=== PATIENT | male | born 1935 | race Caucasian/White ===

== ENCOUNTER 2017-10-29 01:08 | Emergency (ER) | payer OTHER, BC ==
--- OUTSIDE RECORDS SUMMARY | 2017-10-29 01:09 | XMS REPORT | Clinical Summary ---
:1935 Author Organization [facility] Address [address] [place] [address] Care Team Providers Name Role Phone Remy Phoenix DO Primary Care Provider Allergies No Known Allergies Current Medications Prescription Sig. Disp. Refills Start Date End Date Status tamsulosin (FLOMAX) Take 0.4 mg by Active 0.4 mg mouth nightly. capsule,extended release 24hr aspirin (ECOTRIN) Take 81 mg by Active 81 MG enteric mouth daily. coated tablet CALCIUM Take by mouth. Active CARBONATE/VITAMIN D3 (CALTRATE 600 + D ORAL) umeclidinium-vilant Inhale nightly. Active xin (ANORO ELLIPTA) 62.5-25 mcg/actuation blister with device acetaminophen-codei Take 1 tablet by Active ne (TYLENOL WITH mouth every 4 CODEINE #3) 300-30 (four) hours as mg per tablet needed for moderate pain. albuterol (ACCUNEB) Take 2.5 mg by Active 2.5 mg /3 mL (0.083 nebulization as %) nebulizer needed for solution wheezing. ALBUTEROL SULFATE Inhale as needed. 08/20/2017 Discontinued (VENTOLIN HFA INHL) ciprofloxacin HCl Take 250 mg by 04/23/2017 Discontinued (CIPRO) 250 MG mouth 2 (two) tablet times a day. Active Problems Not on file Encounters Date Type Specialty Care Team Description 08/20/2017 Hospital Encounter Procedural Nacho Garduno, Abnormal Cardiology cardiovascular stress test 08/20/2017 Procedure Pass Procedural Cardiology 08/20/2017 Surgery Procedural Nacho Garduno, Cv left heart cath w Cardiology lv gram cors [57431 (CPT)] 04/23/2017 Hospital Encounter Urology Farshad Ames MD 04/23/2017 Procedure Pass Urology 04/23/2017 Surgery Urology Hui, CYSTO BILATERAL Farshad Lopez MD RETROGRADE PYELOGRAM 04/10/2017 Pre-Admit Testing Pre-Admission Hui Preop testing Appointment Testing Farshad Lopez MD (Primary Dx) 04/10/2017 Anesthesia Event Urology Ricardo Marybelalcides Garner, WATER PROOFER after 10/28/2016 Family History Medical History Relation Name Comments Heart disease Brother Heart attack Son Heart disease Son Relation Name Status Comments Brother Son Social History Tobacco Use Types Packs/Day Years Used Date Current Every Day Smoker Cigarettes 1 70 Smokeless Tobacco: Never Used Tobacco Cessation: Ready to Quit: No Alcohol Use Drinks/Week oz/Week Comments No Sex Assigned at Date Recorded Not on file Last Filed Vital Signs Vital Sign Reading Time Taken Blood Pressure 121/66 08/20/2017 8:00 PM [facility] Pulse 98 08/20/2017 7:30 PM [facility] Temperature 36 C (96.8 F) 08/20/2017 1:03 PM [facility] Respiratory Rate 20 08/20/2017 7:30 PM [facility] Oxygen Saturation 97% 08/20/2017 7:30 PM [facility] Inhaled Oxygen Concentration - - Weight 55.8 kg (123 lb) 08/20/2017 9:00 AM [facility] Height 180.3 cm (5' 11") 08/20/2017 9:00 AM [facility] Body Mass Index 17.16 08/20/2017 9:00 AM [facility] Plan of Treatment Health Maintenance Due Date Last Done Comments ZOSTER VACCINE 1997 PNEUMOCOCCAL POLYSACCHARIDE VACCINE AGE 65 AND OVER 2002 PNEUMOCOCCAL-13 2002 INFLUENZA VACCINE 02/12/2018 Implants Implanted Type 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 Device Expiration Model / Identifier Date Serial / Lot Catheter Uretl 4.8fr 8fr 70cm Cn-Tp W/ Opn-End - [id number] Surgical N/A: N/A [employer] UROLOGICAL [id number] / Implanted: 04/23/2017 (Quantity not on file) Implants; / Expanders; Extenders; Surgical Wires Catheter Uretl 6/10fr 50cm Flx-Tp Dlmn Std Accs - [id number] Surgical N/A: N/ A [employer] UROLOGICAL [id number] / Implanted: 04/23/2017 (Quantity not on file) Implants; / Expanders; Extenders; Surgical Wires Catheter Uretl 6fr 70cm Opn-End Rtrgd Pyelogram - [id number] Urological N/A: N /A [employer] UROLOGICAL [id number] / Implanted: 04/23/2017 (Quantity not on file) Implants or / Sets Procedures Procedure Name Priority Date/Time Associated Diagnosis Comments CV LEFT HEART CATH Routine 08/20/2017 12:43 Abnormal Results for this LV GRAM WITH CORS PM [facility] cardiovascular stress procedure are in test the results section. [place] AN ELECTIVE Routine 04/23/2017 8:05 SUPRAGLOTTIC AIRWAY AM CDT Procedure Note - Humberto Morejon CRNA - 04/23/2017 8:03 AM CDT Airway Date/Time: 04/23/2017 7:24 AM Performed by: HUMBERTO MOREJON Authorized by: HUMBERTO MOREJON Location: OR Urgency: Elective Difficult Airway: No Resident/TACTICAL DEBRIEFER OFFICER: HUMBERTO MOREJON Preoxygenated with 100% O2: Yes Mask Ventilation: Easy mask Final Airway Type: Supraglottic airway Final LMA: I-Gel LMA Size: 5 Number of Attempts at Approach: 1 Pt preoxygenated for 3 min with 100% O2 via mask. Easy mask ventilation. igel #5 LMA inserted by SRNA- placement confirmed by ETCO2. Atraumatic CYSTO BILATERAL RETROGRADE PYELOGRAM 04/23/2017 7:15 AM CDT HEMATURIA R31.0 Case Notes REQ 0715 START (@1320 ROSA REQ 0715 START 04/12/17) Special Needs REQ 0715 START, EST 1HR after 10/28/2016 Results XR Chest 1 Vw Portable (08/20/2017 2:38 PM) Specimen Performing Laboratory [facility] [address] [place] [address] Narrative EXAMINATION:XR CHEST 1 VW PORTABLE CLINICAL HISTORY:COPD Emphysema COMPARISON:11/24/2013 IMPRESSION: Heart and mediastinum are stable. Lungs appear hyperinflated. Mild perihilar reticular opacities and left perihilar patchy opacities are seen. No definite consolidations noted. [facility]-[id number] Procedure Note Interface, Radiology Results Incoming - 08/20/2017 3:00 PM [facility] EXAMINATION: XR CHEST 1 VW PORTABLE CLINICAL HISTORY: COPD Emphysema COMPARISON: 11/24/2013 IMPRESSION: Heart and mediastinum are stable. Lungs appear hyperinflated. Mild perihilar reticular opacities and left perihilar patchy opacities are seen. No definite consolidations noted. [facility]-[id number] Cv invasive peripheral vascular procedure (08/20/2017 12:43 PM) Specimen Performing Laboratory [facility] [address] [place] [address] Narrative Abnormal nst procedure : slective cor,lva ,lhc, bypas graft=visualization medical rx optimization f/u in 6 weeks office Cv laboratory assistant procedure (08/20/2017 12:43 PM) Specimen Performing Laboratory [facility] [address] [place] [address] Narrative Abnormal nst procedure : slective cor,lva ,lhc, bypas graft=visualization medical rx optimization f/u in 6 weeks office ECG Pre/Post Op (08/20/2017 10:46 AM)Only the most recent of2 resultswithin the time period is included. Component Value Ref Range Ventricular rate 71 Atrial rate 71 AZ interval 138 QRSD interval 100 QT interval 382 QTC interval 415 P axis 1 83 QRS axis 1 95 T wave axis 51 EKG impression Normal sinus rhythm-Possible Left atrial enlargement-Rightward axis-Pulmonary disease pattern-Cannot rule out Inferior infarct , age undetermined-Abnormal ECG-In automated comparison with ECG of 10-APR-2017 13:21, -No significant change was found- :02 AM Specimen Performing Laboratory [facility] MUSE [address] [place] [address] FL Pyelogram Retrograde (04/23/2017 8:17 AM) Specimen Performing Laboratory [facility] [address] [place] [address] Narrative EXAMINATION:FL PYELOGRAM RETROGRADE CLINICAL HISTORY: COMPARISON:None. FINDINGS: The right ureter was cannulated and opacified and appears unremarkable. No filling defects are noted. The collecting system on the right appears unremarkable to the limits of visualization no filling defects or mass effects are identified. The left ureter was cannulated and opacified and demonstrates mild fullness which is probably result of injection artifact. The collecting system of the left kidney is not defined in the renal calyces are not visualized. Clinical correlation is needed intrarenal mass is not excluded. There are small did opacities projecting in the bladderwhich could represent small diverticula although this is not definitive. IMPRESSION: 1. Nonfilling of the calyceal system on the left. A mass lesion involving the left renal pelvis is not excluded. 2. Minimal fullness in the left ureter probably related to injection artifact. [id number] Procedure Note [facility], Radiology Results Incoming - 04/23/2017 8:36 AM CDT EXAMINATION: FL PYELOGRAM RETROGRADE CLINICAL HISTORY: COMPARISON: None. FINDINGS: The right ureter was cannulated and opacified and appears unremarkable. No filling defects are noted. The collecting system on the right appears unremarkable to the limits of visualization no filling defects or mass effects are identified. The left ureter was cannulated and opacified and demonstrates mild fullness which is probably result of injection artifact. The collecting system of the left kidney is not defined in the renal calyces are not visualized. Clinical correlation is needed intrarenal mass is not excluded. There are small did opacities projecting in the bladder which could represent small diverticula although this is not definitive. IMPRESSION: 1. Nonfilling of the calyceal system on the left. A mass lesion involving the left renal pelvis is not excluded. 2. Minimal fullness in the left ureter probably related to injection artifact. [id number] Cytology (non-gynecological) request (04/23/2017 8:08 AM)Only the most recent of2 resultswithin the time period is included. Component Value Ref Range Cytology (non-gynecological) report See link below for PDF Lab Report Specimen Performing Laboratory [facility] DEPARTMENT OF PATHOLOGY AND GENOMIC MEDICINE [address] [place] [id number] Estimated GFR (04/23/2017 6:23 AM) Component Value Ref Range GFR Non Af Amer 34 (A) mL/min/1.73 m2 GFR Af Amer 42 (A) mL/min/1.73 m2 Comment: Chronic kidney disease: <60 mL/min/1.73m2 Kidney failure: <15 mL/min/1.73m2 The estimated GFR is calculated from the IDMS-traceable Modification of Diet in Renal Disease Equation. The accuracy of the calculation is poor when the creatinine is normal. Calculated values >90 mL/min/1.73m2 are not reported. This equation has not been validated in children (<18 years), women, the elderly (>70 years), or ethnic groups other than Caucasians and Americans. Specimen Performing Laboratory Blood [facility] DEPARTMENT OF PATHOLOGY AND GENOMIC MEDICINE [address] [place] [address] I-Stat chemistry panel (04/23/2017 6:23 AM) Component Value Ref Range POC sodium 135Comment: Testing performed on the ISTAT instrument 135 - 148 mEq/L by [employer] [id number] POC potassium 4.6 3.5 - 5.0 mEq/L POC chloride 108 99 - 109 mEq/L POC CO2 23 (L) 24 - 31 mEq/L POC glucose 94 65 - 99 mg/dL POC BUN 38 (H) 8 - 24 mg/dL POC creatinine 1.9 (H) 0.7 - 1.2 mg/dl POC hematocrit 45 41 - 51 % Specimen Performing Laboratory Blood [facility] PATH[facility] [address] [address] Estimated GFR (04/10/2017 1:03 PM) Component Value Ref Range GFR Non Af Amer 29 (A) mL/min/1.73 m2 GFR Af Amer 35 (A) mL/min/1.73 m2 Comment: Chronic kidney disease: <60 mL/min/1.73m2 Kidney failure: <15 mL/min/1.73m2 The estimated GFR is calculated from the IDMS-traceable Modification of Diet in Renal Disease Equation. The accuracy of the calculation is poor when the creatinine is normal. Calculated values >90 mL/min/1.73m2 are not reported. This equation has not been validated in children (<18 years), women, the elderly (>70 years), or ethnic groups other than Caucasians and Americans. Specimen Performing Laboratory Plasma specimen [facility] DEPARTMENT OF PATHOLOGY AND [address] [address] Partial thromboplastin time, activated (04/10/2017 1:03 PM) Component Value Ref Range PTT 34.9 23.0 - 36.0 sec Comment: PTT therapeutic range for unfractionated heparin is 61.0-112.0 seconds which corresponds to Anti-Xa 0.3-0.7 U/ml. Specimen Performing Laboratory Blood [facility] DEPARTMENT OF PATHOLOGY AND [facility] [address] [place] [id number] Prothrombin time with INR (04/10/2017 1:03 PM) Component Value Ref Range Prothrombin time 13.2 12.0 - 15.0 sec INR 1.0 Comment: The International Normalized Ratio (INR) is a therapeutic monitoring tool for patients who are stable on oral anticoagulant therapy. An INR of 2.0-3.0 is suggested for deep vein thrombosis/pulmonary embolism. Specimen Performing Laboratory Blood [facility] DEPARTMENT OF PATHOLOGY AND [facility] [address] [place] [address] CBC with platelet and differential (04/10/2017 1:03 PM) Component Value Ref Range WBC 12.81 (H) 4.50 - 11.00 k/uL RBC 4.89 4.40 - 6.00 m/uL HGB 14.9 14.0 - 18.0 g/dL HCT 46.7 41.0 - 51.0 % MCV 95.5 82.0 - 100.0 fL MCH 30.5 27.0 - 34.0 pg MCHC 31.9 31.0 - 37.0 g/dL RDW - SD 45.6 37.0 - 55.0 fL MPV 9.5 8.8 - 13.2 fL Platelet count 255 150 - 400 k/uL Nucleated RBC 0.00 /100 WBC Neutrophils 84.4 (H) 39.0 - 69.0 % Lymphocytes 6.1 (L) 25.0 - 45.0 % Monocytes 7.9 0.0 - 10.0 % Eosinophils 0.9 0.0 - 5.0 % Basophils 0.5 0.0 - 1.0 % Immature granulocytes 0.2Comment: "Immature granulocytes" 0.0 - 1.0 % (promyelocytes, myelocytes, metamyelocytes) Specimen Performing Laboratory Blood [facility] DEPARTMENT OF PATHOLOGY AND [address] [address] Comprehensive metabolic panel (04/10/2017 1:03 PM) Component Value Ref Range Sodium 139 135 - 148 mEq/L Potassium 5.1 (H) 3.5 - 5.0 mEq/L Chloride 100 98 - 112 mEq/L CO2 22 (L) 24 - 31 mEq/L Anion gap 17 (H) 7 - 15 mEq/L Comment: Starting from October , anion gap calculation no longer incorporates potassium. Please note the change. BUN 34 (H) 8 - 23 mg/dL Creatinine 2.2 (H) 0.7 - 1.2 mg/dL Glucose 93 65 - 99 mg/dL Calcium 9.8 8.8 - 10.2 mg/dL Protein 7.3 6.3 - 8.3 g/dL Comment: Mullin 4.6-7.0 g/dL 1 week 4.4-7.6 g/dL 7 months-1year5.1-7.3 g/dL 1-2 years5.6-7.5 g/dL >3 years6.0-8.0 g/dL 18-150 6.3-8.3 g/dL Albumin 3.6 3.5 - 5.0 g/dL A/G ratio 1.0 0.7 - 3.8 Alkaline phosphatase 80 40 - 129 U/L AST 14 10 - 50 U/L ALT 10 5 - 50 U/L Total bilirubin 0.6 0.0 - 1.2 mg/dL Specimen Performing Laboratory Plasma specimen [facility] DEPARTMENT OF PATHOLOGY AND GENOMIC MEDICINE [address] [place] [address] after 10/28/2016 Insurance Payer Benefit Plan / Group Subscriber ID Type Phone Address MEDICARE MEDICARE PART A AND B xxxxxxxxxx Medicare [place], [place] [employer] AND xxxxxxxxx Commercial CASUALTY CASUALTY BCBS [facility] xxxxxxxxxxxx PPO Home: [address] [phone] [place], [place] [id number]
[2017-10-29 02:04] LABS: Absolute Lymphocytes (CBC) 1.2 K/uL (0.7-4.9); Absolute Monocytes 0.6 K/uL (0.1-1.3); Absolute Neutrophil 6.6 K/uL (1.8-8.0); Lymphocytes % 12.7 % (15.3-44.8); MCH 30.6 pg (27.0-35.0); MCV 90.8 fL (80-100); MPV 7.4 fL (7.6-11.3); Monocytes % 6.8 % (3.3-12.3); RBC Red Blood Cell Count 4.29 M/uL (4.33-5.43)
[2017-10-29 02:06] LABS: Urine Appearance TURBID; Urine Bilirubin NEGATIVE (NEG); Urine Color RED; Urine Glucose NEGATIVE (NEG); Urine Specific Gravity 1.025 (1.005-1.030)
[2017-10-29 02:07] LABS: Urine Blood 3+ (NEG); Urine Protein 3+ (NEG); Urine Urobilinogen 0.2 mg/dL (0.2-1.0)
[2017-10-29 02:09] LABS: Urine Bacteria <20 /HPF (NONE SEEN); Urine Culture Reflex Order NOT NEEDED; Urine RBC TNTC /HPF (NONE SEEN)
[2017-10-29 02:10] LABS: Potassium 4.7 mEq/L (3.6-5.0)
[2017-10-29 02:16] LABS: Protime INR 0.98
[2017-10-29] MEDS ORDERED: CEFTRIAXONE/SWI 1gm 1 GM/10 ML SYR ONE (02:48)
--- NOTE | 2017-10-29 04:53 | EDPHYS ---
Physician Documentation [facility] Name: Azael Crocker Jr Age: 82 yrs Sex: Male : 1935 Arrival Date: 10/29/2017 Time: 01:10 Bed 18 Private MD: Remy Phoenix H ED Physician Wilfredo Lewis HPI: 10/29 01:41 This 82 yrs old Male presents to ER via Ambulatory with complaints of BLOOD kb IN URINE. 01:41 The patient presents with urinary symptoms, hematuria. Onset: The symptoms/episode kb began/occurred last night, at 22:15. Modifying factors: The symptoms are alleviated by nothing, the symptoms are aggravated by nothing. Associated signs and symptoms: Pertinent positives: hematuria, Pertinent negatives: abdominal pain, constipation, diarrhea, dysuria, fever, nausea, vomiting. Severity of symptoms: At their worst the symptoms were moderate, in the emergency department the symptoms are unchanged. The patient has experienced a previous episode, last year. The patient has not recently seen a physician. 01:42 Pt states he had this same thing happen a year ago. Has a urologist at [facility] (Dr bart Ames) that gave him some pills and the hematuria went away. Pt unsure of what the pills were. Denies pain, fever, difficulty urinating, dysuria and any other symptoms. 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 - Social history:: Smoking status: Patient uses tobacco products, smokes 1.5 packs per day, Patient/guardian denies using alcohol, street drugs. ROS: 01:43 Constitutional: Negative for fever, chills, and weight loss, Cardiovascular: Negative kb for chest pain, palpitations, and edema, Respiratory: Negative for shortness of breath, cough, wheezing, and pleuritic chest pain, Abdomen/GI: Negative for abdominal pain, nausea, vomiting, diarrhea, and constipation, Back: Negative for injury and pain, MS/Extremity: Negative for injury and deformity, Skin: Negative for injury, rash, and discoloration, Neuro: Negative for headache, weakness, numbness, tingling, and seizure. 01:43 : Positive for hematuria, Negative for injury or acute deformity, urinary symptoms, urinary frequency, small amounts, pelvic pain, flank pain, burning with urination, difficulty urinating, bladder incontinence, foul smelling urine, penile discharge, penile pain, testicular pain Exam: 01:43 Constitutional: This is a well developed, well nourished patient who is awake, alert, kb and in no acute distress. Head/Face: Normocephalic, atraumatic. Chest/axilla: Normal chest wall appearance and motion. Nontender with no deformity. No lesions are appreciated. Cardiovascular: Regular rate and rhythm with a normal S1 and S2. No gallops, murmurs, or rubs. Normal PMI, no JVD. No pulse deficits. Respiratory: Lungs have equal breath sounds bilaterally, clear to auscultation and percussion. No rales, rhonchi or wheezes noted. No increased work of breathing, no retractions or nasal flaring. Abdomen/GI: Soft, non-tender, with normal bowel sounds. No distension or tympany. No guarding or rebound. No evidence of tenderness throughout. Back: No spinal tenderness. No costovertebral tenderness. Full range of motion. Skin: Warm, dry with normal turgor. Normal color with no rashes, no lesions, and no evidence of cellulitis. MS/ Extremity: Pulses equal, no cyanosis. Neurovascular intact. Full, normal range of motion. Neuro: Awake and alert, GCS 15, oriented to person, place, time, and situation. Cranial nerves II-XII grossly intact. Motor strength 5/5 in all extremities. Sensory grossly intact. Cerebellar exam normal. Normal gait. Vital Signs: 01:27 BP 152 / 82; Pulse 75; Resp 20 S; Temp 97.9(O); Pulse Ox 97% on R/A; Weight 54.88 kg bb (R); Height 5 ft. 11 in. (180.34 cm) (R); Pain 0/10; 03:00 BP 154 / 70; Pulse 66; Resp 16; Pulse Ox 97% ; bp 04:00 BP 159 / 69; Pulse 64; Resp 14; Pulse Ox 97% ; bp 04:30 BP 148 / 74 Supine; Pulse 66; bp 04:32 BP 139 / 76 Sitting; Pulse 69; bp 04:34 BP 156 / 74 Standing; Pulse 70; bp 01:27 Body Mass Index 16.88 (54.88 kg, 180.34 cm) bb MDM: 01:41 Patient medically screened. kb 01:42 Data reviewed: vital signs, nurses notes. Data interpreted: Pulse oximetry: on room air kb is 97 %. Interpretation: normal. 02:05 Patient medically screened. [facility] 10/29 01:30 Order name: Basic Metabolic Panel; Complete Time: 02:19 10/29 01:30 Order name: CBC with Diff; Complete Time: 02:19 10/29 01:30 Order name: Creatinine for Radiology; Complete Time: 02:19 10/29 01:41 Order name: PT-INR; Complete Time: 02:19 kb 10/29 01:41 Order name: Ptt, Activated; Complete Time: 02:19 kb 10/29 01:30 Order name: IV Saline Lock; Complete Time: 01:45 10/29 01:30 Order name: Labs collected and sent; Complete Time: 01:45 10/29 01:59 Order name: Urinalysis W/Microscopic; Complete Time: 02:19 EDMS 10/29 02:18 Order name: Urine Culture [facility] 10/29 02:18 Order name: CT Stone Protocol [facility] Administered Medications: 02:50 Drug: Rocephin - (cefTRIAXone) 1 grams Route: IVPB; Infused Over: 30 mins; Site: right bp forearm; 05:09 Follow up: IV Status: Completed infusion; IV Intake: 10ml bp Disposition: 02:23 Co-signature as Attending Physician, Wilfredo Lewis MD I agree with the assessment and [facility] plan of care. Disposition: 10/29/17 04:52 Discharged to Home. 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 - Condition is Stable. - Discharge Instructions: Hematuria, Adult, Kidney Failure, [id number]. - Prescriptions for Cipro 250 mg Oral Tablet - take 1 tablet by ORAL route every 12 hours; 14 tablet. Flomax 0.4 mg Oral Capsule, Sust. Release 24 hr - take 1 capsule by ORAL route once daily 1/2 hour following the same meal each day; 30 capsule. - Medication Reconciliation Form, Thank You Letter, Antibiotic Education, Prescription Opioid Use form. - Follow up: Private Physician; When: 2 - 3 days; Reason: Recheck today's complaints, Continuance of care, Re-evaluation by your physician. Follow up: Remy Phoenix DO; When: 1 - 2 days; Reason: Recheck today's complaints, Continuance of care, Re-evaluation by your physician. Follow up: Allyson Kaye MD; When: 1 - 2 days; Reason: Recheck today's complaints, Continuance of care, Re-evaluation by your physician. - Problem is new. - Symptoms have improved. Signatures: Dispatcher [employer] Therese Gamez, DAYSI-C DAYSI-Wilfredo Myles MD MD cha Ballard, Brenda, RN RN Rock Lane RN RN bp Corrections: (The following items were deleted from the chart) 01:44 01:43 : Positive for hematuria, bart kb 01:45 01:30 Urine Dipstick-Ancillary ordered. bb bp 01:51 01:42 Pt states he had this same thing happen a year ago. Has a urologist at [facility] that gave him some pills and the hematuria went away. Pt unsure of what the pills were. Denies pain, fever, difficulty urinating, dysuria and any other symptoms. kb 01:59 01:30 UA MICROSCOPIC+U.LAB.BRZ ordered. EDMS EDMS 01:59 01:45 URINALYSIS+U.LAB.BRZ ordered. EDMS EDMS
--- NOTE | 2017-10-29 04:53 | ER ---
Nurse's Notes [facility] Name: Azael Crocker Jr Age: 82 yrs Sex: Male : 1935 Arrival Date: 10/29/2017 Time: 01:10 Bed 18 Private MD: Remy Phoenix H Diagnosis: Hematuria;Unspecified kidney failure-chronic;Abnormal findings on diagnostic imaging of other body structures-25 mm dependent mass in the bladder, malignancy vs hematoma Presentation: 10/29 01:24 Presenting complaint: Patient states: he started having blood in his urine at approx bb 2200 last night states "it's a lot" pt had an episode last year of this and was given "some pills and it went away" denies pain. Transition of care: patient was not received from another setting of care. Onset of symptoms was October 28, 2017 at 22:00. Care prior to arrival: None. 01:24 Method Of Arrival: Ambulatory bb 01:24 Acuity: BLANE 3 bb Historical: - Allergies: :27 No Known Allergies; bb - Home Meds: :27 tamsulosin 0.4 mg oral cp24 1 cap once daily [Active]; aspirin 81 mg Oral chew 1 tab bb once daily [Active]; Albuterol Inhl [Active]; Metoprolol Tartrate Oral [Active]; unknown blood pressure medication [Active]; - PMHx: 01:27 PROSTATE CA; Hypertension; CAD; bb - PSHx: 01:27 prostate removal; Hernia repair; testicles removed from cancer; CABG; Aortic Valve bb Replacement; mitral valve replacement; - Immunization history:: Adult Immunizations up to date, Pneumococcal vaccine is up to date, Flu vaccine is up to date. - Social history:: Smoking status: Patient uses tobacco products, smokes 1.5 packs per day, Patient/guardian denies using alcohol, street drugs. Screenin:45 Abuse screen: Denies threats or abuse. Denies injuries from another. Nutritional bp screening: No deficits noted. Tuberculosis screening: No symptoms or risk factors identified. Fall Risk None identified. Assessment: 01:30 General: Appears in no apparent distress. comfortable, slender, Behavior is calm, bp cooperative, appropriate for age. Pain: Denies pain. Neuro: Level of Consciousness is awake, alert, obeys commands, Oriented to person, place, time, situation, Appropriate for age. Cardiovascular: No deficits noted. Respiratory: Airway is patent Respiratory effort is even, unlabored, Respiratory pattern is regular, symmetrical. GI: Abdomen is non-distended, Abd is soft and non tender X 4 quads. : Reports HEMATURIA. EENT: No deficits noted. Derm: No deficits noted. Musculoskeletal: Circulation, motion, and sensation intact. Range of motion: intact in all extremities. 03:30 Reassessment: ALL CURRENT ORDERS COMPLETED. VS STABLE ON MONITOR. RESULTS AND DISPO bp PENDING. 04:30 Reassessment: PT ORTHOSTATIC NEGATIVE, CT RESULTS PENDING. STATES NO ACUTE S/S. bp 05:07 Reassessment: PT D/C HOME AMBULATORY WITH FAMILY, DX WITH HEMATURIA. bp Vital Signs: 01:27 BP 152 / 82; Pulse 75; Resp 20 S; Temp 97.9(O); Pulse Ox 97% on R/A; Weight 54.88 kg bb (R); Height 5 ft. 11 in. (180.34 cm) (R); Pain 0/10; 03:00 BP 154 / 70; Pulse 66; Resp 16; Pulse Ox 97% ; bp 04:00 BP 159 / 69; Pulse 64; Resp 14; Pulse Ox 97% ; bp 04:30 BP 148 / 74 Supine; Pulse 66; bp 04:32 BP 139 / 76 Sitting; Pulse 69; bp 04:34 BP 156 / 74 Standing; Pulse 70; bp 01:27 Body Mass Index 16.88 (54.88 kg, 180.34 cm) bb ED Course: 01:10 Patient arrived in ED. es 01:11 Remy Phoenix DO is Private Physician. es 01:21 Rock Smith, RN is Primary Nurse. bp 01:25 Triage completed. bb 01:27 Arm band placed on Patient placed in an exam room, on a stretcher, on pulse oximetry. bb Family accompanied patient. 01:45 Inserted saline lock: 20 gauge in right forearm, using aseptic technique. Blood bp collected. 01:46 Patient has correct armband on for positive identification. Bed in low position. Call bp light in reach. Side rails up X2. Adult w/ patient. 02:05 Wilfredo Lewis MD is Attending Physician. melanie 03:39 CT Stone Protocol In Process Unspecified. EDMS 04:52 Remy Phoenix DO is Referral Physician. melanie 04:52 Allyson Kaye MD is Referral Physician. melanie 05:07 No provider procedures requiring assistance completed. IV discontinued, intact, bp bleeding controlled, No redness/swelling at site. Pressure dressing applied. Administered Medications: 02:50 Drug: Rocephin - (cefTRIAXone) 1 grams Route: IVPB; Infused Over: 30 mins; Site: right bp forearm; 05:09 Follow up: IV Status: Completed infusion; IV Intake: 10ml bp Intake: 05:09 IV: 10ml; Total: 10ml. bp Outcome: 04:52 Discharge ordered by MD. melanie 05:07 Discharged to home ambulatory, with family. bp 05:07 Condition: stable 05:07 Discharge instructions given to patient, Instructed on discharge instructions, follow up and referral plans. medication usage, Demonstrated understanding of instructions, follow-up care, medications, Prescriptions given X 2. 05:09 Patient left the ED. bp Signatures: Dispatcher [employer] EDAL Therese Moses, HOT MOLDER-C HOT MOLDER-Wilfredo Myles MD MD cha Salyer, Edna es Ballard, Brenda, RN RN Rock Lane RN RN bp
[2017-10-29 05:13] VITALS: TEMP 97.9; O2SAT 97
[2017-10-29 05:19] VITALS: BP 156/74
--- NOTE | 2017-10-29 07:11 | RAD REPORT ---
EXAM DESCRIPTION: CT - Stone Protocol - 10/29/2017 4:50 am CLINICAL HISTORY: Abdominal pain, hematuria, history of prostate cancer and prostatectomy A preliminary written report was provided at the time of the study, and the report was reviewed prio r to final dictation. COMPARISON: CT study March 2017 TECHNIQUE: Axial 5 mm thick images were obtained without oral or IV contrast. The [id number] span s the entirety of the system partially obscuring uppermost abdomen and lung bases. All CT scans are performed using dose optimization technique as appropriate and may include automated exposure control or mA/KV adjustment according to patient size. FINDINGS: No hydronephrosis is present and no obstructing ureteral calculi. Multiple bilateral moder ate to large sized renal cysts are present. Patient has a 2.8 centimeter exophytic mass lateral right kidney is not fully characterized. Size has not clearly changed since last March. This is probab ly a complex cyst. Additional left renal cyst shows wall calcification. Isodense masses and pyeloneph ritis are not excluded. No urinary bladder calculi. There is prominent soft tissue near the trigone a nd junction with the prostate gland. No urinary bladder suspicious finding. Provided history indicate s prostatectomy. There is remnant soft tissue at the prostate gland with calcifications and focal met al artifact from prior therapy. Changes at the prostate bed are stable from prior imaging. Imaged portions of the liver, spleen and pancreas show no suspicious findings on non-contrast imaging . No gallbladder or biliary tree abnormality identified. No significant adrenal finding. No acute stomach finding. No dilated small bowel or acute small bowel finding. There is a large amoun t of stool filling but not dilating the very tortuous and redundant colon. An acute colon process is not suspected. No mass or bulky lymphadenopathy. Right inguinal hernia repair changes are present. No new or recurre nt hernia seen. No free air, free fluid or inflammatory stranding. Dense vascular calcifications are present. No aneurysm seen. Patient likely has bilateral iliac arter y stenosis. Disc and bony degenerative changes are present. Pathologic bone process not suspected. Imaged lung bases show emphysema change along with granuloma. No acute lung base finding. IMPRESSION: Multiple bilateral moderate to large sized simple and complex cysts. No clear change fro m prior imaging. Isodense masses and pyelonephritis are not excluded. Soft tissue fullness in the prostate bed and trigone of the bladder.Urinary bladder mass cannot be ex cluded ; however, no clear change from March 2017. Large amount of stool filling the very tortuous and redundant colon. No acute GI process suspected.
== END 2017-10-29 05:09 | disposition home or self-care (01) ==
LOC: ER 01:08
DX: I12.9 Hypertensive chronic kidney disease with stage 1 through stage 4 chronic kidney disease, or unspecified chronic kidney disease (principal); N18.9 Chronic kidney disease, unspecified; R93.41 Abnormal radiologic findings on diagnostic imaging of renal pelvis, ureter, or bladder; N32.9 Bladder disorder, unspecified; F17.210 Nicotine dependence, cigarettes, uncomplicated; Z90.79 Acquired absence of other genital organ(s); Z79.82 Long term (current) use of aspirin; Z85.46 Personal history of malignant neoplasm of prostate; Z95.1 Presence of aortocoronary bypass graft; Z95.4 Presence of other heart-valve replacement
CPT/HCPCS: 36415; 74176; 76377; 80048; 81001; 85025; 85610; 85730; 87086; 87088; 96365; 96366; 99284; J0696

== ENCOUNTER 2017-10-31 22:39 | Emergency (ER) | payer OTHER, BC ==
--- OUTSIDE RECORDS SUMMARY | 2017-10-31 22:40 | XMS REPORT | Clinical Summary ---
:1935 Author Organization [facility] Address [address] [place] [address] Care Team Providers Name Role Phone Remy [...] (ANORO ELLIPTA) 62.5-25 mcg/actuation blister with device albuterol sulfate Inhale as needed. Active (VENTOLIN HFA INHL) isosorbide Take 30 mg by Active mononitrate (IMDUR) mouth nightly. 30 MG 24 hr tablet clopidogrel Take 75 mg by Active (PLAVIX) 75 mg mouth daily. tablet metoprolol tartrate Take 25 mg by Active (LOPRESSOR) 25 mg mouth 2 (two) tablet times a day. ALBUTEROL SULFATE Inhale as needed. 08/20/2017 Discontinued (VENTOLIN HFA INHL) acetaminophen-codei Take 1 tablet by 10/29/2017 Discontinued ne (TYLENOL WITH mouth every 4 CODEINE #3) 300-30 (four) hours as mg per tablet needed for moderate pain. ciprofloxacin HCl Take 250 mg by 04/23/2017 Discontinued (CIPRO) 250 MG mouth 2 (two) tablet times a day. albuterol (ACCUNEB) Take 2.5 mg by 10/29/2017 Discontinued 2.5 mg /3 mL (0.083 nebulization as %) nebulizer needed for solution wheezing. Active Problems Not on file Encounters Date Type Specialty Care Team Description 10/29/2017 Pre-Admit Testing Pre-Admission Hui, Preop testing Appointment Testing Farshad Lopez MD (Primary Dx) 08/20/2017 Hospital Encounter Procedural Nacho Garduno, Abnormal Cardiology cardiovascular stress test 08/20/2017 Procedure Pass Procedural Cardiology 08/20/2017 Surgery Procedural Nacho Garduno, Cv left heart cath w Cardiology lv gram cors [27056 (CPT)] 04/23/2017 Hospital Encounter Urology Farshad Ames MD 04/23/2017 Procedure Pass Urology 04/23/2017 Surgery Urology Hui, CYSTO BILATERAL Farshad Lopez MD RETROGRADE PYELOGRAM 04/10/2017 Pre-Admit Testing Pre-Admission Hui, Preop testing Appointment Testing Farshad Lopez MD (Primary Dx) 04/10/2017 Anesthesia Event Urology Marybel Silva NP after 10/30/2016 Family History Medical History Relation Name Comments Heart disease Brother Heart attack Son Heart disease Son Relation Name Status Comments Brother Son Social History Tobacco Use Types Packs/Day Years Used Date Current Every Day Smoker Cigarettes 1.5 70 Smokeless Tobacco: Never Used Tobacco Cessation: Ready to Quit: No Alcohol Use Drinks/Week oz/Week Comments No Sex Assigned at Date Recorded Not on file Last Filed Vital Signs Vital Sign Reading Time Taken Blood Pressure 125/72 10/29/2017 5:28 PM CDT Pulse 75 10/29/2017 5:28 PM CDT Temperature 35.8 C (96.5 F) 10/29/2017 5:28 PM CDT Respiratory Rate 20 10/29/2017 5:28 PM CDT Oxygen Saturation 97% 10/29/2017 5:28 PM CDT Inhaled Oxygen Concentration - - Weight 54.9 kg (121 lb) 10/29/2017 5:28 PM CDT Height 181.6 cm (5' 11.5") 10/29/2017 5:28 PM CDT Body Mass Index 16.64 10/29/2017 5:28 PM CDT Plan of Treatment Date Type Specialty Care Team Description 10/29/2017 Anesthesia Event Urology Madiha Haile NP [address] [place] [address] [phone] 11/04/2017 Surgery Urology Farshad Ames, CYSTOSCOPY, BILATERAL RETROGRADE PYLEOGRAM [address] [place], [place] [id number] 11/04/2017 Procedure Pass Urology 11/04/2017 Hospital Encounter Urology Farshad Ames MD [address] [place], [place] [id number] Health Maintenance Due Date Last Done Comments ZOSTER VACCINE 1997 PNEUMOCOCCAL POLYSACCHARIDE VACCINE AGE 65 AND OVER 2002 PNEUMOCOCCAL-13 2002 INFLUENZA VACCINE 02/12/2018 Implants Implanted Type Area Progressive Care Manager Device Expiration Model / Identifier Date Serial / Lot Catheter Uretl 4.8fr 8fr 70cm Cn-Tp W/ Opn-End - [id number] Surgical N/A: N/A [employer] [id number] / Implanted: 04/23/2017 (Quantity not on file) Implants; / Expanders; Extenders; Surgical Wires Catheter Uretl 6/10fr 50cm Flx-Tp Dlmn Std Accs - [id number] Surgical N/A: N/ A [employer] [id number] / Implanted: 04/23/2017 (Quantity not on file) Implants; / Expanders; Extenders; Surgical Wires Catheter Uretl 6fr 70cm Opn-End Rtrgd Pyelogram - [id number] Urological N/A: N /A [employer] [id number] / Implanted: 04/23/2017 (Quantity not on file) Implants or / Sets Procedures Procedure Name Priority Date/Time Associated Diagnosis Comments CV LEFT HEART CATH Routine 08/20/2017 12:43 Abnormal Results for this LV GRAM WITH CORS PM VP ANCILLARY cardiovascular stress procedure are in test the results section. AR AN ELECTIVE Routine 04/23/2017 8:05 SUPRAGLOTTIC AIRWAY AM CDT Procedure Note - Humberto Morejon CRNA - 04/23/2017 8:03 AM CDT Airway Date/Time: 04/23/2017 7:24 AM Performed by: HUMBERTO MOREJON Authorized by: HUMBERTO MOREJON Location: OR Urgency: Elective Difficult Airway: No Resident/ELECTRICIAN ELEVATOR MAINTENANCE: ALI, NAVROZ Preoxygenated with 100% O2: Yes Mask Ventilation: [...] Needs REQ 0715 START, EST 1HR after 10/30/2016 Results Urine culture (10/29/2017 6:20 PM) Component Value Ref Range Urine culture SEE COMMENTComment: Bacteriuria screen negative. Specimen Performing Laboratory [facility] DEPARTMENT OF PATHOLOGY AND GENOMIC MEDICINE [address] [place] [id number] ECG Pre/Post Op (10/29/2017 6:07 PM)Only the most recent of3 resultswithin the time period is included. Component Value Ref Range Ventricular rate 68 Atrial rate 68 AR interval 140 QRSD interval 112 QT interval 406 QTC interval 431 P axis 1 84 QRS axis 1 91 T wave axis 66 EKG impression Normal sinus rhythm-Rightward axis-Pulmonary disease pattern-Abnormal ECG-In automated comparison with ECG of 20-AUG-2017 10:46,-No significant change was found- Specimen Performing Laboratory [facility] [address] [place] [address] Urinalysis screen and microscopy, with reflex to culture (10/29/2017 5:43 PM) Component Value Ref Range Specimen site Clean catch Color, UA Straw Appearance, UA Clear Specific gravity, UA 1.015 1.001 - 1.035 pH, UA 6.0 5.0 - 8.5 Protein, UA Negative Negative Glucose, UA Negative Negative Ketones, UA Negative Negative Bilirubin, UA Negative Negative Blood, UA Moderate (A) Negative Nitrite, UA Negative Negative Urobilinogen, UA <2.0 <2.0 Leukocyte esterase, UA Negative Negative WBC, UA 1 0 - 1 /HPF RBC, UA 16 (H) 0 - 5 /HPF Bacteria, UA None seen None seen Yeast, UA None seen Yeast with pseudohyphae, UA None seen Specimen Performing Laboratory Urine [facility] DEPARTMENT OF PATHOLOGY AND [facility] [address] [place] [address] Estimated GFR (10/29/2017 5:43 PM)Only the most recent of2 resultswithin the time period is included. Component Value Ref Range GFR Non Af Amer 30 (A) mL/min/1.73 m2 GFR Af Amer 37 (A) mL/min/1.73 m2 Comment: Chronic kidney disease: [...] and Americans. Specimen Performing Laboratory Plasma specimen [facility] DEPARTMENT OF PATHOLOGY AND GENOMIC MEDICINE [address] [place] [address] CBC hemogram (10/29/2017 5:43 PM) Component Value Ref Range WBC 9.82 4.50 - 11.00 k/uL RBC 4.26 (L) 4.40 - 6.00 m/uL HGB 12.8 (L) 14.0 - 18.0 g/dL HCT 39.4 (L) 41.0 - 51.0 % MCV 92.5 82.0 - 100.0 fL MCH 30.0 27.0 - 34.0 pg MCHC 32.5 31.0 - 37.0 g/dL RDW - SD 45.7 37.0 - 55.0 fL MPV 9.2 8.8 - 13.2 fL Platelet count 270 150 - 400 k/uL Nucleated RBC 0.00 /100 WBC Specimen Performing Laboratory Urine [facility] DEPARTMENT OF PATHOLOGY AND [facility] [address] [place] [id number] Basic metabolic panel (10/29/2017 5:43 PM) Component Value Ref Range Sodium 138 135 - 148 mEq/L Potassium 4.9 3.5 - 5.0 mEq/L Chloride 101 98 - 112 mEq/L CO2 23 (L) 24 - 31 mEq/L Anion gap 14 7 - 15 mEq/L Comment: Starting from October , anion gap calculation no longer incorporates potassium. Please note the change. BUN 34 (H) 8 - 23 mg/dL Creatinine 2.1 (H) 0.7 - 1.2 mg/dL Glucose 87 65 - 99 mg/dL Calcium 9.3 8.8 - 10.2 mg/dL Specimen Performing Laboratory Plasma specimen [facility] DEPARTMENT OF PATHOLOGY AND GENOMIC MEDICINE [address] [place] [address] XR Chest 1 Vw Portable (08/20/2017 2:38 PM) Specimen Performing Laboratory [facility] [address] [place] [address] Narrative EXAMINATION:XR CHEST 1 VW PORTABLE CLINICAL HISTORY:COPD Emphysema COMPARISON:11/24/2013 IMPRESSION: Heart and mediastinum are stable. Lungs appear hyperinflated. Mild perihilar reticular opacities and left perihilar patchy opacities are seen. No definite consolidations noted. [facility]-[id number] Procedure Note Interface, Radiology Results Incoming - 08/20/2017 3:00 PM VP ANCILLARY EXAMINATION: XR CHEST 1 VW PORTABLE CLINICAL HISTORY: COPD Emphysema COMPARISON: 11/24/2013 IMPRESSION: Heart and mediastinum are stable. Lungs appear hyperinflated. Mild perihilar reticular opacities and left perihilar patchy opacities are seen. No definite consolidations noted. [facility]-[id number] Cv invasive peripheral vascular procedure (08/20/2017 12:43 PM) Specimen Performing Laboratory [facility] [address] [place] [address] Narrative Abnormal nst procedure : slective cor,lva ,lhc, bypas graft=visualization medical rx optimization f/u in 6 weeks office Cv clinical laboratory aide procedure (08/20/2017 12:43 PM) Specimen Performing Laboratory [facility] [address] [place] [address] Narrative Abnormal nst procedure : slective cor,lva ,lhc, bypas graft=visualization medical rx optimization f/u in 6 weeks office [place] Pyelogram Retrograde (04/23/2017 8:17 AM) Specimen Performing Laboratory [facility] [address] [place] [address] Narrative EXAMINATION:FL PYELOGRAM RETROGRADE CLINICAL HISTORY: COMPARISON:None. [...] left ureter probably related to injection artifact. [id number] Procedure Note [facility], Radiology Results Incoming - 04/23/2017 8:36 AM [...] left ureter probably related to injection artifact. [id number] Cytology (non-gynecological) request (04/23/2017 8:08 AM)Only the most recent of2 resultswithin the time period is included. Component Value Ref Range Cytology (non-gynecological) report See link below for PDF Lab Report Specimen Performing Laboratory [facility] DEPARTMENT OF PATHOLOGY AND GENOMIC MEDICINE [address] [place] [address] Estimated GFR (04/23/2017 6:23 AM) Component Value [...] Caucasians and Americans. Specimen Performing Laboratory Blood [facility] DEPARTMENT OF PATHOLOGY AND [facility] [address] [place] [address] I-Stat chemistry panel (04/23/2017 6:23 AM) Component Value Ref Range POC sodium 135Comment: Testing performed on the [employer] instrument 135 - 148 mEq/L by [employer] [id number] POC potassium 4.6 3.5 - 5.0 mEq/L POC chloride 108 99 - 109 mEq/L POC CO2 23 (L) 24 - 31 mEq/L POC glucose 94 65 - 99 mg/dL POC BUN 38 (H) 8 - 24 mg/dL POC creatinine 1.9 (H) 0.7 - 1.2 mg/dl POC hematocrit 45 41 - 51 % Specimen Performing Laboratory Blood [facility] [address] [address] Partial thromboplastin time, activated (04/10/2017 1:03 PM) Component Value Ref Range PTT 34.9 23.0 - 36.0 sec Comment: PTT therapeutic range for unfractionated heparin is 61.0-112.0 seconds which corresponds to Anti-Xa 0.3-0.7 U/ml. Specimen Performing Laboratory Blood [facility] DEPARTMENT OF PATHOLOGY AND [facility] [address] [place] [address] Prothrombin time with INR (04/10/2017 1:03 PM) Component Value Ref Range Prothrombin time 13.2 12.0 - 15.0 sec INR 1.0 Comment: The International Normalized Ratio (INR) is a therapeutic monitoring tool for patients who are stable on oral anticoagulant therapy. An INR of 2.0-3.0 is suggested for deep vein thrombosis/pulmonary embolism. Specimen Performing Laboratory Blood [facility] PATHOLOGY AND [facility] [address] [place] [address] CBC with platelet and differential (04/10/2017 1:03 [...] (promyelocytes, myelocytes, metamyelocytes) Specimen Performing Laboratory Blood [facility]PARTMENT OF PATHOLOGY AND GENOMIC MEDICINE [address] [place] [address] Comprehensive metabolic panel (04/10/2017 1:03 PM) Component [...] Protein 7.3 6.3 - 8.3 g/dL Comment: 4.6-7.0 g/dL 1 week 4.4-7.6 g/dL 7 months-1year5.1-7.3 g/dL 1-2 years5.6-7.5 g/dL >3 years6.0-8.0 g/dL 18-150 6.3-8.3 g/dL Albumin 3.6 3.5 - 5.0 g/dL A/G ratio 1.0 0.7 - 3.8 Alkaline phosphatase 80 40 - 129 U/L AST 14 10 - 50 U/L ALT 10 5 - 50 U/L Total bilirubin 0.6 0.0 - 1.2 mg/dL Specimen Performing Laboratory Plasma specimen [facility] DEPARTMENT OF PATHOLOGY AND GENOMIC MEDICINE [address] [place] [address] after 10/30/2016 Insurance Payer Benefit Plan / Group Subscriber ID Type Phone Address MEDICARE MEDICARE PART A AND B xxxxxxxxxx Medicare [place] [employer] AND xxxxxxxxx Commercial CASUALTY CASUALTY BCBS [facility] [employer] xxxxxxxxxxxx PPO Home: [address] [phone] [place] [id number]
[2017-10-31] MEDS ORDERED: ADENOSINE 6 MG/ 2ML VIAL IV ONE (23:01)
[2017-10-31] MEDS ORDERED: NA CHLORIDE 0.9% 1,000 ML ONE (23:12)
[2017-10-31] MEDS ORDERED: METOPROLOL TARTRATE 5 MG/5 ML INJ IV ONE (23:12)
[2017-10-31 23:27] LABS: Absolute Lymphocytes (CBC) 1.7 K/uL (0.7-4.9); Absolute Monocytes 0.8 K/uL (0.1-1.3); Absolute Neutrophil 6.8 K/uL (1.8-8.0); Eosinophils % 5.3 % (0-4.4); Hematocrit 40.1 % (39.6-49.0); Lymphocytes % 16.9 % (15.3-44.8); MCH 30.7 pg (27.0-35.0); MCV 90.5 fL (80-100); MPV 7.7 fL (7.6-11.3); Monocytes % 8.5 % (3.3-12.3); RBC Red Blood Cell Count 4.44 M/uL (4.33-5.43)
[2017-10-31 23:31] LABS: Protime INR 0.97
[2017-10-31 23:53] LABS: Bicarbonate 25 mEq/L (21-31); Glucose Level 111 mg/dL (65-120); Potassium 4.5 mEq/L (3.6-5.0); Sodium Level 137 mEq/L (135-145)
[2017-10-31 23:59] LABS: ALT/SGPT 9 IU/L (10-60); AST/SGOT 13 IU/L (10-42); Albumin 3.8 g/dL (3.2-5.5); Alkaline Phosphatase 82 IU/L (42-121); BUN Blood Urea Nitrogen 38 mg/dL (6-20); Bilirubin Direct < 0.1 mg/dL (0-0.2); Bilirubin Total 0.3 mg/dL (0.3-1.2); Creatine Phosphokinase 37 IU/L (22-269); Magnesium 2.1 mg/dL (1.8-2.5); Protein, Total 7.1 g/dL (6.0-8.3)
[2017-11-01 00:03] LABS: CKMB Creatine Kinase MB 1.5 ng/ml (0.3-4.0)
--- NOTE | 2017-11-01 00:47 | ER ---
Nurse's Notes [facility] Name: Azael Crocker Jr Age: 82 yrs Sex: Male : 1935 Arrival Date: 10/31/2017 Time: 22:41 Bed 2 Private MD: Remy Phoenix H Diagnosis: Supraventricular tachycardia Presentation: 10/31 22:53 Presenting complaint: Patient states: My BP cuff said my heart rate was 170. Denies tl2 pain, shortness of breath or nausea. Transition of care: patient was not received from another setting of care. Onset of symptoms was October 31, 2017 at 22:30. Initial Sepsis Screen: Does the patient meet any 2 criteria? HR > 90 bpm. No. Patient's initial sepsis screen is negative. Does the patient have a suspected source of infection? No. Patient's initial sepsis screen is negative. Care prior to arrival: None. 22:53 Method Of Arrival: Wheelchair tl2 22:53 Acuity: BLANE 2 tl2 Triage Assessment: 22:58 General: Appears in no apparent distress. comfortable, Behavior is calm, cooperative, tl2 appropriate for age. Pain: Denies pain. Neuro: Level of Consciousness is awake, alert, obeys commands, Oriented to person, place, time, situation. Cardiovascular: Denies chest pain, Rhythm is SVT. Respiratory: Airway is patent Respiratory effort is even, unlabored, Respiratory pattern is regular, symmetrical, Denies shortness of breath. GI: No signs and/or symptoms were reported involving the gastrointestinal system. : No signs and/or symptoms were reported regarding the genitourinary system. Derm: No signs and/or symptoms reported regarding the dermatologic system. Historical: - Allergies: 22:58 No Known Allergies; tl2 - Home Meds: 22:58 Albuterol Inhl [Active]; aspirin 81 mg Oral chew 1 tab once daily [Active]; Metoprolol tl2 Tartrate Oral [Active]; tamsulosin 0.4 mg Oral cp24 1 cap once daily [Active]; isosorbide mononitrate 30 mg Oral Tb24 1 tab once daily [Active]; - PMHx: 22:58 CAD; Hypertension; PROSTATE CA; tl2 - PSHx: 22:58 valve replacement; tl2 - Immunization history:: Adult Immunizations up to date. - Social history:: Smoking status: Patient uses tobacco products, denies chronic smoking, but will smoke occasionally. Screenin:50 Abuse screen: Denies threats or abuse. Nutritional screening: No deficits noted. bb Tuberculosis screening: No symptoms or risk factors identified. Fall Risk None identified. Assessment: 22:50 General: Appears in no apparent distress. slender, Behavior is calm, cooperative, bb Reports feeling palpitations. Pain: Denies pain. Neuro: Level of Consciousness is awake, alert, obeys commands, Oriented to person, place, time, situation. Cardiovascular: Heart tones S1 S2 present Capillary refill < 3 seconds Patient's skin is warm and dry. Pulses are palpable in right radial artery and left radial artery Edema is absent. Rhythm is SVT. Respiratory: Respiratory effort is unlabored, Breath sounds are clear bilaterally. GI: No deficits noted. No signs and/or symptoms were reported involving the gastrointestinal system. Derm: Skin is pink, warm \\T\\ dry. Musculoskeletal: Circulation, motion, and sensation intact. 23:08 Reassessment: pt HR 100 after adenosine administration states he is feeling better. bb 23:34 Reassessment: Patient is alert, oriented x 3, equal unlabored respirations, skin bb warm/dry/pink. pt"s HR 76, resting quietly, IV site intact, patent, with fluids infusing, spouse at bedside. 11/01 00:10 Reassessment: Patient appears in no apparent distress at this time. Patient and/or tl2 family updated on plan of care and expected duration. Pain level reassessed. Patient is alert, oriented x 3, equal unlabored respirations, skin warm/dry/pink. Patient states feeling better. 00:16 Reassessment: pt resting quietly, eyes closed, resp unlabored, IV site intact, patent, bb with fluids infusing Antwan Enriquez CAMPAIGN ASSOCIATE at bedside instructed pt and spouse on plan of care pt to complete bolus of NS 0.9% 500 mLs and then will be discharged home. Pt and spouse verbalized understanding of and agree to plan of care. 01:17 Reassessment: Patient and/or family updated on plan of care and expected duration. Pain bb level reassessed. Patient is alert, oriented x 3, equal unlabored respirations, skin warm/dry/pink. pt received skin tear to right forearm during removal of IV cleansed with normal saline, antibiotic ointment applied, covered with tegaderm. Pt and spouse verbalized understanding of and agrees to plan of care discharge instructions given pt ambulated with steady gait to exit accompanied by spouse. Vital Signs: 10/31 22:50 BP 115 / 88; Pulse 163; Resp 20 S; Temp 97.7(O); Pulse Ox 96% on R/A; Weight 54.88 kg tl2 (R); Height 5 ft. 11 in. (180.34 cm) (R); Pain 0/10; 23:05 BP 111 / 77; Pulse 160; Resp 20 S; Pulse Ox 97% on R/A; bb 23:08 BP 133 / 82; Pulse 100; Resp 20 S; Pulse Ox 98% on R/A; bb 23:17 Pulse 88; Resp 18 S; Pulse Ox 98% on R/A; bb 23:33 BP 132 / 68; Pulse 76; Resp 18 S; Pulse Ox 97% on R/A; bb 23:50 BP 116 / 67; Pulse 75; Resp 21; Pulse Ox 96% on R/A; tl2 11/01 00:10 BP 122 / 70; Pulse 75; Resp 17; Pulse Ox 97% on R/A; tl2 01:20 BP 131 / 76; Pulse 82; Resp 18 S; Temp 97.9(O); Pulse Ox 96% on R/A; Pain 0/10; bb 10/31 22:50 Body Mass Index 16.87 (54.88 kg, 180.34 cm) tl2 Vitals: 10/31 22:50 Cardiac Rhythm Assessment SVT. tl2 23:50 Cardiac Rhythm Assessment Sinus rhythm. tl2 11/01 00:10 Cardiac Rhythm Assessment Sinus rhythm. tl2 ED Course: 10/31 22:41 Patient arrived in ED. am2 22:41 Remy Phoenix DO is Private Physician. am2 22:50 Patient has correct armband on for positive identification. Placed in gown. Bed in low bb position. Call light in reach. Side rails up X2. Adult w/ patient. site monitor on. Pulse ox on. NIBP on. Warm blanket given. 22:50 Patient placed in an exam room, on a stretcher, on patient monitor, on pulse oximetry. bb 22:52 Paul Enriquze NP is PHCP. pm1 22:52 Juan Birch MD is Attending Physician. pm1 22:53 Leigha Martinez, DEEPALI is Primary Nurse. tl2 22:55 Triage completed. tl2 22:55 EKG done, by ED staff, reviewed by Juan Birch MD. cb2 22:55 Initial lab(s) drawn, by al, sent to lab. Inserted saline lock: 18 gauge in right bb forearm, using aseptic technique. Blood collected. 23:15 XRAY Chest (1 view) In Process Unspecified. EDMS 23:17 EKG done, by ED staff, reviewed by Juan Birch MD. Patient maintains SpO2 saturation bb greater than 95% on room air. 23:26 X-ray completed. Portable x-ray completed in exam room. Patient tolerated procedure kw well. 11/01 00:45 Miah Fan MD is Referral Physician. pm1 01:19 No provider procedures requiring assistance completed. IV discontinued, intact, bb bleeding controlled, No redness/swelling at site. Pressure dressing applied. Administered Medications: 10/31 23:05 Drug: Adenocard 6 mg Route: IVP; Site: right forearm; bb 23:21 Follow up: Response: Marked relief of symptoms bb 23:15 Drug: Lopressor 5 mg Route: IVP; Site: right forearm; bb 11/01 00:15 Follow up: Response: No adverse reaction; Other; heart rate has lowered bb 10/31 23:15 Drug: NS 0.9% 1000 ml Route: IV; Rate: 100 ml/hr; Site: right forearm; bb 11/01 00:23 Follow up: Rate change 500 bolus bb 00:54 Follow up: IV Status: Completed infusion; IV Intake: 600ml bb 10/31 23:20 CANCELLED (Duplicate Order): NS 0.9% 1000 ml IV at 100 ml/hr once bb 11/01 00:54 CANCELLED (Other Intervention Used): NS 0.9% 500 ml IV at bolus once bb Intake: 00:54 IV: 600ml; Total: 600ml. bb Outcome: 00:46 Discharge ordered by . pm1 01:20 Discharged to home ambulatory, with family. bb 01:20 Condition: stable 01:20 Discharge instructions given to patient, family, Instructed on discharge instructions, follow up and referral plans. Demonstrated understanding of instructions, follow-up care. 01:21 Patient left the ED. bb Signatures: Dispatcher [employer] Miguelina Hernández RN RN bb Renate Eduardo Patrick, NP CAMPAIGN ASSOCIATE pm1 Leigha Martinez RN RN tl2 [place] am2 Myles Cerrato Corrections: (The following items were deleted from the chart) 10/31 23:50 22:50 BP 115 / 88; Pulse 163bpm; Resp 20bpm; Spontaneous; Pulse Ox 96% RA; Temp 97.7F tl2 Oral; 54.88 kg Reported; Height 5 ft. 11 in. Reported; BMI: 16.8; Pain 0/10; bb
--- NOTE | 2017-11-01 00:47 | EDPHYS ---
Physician Documentation [facility] Name: Azael Crocker Jr Age: 82 yrs Sex: Male : 1935 Arrival Date: 10/31/2017 Time: 22:41 Bed 2 Private MD: Remy Phoenix H ED Physician Juan Birch HPI: 10/31 23:05 This 82 yrs old Male presents to ER via Wheelchair with complaints of rapid pm1 heart beat. 23:05 The patient presents with a history of heart racing. Context: The symptoms occur pm1 without known cause, and the patient has a history of SVT. Onset: The symptoms/episode began/occurred 1 hour(s) ago. Duration: The patient or guardian reports a single episode, that is still ongoing. Modifying factors: The symptoms are aggravated by nothing. The symptoms are alleviated by nothing. Associated signs and symptoms: Pertinent negatives: chest pain, cough, nausea, SOB, syncope, near-syncope, vomiting. Severity of symptoms: in the emergency department the symptoms are unchanged. The patient has experienced a previous episode, approximately 3 months ago. The patient has been recently seen at the [facility] Emergency Department, this week, for unrelated complaints, Hematuria. Historical: - Allergies: 22:58 No Known Allergies; tl2 - Home Meds: 22:58 Albuterol Inhl [Active]; aspirin 81 mg Oral chew 1 tab once daily [Active]; Metoprolol tl2 Tartrate Oral [Active]; tamsulosin 0.4 mg Oral cp24 1 cap once daily [Active]; isosorbide mononitrate 30 mg Oral Tb24 1 tab once daily [Active]; - PMHx: 22:58 CAD; Hypertension; PROSTATE CA; tl2 - PSHx: 22:58 valve replacement; tl2 - Immunization history:: Adult Immunizations up to date. - Social history:: Smoking status: Patient uses tobacco products, denies chronic smoking, but will smoke occasionally. ROS: 23:05 Constitutional: Negative for fever, chills, and weight loss, Eyes: Negative for injury, pm1 pain, redness, and discharge, ENT: Negative for injury, pain, and discharge, Neck: Negative for injury, pain, and swelling. 23:05 Respiratory: Negative for shortness of breath, cough, wheezing, and pleuritic chest pain, Abdomen/GI: Negative for abdominal pain, nausea, vomiting, diarrhea, and constipation, Back: Negative for injury and pain, : Negative for injury, bleeding, discharge, and swelling, MS/Extremity: Negative for injury and deformity, Skin: Negative for injury, rash, and discoloration, Neuro: Negative for headache, weakness, numbness, tingling, and seizure. 23:05 Cardiovascular: Positive for palpitations, Negative for chest pain, edema, paroxysmal nocturnal dyspnea. Exam: 23:05 Constitutional: This is a well developed, well nourished patient who is awake, alert, pm1 and in no acute distress. Head/Face: Normocephalic, atraumatic. Eyes: Pupils equal round and reactive to light, extra-ocular motions intact. Lids and lashes normal. Conjunctiva and sclera are non-icteric and not injected. Cornea within normal limits. Periorbital areas with no swelling, redness, or edema. ENT: Nares patent. No nasal discharge, no septal abnormalities noted. Tympanic membranes are normal and external auditory canals are clear. Oropharynx with no redness, swelling, or masses, exudates, or evidence of obstruction, uvula midline. Mucous membranes moist. Neck: Trachea midline, no thyromegaly or masses palpated, and no cervical lymphadenopathy. Supple, full range of motion without nuchal rigidity, or vertebral point tenderness. No Meningismus. Chest/axilla: Normal chest wall appearance and motion. Nontender with no deformity. No lesions are appreciated. 23:05 Respiratory: Lungs have equal breath sounds bilaterally, clear to auscultation and percussion. No rales, rhonchi or wheezes noted. No increased work of breathing, no retractions or nasal flaring. Abdomen/GI: Soft, non-tender, with normal bowel sounds. No distension or tympany. No guarding or rebound. No evidence of tenderness throughout. Back: No spinal tenderness. No costovertebral tenderness. Full range of motion. Skin: Warm, dry with normal turgor. Normal color with no rashes, no lesions, and no evidence of cellulitis. MS/ Extremity: Pulses equal, no cyanosis. Neurovascular intact. Full, normal range of motion. 23:05 Cardiovascular: Rate: tachycardic, Rhythm: regular, Pulses: no pulse deficits are appreciated, Heart sounds: normal, Edema: is not appreciated. 23:05 ECG was reviewed by the Attending Physician. SVT 160 bpm 23:05 Neuro: Orientation: is normal, Motor: moves all fours. Vital Signs: 22:50 BP 115 / 88; Pulse 163; Resp 20 S; Temp 97.7(O); Pulse Ox 96% on R/A; Weight 54.88 kg tl2 (R); Height 5 ft. 11 in. (180.34 cm) (R); Pain 0/10; 23:05 BP 111 / 77; Pulse 160; Resp 20 S; Pulse Ox 97% on R/A; bb 23:08 BP 133 / 82; Pulse 100; Resp 20 S; Pulse Ox 98% on R/A; bb 23:17 Pulse 88; Resp 18 S; Pulse Ox 98% on R/A; bb 23:33 BP 132 / 68; Pulse 76; Resp 18 S; Pulse Ox 97% on R/A; bb 23:50 BP 116 / 67; Pulse 75; Resp 21; Pulse Ox 96% on R/A; tl2 04 00:10 BP 122 / 70; Pulse 75; Resp 17; Pulse Ox 97% on R/A; tl2 01:20 BP 131 / 76; Pulse 82; Resp 18 S; Temp 97.9(O); Pulse Ox 96% on R/A; Pain 0/10; bb 10/31 22:50 Body Mass Index 16.87 (54.88 kg, 180.34 cm) tl2 MDM: 10/31 22:59 Patient medically screened. pm1 23:30 ED course: Patient NSR 88 bpm on ECG after Adenocard 6 mg IV administered. pm1 11/01 00:42 Data reviewed: vital signs. Data interpreted: Pulse oximetry: on room air is 97 %. pm1 Interpretation: normal. Counseling: I had a detailed discussion with the patient and/or guardian regarding: the historical points, exam findings, and any diagnostic results supporting the discharge/admit diagnosis, lab results, radiology results, the need for outpatient follow up, to return to the emergency department if symptoms worsen or persist or if there are any questions or concerns that arise at home. 10/31 22:59 Order name: Basic Metabolic Panel; Complete Time: 00:05 pm1 10/31 22:59 Order name: BNP; Complete Time: 00:05 pm10/31 22:59 Order name: CBC with Diff; Complete Time: 23:45 pm10/31 22:59 Order name: Ckmb; Complete Time: 00:05 pm10/31 22:59 Order name: CPK; Complete Time: 00:05 pm10/31 22:59 Order name: LFT's; Complete Time: 00:05 pm10/31 22:59 Order name: Magnesium; Complete Time: 00:05 pm10/31 22:59 Order name: PT-INR; Complete Time: 23:45 pm10/31 22:59 Order name: Ptt, Activated; Complete Time: 23:45 pm10/31 22:59 Order name: Troponin (emerg Dept Use Only); Complete Time: 00:05 pm10/31 22:59 Order name: XRAY Chest (1 view) pm10/31 22:59 Order name: EKG; Complete Time: 22:59 pm10/31 22:59 Order name: Cardiac monitoring; Complete Time: 23:04 pm10/31 22:59 Order name: EKG - Nurse/Tech; Complete Time: 23:04 pm10/31 22:59 Order name: IV Saline Lock; Complete Time: 23:05 pm10/31 22:59 Order name: Labs collected and sent; Complete Time: 23:05 pm10/31 22:59 Order name: O2 Per Protocol; Complete Time: 23:05 pm10/31 22:59 Order name: O2 Sat Monitoring; Complete Time: 23:06 pm1 Administered Medications: 10/31 23:05 Drug: Adenocard 6 mg Route: IVP; Site: right forearm; bb 23:21 Follow up: Response: Marked relief of symptoms bb 23:15 Drug: Lopressor 5 mg Route: IVP; Site: right forearm; bb 11/01 00:15 Follow up: Response: No adverse reaction; Other; heart rate has lowered bb 10/31 23:15 Drug: NS 0.9% 1000 ml Route: IV; Rate: 100 ml/hr; Site: right forearm; bb 11/01 00:23 Follow up: Rate change 500 bolus bb 00:54 Follow up: IV Status: Completed infusion; IV Intake: 600ml bb 10/31 23:20 CANCELLED (Duplicate Order): NS 0.9% 1000 ml IV at 100 ml/hr once bb 11/01 00:54 CANCELLED (Other Intervention Used): NS 0.9% 500 ml IV at bolus once bb Disposition: 03:00 Co-signature as Attending Physician, Juan Birch MD. Disposition: 11/01/17 00:46 Discharged to Home. Impression: Supraventricular tachycardia. - Condition is Stable. - Discharge Instructions: Paroxysmal Supraventricular Tachycardia. - Medication Reconciliation Form, Thank You Letter form. - Follow up: Miah Fan MD; When: 2 - 3 days; Reason: Recheck today's complaints, Continuance of care, Re-evaluation by your physician. Follow up: Emergency Department; When: As needed; Reason: Worsening of condition. - Problem is new. - Symptoms are resolved. Signatures: Dispatcher [employer] EDMS Miguelina Liriano RN RN Paul Enriquez, [employer] DEVELOPMENT MANAGER pm1 Leigha Martinez RN RN 2 Juan Birch MD MD Corrections: (The following items were deleted from the chart) 10/31 23: 23:20 NS 0.9% 1000 ml IV at 100 ml/hr once ordered. melvin 11/01 00:54 00:42 NS 0.9% 500 ml IV at bolus once ordered. pm1 melvin 00:54 00:54 NS 0.9% 500 ml IV at bolus once ordered. melvin charles
[2017-11-01] MEDS ORDERED: NA CHLORIDE 0.9% 500 ML ONE (00:53)
[2017-11-01 01:38] VITALS: BP 131/76; TEMP 97.9; O2SAT 96
--- NOTE | 2017-11-01 07:02 | EKG ---
Test Date: 2017-10-31 Test Time: 22:52:04 Airplane Inspector: WILLA MEASUREMENT RESULTS: Intervals: Rate: 159 OK: QRSD: 96 QT: 278 QTc: 452 [place]: P: OK: QRS: 97 T: -77 INTERPRETIVE STATEMENTS: Supraventricular tachycardia Rightward axis ST abnormality, possible inferior subendocardial injury Abnormal ECG Compared to ECG 04/09/2017 09:26:25 Right-axis deviation now present ST (T wave) deviation now present Sinus rhythm no longer present Electronically Signed On 11-01-17 07:01:38 CDT by Amilcar Vann
--- NOTE | 2017-11-01 08:10 | EKG ---
Test Date: 2017-10-31 Test Time: 23:17:42 Sole Ruffer: WILLA MEASUREMENT RESULTS: Intervals: Rate: 88 TN: 140 QRSD: 100 QT: 346 QTc: 418 [place]: P: 77 TN: 140 QRS: 89 T: 24 INTERPRETIVE STATEMENTS: Normal sinus rhythm Cannot rule out Inferior infarct, age undetermined Abnormal ECG Compared to ECG 10/31/2017 22:52:04 Myocardial infarct finding now present Supraventricular tachycardia no longer present Right-axis deviation no longer present ST (T wave) deviation no longer present Electronically Signed On 11-01-17 08:10:11 CDT by Amilcar Vann
--- NOTE | 2017-11-01 08:17 | RAD REPORT ---
EXAM DESCRIPTION: RAD - Chest Single View - 10/31/2017 11:25 pm CLINICAL HISTORY: Chest pain, tachycardia COMPARISON: 05/13/2015 FINDINGS: Portable technique limits examination quality. Mild diffuse COPD is present. No focal infiltrate is detected. The heart is normal in size. No displa sonal fractures.Sternotomy wires present. IMPRESSION: Diffuse COPD.
== END 2017-11-01 01:21 | disposition home or self-care (01) ==
LOC: ER 22:39
DX: I47.1 Supraventricular tachycardia (principal); I10 Essential (primary) hypertension; Z85.46 Personal history of malignant neoplasm of prostate; Z79.82 Long term (current) use of aspirin; Z72.0 Tobacco use
CPT/HCPCS: 36415; 71045; 80048; 80076; 82550; 82553; 83735; 83880; 84484; 85025; 85610; 85730; 93005 ×2; 96361; 96374; 96375; 99285; J0153; J7030

== ENCOUNTER 2017-11-08 08:11 | Emergency (ER) | payer OTHER, BC ==
--- OUTSIDE RECORDS SUMMARY | 2017-11-08 08:13 | XMS REPORT | Clinical Summary ---
:1935 Author Organization [facility] Address [address] [place] [address] Care Team Providers Name Role Phone Remy Phoenix DO Primary Care Provider Allergies No Known Allergies Current Medications Prescription Sig. Disp. Refills Start Date End Date Status tamsulosin Take 0.4 mg by Active (FLOMAX) 0.4 mg mouth nightly. capsule,extended release 24hr aspirin (ECOTRIN) Take 81 mg by Active 81 MG enteric mouth daily. coated tablet CALCIUM Take by mouth. Active CARBONATE/VITAMIN D3 (CALTRATE 600 + D ORAL) umeclidinium-vilan Inhale nightly. Active terol (ANORO ELLIPTA) 62.5-25 mcg/actuation blister with device albuterol sulfate Inhale as needed. Active (VENTOLIN HFA INHL) isosorbide Take 30 mg by Active mononitrate mouth nightly. (IMDUR) 30 MG 24 hr tablet clopidogrel Take 75 mg by Active (PLAVIX) 75 mg mouth daily. tablet metoprolol Take 25 mg by Active tartrate mouth 2 (two) (LOPRESSOR) 25 mg times a day. tablet docusate sodium Take 1 capsule 60 capsule 0 11/04/2017 12/05/19 Active (COLACE) 100 MG (100 mg total) by 18 capsule mouth 2 (two) times a day for 30 days. traMADol (ULTRAM) Take 1 tablet (50 21 tablet 0 11/04/2017 11/12/19 Active 50 mg tablet mg total) by 18 mouth every 8 (eight) hours as needed for moderate pain for up to 21 doses. ALBUTEROL SULFATE Inhale as needed. 08/20/19 Discontinued (VENTOLIN HFA 18 INHL) acetaminophen-code Take 1 tablet by 10/30/19 Discontinued ine (TYLENOL WITH mouth every 4 18 CODEINE #3) 300-30 (four) hours as mg per tablet needed for moderate pain. ciprofloxacin HCl Take 250 mg by 04/23/20 Discontinued (CIPRO) 250 MG mouth 2 (two) 17 tablet times a day. albuterol Take 2.5 mg by 10/30/19 Discontinued (ACCUNEB) 2.5 mg nebulization as 18 /3 mL (0.083 %) needed for nebulizer solution wheezing. Active Problems Not on file Encounters Date Type Specialty Care Team Description 11/04/2017 Hospital Encounter Urology Hui, Gross hematuria Farshad Lopez MD 11/04/2017 Procedure Pass Urology 11/04/2017 Surgery Urology Hui, CYSTOSCOPY, BILATERAL Farshad Lopez MD RETROGRADE PYLEOGRAM, LEFT NEPHROURETEROSCOPY AND BIOPSY, LEFT URETERAL STENT PLACEMENT 10/29/2017 Pre-Admit Testing Pre-Admission Hui, Preop testing (Primary Appointment Testing Farshad Lopez MD Dx) 10/29/2017 [facility] 08/20/2017 Hospital Encounter Procedural Nacho Garduno cardiovascular Cardiology MD Nakia stress test 08/20/2017 Procedure Pass Procedural Cardiology 08/20/2017 Surgery Procedural Nacho Garduno Cv left heart cath w lv Cardiology MD jeannette Yee [[id number] (CPT)] 04/23/2017 Hospital Encounter Urology Farshad Ames MD 04/23/2017 Procedure Pass Urology 04/23/2017 Surgery Urology Hui, CYSTO BILATERAL Farshad Lopez MD RETROGRADE PYELOGRAM 04/10/2017 Pre-Admit Testing Pre-Admission Hui, Preop testing (Primary Appointment Testing Farshad Lopez MD Dx) 04/10/2017 Anesthesia Event Urology Marybel Silva, MUNIRA after 11/07/2016 Family History Medical History Relation Name Comments Heart disease Brother Heart attack Son Heart disease Son Relation Name Status Comments Brother Son Social History Tobacco Use Types Packs/Day Years Used Date Current Every Day Smoker Cigarettes 1.5 70 Smokeless Tobacco: Never Used Tobacco Cessation: Ready to Quit: No; Counseling Given: Yes Alcohol Use Drinks/Week oz/Week Comments No Sex Assigned at Date Recorded Not on file Last Filed Vital Signs Vital Sign Reading Time Taken Blood Pressure 150/75 11/04/2017 3:00 PM CDT Pulse 57 11/04/2017 2:40 PM CDT Temperature 36.3 C (97.4 F) 11/04/2017 3:00 PM CDT Respiratory Rate 18 11/04/2017 3:00 PM CDT Oxygen Saturation 95% 11/04/2017 3:00 PM CDT Inhaled Oxygen Concentration - - Weight 54.9 kg (121 lb) 11/04/2017 10:19 AM CDT Height 181.6 cm (5' 11.5") 11/04/2017 10:19 AM CDT Body Mass Index 16.64 11/04/2017 10:19 AM CDT Plan of Treatment Health Maintenance Due Date Last Done Comments SHINGRIX VACCINE (#1) 1987 ZOSTER VACCINE 1997 PNEUMOCOCCAL POLYSACCHARIDE VACCINE AGE 65 AND OVER 2002 PNEUMOCOCCAL-13 2002 INFLUENZA VACCINE 02/12/2018 Implants Implanted Type Area Zipper Lining Folder Device Expiration Model / Identifier Date Serial / Lot Rosita Beasley Single Use Digital Flexible Ureteroscope Implements, N/A: [employer] 09/30/2019 [id number] / Implanted: Qty: 1 on 11/04/2017 by Farshad Ames MD Tools, N/A SCIENTIFIC/MICR / Devices [employer]OLOGY [id number] Stent Uretl S-Flx Kwart Retro-Inject 6fr 24cm - [id number] Peripheral or Left : [employer] 07/16/2020 [id number] / Implanted: Qty: 1 on 11/04/2017 by Farshad Ames MD Biliary N/A / Stents [id number] Catheter Uretl 4.8fr 8fr 70cm Cn-Tp W/ Opn-End - [id number] Surgical N/A: [employer] [id number] / Implanted: 04/23/2017 (Quantity not on file) Implants; N/A / Expanders; Extenders; Surgical Wires Catheter Uretl 6/10fr 50cm Flx-Tp Dlmn Std Accs - [id number] Surgical N/A: [employer] [id number] / Implanted: 04/23/2017 (Quantity not on file) Implants; N/A / Expanders; Extenders; Surgical Wires Catheter Uretl 6/10fr 50cm Flx-Tp Dlmn Std Accs - [id number] Surgical N/A: [employer] [id number] / Implanted: Qty: 1 on 11/04/2017 by Farshad Ames MD Implants; N/A / Expanders; Extenders; Surgical Wires Catheter Uretl 6fr 70cm Opn-End Rtrgd Pyelogram - [id number] Urological N/A: [employer] [id number] / Implanted: 04/23/2017 (Quantity not on file) Implants or N/A / Sets Procedures Procedure Name Priority Date/Time Associated Diagnosis Comments IA AN ELECTIVE Routine 11/04/2017 12:33 PM SUPRAGLOTTIC AIRWAY CDT Procedure Note - Colt Morejon CRNA - 11/04/2017 12:33 PM CDT Airway Date/Time: 11/04/2017 12:33 PM Performed by: COLT MOREJON Authorized by: TIANNA FERNANDEZ Location: OR Urgency: Elective Difficult Airway: No Resident/NAIL MILL WORKER/AA: COLT MOREJON Performed by: resident/NAIL MILL WORKER/AA Preoxygenated with 100% O2: Yes C-spine Precautions Maintained Throughout: Yes Mask Ventilation: Not attempted Final Airway Type: Supraglottic airway Final LMA: Classic LMA Size: 5 Number of Attempts at Approach: 1 CYSTOSCOPY, BILATERAL RETROGRADE 11/04/2017 12:00 PM CDT Gross hematuria PYLEOGRAM, LEFT NEPHROURETEROSCOPY AND BIOPSY, LEFT URETERAL STENT PLACEMENT Case Notes REQ 1200 START Special Needs REQ 1200 START CV LEFT HEART CATH Routine 08/20/2017 12:43 Abnormal Results for this LV GRAM WITH CORS PM COMMERCIAL DEVELOPMENT MANAGER cardiovascular stress procedure are in test the results section. IA AN ELECTIVE Routine 04/23/2017 8:05 SUPRAGLOTTIC AIRWAY AM CDT Procedure Note - Colt Morejon CRNA - 04/23/2017 8:03 AM CDT Airway Date/Time: 04/23/2017 7:24 AM Performed by: COLT MOREJON Authorized by: COLT MOREJON Location: OR Urgency: Elective Difficult Airway: No Resident/NAIL MILL WORKER: COLT MOREJON Preoxygenated with 100% O2: Yes Mask [...] Needs REQ 0715 START, EST 1HR after 11/07/2016 Results FL < 1 Hour (11/04/2017 1:10 PM) Specimen Performing Laboratory [facility] [address] [place] [address] Narrative EXAMINATION:FL 1 HOUR LOCATION:Main Cysto Room #1 PROCEDURE:Bi-lateral ureteral retrogrades/stent placement START:12:40 END:13:10 FILMS:0 FLUORO TIME:01:34 min. DOSE:27.6 TECH(S):JOHANNA IMPRESSION: Fluoroscopy was requested in the Endoscopy Suite. Separate endoscopy report will be issued by the physician performing the procedure. Procedure Note Interface, Radiology Results Incoming - 11/05/2017 9:19 PM CDT EXAMINATION: FL 1 HOUR LOCATION: Main Cysto Room #1 PROCEDURE: Bi-lateral ureteral retrogrades/stent placement START: 12:40 END: 13:10 FILMS: 0 FLUORO TIME: 01:34 min. DOSE: 27.6 TECH(S): JOHANNA IMPRESSION: Fluoroscopy was requested in the Endoscopy Suite. Separate endoscopy report will be issued by the physician performing the procedure. Cytology (non-gynecological) request (11/04/2017 1:01 PM)Only the most recent of3 resultswithin the time period is included. Component Value Ref Range Cytology (non-gynecological) report See link below for PDF Lab Report Result status This is Final Report to [id number] Specimen Performing Laboratory [facility] DEPARTMENT OF PATHOLOGY AND GENOMIC MEDICINE [address] [place] [address] Urine culture (10/29/2017 6:20 PM) Component Value Ref Range Urine culture SEE COMMENTComment: Bacteriuria screen negative. Specimen Performing Laboratory [facility] DEPARTMENT OF PATHOLOGY AND GENOMIC MEDICINE [address] [place] [address] ECG Pre/Post Op (10/29/2017 6:07 PM)Only the most recent of3 resultswithin the time period is included. Component Value Ref Range Ventricular rate 68 Atrial rate 68 IA interval 140 QRSD interval 112 QT interval 406 QTC interval 431 P axis 1 84 QRS axis 1 91 T wave axis 66 EKG impression Normal sinus rhythm-Rightward axis-Pulmonary disease pattern-Abnormal ECG-In automated comparison with ECG of 20-AUG-2017 10:46,-No significant change was found- Specimen Performing Laboratory [facility] MUSE [address] [place] [address] Urinalysis screen and microscopy, with reflex to [...] UA None seen Specimen Performing Laboratory Urine [facility] DEPARTMENT OF PATHOLOGY AND GENOMIC MEDICINE [address] [place] [address] Estimated GFR (10/29/2017 5:43 PM)Only the most [...] and Americans. Specimen Performing Laboratory Plasma specimen [facility] DEPARTMENT OF PATHOLOGY AND GENOMIC MEDICINE [address] [place] [address] CBC hemogram (10/29/2017 5:43 PM) Component Value [...] 0.00 /100 WBC Specimen Performing Laboratory Urine [facility] DEPARTMENT OF PATHOLOGY AND [facility] MEDICINE [address] [place] [address]607 Basic metabolic panel (10/29/2017 5:43 PM) Component [...] 10.2 mg/dL Specimen Performing Laboratory Plasma specimen [facility] DEPARTMENT OF PATHOLOGY AND GENOMIC MEDICINE [address] [place] [address]78 XR Chest 1 Vw Portable (08/20/2017 2:38 PM) Specimen Performing Laboratory [facility] [address] [place] [address] Narrative EXAMINATION:XR CHEST 1 VW PORTABLE CLINICAL HISTORY:COPD Emphysema COMPARISON:11/24/2013 IMPRESSION: Heart and mediastinum are stable. Lungs appear hyperinflated. Mild perihilar reticular opacities and left perihilar patchy opacities are seen. No definite consolidations noted. [facility]-[id number] Procedure Note Interface, Radiology Results Incoming - 08/20/2017 3:00 PM COMMERCIAL DEVELOPMENT MANAGER EXAMINATION: XR CHEST 1 VW PORTABLE CLINICAL HISTORY: COPD Emphysema COMPARISON: 11/24/2013 IMPRESSION: Heart and mediastinum are stable. Lungs appear hyperinflated. Mild perihilar reticular opacities and left perihilar patchy opacities are seen. No definite consolidations noted. [facility]-[id number] Cv invasive peripheral vascular procedure (08/20/2017 12:43 PM) Specimen Performing Laboratory [facility] [address] [place] [address] Narrative Abnormal nst procedure : slective cor,lva ,lhc, bypas graft=visualization medical rx optimization f/u in 6 weeks office Cv pit laborer procedure (08/20/2017 12:43 PM) Specimen Performing Laboratory [facility] [address] [place] [address] Narrative Abnormal nst procedure : slective cor,lva ,lhc, bypas graft=visualization medical rx optimization f/u in 6 weeks office [place] Pyelogram Retrograde (04/23/2017 8:17 AM) Specimen Performing Laboratory [facility] [address] [place] [address] Narrative EXAMINATION:FL PYELOGRAM RETROGRADE CLINICAL HISTORY: COMPARISON:None. [...] left ureter probably related to injection artifact. [id number] Procedure Note Interface, Radiology Results Incoming - 04/23/2017 8:36 AM [...] left ureter probably related to injection artifact. [id number] Estimated GFR (04/23/2017 6:23 AM) Component Value [...] Caucasians and Americans. Specimen Performing Laboratory Blood [facility] DEPARTMENT OF PATHOLOGY AND GENOMIC MEDICINE [address] [place] [address] I-Stat chemistry panel (04/23/2017 6:23 AM) Component Value Ref Range POC sodium 135Comment: Testing performed on the ISTAT instrument 135 - 148 mEq/L by [employer] Tech [id number] POC potassium 4.6 3.5 - 5.0 mEq/L POC chloride 108 99 - 109 mEq/L POC CO2 23 (L) 24 - 31 mEq/L POC glucose 94 65 - 99 mg/dL POC BUN 38 (H) 8 - 24 mg/dL POC creatinine 1.9 (H) 0.7 - 1.2 mg/dl POC hematocrit 45 41 - 51 % Specimen Performing Laboratory Blood [facility] DEPARTMENT OF PATHOLOGY AND GENOMIC MEDICINE [address] [place] [address] Partial thromboplastin time, activated (04/10/2017 1:03 PM) Component Value Ref Range PTT 34.9 23.0 - 36.0 sec Comment: PTT therapeutic range for unfractionated heparin is 61.0-112.0 seconds which corresponds to Anti-Xa 0.3-0.7 U/ml. Specimen Performing Laboratory Blood [facility] DEPARTMENT OF PATHOLOGY AND [facility] MEDICINE [address] [place] [address] Prothrombin time with INR (04/10/2017 1:03 PM) Component Value Ref Range Prothrombin time 13.2 12.0 - 15.0 sec INR 1.0 Comment: The International Normalized Ratio (INR) is a therapeutic monitoring tool for patients who are stable on oral anticoagulant therapy. An INR of 2.0-3.0 is suggested for deep vein thrombosis/pulmonary embolism. Specimen Performing Laboratory Blood [facility] AND [address] [address] CBC with platelet and differential (04/10/2017 1:03 [...] (promyelocytes, myelocytes, metamyelocytes) Specimen Performing Laboratory Blood [facility] DEPARTMENT OF PATHOLOGY AND [facility] MEDICINE [address] [place] [address] Comprehensive metabolic panel (04/10/2017 1:03 PM) Component [...] Protein 7.3 6.3 - 8.3 g/dL Comment: [place] 4.6-7.0 g/dL 1 week 4.4-7.6 g/dL 7 months-1year5.1-7.3 g/dL 1-2 years5.6-7.5 g/dL >3 years6.0-8.0 g/dL 18-150 6.3-8.3 g/dL Albumin 3.6 3.5 - 5.0 g/dL A/G ratio 1.0 0.7 - 3.8 Alkaline phosphatase 80 40 - 129 U/L AST 14 10 - 50 U/L ALT 10 5 - 50 U/L Total bilirubin 0.6 0.0 - 1.2 mg/dL Specimen Performing Laboratory Plasma specimen [facility] DEPARTMENT OF PATHOLOGY AND GENOMIC MEDICINE [address] [place] [address] after 11/07/2016 Insurance Payer Benefit Plan / Group Subscriber ID Type Phone Address MEDICARE MEDICARE PART A AND B xxxxxxxxxx Medicare [place], [place] [employer] AND xxxxxxxxx Commercial CASUALTY CASUALTY [employer] [facility] xxxxxxxxxxxx PPO Home: [address] [phone] [place] [id number]
[2017-11-08] MEDS ORDERED: LEVALBUTEROL 1.25 MG/3 ML NEB ONE (08:50)
[2017-11-08] MEDS ORDERED: cloNIDine HCl 0.1 MG TAB ONE (08:50)
[2017-11-08 09:20] LABS: Absolute Lymphocytes (CBC) 0.7 K/uL (0.7-4.9); Absolute Monocytes 0.6 K/uL (0.1-1.3); Basophils % 0.8 % (0-1.3); Eosinophils % 5.1 % (0-4.4); Hematocrit 37.9 % (39.6-49.0); Lymphocytes % 8.7 % (15.3-44.8); MCH 30.8 pg (27.0-35.0); MCV 90.6 fL (80-100); MPV 7.2 fL (7.6-11.3); Monocytes % 7.5 % (3.3-12.3); RBC Red Blood Cell Count 4.18 M/uL (4.33-5.43)
[2017-11-08 09:22] LABS: Potassium 4.5 mEq/L (3.6-5.0)
[2017-11-08 09:23] LABS: Magnesium 1.9 mg/dL (1.8-2.5)
--- NOTE | 2017-11-08 10:54 | EDPHYS ---
Physician Documentation [facility] Name: Azael Crocker Jr Age: 82 yrs Sex: Male : 1935 Arrival Date: 11/08/2017 Time: 08:13 Bed 8 Private MD: Remy Phoenix H ED Physician Yovany Holt HPI: 11/08 16:20 This 82 yrs old Male presents to ER via Ambulatory with complaints of kdr Breathing Difficulty. 16:20 The patient has shortness of breath at rest, with light activity. Onset: The kdr symptoms/episode began/occurred gradually, 1 week(s) ago. Duration: The symptoms are continuous, are intermittent, with no pattern. The patient's shortness of breath is aggravated by coughing, exertion, light activity. Associated signs and symptoms: Pertinent positives: non-productive cough. Severity of symptoms: At their worst the symptoms were mild moderate just prior to arrival, in the emergency department the symptoms are unchanged. The patient has not experienced similar symptoms in the past. The patient has not recently seen a physician. Historical: - Allergies: 08:39 No Known Allergies; sg - Home Meds: 08:39 Albuterol Inhl [Active]; aspirin 81 mg Oral chew 1 tab once daily [Active]; isosorbide sg mononitrate 30 mg Oral Tb24 1 tab once daily [Active]; Metoprolol Tartrate Oral [Active]; tamsulosin 0.4 mg Oral cp24 1 cap once daily [Active]; - PMHx: 08:39 CAD; Hypertension; PROSTATE CA; sg - PSHx: 08:39 valve replacement; sg - Immunization history:: Adult Immunizations up to date. - Social history:: Smoking status: Patient uses tobacco products, smokes one pack cigarettes per day. ROS: 16:20 Constitutional: Negative for fever, chills, and weight loss, Eyes: Negative for injury, kdr pain, redness, and discharge, ENT: Negative for injury, pain, and discharge, Neck: Negative for injury, pain, and swelling, Cardiovascular: Negative for chest pain, palpitations, and edema, Abdomen/GI: Negative for abdominal pain, nausea, vomiting, diarrhea, and constipation, Back: Negative for injury and pain, : Negative for injury, bleeding, discharge, and swelling, MS/Extremity: Negative for injury and deformity, Skin: Negative for injury, rash, and discoloration, Neuro: Negative for headache, weakness, numbness, tingling, and seizure activity. Psych: Negative for depression, anxiety, suicide ideation, homicidal ideation, and hallucinations, Allergy/Immunology: Negative for hives, rash, and allergies, Endocrine: Negative for neck swelling, polydipsia, polyuria, polyphagia, and marked weight changes, Hematologic/Lymphatic: Negative for swollen nodes, abnormal bleeding, and unusual bruising. 16:20 Respiratory: Positive for cough, with no reported sputum, wheezing, Negative for dyspnea on exertion, hemoptysis, orthopnea, pleurisy, sputum production. Exam: 16:20 Constitutional: This is a well developed, well nourished patient who is awake, alert, kdr and in no acute distress. Head/Face: Normocephalic, atraumatic. Eyes: Pupils equal round and reactive to light, extra-ocular motions intact. Lids and lashes normal. Conjunctiva and sclera are non-icteric and not injected. Cornea within normal limits. Periorbital areas with no swelling, redness, or edema. Neck: Trachea midline, no thyromegaly or masses palpated, and no cervical lymphadenopathy. Supple, full range of motion without nuchal rigidity, or vertebral point tenderness. No Meningismus. Chest/axilla: Normal chest wall appearance and motion. Nontender with no deformity. No lesions are appreciated. Cardiovascular: Regular rate and rhythm with a normal S1 and S2. No gallops, murmurs, or rubs. Normal PMI, no JVD. No pulse deficits. Abdomen/GI: Soft, non-tender, with normal bowel sounds. No distension or tympany. No guarding or rebound. No evidence of tenderness throughout. Back: No spinal tenderness. No costovertebral tenderness. Full range of motion. Skin: Warm, dry with normal turgor. Normal color with no rashes, no lesions, and no evidence of cellulitis. MS/ Extremity: Pulses equal, no cyanosis. Neurovascular intact. Full, normal range of motion. Neuro: Awake and alert, GCS 15, oriented to person, place, time, and situation. Cranial nerves II-XII grossly intact. Motor strength 5/5 in all extremities. Sensory grossly intact. Cerebellar exam normal. Normal gait. Psych: Awake, alert, with orientation to person, place and time. Behavior, mood, and affect are within normal limits. 16:20 Respiratory: the patient does not display signs of respiratory distress, Respirations: normal, Breath sounds: wheezing: that is mild, is scattered, is heard diffusely. Vital Signs: 08:36 BP 182 / 84; Pulse 65 MON; Resp 22 S; Temp 97.9; Pulse Ox 100% on R/A; Weight 65.77 kg sg (R); Pain 0/10; 09:46 BP 156 / 82; Pulse 63; Resp 18; Pulse Ox 98% on R/A; ae1 10:12 BP 173 / 76; Pulse 60; Resp 19; Pulse Ox 97% on R/A; jb1 10:48 BP 138 / 77; Pulse 68; Resp 17; Pulse Ox 100% on R/A; ae1 11:22 BP 108 / 71; Pulse 97; Resp 19; Pulse Ox 100% on R/A; ae1 MDM: 10:53 Patient medically screened. kdr 16:20 Data reviewed: vital signs, nurses notes, lab test result(s), radiologic studies. kdr Counseling: I had a detailed discussion with the patient and/or guardian regarding: the historical points, exam findings, and any diagnostic results supporting the discharge/admit diagnosis, lab results, radiology results, the need for outpatient follow up. 11/08 08:47 Order name: Basic Metabolic Panel; Complete Time: 10: kdr 11/08 08:47 Order name: BNP; Complete Time: 10: [facility] 11/08 08:47 Order name: CBC with Diff; Complete Time: 10: [facility] 11/08 08:47 Order name: Magnesium; Complete Time: 10: kdr 11/08 08:47 Order name: PT-INR; Complete Time: 10: [facility] 11/08 08:47 Order name: Ptt, Activated; Complete Time: 10: [facility] 11/08 08:47 Order name: Troponin (emerg Dept Use Only); Complete Time: 10:27 [facility] 11/08 08:47 Order name: XRAY Chest (1 view) kdr 11/08 08:47 Order name: EKG; Complete Time: 08:48 [facility] 11/08 08:47 Order name: Cardiac monitoring; Complete Time: 09:00 [facility] 11/08 08:47 Order name: EKG - Nurse/Tech; Complete Time: 09:00 [facility] 11/08 08:47 Order name: IV Saline Lock; Complete Time: 09:04 [facility] 11/08 08:47 Order name: Labs collected and sent; Complete Time: 09: [facility] 11/08 08:47 Order name: O2 Per Protocol; Complete Time: 09:00 kdr 11/08 08:47 Order name: O2 Sat Monitoring; Complete Time: 09:00 [facility] Administered Medications: 08:54 Drug: Xopenex (3) 1.25 mg Route: Inhalation; sg 08:54 Drug: cloNIDine 0.2 mg Route: PO; sg 09:47 Follow up: Response: Blood pressure is lowered ae1 Disposition: 11/08/17 10:53 Discharged to Home. Impression: COPD Exacerbation. - Condition is Stable. - Discharge Instructions: Chronic Obstructive Pulmonary Disease, Shortness of Breath, Hyuv-kv-Aosf. - Prescriptions for Zithromax Z- Amilcar 250 mg Oral Tablet - take 1 tablet by ORAL route once daily for 3 days; 3 tablet. Medrol (Amilcar) 4 mg Oral Tablets, Dose Pack - take 1 tablet by ORAL route as directed - follow package instructions; 1 packet. - Medication Reconciliation Form, Thank You Letter, Antibiotic Education, Prescription Opioid Use form. - Follow up: Remy Phoenix DO; When: 2 - 3 days; Reason: If symptoms return, Further diagnostic work-up, Recheck today's complaints, Continuance of care, Re-evaluation by your physician. - Problem is an acute exacerbation. - Symptoms have improved. Signatures: Dispatcher [employer] EDDavid Cooper RN RN Yovany Holt MD MD [facility] Jean Claude Maurer RN RN ae1
--- NOTE | 2017-11-08 10:54 | ER ---
Nurse's Notes [facility] Name: Azael Crocker Jr Age: 82 yrs Sex: Male : 1935 Arrival Date: 11/08/2017 Time: 08:13 Bed 8 Private MD: Remy Phoenix H Diagnosis: COPD Exacerbation Presentation: 11/08 08:35 Presenting complaint: Patient states: Cough and wheezing for a bout a week, productive sg cough with thick yellow sputum, shortness of breath that began last night, denies N/V/D. Transition of care: patient was not received from another setting of care. Onset of symptoms was November 08, 2017. Initial Sepsis Screen: Does the patient meet any 2 criteria? RR > 20 per min. Does the patient have a suspected source of infection? No. Patient's initial sepsis screen is negative. Care prior to arrival: None. 08:35 Method Of Arrival: Ambulatory sg 08:35 Acuity: BLANE 3 sg Triage Assessment: 08:39 General: Appears in no apparent distress. comfortable, slender, well groomed, well sg developed, well nourished, Behavior is calm, cooperative, appropriate for age. Pain: Denies pain. EENT: No signs and/or symptoms were reported regarding the EENT system. Neuro: Level of Consciousness is awake, alert, obeys commands, Oriented to person, place, time, Certified Orthotist/Pedorthist are equal bilaterally Moves all extremities. Full function Gait is steady, Speech is normal, Facial symmetry appears normal. Cardiovascular: Heart tones S1 S2 present Capillary refill is brisk in bilateral fingers Patient's skin is warm and dry. Chest pain is denied. Respiratory: Reports shortness of breath at rest cough that is productive, Airway is patent Respiratory effort is even, unlabored, Respiratory pattern is regular, symmetrical, Breath sounds are diminished in right posterior middle lobe Breath sounds with wheezes Onset: The symptoms/episode began/occurred about a week ago, the patient has mild shortness of breath. GI: Abdomen is flat, non-distended, Bowel sounds present X 4 quads. : No signs and/or symptoms were reported regarding the genitourinary system. Derm: Skin is pink, warm \T\ dry. Musculoskeletal: No signs and/or symptoms reported regarding the musculoskeletal system. Historical: - Allergies: 08:39 No Known Allergies; sg - Home Meds: 08:39 Albuterol Inhl [Active]; aspirin 81 mg Oral chew 1 tab once daily [Active]; isosorbide sg mononitrate 30 mg Oral Tb24 1 tab once daily [Active]; Metoprolol Tartrate Oral [Active]; tamsulosin 0.4 mg Oral cp24 1 cap once daily [Active]; - PMHx: 08:39 CAD; Hypertension; PROSTATE CA; sg - PSHx: 08:39 valve replacement; sg - Immunization history:: Adult Immunizations up to date. - Social history:: Smoking status: Patient uses tobacco products, smokes one pack cigarettes per day. Screenin:42 Abuse screen: Denies threats or abuse. Denies injuries from another. Nutritional sg screening: No deficits noted. Tuberculosis screening: No symptoms or risk factors identified. Never had TB. Fall Risk None identified. Assessment: 08:42 Reassessment: see triage assessment. sg 09:47 Cardiovascular: Rhythm is regular. ae1 10:48 Reassessment: Patient appears in no apparent distress at this time. Patient and/or ae1 family updated on plan of care and expected duration. Pain level reassessed. Vital Signs: 08:36 BP 182 / 84; Pulse 65 MON; Resp 22 S; Temp 97.9; Pulse Ox 100% on R/A; Weight 65.77 kg sg (R); Pain 0/10; 09:46 BP 156 / 82; Pulse 63; Resp 18; Pulse Ox 98% on R/A; ae1 10:12 BP 173 / 76; Pulse 60; Resp 19; Pulse Ox 97% on R/A; jb1 10:48 BP 138 / 77; Pulse 68; Resp 17; Pulse Ox 100% on R/A; ae1 11:22 BP 108 / 71; Pulse 97; Resp 19; Pulse Ox 100% on R/A; ae1 ED Course: 08:13 Patient arrived in ED. mr 08:13 Remy Phoenix DO is Private Physician. mr 08:20 Yovany Holt MD is Attending Physician. kdr 08:30 Jean Claude Maurer RN is Primary Nurse. ae1 08:35 Inserted saline lock: 20 gauge in right antecubital area, using aseptic technique. ae1 Blood collected. 08:36 Triage completed. sg 08:39 Arm band placed on. sg 09:19 XRAY Chest (1 view) In Process Unspecified. EDMS 09:22 X-ray completed. Portable x-ray completed in exam room. Patient tolerated procedure mh1 well. 09:23 EKG done, by survey field technician. reviewed by Yovany Holt MD. 09:46 Placed in gown. Bed in low position. Call light in reach. Side rails up X 1. Adult w/ ae1 patient. infirmary attendant on. Pulse ox on. NIBP on. Warm blanket given. 10:53 Remy Phoenix DO is Referral Physician. kdr 11:21 No provider procedures requiring assistance completed. IV discontinued, intact, ae1 bleeding controlled, No redness/swelling at site. Pressure dressing applied. Administered Medications: 08:54 Drug: Xopenex (3) 1.25 mg Route: Inhalation; sg 08:54 Drug: cloNIDine 0.2 mg Route: PO; sg 09:47 Follow up: Response: Blood pressure is lowered ae1 Outcome: 10:53 Discharge ordered by . kdr 11:22 Discharged to home via wheelchair. ae1 11:22 Condition: stable 11:22 Discharge instructions given to patient, family, Instructed on discharge instructions, follow up and referral plans. medication usage, Demonstrated understanding of instructions, Prescriptions given X 2. 11:24 Patient left the ED. ae1 Signatures: Dispatcher [employer] EDMS Sam Ohara 1 David Person, DEEPALI PALUMBO Yovany Holt MD MD [facility] Mary Bond mr Schuyler Rodriguezha 1 Millie Lindsay Jean Claude Maurer RN RN ae1 Corrections: (The following items were deleted from the chart) 10:56 10:52 BP 121 / 85; Pulse 102bpm; Resp 26bpm; Assisted; Pulse Ox 95% BiPAP; ae1 ae1 10:56 10:45 BP 119 / 72; Pulse 107bpm; Resp 26bpm; Pulse Ox 98% 02 30% BiPAP; ae1 ae1
[2017-11-08 11:27] VITALS: TEMP 97.9
[2017-11-08 11:31] VITALS: O2SAT 100
--- NOTE | 2017-11-08 11:31 | RAD REPORT ---
EXAM DESCRIPTION: RAD - Chest Single View - 11/08/2017 9:19 am CLINICAL HISTORY: COPD, cough. COMPARISON: October 31, 2017. TECHNIQUE: AP portable chest image was obtained [id number] hours . FINDINGS: Hyperexpanded and fibrotic lungs are again noted. Pattern is similar to the comparison. No consolidation, mass or significant failure finding. Lung markings are not substantially different th ough early edema or infiltrate can be masked by the severity of chronic disease. Heart and vasculatur e are normal. No measurable pleural effusion and no pneumothorax. No gross bony abnormality seen. No acute aortic findings suspected. IMPRESSION: 1. Prominent COPD not substantially different from the comparison. 2. Minimal or early interstitial edema or infiltrate can be masked in this setting.
[2017-11-08 11:32] VITALS: BP 108/71
--- NOTE | 2017-11-08 16:27 | EKG ---
Test Date: 2017-11-08 Test Time: 08:59:40 Mica Plate Layer: LION MEASUREMENT RESULTS: Intervals: Rate: 59 NE: 140 QRSD: 104 QT: 416 QTc: 411 [place]fant: P: 81 NE: 140 QRS: 92 T: 25 INTERPRETIVE STATEMENTS: Sinus bradycardia Rightward axis Cannot rule out Inferior infarct, age undetermined Abnormal ECG Compared to ECG 10/31/2017 23:17:42 Right-axis deviation now present Sinus rhythm no longer present Myocardial infarct finding still present Electronically Signed On 11-08-17 16:23:44 CDT by Miah Fan
== END 2017-11-08 11:24 | disposition home or self-care (01) ==
LOC: ER 08:11
DX: J44.1 Chronic obstructive pulmonary disease with (acute) exacerbation (principal); I10 Essential (primary) hypertension; I25.10 Atherosclerotic heart disease of native coronary artery without angina pectoris
CPT/HCPCS: 36415; 71045; 80048; 83735; 83880; 84484; 85025; 85610; 85730; 93005; 99285

== ENCOUNTER 2019-02-24 20:13 | Observation (INO) | payer OTHER, BC ==
--- OUTSIDE RECORDS SUMMARY | 2019-02-24 20:16 | XMS REPORT | Clinical Summary ---
:1935 Author Organization [facility] Address [address] [place] [address] Care Team Providers Name Role Phone Remy Phoenix Rod LY Primary Care Provider Allergies No Known Allergies Medications Medication Sig Dispensed Refills Start End Date Status Date tamsulosin (FLOMAX) 0.4 Take 0.4 mg by 0 Active mg capsule,extended mouth nightly. release 24hr aspirin (ECOTRIN) 81 MG Take 81 mg by 0 Active enteric coated tablet mouth daily. CALCIUM Take 1 tablet 0 Active CARBONATE/VITAMIN D3 by mouth (CALTRATE 600 + D ORAL) daily. isosorbide mononitrate Take 30 mg by 0 Active (IMDUR) 30 MG 24 hr mouth nightly. tablet clopidogrel (PLAVIX) 75 Take 75 mg by 0 Active mg tablet mouth nightly. metoprolol tartrate Take 25 mg by 0 Active (LOPRESSOR) 25 mg mouth 2 (two) tablet times a day. wrsolnflist-vbpsmdniq-i Inhale 1 puff 0 Active ilanter (TRELEGY nightly. ELLIPTA) 100-62.5-25 mcg blister with device furosemide (LASIX) 20 Take 20 mg by 0 Active mg tablet mouth daily. albuterol (PROAIR Inhale 2 puffs 18 g 0 03/08/20 Active HFA,PROVENTIL every 6 (six) 9 19 HFA,VENTOLIN HFA) 90 hours as mcg/actuation inhaler needed for wheezing for up to 30 days. umeclidinium-vilanterol Inhale 0 02/07/20 Discontinued (ANORO ELLIPTA) 62.5-25 nightly. 19 mcg/actuation blister with device albuterol sulfate Inhale as 0 02/07/20 Discontinued (VENTOLIN HFA INHL) needed. 19 albuterol (PROAIR Inhale 2 puffs 0 02/07/20 Discontinued HFA,PROVENTIL every 6 (six) 19 HFA,VENTOLIN HFA) 90 hours as mcg/actuation inhaler needed for wheezing. methylPREDNISolone follow package 21 tablet 0 02/12/20 (MEDROL DOSEPAK) 4 mg directions 9 19 tablet Active Problems Not on file Encounters Date Type Specialty Care Team Description 02/06/2019 Emergency Emergency Medicine Kim COPD exacerbation John ([facility]) (Primary Dx) MD Shashi 02/06/2019 Travel 01/29/2019 Hospital Encounter Radiology Nacho Garduno Shortness of breath MD Nakia 01/29/2019 Hospital Encounter Radiology Nacho Garduno Dyspnea, unspecified MD Nakia type 01/29/2019 Transcribe Orders Access Nacho Garduno, unspecified MD Nakia type (Primary Dx) 01/23/2019 Transcribe Orders Access Nacho Garduno Shortness of breath MD Nakia (Primary Dx) after 02/23/2018 Family History Medical History Relation Name Comments [...] Assigned at Date Recorded Not on file Job Start Date Occupation Industry Not on file Not on file Not on file Travel History Travel Start Travel End No recent travel history available. Last Filed Vital Signs Vital Sign Reading Time Taken Blood Pressure 141/63 02/06/2019 5:15 PM CDT Pulse 78 02/06/2019 5:15 PM CDT Temperature 36.3 C (97.4 F) 02/06/2019 11:13 AM CDT Respiratory Rate 28 02/06/2019 5:15 PM CDT Oxygen Saturation 96% 02/06/2019 5:15 PM CDT Inhaled Oxygen Concentration - - Weight 77.1 kg (169 lb 15.6 oz) 02/06/2019 12:00 PM CDT Height 180.3 cm (5' 11") 02/06/2019 12:00 PM CDT Body Mass Index 23.71 02/06/2019 12:00 PM CDT Plan of Treatment Health Maintenance Due Date Last Done Comments SHINGLES VACCINES (#1) 1987 INFLUENZA VACCINE 02/12/2019 65+ PNEUMOCOCCAL VACCINE Completed 12/11/2018, 07/15/2015 Implants Implanted Type Area Skin Care Therapist Device Shelf Model / Identifier Expiration Serial / Date Lot Rosita Beasley Single Use Digital Flexible Ureteroscope Implements, N/A: [employer] 09/30/2019 [id number] / Implanted: Qty: 1 on 11/04/2017 by Farshad Ames MD Tools, N/A SCIENTIFIC/MICR / Devices [facility]IVE UROLOGY [id number] Stent Uretl S-Flx Kwart Retro-Inject 6fr 24cm - [id number] Peripheral or Left : [facility] 07/16/2020 [id number] / Implanted: Qty: 1 on 11/04/2017 by Farshad Ames MD Biliary N/A / Stents [id number] Catheter Uretl 4.8fr 8fr 70cm Cn-Tp W/ Opn-End - [id number] Surgical N/A: [facility] [id number] / Implanted: 04/23/2017 (Quantity not on file) Implants; N/A / Expanders; Extenders; Surgical Wires Catheter Uretl 6/10fr 50cm Flx-Tp Dlmn Std Accs - [id number] Surgical N/A: [facility] [id number] / Implanted: 04/23/2017 (Quantity not on file) Implants; N/A / Expanders; Extenders; Surgical Wires Catheter Uretl 6/10fr 50cm Flx-Tp Dlmn Std Accs - [id number] Surgical N/A: [facility] [id number] / Implanted: Qty: 1 on 11/04/2017 by Farshad Ames MD Implants; N/A / Expanders; Extenders; Surgical Wires Catheter Uretl 6fr 70cm Opn-End Rtrgd Pyelogram - [id number] Urological N/A: [facility] [id number] / Implanted: 04/23/2017 (Quantity not on file) Implants or N/A / Sets Procedures Procedure Name Priority Date/Time Associated Comments Diagnosis US DUPLEX VENOUS LOWER STAT 02/06/2019 4:53 Results for this EXTREMITY BILATERAL PM CDT procedure are in the results section. TROPONIN Timed 02/06/2019 3:05 Results for this PM CDT procedure are in the results section. NM LUNG VENTILATION STAT 02/06/2019 3:00 Results for this PERFUSION PM CDT procedure are in the results section. XR CHEST 1 VW PORTABLE STAT 02/06/2019 12:10 Results for this PM CDT procedure are in the results section. ECG ED PRELIMINARY Routine 02/06/2019 11:55 Results for this INTERPRETATION AM CDT procedure are in the results section. ESTIMATED GFR STAT 02/06/2019 11:45 Results for this AM CDT procedure are in the results section. PROTHROMBIN TIME WITH STAT 02/06/2019 11:45 Results for this INR AM CDT procedure are in the results section. PARTIAL THROMBOPLASTIN STAT 02/06/2019 11:45 Results for this TIME (PTT) AM CDT procedure are in the results section. B NATRIURETIC PEPTIDE STAT 02/06/2019 11:45 Results for this AM CDT procedure are in the results section. TROPONIN STAT 02/06/2019 11:45 Results for this AM CDT procedure are in the results section. COMPREHENSIVE METABOLIC STAT 02/06/2019 11:45 Results for this PANEL AM CDT procedure are in the results section. HC COMPLETE BLD COUNT STAT 02/06/2019 11:45 Results for this W/AUTO DIFF AM CDT procedure are in the results section. ECG 12-LEAD STAT 02/06/2019 11:18 Results for this AM CDT procedure are in the results section. CT CHEST WO CONTRAST Routine 01/29/2019 3:22 Shortness of breath Results for this PM CDT procedure are in the results section. XR CHEST 2 VW Routine 01/29/2019 1:42 Dyspnea, Results for this PM CDT unspecified type procedure are in the results section. after 02/23/2018 Results Us duplex venous lower extremity (02/06/2019 4:53 PM CDT) Specimen Narrative Performed At [facility] Vascular Ultrasound Laboratory Lower Extremity Venous Report [id number] [address], [place] [address] Pat.Name:CECE SPIVEY.ID:[id number] St.Date: 02/06/2019 Refer.MD:PHYSICIAN, EMERGENCY, MD Exam Time: 4:35:00 PMStudy Type:LE Venous Height:71inWeight: 169lb BSA: 1.96 m2 DOBAge:1935,83Y Sex: MALESonogrphr: Donna aVrgas RVT Pat. Stat.:Inpatient Room:ED-ED8 TapeVol: DAVIS, CPT - 4: 95855 Echo Event ID:[id number] Order ID:[id number] Reason for Study:LE swelling. Procedures:Colorflow, Grayscale/2D, Pulsed wave Doppler Race:C SUMMARY: * Normal Reflux Criteria:< 0.5 seconds * Abnormal Reflux Criteria:> or equal to 0.5 seconds DUPLEX SCAN OBSERVATIONS Deep VeinsSuperficial Veins RightLeft RightLeft GSV (prox) NormalNormal CFV Normal Normal (above knee) Femoral Normal Normal GSV (dist) Normal Normal Profunda Normal Normal (below knee) Popliteal Normal Normal PT (prox) Normal NormalSSV Normal Normal PT (dist) Normal Normal Peroneal Normal Normal Gastrocs Normal Normal RIGHT: There is normal compressibility with no evidence of echogenic material noted within the lumen of the visualized veins. Colorflow and Doppler signals are normal. LEFT: There is normal compressibility with no evidence of echogenic material noted within the lumen of the visualized veins. Colorflow and Doppler signals are normal. PRELIMINARY FINDINGS 1. Normal venous duplex exam of the visualized veins. PHYSICIAN INTERPRETATION Venous examination of the both lower extremities demonstrated no evidence of venous thrombosis in the visualized veins.Normal compressibility and augmentation of all veins visualized. Signed 02/06/2019 11:37 PM Ike Suarez MD, RPVI Procedure Note Interface, Radiology Results In - 02/06/2019 11:38 PM CDT Vascular Ultrasound Laboratory Lower Extremity Venous Report [id number] [address] Pat.Name: CECE SPIVEY Pat.ID: [id number] St.Date: 02/06/2019 Refer.MD: PHYSICIAN, EMERGENCY, MD Exam Time: 4:35:00 PM Study Type:LE Venous Height: 71in Weight: 169lb BSA: 1.96 m2 Age: 11 1935,83Y Sex: MALE Sonogrphr: Donna Vargas RVT Pat. Stat.:Inpatient Room: ED-ED8 Tape Vol: DAVIS, CPT - 4: 84241 Echo Event ID:[id number] Order ID: [id number] Reason for Study:LE swelling. Procedures:Colorflow, Grayscale/2D, Pulsed wave Doppler Race: C SUMMARY: * Normal Reflux Criteria: < 0.5 seconds * Abnormal Reflux Criteria: > or equal to 0.5 seconds DUPLEX SCAN OBSERVATIONS Deep Veins Superficial Veins Right Left Right Left GSV (prox) Normal Normal CFV Normal Normal (above knee) Femoral Normal Normal GSV (dist) Normal Normal Profunda Normal Normal (below knee) Popliteal Normal Normal PT (prox) Normal Normal SSV Normal Normal PT (dist) Normal Normal Peroneal Normal Normal Gastrocs Normal Normal RIGHT: There is normal compressibility with no evidence of echogenic material noted within the lumen of the visualized veins. Colorflow and Doppler signals are normal. LEFT: There is normal compressibility with no evidence of echogenic material noted within the lumen of the visualized veins. Colorflow and Doppler signals are normal. PRELIMINARY FINDINGS 1. Normal venous duplex exam of the visualized veins. PHYSICIAN INTERPRETATION Venous examination of the both lower extremities demonstrated no evidence of venous thrombosis in the visualized veins. Normal compressibility and augmentation of all veins visualized. Signed 02/06/2019 11:37 PM Ike Suarez MD, RPVI Performing Organization Address City/State/Zipcode Phone Number [facility] [address] [place] [address] Troponin (02/06/2019 3:05 PM CDT)Only the most recent of2 resultswithin the time period is included. Troponin <0.006 0.000 - 0.040 [facility] Comment: ng/mL [facility] [employer] changed methodology effective: 11/18/2018 at 10:00 am The new method has a 99th percentile cutoff of 0.040 ng/mL Specimen Plasma specimen Performing Organization Address City/State/Zipcode Phone Number [facility] DEPARTMENT OF PATHOLOGY AND [address] [place] [address] GENOMIC MEDICINE [facility] [address] [place] [address] NM Lung Ventilation Perfusion (02/06/2019 3:00 PM CDT) Specimen Narrative Performed At PROCEDURE:NM LUNG [facility]ENTILATION [facility]ION [facility] INDICATION:PE suspected. COMPARISON:Chest radiograph 02/06/2019, CT chest 01/29/2019. TECHNIQUE:Planar ventilation images were acquired after the inhalation of 15 mCi of Xe-133 gas. Planar perfusion images were acquired after the IV administration of 5 mCi of Tc-99m MAA. FINDINGS: Perfusion and ventilation images are both markedly heterogeneous. There are no definite segmental mismatched defects. There is moderate air trapping in the bilateral midlung and bases. IMPRESSION: 1.Low probability for pulmonary embolus. Diagnostic accuracy is somewhat limited by highly abnormal ventilation.Multiple matched defects in both lungs are most compatible with extensive obstructive airspace disease.Superimposed PE cannot be excluded, but is not highly suggested. 2.COPD. [facility]-[id number] Dictated and approved by vice president of nursing/fellow: Prudencio Vega M.D. I, Vincent Bautista MD, personally reviewed the images and resident's/fellow's findings and agree with the final report. Procedure Note [facility], Radiology Results Incoming - 02/06/2019 4:18 PM CDT PROCEDURE: NM LUNG VENTILATION PERFUSION INDICATION: PE suspected. COMPARISON: Chest radiograph 02/06/2019, CT chest 01/29/2019. TECHNIQUE: Planar ventilation images were acquired after the inhalation of 15 mCi of Xe-133 gas. Planar perfusion images were acquired after the IV administration of 5 mCi of Tc-99m MAA. FINDINGS: Perfusion and ventilation images are both markedly heterogeneous. There are no definite segmental mismatched defects. There is moderate air trapping in the bilateral midlung and bases. IMPRESSION: 1. Low probability for pulmonary embolus. Diagnostic accuracy is somewhat limited by highly abnormal ventilation. Multiple matched defects in both lungs are most compatible with extensive obstructive airspace disease. Superimposed PE cannot be excluded, but is not highly suggested. 2. COPD. [facility]-[id number] Dictated and approved by vice president of nursing/fellow: Prudencio Vega M.D. I, Vincent Bautista MD, personally reviewed the images and resident's/fellow's findings and agree with the final report. Performing Organization Address [facility] Phone Number [facility] [address] [place] [address] XR Chest 1 Vw Portable (02/06/2019 12:10 PM CDT) Specimen Narrative Performed At EXAMINATION:XR CHEST 1 VW PORTABLE [facility] CLINICAL HISTORY: 83 years Male SOB COUNT INCLUDES THE [facility] COMPARISON:Most recent prior at [facility] IMPRESSION: 1.Midline sternotomy wires. Heart size is normal. There are calcifications in the aortic arch. 2.The lungs are emphysematous. There has been increase in interstitial prominence, may represent edema. Clinical correlation. There is some underlying fibrosis. No confluent consolidation or significant effusion. No pneumothorax. 3.Bones are intact [facility]-[id number] Procedure Note Interface, Radiology Results Incoming - 02/06/2019 12:17 PM CDT EXAMINATION: XR CHEST 1 VW PORTABLE CLINICAL HISTORY: 83 years Male SOB COUNT INCLUDES THE [facility] COMPARISON: Most recent prior at [facility] IMPRESSION: 1. Midline sternotomy wires. Heart size is normal. There are calcifications in the aortic arch. 2. The lungs are emphysematous. There has been increase in interstitial prominence, may represent edema. Clinical correlation. There is some underlying fibrosis. No confluent consolidation or significant effusion. No pneumothorax. 3. Bones are intact [facility]-[id number] Performing Organization Address [facility] Phone Number [facility] [address] [place] [address] ECG ED Preliminary Interpretation - Not an Order (02/06/2019 11:55 AM CDT) Narrative Performed At John Alvarez MD 02/10/2019 10:51 AM ECG ED Preliminary Interpretation - Not an Order Performed by: John Alvarez MD Authorized by: John Alvarez MD ECG reviewed by ED Physician in the absence of a home inspector: yes Previous ECG: Previous ECG:Unavailable Interpretation: Interpretation: abnormal Rate: ECG rate:69 ECG rate assessment: normal Rhythm: Rhythm: sinus rhythm QRS: QRS axis:Right QRS intervals:Normal ST segments: ST segments:Non-specific T waves: T waves: non-specific Estimated GFR (02/06/2019 11:45 AM CDT) Pathologist [facility] Estimated GFR 34 (A) mL/min/1.73 [facility] Comment: [address] CatergoryUnitsInterpretation G1 >=90 Normal or high G2 60-89Mildly decreased K1k32-92Avssxi to moderately decreased I4i39-91Ejvlpwzwlm to severely decreased G4 15-29Severely decreased G5 <15Kidney failure The eGFR was calculated using the Chronic Kidney Disease Epidemiology Collaboration (CKD-EPI) equation. Interpretation is based on recommendations of the National Kidney Foundation-Kidney Disease Outcomes Quality Initiative (NKF-KDOQI) published in 2014. Specimen Plasma specimen Performing Organization Address City/[facility]/Zipcode Phone Number [facility] DEPARTMENT OF PATHOLOGY AND [address] [place] [phone] Partial thromboplastin time, activated (02/06/2019 11:45 AM CDT) Pathologist [facility] PTT 32.4 23.0 - 36.0 [facility] Comment: [facility] PTT therapeutic range for unfractionated heparin is 61.0-112.0 seconds which corresponds to Anti-Xa 0.3-0.7 U/ml. Specimen Blood Performing Organization Address City/[facility] Phone Number [facility] DEPARTMENT OF PATHOLOGY AND [address] [place] [phone] [place] [phone] Prothrombin time with INR (02/06/2019 11:45 AM CDT) Pathologist [facility] Prothrombin time 12.6 11.5 - 14.5 [facility] INR 1.0 [facility] Comment: [facility] The International Normalized Ratio (INR) is a therapeutic HOSPITAL monitoring tool for patients who are stable on oral anticoagulant therapy. An INR of 2.0-3.0 is suggested for deep vein thrombosis/pulmonary embolism. Specimen Blood Performing Organization Address City/[facility]/Zipcode Phone Number [facility] DEPARTMENT OF PATHOLOGY AND [address] [place] [phone] [place] [phone] CBC with platelet and differential (02/06/2019 11:45 AM CDT) Pathologist [facility] WBC 10.64 4.50 - 11.00 [facility] k/uL HOSPITAL RBC 4.22 (L) 4.40 - 6.00 [facility] m/uL HOSPITAL HGB 12.7 (L) 14.0 - 18.0 [facility] g/dL HOSPITAL HCT 40.1 (L) 41.0 - 51.0 % [facility] MCV 95.0 82.0 - 100.0 [facility] MCH 30.1 27.0 - 34.0 pg [facility] MCHC 31.7 31.0 - 37.0 [facility] g/dL [facility] RDW - SD 51.5 37.0 - 55.0 fL [facility] MPV 9.3 8.8 - 13.2 fL [facility] Platelet count 240 150 - 400 k/uL [facility] Nucleated RBC 0.00 /100 WBC [facility] Neutrophils 82.2 (H) 39.0 - 69.0 % [facility] Lymphocytes 4.6 (L) 25.0 - 45.0 % [facility] Monocytes 6.9 0.0 - 10.0 % [facility] Eosinophils 5.0 0.0 - 5.0 % [facility] Basophils 0.7 0.0 - 1.0 % [facility] Immature granulocytes 0.6Comment: 0.0 - 1.0 % [facility] "[facility] granulocytes" (promyelocytes , myelocytes, metamyelocytes ) Specimen Blood Performing Organization Address City/State/Zipcode Phone Number [facility] DEPARTMENT OF PATHOLOGY AND [address] [place] [address] B natriuretic peptide (02/06/2019 11:45 AM CDT) BNP 172 (H) 0 - 100 pg/mL [facility] Specimen Blood Performing Organization Address City/State/Zipcode Phone Number [facility] DEPARTMENT OF PATHOLOGY AND [address] [place] [address] Comprehensive metabolic panel (02/06/2019 11:45 AM CDT) Sodium 135 135 - 148 [facility] mEq/L [facility] Potassium 5.0 3.5 - 5.0 [facility] mEq/L [facility] Chloride 102 98 - 112 mEq/L [facility] CO2 23 (L) 24 - 31 mEq/L [facility] Anion gap 10@ANIO 7 - 15 mEq/L [facility] BUN 36 (H) 8 - 23 mg/dL [facility] Creatinine 1.81 (H) 0.70 - 1.20 [facility] mg/dL [facility] Glucose 86 65 - 99 mg/dL [facility] Calcium 8.8 8.8 - 10.2 [facility] mg/dL [facility] Protein 6.0 (L) 6.3 - 8.3 g/dL [facility] Comment: HOSPITAL [place] 4.6-7.0 g/dL 1 week 4.4-7.6 g/dL 7 months-1year5.1-7.3 g/dL 1-2 years5.6-7.5 g/dL >3 years6.0-8.0 g/dL 18-150 6.3-8.3 g/dL Albumin 2.7 (L) 3.5 - 5.0 g/dL [facility] A/G ratio 0.8 0.7 - 3.8 [facility] Alkaline phosphatase 75 40 - 129 U/L [facility] AST 15 10 - 50 U/L [facility] ALT 12 5 - 50 U/L [facility] Total bilirubin 0.3 0.0 - 1.2 [facility] mg/dL [facility] Specimen Plasma specimen Performing Organization Address City/State/[facility] Phone Number [facility] DEPARTMENT OF PATHOLOGY AND [address] [place] [phone] GENOMIC MEDICINE [address] [address] ECG 12 lead (02/06/2019 11:18 AM CDT) Ventricular rate 69 [facility] MUSE Atrial rate 69 [facility] MUSE MS interval 132 [facility] MUSE QRSD interval 92 [facility] MUSE QT interval 388 [facility]USE QTC interval 415 [facility] MUSE P axis 1 89 HM MUSE QRS axis 1 95 [facility] MUSE T wave axis 84 [facility] MUSE EKG impression Normal sinus [facility] MUSE rhythm-Rightward axis-Nonspecific ST abnormality-Abnormal ECG- Specimen Narrative Performed At Performing Organization Address City/[facility] Phone Number [facility] MUSE [address] [place] [address] CT Chest Wo Contrast (01/29/2019 3:22 PM CDT) Specimen Narrative Performed At EXAMINATION: RADIANT CT CHEST WO CONTRAST CLINICAL HISTORY:R06.02 Shortness of breath, SOB R06.02 TECHNIQUE: Multiple axial images of the chest were obtained without contrast. Sagittal and coronal computerized reformatted images were also obtained..All CT images were acquired using radiation dose lowering technique with automated exposure control and / or iterative reconstruction. COMPARISON: CT chest 08/17/2013 IMPRESSION: 1.Extensive aspirated material plugging the basal segmental and subsegmental bronchi of the lower lobes bilaterally. Tiny amount of aspirated material dependently within the inferior segment of bronchus of the lingula, the right lower lobar bronchus, and bronchus intermedius. 2.Extensive centrilobular nodular infiltrates bilaterally, basal predominant, indicative of bronchiolitis/bronchopneumonia from aspiration, though a coexistent small airways infectious process is also possible, as extensive similar-appearing infiltrates are also present in the middle lobe and lingula including anteriorly. This is all new from prior. 3.Moderate to severe panacinar emphysema upper lung predominant has progressed. Calcified granulomata. Mild bibasilar scarring. Lungs otherwise clear. 4.Patient appears cachectic. No axillary lymphadenopathy. Upper normal mediastinal lymph nodes are likely reactive to the process in the lungs. No definite hilar lymphadenopathy. 5.Heart is not enlarged. No pericardial or pleural effusion. 6.Extensive and heavily calcified thoracic aorta. Status post CABG. 7.Gynecomastia. 8.Splenic artery is tortuous and heavily calcified diffusely. Bilateral renal cysts measuring up to 5.5 cm partially seen. 9.An isodense exophytic 2.4 cm lesion in the upper pole right kidney is only minimally larger than 2014, likely a proteinaceous cyst. Nonobstructive right nephrolithiasis partially seen. Visualized bones show no suspicious lesion. 10.Age-indeterminate compression fracture in the upper to midthoracic spine with less than 50% loss. SUMMARY: Aspiration in the lung bases bilaterally, with extensive bronchiolitis, basal predominant, secondary to aspiration, though coexistent infectious/inflammatory bronchiolitis is also possible, as the middle lobe and lingula anteriorly are also involved. Follow-up to ensure resolution recommended. Incidental findings see above. [id number] Procedure Note Interface, Radiology Results Incoming - 01/29/2019 3:45 PM CDT EXAMINATION: CT CHEST WO CONTRAST CLINICAL HISTORY: R06.02 Shortness of breath, SOB R06.02 TECHNIQUE: Multiple axial images of the chest were obtained without contrast. Sagittal and coronal computerized reformatted images were also obtained. . All CT images were acquired using radiation dose lowering technique with automated exposure control and / or iterative reconstruction. COMPARISON: CT chest 08/17/2013 IMPRESSION: 1. Extensive aspirated material plugging the basal segmental and subsegmental bronchi of the lower lobes bilaterally. Tiny amount of aspirated material dependently within the inferior segment of bronchus of the lingula, the right lower lobar bronchus, and bronchus intermedius. 2. Extensive centrilobular nodular infiltrates bilaterally, basal predominant , indicative of bronchiolitis/bronchopneumonia from aspiration, though a coexistent small airways infectious process is also possible, as extensive similar-appearing infiltrates are also present in the middle lobe and lingula including anteriorly. This is all new from prior. 3. Moderate to severe panacinar emphysema upper lung predominant has progressed. Calcified granulomata. Mild bibasilar scarring. Lungs otherwise clear. 4. Patient appears cachectic. No axillary lymphadenopathy. Upper normal mediastinal lymph nodes are likely reactive to the process in the lungs. No definite hilar lymphadenopathy. 5. Heart is not enlarged. No pericardial or pleural effusion. 6. Extensive and heavily calcified thoracic aorta. Status post CABG. 7. Gynecomastia. 8. Splenic artery is tortuous and heavily calcified diffusely. Bilateral renal cysts measuring up to 5.5 cm partially seen. 9. An isodense exophytic 2.4 cm lesion in the upper pole right kidney is only minimally larger than 2014, likely a proteinaceous cyst. Nonobstructive right nephrolithiasis partially seen. Visualized bones show no suspicious lesion. 10. Age-indeterminate compression fracture in the upper to midthoracic spine with less than 50% loss. SUMMARY: Aspiration in the lung bases bilaterally, with extensive bronchiolitis, basal predominant, secondary to aspiration, though coexistent infectious/inflammatory bronchiolitis is also possible, as the middle lobe and lingula anteriorly are also involved. Follow-up to ensure resolution recommended. Incidental findings see above. [facility]-[id number] Performing Organization Address City/State/Zipcode Phone Number IRENE ETIENNE [address] [place] [address] XR Chest 2 Vw (01/29/2019 1:42 PM CDT) Specimen Narrative Performed At EXAMINATION:XR CHEST 2 VW IRENE ETIENNE CLINICAL HISTORY:R06.00 Dyspneaunspecified, r06.02 COMPARISON:08/20/2017 IMPRESSION: 1.Hyperinflation of the lungs, likely obstructive lung disease. Mild coarse interstitial markings. Query whether patient could have smoking-related interstitial lung disease. If clinically indicated chest CT could provide further assessment. 2.Normal heart size. Aorta is mildly atherosclerotic. Poststernotomy. 3.No acute osseous abnormality. [id number] Procedure Note Hm Interface, Radiology Results Incoming - 01/29/2019 1:50 PM CDT EXAMINATION: XR CHEST 2 VW CLINICAL HISTORY: R06.00 Dyspnea unspecified, r06.02 COMPARISON: 08/20/2017 IMPRESSION: 1. Hyperinflation of the lungs, likely obstructive lung disease. Mild coarse interstitial markings. Query whether patient could have smoking-related interstitial lung disease. If clinically indicated chest CT could provide further assessment. 2. Normal heart size. Aorta is mildly atherosclerotic. Poststernotomy. 3. No acute osseous abnormality. [id number] Performing Organization Address City/State/Zipcode Phone Number JAIMIE [address] [place] [address] after 02/23/2018 Insurance Payer Benefit Plan / Subscriber ID Effective Dates Phone Address Type Group MEDICARE MEDICARE PART A xxxxxxxxxxx 2002-Present [place], [place] Medicare AND B BCBS COUNT INCLUDES THE [facility] CROSS xxxxxxxxxxxx 2017-Present PPO Advance Directives Patient has advance care planning documents on file. For more information, please contact:[address] [place] [address]
[2019-02-24] MEDS ORDERED: NA CHLORIDE 0.9% 500 ML ONE (20:55)
[2019-02-24 21:27] LABS: Absolute Lymphocytes (CBC) 0.3 K/uL (0.7-4.9); Basophils % 0.1 % (0-1.3); Hematocrit 41.1 % (39.6-49.0); Lymphocytes % 2.3 % (15.3-44.8); MPV 7.5 fL (7.6-11.3); RBC Red Blood Cell Count 4.42 M/uL (4.33-5.43)
[2019-02-24 21:46] LABS: Magnesium 2.3 mg/dL (1.8-2.4); Potassium 4.7 mmol/L (3.5-5.1); Troponin (Emerg Dept Use Only) 0.06 ng/mL (0.0-0.045)
[2019-02-24 21:53] LABS: Blood Morphology Comment NOT SEEN (NOT SEEN); Platelet Estimate ADEQ; Urine White Blood Cell Casts OK
--- NOTE | 2019-02-24 22:13 | RAD REPORT ---
EXAM DESCRIPTION: RAD - Chest Single View - 02/24/2019 9:13 pm CLINICAL HISTORY: COPD Chest pain. COMPARISON: Chest Single View dated 11/08/2017; Chest Single View dated 10/31/2017; CHEST SINGLE VIEW dated 05/13/2015; CHEST SINGLE VIEW dated 04/23/2015 FINDINGS: Portable technique limits examination quality. Prominent emphysema is seen with poorly defined infiltrate in both lower lobes most compatible with p neumonia. Small bilateral pleural effusions are present. The heart is normal in size. Sternotomy wire s present.
--- NOTE | 2019-02-24 23:18 | EDPHYS ---
Physician Documentation [facility] Name: Azael Crocker Jr Age: 83 yrs Sex: Male : 1935 Arrival Date: 02/24/2019 Time: 20:16 Bed 14 Private MD: Remy Phoenix H ED Physician Juan Birch HPI: 02/24 23:35 This 83 yrs old Male presents to ER via Wheelchair with complaints of Fast gs heart rate. 23:35 The patient presents with a history of heart racing. Onset: The symptoms/episode gs began/occurred acutely, just prior to arrival. Duration: The patient or guardian reports a single episode, that is now resolved. Modifying factors: The symptoms are alleviated by bblocker. Associated signs and symptoms: Pertinent positives: chest pain, lightheadedness. Severity of symptoms: At their worst the symptoms were incapacitating in the emergency department the symptoms have resolved. The patient has experienced similar episodes in the past, multiple times. Historical: - Allergies: 20:39 No Known Allergies; jd3 - Home Meds: 20:39 Albuterol Inhl [Active]; aspirin 81 mg Oral chew 1 tab once daily [Active]; isosorbide jd3 mononitrate 30 mg Oral Tb24 1 tab once daily [Active]; Metoprolol Tartrate Oral [Active]; tamsulosin 0.4 mg Oral cp24 1 cap once daily [Active]; - PMHx: 20:39 CAD; Hypertension; PROSTATE CA; jd3 - PSHx: 20:39 valve replacement; jd3 - Immunization history:: Adult Immunizations up to date. - Social history:: Smoking status: Patient uses tobacco products, smokes one pack cigarettes per day. - Ebola Screening: : Patient negative for fever greater than or equal to 101.5 degrees Fahrenheit, and additional compatible Ebola Virus Disease symptoms. ROS: 23:35 All other systems are negative. gs Exam: 23:35 Head/Face: Normocephalic, atraumatic. Eyes: Pupils equal round and reactive to light, gs extra-ocular motions intact. Lids and lashes normal. Conjunctiva and sclera are non-icteric and not injected. Cornea within normal limits. Periorbital areas with no swelling, redness, or edema. ENT: Nares patent. No nasal discharge, no septal abnormalities noted. Tympanic membranes are normal and external auditory canals are clear. Oropharynx with no redness, swelling, or masses, exudates, or evidence of obstruction, uvula midline. Mucous membranes moist. Neck: Trachea midline, no thyromegaly or masses palpated, and no cervical lymphadenopathy. Supple, full range of motion without nuchal rigidity, or vertebral point tenderness. No Meningismus. Chest/axilla: Normal chest wall appearance and motion. Nontender with no deformity. No lesions are appreciated. Cardiovascular: Regular rate and rhythm with a normal S1 and S2. No gallops, murmurs, or rubs. Normal PMI, no JVD. No pulse deficits. Respiratory: Lungs have equal breath sounds bilaterally, clear to auscultation and percussion. No rales, rhonchi or wheezes noted. No increased work of breathing, no retractions or nasal flaring. Abdomen/GI: Soft, non-tender, with normal bowel sounds. No distension or tympany. No guarding or rebound. No evidence of tenderness throughout. Back: No spinal tenderness. No costovertebral tenderness. Full range of motion. Skin: Warm, dry with normal turgor. Normal color with no rashes, no lesions, and no evidence of cellulitis. MS/ Extremity: Pulses equal, no cyanosis. Neurovascular intact. Full, normal range of motion. Neuro: Awake and alert, GCS 15, oriented to person, place, time, and situation. Cranial nerves II-XII grossly intact. Motor strength 5/5 in all extremities. Sensory grossly intact. Cerebellar exam normal. Normal gait. 23:35 Constitutional: The patient appears alert, awake. 23:35 ECG was reviewed by the Attending Physician. Vital Signs: 20:32 BP 90 / 52; Pulse 73; Resp 25 S; Temp 97.9(TE); Pulse Ox 94% on R/A; Weight 46.27 kg jd3 (R); Height 5 ft. 11 in. (180.34 cm) (R); Pain 0/10; 21:35 BP 102 / 57; Pulse 70; Resp 18; Pulse Ox 100% on R/A; ea 23:07 BP 101 / 63; Pulse 67; Resp 18; Pulse Ox 95% on 2 lpm NC; ea 02/25 00:14 BP 107 / 58; Pulse 70; Resp 19; Temp 97.6; Pulse Ox 95% on 2 lpm NC; ea 02/24 20:32 Body Mass Index 14.23 (46.27 kg, 180.34 cm) jd3 MDM: 02/24 20:41 Patient medically screened. 23:35 Differential diagnosis: arrythmia, dehydration, stress disorder, mi. Data reviewed: vital signs, nurses notes, lab test result(s), EKG, radiologic studies. Counseling: I had a detailed discussion with the patient and/or guardian regarding: the need for further work-up and treatment in the hospital. Response to treatment: the patient's symptoms have markedly improved after treatment, the patient's symptoms have resolved after treatment, the patient's pain is gone, and as a result, I will admit patient. 02/24 20:41 Order name: Basic Metabolic Panel 02/24 20:41 Order name: CBC with Diff; Complete Time: 23:14 02/24 20:41 Order name: Magnesium; Complete Time: 23:14 02/24 20:41 Order name: Troponin (emerg Dept Use Only); Complete Time: 23:14 02/24 20:41 Order name: Basic Metabolic Panel; Complete Time: 23:14 [facility] 02/24 21:32 Order name: CBC Smear Scan; Complete Time: 23:14 [facility] 02/24 20:41 Order name: XRAY Chest (1 view); Complete Time: 23:14 02/24 23:59 Order name: Echo with Doppler [facility] 02/25 00:01 Order name: Lipid Profile [facility] 02/25 00:01 Order name: Lipid Profile [facility] 02/25 00:03 Order name: Comprehensive Metabolic Panel [facility] 02/24 20:41 Order name: EKG; Complete Time: 20:42 02/24 20:41 Order name: Cardiac monitoring; Complete Time: 21:35 02/24 20:41 Order name: EKG - Nurse/Tech; Complete Time: 21:35 02/24 20:41 Order name: IV Saline Lock; Complete Time: 21:35 02/24 20:41 Order name: Labs collected and sent; Complete Time: 21:35 02/24 20:41 Order name: O2 Per Protocol; Complete Time: 21:35 02/24 20:41 Order name: O2 Sat Monitoring; Complete Time: 21:35 02/24 23:59 Order name: CONS Physician Consult [facility] 02/24 23:59 Order name: EKG Electrocardiogram [facility] 02/24 23:59 Order name: EKG Electrocardiogram [facility] EC:35 Rate is 67 beats/min. Rhythm is regular. LA interval is normal. QRS interval is gs prolonged. No Q waves. Clinical impression: NSR w/ Non-specific ST/T Changes. Interpreted by me. Administered Medications: 21:30 Drug: NS 0.9% 500 ml Route: IV; Rate: bolus; Site: right antecubital; ea 23:55 Follow up: Response: No adverse reaction; IV Status: Completed infusion; IV Intake: ea 500ml 02/25 00:00 Drug: Aspirin Chewable Tablet 324 mg Route: PO; ea 00:31 Follow up: Response: No adverse reaction ea Disposition: 02/24/19 23:17 Hospitalization ordered by Anjelica Plunkett for Inpatient Admission. Preliminary diagnosis are Palpitations, Chest pain, unspecified, Abnormal serum enzyme levels. - Bed requested for Telemetry/MedSurg (observation). - Status is Inpatient Admission. ea - Condition is Stable. - Problem is new. - Symptoms have improved. UTI on Admission? No Signatures: Dispatcher [employer] [facility] Yanira Conn RN RN Sabina Thomas RN RN ea Starr, Gregory, MD MD gs Davies, Jonathon, RN RN jd3 Corrections: (The following items were deleted from the chart) 00:01 02/24 23:58 Lipid Profile ordered. [facility] 02/25 00:01 02/24 23:58 Lipid Profile ordered. [facility] 02/25 00:09 02/24 23:17 Hospitalization Ordered by Anjelica Plunkett MD for Inpatient Admission. Preliminary diagnosis is Palpitations; Chest pain, unspecified; Abnormal serum enzyme levels. Bed requested for Telemetry/MedSurg (observation). Status is Inpatient Admission. Condition is Stable. Problem is new. Symptoms have improved. UTI on Admission? No. 02/25 00:40 00:09 02/24/2019 23:17 Hospitalization Ordered by Anjelica Plunkett MD for Inpatient ea Admission. Preliminary diagnosis is Palpitations; Chest pain, unspecified; Abnormal serum enzyme levels. Bed requested for Telemetry/MedSurg (observation). Status is Inpatient Admission. Condition is Stable. Problem is new. Symptoms have improved. UTI on Admission? No. cg
--- NOTE | 2019-02-24 23:18 | ER ---
Nurse's Notes [facility] Name: Azael Crocker Jr Age: 83 yrs Sex: Male : 1935 Arrival Date: 02/24/2019 Time: 20:16 Bed 14 Private MD: Remy Phoenix H Diagnosis: Palpitations;Chest pain, unspecified;Abnormal serum enzyme levels Presentation: 02/24 20:30 Presenting complaint: states: "He was having a heart rate at 180s. He took 2 jd3 metoprolol to see if it would help and he said he started feeling a litter better.". Transition of care: patient was not received from another setting of care. Onset of symptoms was February 24, 2019. Risk Assessment: Do you want to hurt yourself or someone else? Patient reports no desire to harm self or others. Initial Sepsis Screen: Does the patient meet any 2 criteria? No. Patient's initial sepsis screen is negative. Does the patient have a suspected source of infection? No. Patient's initial sepsis screen is negative. Care prior to arrival: None. 20:30 Method Of Arrival: Wheelchair jd3 20:30 Acuity: BLANE 3 jd3 Historical: - Allergies: 20:39 No Known Allergies; jd3 - Home Meds: 20:39 Albuterol Inhl [Active]; aspirin 81 mg Oral chew 1 tab once daily [Active]; isosorbide jd3 mononitrate 30 mg Oral Tb24 1 tab once daily [Active]; Metoprolol Tartrate Oral [Active]; tamsulosin 0.4 mg Oral cp24 1 cap once daily [Active]; - PMHx: 20:39 CAD; Hypertension; PROSTATE CA; jd3 - PSHx: 20:39 valve replacement; jd3 - Immunization history:: Adult Immunizations up to date. - Social history:: Smoking status: Patient uses tobacco products, smokes one pack cigarettes per day. - Ebola Screening: : Patient negative for fever greater than or equal to 101.5 degrees Fahrenheit, and additional compatible Ebola Virus Disease symptoms. Screenin:36 Abuse screen: Denies threats or abuse. Nutritional screening: No deficits noted. ea Tuberculosis screening: No symptoms or risk factors identified. Fall Risk None identified. Assessment: 21:00 General: Appears uncomfortable, Behavior is appropriate for age. Pain: Denies pain. ea Neuro: Level of Consciousness is awake, alert, obeys commands, Oriented to person, place, time, situation. Cardiovascular: Patient's skin is warm and dry. Respiratory: Airway is patent Respiratory effort is even, unlabored, Respiratory pattern is regular, symmetrical. Derm: Skin is pink, warm \\T\\ dry. Musculoskeletal: Circulation, motion, and sensation intact. 22:45 Reassessment: Patient and/or family updated on plan of care and expected duration. Pain ea level reassessed. Patient is alert, oriented x 3, equal unlabored respirations, skin warm/dry/pink. 23:09 Reassessment: Patient and/or family updated on plan of care and expected duration. Pain ea level reassessed. Patient is alert, oriented x 3, equal unlabored respirations, skin warm/dry/pink. 02/25 00:29 Reassessment: Report called to Demarco PALUMBO. ea 00:39 Reassessment: Patient and/or family updated on plan of care and expected duration. Pain ea level reassessed. Patient is alert, oriented x 3, equal unlabored respirations, skin warm/dry/pink. Pt admitted to fourth floor via stretcher per tech. Pt taken on O2 at 2 L per nasal cannula. Pt tolerating well. No s/s of pain or discomfort noted at this time. Vital Signs: 02/24 20:32 BP 90 / 52; Pulse 73; Resp 25 S; Temp 97.9(TE); Pulse Ox 94% on R/A; Weight 46.27 kg jd3 (R); Height 5 ft. 11 in. (180.34 cm) (R); Pain 0/10; 21:35 BP 102 / 57; Pulse 70; Resp 18; Pulse Ox 100% on R/A; ea 23:07 BP 101 / 63; Pulse 67; Resp 18; Pulse Ox 95% on 2 lpm NC; ea 02/25 00:14 BP 107 / 58; Pulse 70; Resp 19; Temp 97.6; Pulse Ox 95% on 2 lpm NC; ea 02/24 20:32 Body Mass Index 14.23 (46.27 kg, 180.34 cm) jd3 ED Course: 02/24 20:16 Patient arrived in ED. mr 20:16 Remy Phoenix DO is Private Physician. mr 20:31 Triage completed. jd3 20:35 Juan Birch MD is Attending Physician. 20:37 Sabina Thomas RN is Primary Nurse. ea 20:39 Arm band placed on. jd3 21:14 XRAY Chest (1 view) In Process Unspecified. EDMS 21:30 Inserted saline lock: 20 gauge in right antecubital area, using aseptic technique. ea Blood collected. 21:36 Patient has correct armband on for positive identification. Bed in low position. Call ea light in reach. Side rails up X2. 23:16 Anjelica Plunkett MD is Hospitalizing Provider. 02/25 00:12 No provider procedures requiring assistance completed. Patient admitted, IV remains in ea place. Administered Medications: 02/24 21:30 Drug: NS 0.9% 500 ml Route: IV; Rate: bolus; Site: right antecubital; ea 23:55 Follow up: Response: No adverse reaction; IV Status: Completed infusion; IV Intake: ea 500ml 02/25 00:00 Drug: Aspirin Chewable Tablet 324 mg Route: PO; ea 00:31 Follow up: Response: No adverse reaction ea Intake: 02/24 23:55 IV: 500ml; Total: 500ml. ea Outcome: 23:17 Decision to Hospitalize by Provider. 02/25 00:13 Instructed on the need for admit, Demonstrated understanding of instructions. ea 00:38 Admitted to Med/surg accompanied by tech, via stretcher, room 405, on monitor, Report ea called to Demarco PALUMBO 00:38 Condition: stable 00:40 Patient left the ED. ea Signatures: Dispatcher [employer] [facility] Amparo Bond mr Sabina Thomas, RN RN Juan Larios MD MD gs Davies, Jonathon, RN RN jd3
[2019-02-24] MEDS ORDERED: MORPHINE 4 MG/ML SYR IV PRN (23:52)
[2019-02-24] MEDS ORDERED: ACETAMINOPHEN 500 MG TAB PO PRN (23:52)
[2019-02-24] MEDS ORDERED: ASPIRIN 81 MG CHEWABLE TABLET ONE (23:57)
[2019-02-25 00:53] VITALS: O2SAT 95
[2019-02-25] MEDS ORDERED: ENOXAPARIN 30 MG/0.3 ML SQ SCH (01:00)
[2019-02-25 02:18] VITALS: BMI 14.2
[2019-02-25 06:21] LABS: Absolute Lymphocytes (CBC) 0.3 K/uL (0.7-4.9); Basophils % 0.1 % (0-1.3); Hematocrit 37.3 % (39.6-49.0); Lymphocytes % 3.7 % (15.3-44.8); MPV 7.7 fL (7.6-11.3); RBC Red Blood Cell Count 4.11 M/uL (4.33-5.43)
[2019-02-25 07:01] LABS: Albumin 2.2 g/dL (3.4-5.0); Bilirubin Total 0.4 mg/dL (0.2-1.0); Potassium 5.2 mmol/L (3.5-5.1); Protein, Total 5.1 g/dL (6.4-8.2); Thyroid Stimulating Hormone 1.46 uIU/mL (0.360-3.740); Troponin I 0.25 ng/mL (0.0-0.045)
[2019-02-25] MEDS ORDERED: PNEUMOCOCCAL VACCINE 0.5 ML IMVAC ONE (08:00)
--- NOTE | 2019-02-25 08:43 | P.HP ---
Certification for Inpatient Patient admitted to: Observation With expected LOS: <2 Midnights Patient will require the following post-hospital care: None Practitioner: I am a practitioner with admitting privileges, knowledge of patient current condition, hospital course, and medical plan of care. Services: Services provided to patient in accordance with Admission requirements found in Title 42 Section 412.3 of the Code of Federal Regulations Patient History Date of Service: 02/25/19 History of Present Illness: Patient is an 83-year-old gentleman who came to the hospital with tachyarrhythmia. He said his symptoms again just prior to coming into the hospital. He was having some chest discomfort and was lightheaded. He came into the ER and was given IV beta-debra and his symptoms resolved. He was admitted to the hospital for further evaluation. His initial troponin was mildly elevated. Has a longstanding history of COPD and he smokes 1 pack per day. Patient wears oxygen at home. He wheezes diffusely. He states that he was wanting to go home in the morning. We told him we need to do a cardiac workup prior to discharging. He will be admitted for further workup. Allergies No Known Allergies Allergy (Verified 08/16/13 09:01) Home Medications: Clopidogrel Bisulfate [Plavix*] 75 mg PO DAILY 02/25/19 Formoterol Fumarate 20 mcg IN BID 02/25/19 Furosemide [Lasix*] 20 mg pe PO DAILY 02/25/19 Ipratropium Neb [Atrovent*] 1 inhaler NEB QID 02/25/19 Isosorbide Mononitrate [Isosorbide Mononitrate ER] 30 mg pe PO DAILY 02/25/19 Metoprolol Tartrate [Lopressor*] 50 mg PO BID 02/25/19 Revefenacin [Yupelri] 1 inhaler IN BIDP PRN 02/25/19 Tamsulosin [Flomax*] 0.4 mg PO DAILY 02/25/19 predniSONE [Prednisone*] 20 mg PO DAILY 02/25/19 - Past Medical/Surgical History Has patient received pneumonia vaccine in the past: No Diabetic: No -: COPD -: Prostate CA 2008 -: Testicular CA -: CAD -: laproscopic hernia repair 2006 -: CABG -: aortic valve replacement -: testicular resection - Family History Father Notes: prostate cancer son Medical History: Heart disease Notes: myocardial infarction daughter Notes: ovarian cancer - Social History Smoking Status: Current every day smoker Alcohol use: No CD- Drugs: No Caffeine use: Yes Place of Residence: Home Review of Systems 10-point ROS is otherwise unremarkable Physical Examination - Vital Signs Temperature: 98.3 F Blood Pressure: 138/73 Pulse: 76 Respirations: 20 Pulse Ox (%): 91 - Physical Exam General: Alert, In no apparent distress, Oriented x3 HEENT: Atraumatic, PERRLA, Mucous membr. moist/pink, EOMI, Sclerae nonicteric Neck: Supple, 2+ carotid pulse no bruit, No LAD, Without JVD or thyroid abnormality Respiratory: Diminished, Expiratory wheezes Cardiovascular: Regular rate/rhythm, Normal S1 S2, Systolic murmur Gastrointestinal: Normal bowel sounds, Soft and benign, Non-distended, No tenderness Musculoskeletal: No clubbing, No swelling, No tenderness Integumentary: No rashes Neurological: Normal gait, Normal speech, Normal tone, Sensation intact, Cranial nerves 3-12 intact, Normal affect, Abnormal strength Lymphatics: No axilla or inguinal lymphadenopathy - Studies Laboratory Data (last 24 hrs) 02/24/19 23:52: Triglycerides Cancelled, Cholesterol Cancelled, HDL Cholesterol Cancelled, Cholesterol/HDL Ratio Cancelled 02/24/19 21:20: WBC 11.6 H, Hgb 13.3 L, Hct 41.1, Plt Count 258 02/24/19 21:20: Sodium 139, Potassium 4.7, BUN 47 H, Creatinine 2.01 H, Glucose 112 H, Magnesium 2.3 Assessment & Plan - Problems (Diagnosis) (1) SVT (supraventricular tachycardia) Current Visit: Yes Status: Acute (2) COPD (chronic obstructive pulmonary disease) Current Visit: Yes Status: Acute (3) Tobacco abuse Current Visit: Yes Status: Acute (4) BPH (benign prostatic hyperplasia) Current Visit: No Status: Chronic - Plan Plan: 1. Continue with beta-debra therapy 2. Patient may need IV steroids if his respiratory status does not improve. He is wheezing and he has diminished breath sounds. Continue to monitor him. I believe he is using his nebulizer treatments quite frequently which is causing his heart rate to get elevated. He needs better control of his COPD. This is a chronic issue and this could be worked up as an outpatient. Will consult Pulmonary inpatient if his symptoms worsen 3. Counseled regarding tobacco cessation 4. GI and DVT prophylaxis Discharge Plan: Home Plan to discharge in: Greater than 2 days - Advance Directives Does patient have a Living Will: No Does patient have a Durable POA for Healthcare: No - Code Status/Comfort Care Code Status Assessed: Yes Code Status: Full Code Critical Care: No Time Spent Managing PTS Care (In Minutes): 40
[2019-02-25] MEDS ORDERED: METOPROLOL TAR 50 MG TAB PO SCH ×2 (09:00→21:00)
[2019-02-25] MEDS ORDERED: ASPIRIN EC 81 MG TAB PO SCH (09:00)
[2019-02-25] MEDS ORDERED: ALPRAZOLAM 0.25 MG TABLET PO PRN (09:13)
[2019-02-25] MEDS ORDERED: IPRATROPIUM BROM 0.5MG/2.5ML NEB PRN (09:14)
--- NOTE | 2019-02-25 09:29 | P.PN ---
Subjective Date of Service: 02/25/19 Primary Care Provider: none; Pulmonary-Dr. Tran; Cardiology-Dr. Garduno Chief Complaint: Lightheadedness Subjective: Other (Patient doing well this morning. No complaints noted. Patient desires to go home.) Physical Examination - Vital Signs Temperature: 98.3 F Blood Pressure: 138/73 Pulse: 76 Respirations: 20 Pulse Ox (%): 91 - Physical Exam General: Alert, In no apparent distress, Cooperative HEENT: Atraumatic Neck: Supple Respiratory: Expiratory wheezes (Bilateral) Cardiovascular: Normal pulses, Regular rate/rhythm Gastrointestinal: Normal bowel sounds, Soft and benign, Non-distended, No masses , No rebound, No guarding Musculoskeletal: No tenderness, No warmth Integumentary: No tenderness/swelling, No erythema, No warmth, No cyanosis Neurological: Normal speech, Normal strength at 5/5 x4 extr, Normal tone, Normal affect - Studies Laboratory Data (last 24 hrs) 02/24/19 23:52: Triglycerides Cancelled, Cholesterol Cancelled, HDL Cholesterol Cancelled, Cholesterol/HDL Ratio Cancelled 02/24/19 21:20: WBC 11.6 H, Hgb 13.3 L, Hct 41.1, Plt Count 258 02/24/19 21:20: Sodium 139, Potassium 4.7, BUN 47 H, Creatinine 2.01 H, Glucose 112 H, Magnesium 2.3 Medications List Reviewed: Yes Assessment & Plan Discharge Plan: Home Plan to discharge in: 24 Hours Physician Review Additional Text: Impression: Supraventricular tachycardia, resolved, with noted elevated troponin Hypertension COPD on chronic oxygen and steroids BPH CAD Chronic renal disease, stage III Hyperkalemia Chronic systolic CHF Plan: Supraventricular tachycardia, resolved, with noted elevated troponin: Home medications reviewed. Patient restarted on metoprolol. Blood pressure stable. Heart rate now in normal rhythm. Will provide DVT prophylaxis. Cardiology consulted for further recommendation. Echocardiogram also order. Will discuss further with cardiology. Patient desires to leave against medical advice. Will discuss with cardiology about possible discharge. Anticipate discharge within the next 24 hr with clinical improvement and cleared by cardiology. Hypertension: Continue with metoprolol. Will monitor and adjust appropriately. COPD on chronic oxygen and steroids: Restart oral steroid. Continue with COPD medication. Patient uses home oxygen. Maintain sats above 90%. Respiratory consulted to further address. BPH: Restart Flomax. CAD: Restart home medication including Plavix and Imdur. Troponin slightly elevated. Will discuss with cardiology. Chronic renal disease, stage III: This appears stable. Recommend no nonsteroidal anti-inflammatories. Will adjust medication per renal function. Will recommend nephrology evaluation as an outpatient to further monitor. Hyperkalemia: Will recheck potassium. If potassium still elevated will provide Kayexalate. Chronic systolic CHF: Suspect systolic disease. Patient on Lasix at home. Restart Lasix. Obtain echocardiogram to further evaluate. Time Spent Managing Pts Care (In Minutes): 55
--- NOTE | 2019-02-25 09:47 | EKG ---
Test Date: 2019-02-25 Test Time: 07:50:51 Head Of Commission Department: [facility] MEASUREMENT RESULTS: Intervals: Rate: 72 RI: 128 QRSD: 92 QT: 374 QTc: 409 [place]: P: 76 RI: 128 QRS: 88 T: 52 INTERPRETIVE STATEMENTS: Normal sinus rhythm Normal ECG Compared to ECG 02/24/2019 21:26:25 Right-axis deviation no longer present Myocardial infarct finding no longer present Electronically Signed On 02-25-19 09:46:58 CDT by Amilcar Vann
--- NOTE | 2019-02-25 09:48 | EKG ---
Test Date: 2019-02-24 Test Time: 21:26:25 Personal Care Aid: [place] MEASUREMENT RESULTS: Intervals: Rate: 67 AL: 126 QRSD: 100 QT: 388 QTc: 409 [place]: P: 80 AL: 126 QRS: 90 T: 67 INTERPRETIVE STATEMENTS: Normal sinus rhythm Rightward axis Cannot rule out Inferior infarct, age undetermined Abnormal ECG Compared to ECG 11/08/2017 08:59:40 Sinus bradycardia no longer present Myocardial infarct finding still present Electronically Signed On 02-25-19 09:47:45 CDT by Amilcar Vann
--- NOTE | 2019-02-25 11:27 | ECHO ---
HEIGHT: 5 ft 11 in WEIGHT: 102 lb 0.126 oz DATE OF STUDY: 02/25/[address]: Anjelica Plunkett MD 2-DIMENSIONAL: YES M.MODE: YES DOPPLER: YES COLOR FLOW: YES TDS: YES PORTABLE: NO DEFINITY: NO BUBBLE STUDY: NO DIAGNOSIS: ATRIAL FIBRILLATION CARDIAC HISTORY: CATHERIZATION: YES SURGERY: YES PROSTHETIC VALVE: YES PACEMAKER: NO MEASUREMENTS (cm) DIASTOLIC (NORMALS) SYSTOLIC (NORMALS) IVSd 1.3 (0.6-1.2) LA Diam (1.9-4.0) LVEF >70% LVIDd 3.9 (3.5-5.7) LVIDs 2.9 (2.0-3.5) %FS 27% LVPWd 1.3 (0.6-1.2) Ao Diam 2.8 (2.0-3.7) 2 DIMENSIONAL ASSESSMENT: RIGHT ATRIUM: NORMAL LEFT ATRIUM: DILATED RIGHT VENTRICLE: NORMAL LEFT VENTRICLE: LEFT VENTRICULAR HYPERTROPHY, CONCENTRIC TRICUSPID VALVE: NORMAL MITRAL VALVE: NORMAL PULMONIC VALVE: NORMAL AORTIC VALVE: BIOPROSTHETIC PERICARDIAL EFFUSION: NONE AORTIC ROOT: NORMAL LEFT VENTRICULAR WALL MOTION: NORMAL DOPPLER/COLOR FLOW: MILD TRICUSPID REGURGITATION. NORMAL RIGHT VENTRICULAR SYSTOLIC PRESSURE. NO AORTIC STENOSIS OR AORTIC REGURGITATION. COMMENTS: HYPERDYNAMIC LEFT VENTRICULAR EJECTION FRACTION. DILATED LEFT ATRIUM. LEFT VENTRICULAR HYPERTROPHY. BIOPROSTHETIC AORTIC VALVE WITH NO AORTIC STENOSIS OR AORTIC REGURGITATION. MILD TRICUSPID REGURGITATION. SINUS RHYTHM. TECHNOLOGIST: Michi GRACIA
[2019-02-25 12:19] VITALS: BP 153/79; TEMP 98
--- NOTE | 2019-02-25 12:35 | CON ---
History Of Present Illness: Mr. Crocker is 83. He came to the hospital because his heart was racing. He was in rapid atrial fibrillation. He is now in sinus rhythm and feels well. He is threatening t o leave AMA. He does not know what medications he takes. He has a history of bypass surgery and bio prosthetic aortic valve replacement several years ago. He has severe obstructive lung disease. Cont inues to smoke. He saw Dr. Garduno, his banquet pilot, just a few weeks ago and had a stress test and ev aluations of his leg veins, heart, and lungs, and was told everything was stable. We do not know wha t medicines he is on. In the past, he has been on amiodarone. If he has stopped that, perhaps he ne eds to resume or get on another antiarrhythmic drug. He had transient atrial fibrillation that actua lly caused a rise in his enzymes, a lot of distress. Before starting an antiarrhythmic drug, I need to know what medicines he has been on. If he is a chronic amiodarone patient, I would preclude using any other medicines at this point until there has been a washout. So, we need to know what his medi cations are and start an antiarrhythmic drug will hopefully control the atrial fibrillation a little better. I talked about chronic anticoagulation. I do not think he is on a chronic anticoagulant, bu t we do not know. Our hands are kind of tied. Diagnoses: Fairly stable but severe coronary artery disease, stable valvular heart disease with lebron sient atrial fibrillation causing an enzyme release, a lot of distress. DAYDAY/ANIKET Voice ID: [id number] Report ID: [id number]
--- NOTE | 2019-02-25 15:42 | P.DS ---
Admission Date: 02/24/19 Discharge Date: 02/25/19 Primary Care Provider: none; Pulmonary-Dr. Tran; Cardiology-Dr. Garduno Disposition: AMA-LEFT AGAINST MEDICAL ADVIC Discharge Condition: GOOD Reason for Admission: Lightheadedness Consultations: Cardiology-Dr. Vann Procedures: Echocardiogram: Ejection fraction 70%. LEFT VENTRICULAR WALL MOTION: NORMAL DOPPLER/COLOR FLOW: MILD TRICUSPID REGURGITATION. NORMAL RIGHT VENTRICULAR SYSTOLIC PRESSURE. NO AORTIC STENOSIS OR AORTIC REGURGITATION. COMMENTS: HYPERDYNAMIC LEFT VENTRICULAR EJECTION FRACTION. DILATED LEFT ATRIUM. LEFT VENTRICULAR HYPERTROPHY. BIOPROSTHETIC AORTIC VALVE WITH NO AORTIC STENOSIS OR AORTIC REGURGITATION. MILD TRICUSPID REGURGITATION. SINUS RHYTHM. Medical problem list: Transient atrial fibrillation with elevated troponin likely related to stress Hypertension COPD on chronic oxygen and steroids BPH CAD Chronic renal disease, stage III Hyperkalemia Chronic systolic CHF Brief History of Present Illness: 83-year-old male presented to the emergency room with accelerated heart rate. Patient found to have atrial fibrillation with RVR. Patient was admitted for further evaluation and treatment. Hospital Course: Patient presented with accelerated heart rate. Patient found to have a transient atrial fibrillation with noted elevated troponin. Patient was evaluated by cardiology. Patient has seen an outside clothing cutter in [place]. Patient reported to cardiology that he had had multiple evaluations for his heart by his outpatient clothing cutter. All were unremarkable per him. Based on cardiology examination, patient has transient atrial fibrillation. Patient now in sinus rhythm. Patient also with underlying CAD. Cardiology wanted to find out exactly what medications the patient took to determine plan of care. Patient previously on amiodarone. Patient not on chronic anti coagulation therapy based on home medication. Patient left against medical advice prior to cardiology recommendations. Patient was counseled on risks of leaving. Patient understands. Patient plans to follow up with his clothing cutter. Patient with underlying hypertension, COPD on chronic oxygen/steroids, BPH, CAD , chronic renal disease stage III, chronic diastolic CHF. Patient left against medical advice. Patient will need to continue with his home medications. Recommendation to follow up with his clothing cutter for further treatment. Vital Signs/Physical Exam: Temp Pulse Resp BP Pulse Ox 98.0 F 56 16 153/79 H 92 02/25/19 12:00 02/25/19 12:00 02/25/19 12:00 02/25/19 12:00 02/25/19 12:00 General: Alert, In no apparent distress, Oriented x3, Cooperative HEENT: Atraumatic Neck: Supple Respiratory: Expiratory wheezes Cardiovascular: Regular rate/rhythm Gastrointestinal: Normal bowel sounds, Soft and benign, Non-distended, No tenderness, No masses, No rebound, No guarding Musculoskeletal: No erythema, No tenderness, No warmth Laboratory Data at Discharge: WBC 7.7 K/uL (4.3-10.9) D 02/25/19 06:03 Hgb 12.9 g/dL (13.6-17.9) L 02/25/19 06:03 Hct 37.3 % (39.6-49.0) L 02/25/19 06:03 Plt Count 251 K/uL (152-406) 02/25/19 06:03 Sodium 142 mmol/L (136-145) 02/25/19 06:03 Potassium 5.0 mmol/L (3.5-5.1) 02/25/19 09:35 BUN 44 mg/dL (7-18) H 02/25/19 06:03 Creatinine 1.84 mg/dL (0.55-1.3) H 02/25/19 06:03 Glucose 92 mg/dL (74-106) 02/25/19 06:03 Magnesium 2.3 mg/dL (1.8-2.4) 02/24/19 21:20 Total Bilirubin 0.4 mg/dL (0.2-1.0) 02/25/19 06:03 AST 12 U/L (15-37) L 02/25/19 06:03 ALT 17 U/L (12-78) 02/25/19 06:03 Alkaline Phosphatase 70 U/L (45-117) 02/25/19 06:03 Troponin I 0.25 ng/mL (0.0-0.045) H 02/25/19 06:03 Triglycerides 81 mg/dL (<150) 02/25/19 06:03 Cholesterol 108 mg/dL (<200) 02/25/19 06:03 HDL Cholesterol 43 mg/dL (40-60) 02/25/19 06:03 Cholesterol/HDL Ratio 2.51 02/25/19 06:03 Home Medications: Clopidogrel Bisulfate [Plavix*] 75 mg PO DAILY 02/25/19 Formoterol Fumarate 20 mcg IN BID 02/25/19 Furosemide [Lasix*] 20 mg pe PO DAILY 02/25/19 Ipratropium Neb [Atrovent*] 1 inhaler NEB QID 02/25/19 Isosorbide Mononitrate [Isosorbide Mononitrate ER] 30 mg pe PO DAILY 02/25/19 Metoprolol Tartrate [Lopressor*] 50 mg PO BID 02/25/19 Revefenacin [Yupelri] 1 inhaler IN BIDP PRN 02/25/19 Tamsulosin [Flomax*] 0.4 mg PO DAILY 02/25/19 predniSONE [Prednisone*] 20 mg PO DAILY 02/25/19 Patient Discharge Instructions: Patient left against medical advice. Recommend to follow up with his clothing cutter as soon as possible for further evaluation and treatment. Diet: AHA Activity: Fall precautions Followup: Amilcar Vann MD [ACTIVE - CAN ADMIT] - (heart doctor-) Time spent managing pt's care (in minutes): 55
[2019-02-25] MEDS ORDERED: SOTALOL HCL 80 MG TAB PO SCH (18:00)
[2019-02-25] MEDS ORDERED: ARFORMOTEROL TARTRATE 15 MCG/2 ML VIAL.NEB NEB SCH (20:00)
[2019-02-26] MEDS ORDERED: FUROSEMIDE 20 MG TABLET PO SCH (09:00)
[2019-02-26] MEDS ORDERED: ISOSORBIDE MONO SR 30 MG TAB PO SCH (09:00)
[2019-02-26] MEDS ORDERED: predniSONE 20 MG TAB PO SCH (09:00)
[2019-02-26] MEDS ORDERED: TAMSULOSIN 0.4 MG SR CAP PO SCH (09:00)
[2019-02-26] MEDS ORDERED: CLOPIDOGREL 75 MG TABLET PO SCH (09:00)
== END 2019-02-25 13:44 | disposition left against medical advice (07) ==
LOC: ER 20:13 → ERHOLD 23:53 → 4TH 02-25 00:29
PROVIDERS: ADMIT Hospitalist; ATTEND Family Medicine
DX: I48.91 Unspecified atrial fibrillation (principal); J44.9 Chronic obstructive pulmonary disease, unspecified; N40.0 Benign prostatic hyperplasia without lower urinary tract symptoms; I25.10 Atherosclerotic heart disease of native coronary artery without angina pectoris; I13.0 Hypertensive heart and chronic kidney disease with heart failure and stage 1 through stage 4 chronic kidney disease, or unspecified chronic kidney disease; N18.3 Chronic kidney disease, stage 3 (moderate); I50.22 Chronic systolic (congestive) heart failure; R74.8 Abnormal levels of other serum enzymes; E87.5 Hyperkalemia; F17.210 Nicotine dependence, cigarettes, uncomplicated; Z99.81 Dependence on supplemental oxygen; Z95.1 Presence of aortocoronary bypass graft; Z85.46 Personal history of malignant neoplasm of prostate; Z85.47 Personal history of malignant neoplasm of testis; Z53.21 Procedure and treatment not carried out due to patient leaving prior to being seen by health care provider; Z95.2 Presence of prosthetic heart valve; Z79.52 Long term (current) use of systemic steroids; Z71.6 Tobacco abuse counseling
CPT/HCPCS: 96361; 93005 ×2; 93306; 85025 ×2; 80048; 36415; 83735; 84132; 80061; 84443; 84484 ×2; 84439; 80053; 71045; 96360; 99285; J1650; G0378 ×2

== ENCOUNTER 2019-03-05 09:21 | Inpatient (IN) | payer OTHER, BC ==
--- NOTE | 2019-03-05 13:40 | R.PREADM ---
SCREENING DATE AND TIME 03/05/2019 09:26 (CDT) ANTICIPATED REHAB ADMISSION DATE 03/07/2019 REFERRING FACILITY [facility] REFERRAL DATE AND TIME 03/05/2019 09:26 (CDT) ACUTE ADMIT DATE 03/02/2019 Previous Rehabilitation(s): No. REFERRING PHYSICIAN Mary Gilliland REHAB FACILITY [facility] CLINICAL LIAISON Yung Ricks PHYSICIAN REVIEWER Dr. Ronn Camacho M.D. MR# [id number] [facility] [id number] NAME CECE SPIVEY AD[address]ESS [address] PH[address] [facility] [id number] DATE OF 1935 AGE 83 SSN# [id number] GENDER male MARITAL STATUS RACE white ADMIT FROM 02 - [facility] PRE-HOSPITAL LIVING SETTING 01 - Home (private home/apt. board/care, assisted living, fdc, transitional living) HOME TYPE AND DETAILS Type of home: single family house # of steps to enter the residence: 0 # of steps within the residence: 0 # of levels in the residence: 1 PRE-HOSPITAL LIVING WITH Family/Relatives FAMILY SUPPORT Yes PRIMARY FAMILY CONTACT NAME Rose Spivey PRIMARY FAMILY CONTACT PHONE PHONE PRIMARY FAMILY CONTACT ON ADM.? no IS PRIMARY FAMILY CONTACT AUTH. REP.? no 1ST EMERGENCY CONTACT Rose Spivey 1ST CONTACT PHONE PHONE 1ST CONTACT ON ADM. no IS 1ST CONTACT AUTH. REP.? no PHONE 2ND CONTACT ON ADM.? no PATIENT EMPLOYMENT STATUS Retired (for age) PATIENT EMPLOYER No Employer PAYOR INFORMATION: 1ST PAYOR NAME Medicare 1ST PAYOR PHONE 1ST PAYOR INJURY/ILLNESS DUE TO ACCIDENT? No ANOTHER LIBERTARIAN RESPONSIBLE? No PRIMARY REHAB/ACUTE DIAGNOSIS: subacute SDH REHAB IMPAIRMENT CATEGORY (EDUAR): 03 Nontraumatic brain injury (NTBI) MEETS 60% rule PRIMARY DIAGNOSIS-RELATED SURGERIES: No surgeries related to the primary diagnosis were performed. COMORBID REHAB/ACUTE DIAGNOSES: - Non-Tiered Heart failure, unspecified (I50.9) Shortness of breath (R06.02) Lower left lobe pneumonia dysphagia acute on chronic CHF COPD CAD - N/A Mild protein-calorie malnutrition (E44.1) CKD INTERVENTIONS: - Dysphagia Altered Diet MBS Nutrition Weights - COPD 02 sats Medications Nebulizers Oxygen Resp. therapy X-rays - CAD 02 sats Activity management Medications VS RISK FOR COMPLICATIONS: - Dysphagia Asp. Pneumonia Dehydration Malnutrition - COPD Acute Resp failure Pneumonia Resp. Arrest - CAD CHF Cardiac Arrest OR Pain SUMMARY OF ACUTE HOSPITALIZATION: Pt. is a 83 yo Right-handed white male. On 03/02/2019 he was admitted to [facility] with diagnosis subacute SDH. 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 Pre-morbidly, Pt. was independent/mod-I in Self-Care, Sphincter Control, Transfers Control, Locomotio n, Communication, and Social Cognition; and he had good Sphincter Control. Currently, he has deficits of Self-Care, Transfers Control, Locomotion, Communication, Social Cogniti on, Endurance, Balance, and Safety Awareness. Pt. is now referred to [facility] for acute in-patient rehabilitation in order to maximize patient's functional independence in activities of daily living, strength, ROM, and mobi lity. Patient has realistic goal of being discharged at assistance level 6-Samson to reside at Home with Fam pamela/Relatives. Cece Spivey is an 83 old male that lives with his in a single mariely house. He was independent with household ambulation prior and modified independent with BADLs. On 03/02/2019, he found unresponsive and was admitted at [facility]. He is now medically stable but in need of 24-hour nursing, doctor supervision and oversite while receiving participate in 3hours of therapy a day/15 hours per week and receive care with an intensive interdisciplinary approach. PAST MEDICAL HISTORY COPD Heart failure, unspecified (I50.9) Lower left lobe pneumonia Mild protein-calorie malnutrition (E44.1) Shortness of breath (R06.02) acute on chronic CHF dysphagia Benign prostatic hyperplasia (N40) CAD CKD PAST SURGICAL HISTORY: H/O aortic valve replacement prostate surgery MEDICATION ALLERGIES: No Known Drug Allergies (NKDA) ENVIRONMENTAL ALLERGIES: - Substance Allergies None Known - Other Allergies None Known CODE STATUS: Full code WEIGHT/HEIGHT/BMI: WEIGHT 116 lbs HEIGHT 5' 11" BMI 16.2 DIET: - Diet Type Regular - Diet - Liquid Texture Regular - Tube Feed N/A REVIEW OF SYSTEMS: - Gen Alert and awake Lying in bed No apparent distress Oriented to: person, time, and place - Vital Signs Vital signs stable, afebrile - CVS RRR VITAL SIGNS Temperature:97.8 F SBP/DBP: 121/60 Pulse: 76 Resp: 18 Vital signs stable, afebrile MEDICATIONS/TREATMENT: Other- See attached MAR (Medication Administration Record). CURRENT SPHINCTER CONTROL: Pre-hospital bladder status: continent # of bladder accidents in the last 7 days prior to screenin Pre-hospital bowel status: continent # of bowel accidents in the last 7 days prior to screenin Last Bowel Movement Date: 03/05/2019 DETAILED CURRENT FUNCTIONAL STATUS: - Bladder accident frequency: Ind - No accidents in the past 7 days - Bowel accident frequency: Ind - No accidents in the past 7 days - Walking score based on distance walked: 1(<=50ft) - Wheelchair score based on distance traveled: 1(<=50ft) FUNCTIONAL STATUS: - Self-Care A. Eating Ind sup B. Grooming Ind sup C. Bathing Ind Antonino D. Dressing - Upper Ind sup E. Dressing - Lower Ind sup F. Toileting Ind Antonino - Sphincter Control G: Bladder control Ind Ind H: Bowel control Ind Ind - Transfers Control I. Bed/Chair/Wheelchair Ind sup J. Toilet Ind sup K. Tub/Shower Ind sup - Locomotion L. Walk/Wheelchair (W) Samson Dep L. Walk/Wheelchair (C) Ind Dep M. Stairs Ind ADNO - Communication N. Comprehension (B) Ind sup O. Expression (B) Ind sup - Social Cognition P. Social Interaction Ind sup Q. Problem Solving Ind sup R. Memory Ind sup - Endurance Poor - Balance Poor - Safety Awareness Poor CURRENT FUNC. DEFICITS: Self-Care, Transfers Control, Locomotion, Communication, Social Cognition, Endurance, Balance, and Sa fety Awareness THERAPY NOTES FROM ACUTE CARE: Attached. SPECIAL NEEDS: - Safety Concerns Aspiration precautions needed due to Dysphagia Skin breakdown precautions needed due to skin breakdown risk PRECAUTIONS: - Aspiration Precaution 1 to 1 supervision with all po intake All meals in the dysphagia dining room No straws Seated at 90 degrees while eating and 30 minutes after meals PATIENT NEEDS ACTIVE AND ONGOING THERAPEUTIC INTERVENTION OF MULTIPLE THERAPY DISCIPLINES, INCLUDING: - Dietary and Nutrition Adequate Nutrition. Nutritional Education. Nutritional Supplements. - Speech Therapy Cognitive Training. Dysphagia Therapy. Expressive Language Skills. Receptive Language Skills. PATIENT NEEDS CLOSE MEDICAL SUPERVISION BY A REHABILITATION PHYSICIAN FOR: Bowel and Bladder Management Coordination of Treatment Team Medical and Co-Morbidity Management PATIENT REQUIRES 24X7 REHAB NURSING FOR MEDICAL AND FUNCTIONAL MGT. OF THE FOLLOWING DEFICITS: ADL's Ambulation Bowel and Bladder Management Cognition Communication Disease Management Medication Management Patient/Family Education Providing Safe Environment Swallowing Transfers PATIENT REQUIRES INTENSIVE, COORDINATED INTERDISCIPLINARY APPROACH TO REHAB: Arranging Home Equipment/Services Discharge Planning Family Intervention/Training Global Director Air And Climate Change/Case Management PATIENT REHAB POTENTIAL: Ortega SPIVEY is able and expected to receive 3 hours of individualized therapy daily on at least 5 of dmitriy ry 7 days Ortega SPIVEY's prognosis for significant practical improvement within a reasonable period of time appears Good Expected level of measurable improvement will be of a practical value to Ortega SPIVEY's functional capaci ty or adaptations to impairments Has a viable Discharge Plan Medically appropriate; condition is sufficiently stable to participate in intensive rehab program DISCHARGE PLAN: - Estimated Length of Stay (days) 13. - Consensus on plan Discharge plan has been discussed with primary caregiver. Patient/Family is in agreement with the alexis n. Primary caregiver is in agreement with the plan. - Patient/Family Goals Return home with assistance. - Planned Living Setting Upon Discharge Home, to live with Family/Relatives. RECOMMENDED CARE LEVEL: IRF RECOMMENDATION DETAILS: Recommended Admission to Comprehensive Rehabilitation Program to Increase Functional [place] SCREENER'S COMPLETENESS CONFIRMATION: - Screening Confirmation The patient data collection on this preadmission screening form is finished PHYSICIANS REVIEW AND ADMISSION DETERMINATION Admit - Based on my review of the Pre-Admission Screening results, in my medical judgment and experie nce, I concur with the findings and recommend admission to [facility], as this patient requires an IRF level of care. SIGNATURE PANEL: Clinical Liaison - [electronically] signed by Carrol Portillo on 03/05/2019 at 10:18 (CDT) Clinical Liaison - [electronically] signed by Yung Ricks on 03/05/2019 at 10:22 (CDT) Physician Reviewer - [electronically] signed by Dr. Ronn Camacho M.D. on 03/05/2019 at 13:39 (CDT )
--- OUTSIDE RECORDS SUMMARY | 2019-03-05 17:58 | XMS REPORT ---
:1935 [facility] Address [address] [place] [address] Care Team Providers Name Role Phone Unavailable Unavailable Unavailable Problems This patient has no known problems. Allergies, Adverse Reactions, Alerts This patient has no known allergies or adverse reactions. Medications This patient has no known medications.
--- OUTSIDE RECORDS SUMMARY | 2019-03-05 18:00 | XMS REPORT | Summary of Care ---
:1935 Author Organization [facility] Address [address] [place] [address] Care Team Providers Name Role Phone Remy Cronin Primary Care Provider Reason for Referral (Routine) Status Reason Specialty Diagnoses / Referred By Referred To Procedures Contact Contact New Request Diagnoses Unresponsive episode Mary Gilliland Bui, Thuy-Khanh Procedures Discharge Follow-up: PCP REMY CRONIN; [address] [place], [place] [id number] [place] [address] Phone: [phone] Phone: (Routine) Status Reason Specialty Diagnoses / Referred By Referred To Procedures Contact Contact New Request Diagnostic Diagnoses Dysphagia, unspecified type Unresponsive episode Mary Gilliland Radiology Procedures MOD BARIUM SWALLOWMelodie MD (COOKIE) [address] [place] [id number] (Routine) Status Reason Specialty Diagnoses / Referred By Referred To Procedures Contact Contact New Request Diagnostic Diagnoses Dysphagia, unspecified type Unresponsive episode Mary Gilliland Radiology Procedures MOD BARIUM SWALLOWMelodie MD (COOKIE) [address] [place] [address] (Routine) Status Reason Specialty Diagnoses / Referred By Referred To Procedures Contact Contact New Request Case Management Procedures Mary Gilliland, CONSULT/REFERRAL [address] [address] [place] [address] MRI/CAT Scan (STAT) Status Reason Specialty Diagnoses / Referred By Referred To Procedures Contact Contact New Request Diagnostic Diagnoses SDH (subdural hematoma) Mary Gilliland Radiology Procedures CT HEAD WO CONTRAST MD Melodie [address] [place] [address] MRI/CAT Scan (STAT) Status Reason Specialty Diagnoses / Referred By Referred To Procedures Contact Contact New Request Diagnostic Diagnoses SDH (subdural hematoma) Mary Gilliland Radiology Procedures CT HEAD WO CONTRAST MD Melodie [address] [place] [address] MRI/CAT Scan (STAT) Status Reason Specialty Diagnoses / Referred By Referred To Procedures Contact Contact New Request Diagnostic Diagnoses Unresponsive episode Julio Cesar He, Radiology Procedures CT HEAD WO CONTRAST [address] [place] [address] MRI/CAT Scan (STAT) Status Reason Specialty Diagnoses / Referred By Referred To Procedures Contact Contact New Request Diagnostic Diagnoses Unresponsive episode Julio Cesar He, Radiology Procedures CT HEAD WO CONTRAST [address] [place] [address] Radiology Services (STAT) Status Reason Specialty Diagnoses / Referred By Referred To Procedures Contact Contact New Request Diagnostic Diagnoses Unresponsive episode Julio Cesar He, Radiology Procedures Chest [address] [place] [address] Radiology Services (STAT) Status Reason Specialty Diagnoses / Referred By Referred To Procedures Contact Contact New Request Diagnostic Diagnoses Unresponsive episode Julio Cesar He, Radiology Procedures Chest [address] [place] [address] [place] [address] Reason for Visit Reason Comments Shortness of Breath Auth/Cert Status Reason Specialty Diagnoses / Referred By Referred To Procedures Contact Contact [facility] [address] [place] [address] [place] [address] Encounter Details Date Type Department Care Team Description 03/02/2019 - Hospital Acute Care for the Julio Cesar He MD [address] [place] [address] [address] [place], [place] [id number] SOB (shortness of 03/05/2019 Encounter Elderly (GAGE 11D) Mary Gilliland MD [address] [place] [address] [id number] [place], [place] [id number] breath) 712 [facility], Roshan Booker MD [address] [place] [address]. [place], [place] [id number] [place] [address] Allergies No Known Allergiesdocumented as of this encounter (statuses as of 03/05/2019) Medications Medication Sig Dispensed Refills Start Date End Date Status tamsulosin 0.4 mg 24 Take 0.4 mg 0 Active hr capsule by mouth daily. Formoterol Fumarate Inhale 1 Vial 0 Active 20 mcg/2 mL Nebu 2 (two) times daily. ipratropium-albutero Inhale 1 0 Active l 0.5 mg-3 mg(2.5 mg Ampule 4 base)/3 mL nebulizer (four) times solution daily. isosorbide Take 30 mg by 0 Active mononitrate 30 mg 24 mouth daily. hr tablet clopidogrel 75 mg Take 75 mg by 0 Active tablet mouth daily. revefenacin 175 Inhale 3 mL 0 Active mcg/3 mL Nebu daily. aspirin 81 mg Take 81 mg by 0 Active chewable tablet mouth daily. furosemide 20 mg Take 0.5 30 tablet 1 03/06/2019 Active tabletIndications: tablets by Unresponsive episode mouth every morning. metoprolol tartrate Take 1 tablet 60 tablet 1 03/05/2019 Active 25 mg by mouth 2 tabletIndications: (two) times Unresponsive episode daily. predniSONE 10 mg Take 1 tablet 10 tablet 0 03/06/2019 03/21/2019 Active tabletIndications: by mouth Unresponsive episode daily for 5 days, THEN 0.5 tablets daily for 10 days. finasteride 5 mg Take 1 tablet 30 tablet 1 03/06/2019 Active tabletIndications: by mouth Unresponsive episode daily. mirtazapine 7.5 mg Take 1 tablet 30 tablet 1 03/05/2019 Active tabletIndications: by mouth at Unresponsive episode bedtime. nicotine 14 mg/24 hr Apply 1 Patch 30 Patch 1 03/06/2019 Active patchIndications: to area(s) Unresponsive episode every 24 (twenty-four) hours. triamcinolone Apply to 454 g 0 03/05/2019 Active acetonide 0.1 % area(s) 2 creamIndications: (two) times Unresponsive episode daily. metoprolol tartrate Take 0.5 20 tablet 0 09/25/2017 03/05/2019 Discontinued 25 mg tablet tablets by mouth 2 (two) times daily. furosemide 20 mg Take 20 mg by 0 03/05/2019 Discontinued tablet mouth daily. predniSONE 20 mg Take 20 mg by 0 03/05/2019 Discontinued tablet mouth daily. metoprolol tartrate Take 25 mg by 0 03/03/2019 Discontinued 25 mg tablet mouth daily. predniSONE 10 mg Take 20 mg by 0 02/23/2019 03/03/2019 Discontinued tablet mouth daily. documented as of this encounter (statuses as of 03/05/2019) Active Problems Problem Noted Date SOB (shortness of breath) 03/03/2019 Heart failure 03/03/2019 E44.1 Mild protein-calorie malnutrition 03/03/2019 documented as of this encounter (statuses as of 03/05/2019) Immunizations Name Administration Dates Next Due Td 03/02/2019 documented as of this encounter Social History Tobacco Use Types Packs/Day Years Used Date Current Every Day Smoker 1.5 72 Sex Assigned at Date Recorded Not on file Job Start Date Occupation Industry Not on file Not on file Not on file Travel History Travel Start Travel End No recent travel history available. documented as of this encounter Last Filed Vital Signs Vital Sign Reading Time Taken Comments Blood Pressure 128/81 03/05/2019 11:25 AM CDT Pulse 86 03/05/2019 2:15 PM CDT Temperature 36.4 C (97.5 F) 03/05/2019 11:25 AM CDT Respiratory Rate 20 03/05/2019 2:15 PM CDT Oxygen Saturation 94% 03/05/2019 2:15 PM CDT Inhaled Oxygen Concentration - - Weight 53 kg (116 lb 12.8 oz) 03/03/2019 1:21 AM CDT Height 180.3 cm (5' 11") 03/03/2019 1:21 AM CDT Body Mass Index 16.29 03/03/2019 1:21 AM CDT documented in this encounter Discharge Summaries Malcolm Limon MD - 03/05/2019 3:39 PM CDT [place] Team Discharge Summary Date of Service: 03/05/19 ADMIT DATE: 03/02/2019 DISCHARGE DATE: 03/05/19 ATTENDING MD: Mary Gilliland MD RESIDENT MD: Malcolm Limon MD PCP: Remy Cronin REASON FOR ADMISSION Shortness of Breath FINAL DIAGNOSIS: (the reason, after study, for admitting the patient to the hospital) Episode of unresponsiveness 2/2 suspected LLL pneumonia vs acute on chronic CHF exacerbation SECONDARY DIAGNOSIS: (any diagnosis that, on this admission, required clinical evaluation, therapeutic treatment, diagnostic procedures, extended hospital stay , or additional nursing care/monitoring) Dysphagia Acute on chronic CHF COPD(on 3L home O2) [facility] Neurosurgery, nurse aide evaluator, speech path, OT/PT PROCEDURES: Orders Placed This Encounter Critical Care SIGNIFICANT LAB/X-RAYS: Lab results: CBC BMP PT/INR WBC (10*3/L) Date Value 03/05/2019 9.07 NA (mmol/L) Date Value 03/05/2019 137 No results found for: PT RBC (10*6/L) Date Value 03/05/2019 4.14 (L) K (mmol/L) Date Value 03/05/2019 4.0 INR (no units) Date Value 03/02/2019 1.0 PLT (10*3/L) Date Value 03/05/2019 179 CALCIUM (mg/dL) Date Value 03/05/2019 8.0 (L) HGB (g/dL) Date Value 03/05/2019 12.4 CL (mmol/L) Date Value 03/05/2019 111 (H) aPTT HCT (%) Date Value 03/05/2019 37.9 (L) BUN (mg/dL) Date Value 03/05/2019 37 (H) APTT Patient (Seconds) Date Value 03/02/2019 29 CREATININE (mg/dL) Date Value 03/05/2019 1.58 (H) GLUCOSE (mg/dL) Date Value 03/05/2019 70 CO2 TOTAL (mmol/L) Date Value 03/05/2019 21 (L) X-ray results: Chest 1 View Result Date: 03/02/2019 Interstitial pulmonary edema with possible superimposed infection in the left lower lobe. [id number] is recommended to document resolution. Small left pleural effusion. IAdrianna MD., have reviewed this study and agree with the above report. Ct Head Wo Contrast Result Date: 03/03/2019 Impression: 1. Prominence of the extra-axial spaces in the left frontal and temporal region may represent either subarachnoid space prominence due to asymmetric volume loss or a small subdural collection isodense to CSF. Recommend follow-up with MRI brain without contrast to clarify. Ct Head Wo Contrast Result Date: 03/02/2019 Asymmetric prominence of the left frontal extra-axial space with suspicion of subacute blood products may represent subdural hematoma. Follow-up is recommended. Mod Barium Swallow, (cookZocDoc) Result Date: 03/04/2019 1. Laryngeal penetration was observed with thin liquid only. 2. No aspiration was noted. Please refer to the speech pathologist's note for a full report. I reviewed this study and agree. IDayne MD., have reviewed this study and agree with the above report. Radiology study indicated for follow-up? No HOSPITAL COURSE: Mr.Warren Lizzette Dudley is a 83 year old malewith a pmh of COPD on 3L home O2, CHF, CAD s/p CABG, h/o Valve replacement, HTN, CKD and prostate cancer s/p resection and radiation who presented afteranepisode of unresponsiveness. Pt had benign UA and negative strep pneumoniae antigen and an EKG showing normal sinus rhythm. Of note the patient looked emaciated, severely malnourished , and had hypoalbuminemia (Albumin 2.4) with edema in BLLEs. CT Head showed possible subacute subdural hematoma, neurosurgery recommended repeat head CT, and no acute abnormalities were seen.CXR showing pulmonary edema with possible superimposed infection in LLL w/small L pleural effusion. Suspected oropharyngeal dysphagia in the setting of significant weight loss, poor appetite , and deconditioningwas evaluated by TRADE ECONOMIST. Patient was observed with overt signsof aspiration (throat clearing) after all foodconsistencieswere presented.A Modified Barium Swallow Studyshowedmild oropharyngeal dysphagia; intermittent trace penetration of thin liquid (PAS 3-5); no aspiration; pharyngeal residue. TRADE ECONOMIST deemed thepatient to havefair-favorable safety with PO intakewith swallow precautions. OT's assessment ofthe patient revealed decreased independence with ADL,impaired postural control and decreased strength/endurance for functional activity. PT evaluated patient ambulation which was unsteady and limited to 3ft, they recommend SNF or Home Health PT with 24/7 family supervision. suggested that SNFwould be better because she is struggling to manage his care at home.Echo was ordered to determineejection fraction. Pt was changed from obs to inpatient &family chose in & out of hospitalDNR status.Mini Mental status exam score was 23/30, and the majority of the things he failed werebecause he could not read/ write/draw properly without his glasses.Pt long-time and current smoker was asking his for cigarettes, so a Nicoteine patch was discussed with patient. Pt d/c to rehab facility. ITEMS FOR FOLLOW UP PROVIDER: (including pending labs/cultures/studies, anticipated problems, etc.) -please make sure patient is drinking Ensure in between meals -please use fall precautions and be very careful when walking -please drink 1 cup gatorade at least 3 times a day -Please monitor patients weight as his diuretic has been decreased at this admission -Please assess patient for how he is tolerating finasteride and mirtazapine ( new mediations added during admission) FUNCTIONAL STATUS: ambulate with assistance DISCHARGE CONDITION: fair COGNITIVE STATUS: oriented x 3 DIET: regular ACTIVITY: as tolerated DISCHARGE MEDICATIONS: Current Discharge Medication List START taking these medications Details finasteride (PROSCAR) 5 mg Take 5 mg by mouth daily. Qty: 30 tablet, Refills: 1 Start date: 03/06/2019 Associated Diagnoses: Unresponsive episode mirtazapine (REMERON) 7.5 mg Take 7.5 mg by mouth at bedtime. Qty: 30 tablet, Refills: 1 Start date: 03/05/2019 Associated Diagnoses: Unresponsive episode nicotine (NICODERM) 1 Patch Apply 1 Patch to area(s) every 24 (twenty-four) hours. Qty: 30 Patch, Refills: 1 Start date: 03/06/2019 Associated Diagnoses: Unresponsive episode triamcinolone acetonide 0.1 % cream Apply to area(s) 2 (two) times daily. Qty: 454 g, Refills: 0 Start date: 03/05/2019 Associated Diagnoses: Unresponsive episode CONTINUE these medications which have CHANGED Details furosemide (LASIX) 10 mg Take 10 mg by mouth every morning. Qty: 30 tablet, Refills: 1 Start date: 03/06/2019 Associated Diagnoses: Unresponsive episode metoprolol tartrate (LOPRESSOR) 25 mg Take 25 mg by mouth 2 (two) times daily. Qty: 60 tablet, Refills: 1 Start date: 03/05/2019 Associated Diagnoses: Unresponsive episode predniSONE 10 mg tablet Take 1 tablet by mouth daily for 5 days, THEN 0.5 tablets daily for 10 days. Qty: 10 tablet, Refills: 0 Start date: 03/06/2019, End date: 03/21/2019 Associated Diagnoses: Unresponsive episode CONTINUE these medications which have NOT CHANGED Details aspirin 81 mg Take 81 mg by mouth daily. clopidogrel (PLAVIX) 75 mg Take 75 mg by mouth daily. Formoterol Fumarate (PERFOROMIST) 1 Vial Inhale 1 Vial 2 (two) times daily. ipratropium-albuterol (DUONEB) 1 Ampule Inhale 1 Ampule 4 (four) times daily. isosorbide mononitrate (IMDUR) 30 mg Take 30 mg by mouth daily. revefenacin (YUPELRI) 3 mL Inhale 3 mL daily. tamsulosin (FLOMAX) 0.4 mg Take 0.4 mg by mouth daily. ANTIBIOTICS: Did this patient receive antibiotics during this admission, or is he/sh being discharged with antibiotics? Yes: Has the patient been educated about indication ,duration and adverse effects: Yes Was the patient given education on antibiotic indication, duration, and adverse effects? COUMADIN: Is the patient being discharged on coumadin? No. WOUND CARE: none CODE STATUS: DNR and OOH DNR signed OXYGEN (is patient being discharged on oxygen): yes 3L CORE MEASURES: None VACCINES: 1. Pneumonia Vaccination> 65 years of age or high risk: per nursing 2. Influenza Vaccine >18 years of age: per nursing PATIENT EDUCATION PROVIDED: medications DISCHARGE: rehab facility FOLLOW-UP APPOINTMENT: Discharge Orders CONSULT/REFERRAL [facility] Order Comments: Reason for referral/Immediate needs: patient high risk for readmission, CHF and COPD, please follow Requesting consult or referral? Referral Reason for referral - please evaluate and treat for: COPD, CHF Primary diagnoses for referral COPD Primary diagnoses for referral Heart Failure Discharge Follow-up: PCP REMY CRONIN; 1 Week To PCP: REMY CRONIN [[id number]] Patient's Preferred Location: Unknown Discharge Disposition: Rehab, (ATX) When (Patients with risk for unplanned readmission score over 16 or those noted as Hospital Dependent should follow up within 7 days with PCP or primary DX specialist): 1 Week Risk of Unplanned Readmission:( Score greater than 16 indicates high risk) 16 Regular Diet; Texture: Regular. Texture Regular. Diabetic: No Discharge Condition - Discharge Condition: FAIR Discharge Activity Discharge Activity: As Tolerated VTE Propylaxis- Was ordered during hospitalization Discharge Instructions Order Comments: -please follow-up with PCP after leaving the rehab facility -please purchase a memory foam pillow for your use -please drink Ensure in between meals -please use fall precautions and be very careful when walking. Please monitor your blood pressure regularly to ensure that it is not getting too low -Please eat a diet that has salt in it -please drink 1 cup gatorade at least 3 times a day -monitor your weight regularly to ensure that you are not gaining too much weight from the decrease of your diuretic PLAN FOR READMISSION: No Please call paging services at [phone] to contact Malcolm Limon MD with any questions. Associated attestation - Mary Gilliland MD - 03/05/2019 4:07 PM CDT I personally examined the patient and agree with Dr. Limon's progress note as written . I actively participated in the decision-making process. Please see the resident's note for additional details. Mary Thomas MD Geriatric Medicine Pager/cell [phone] documented in this encounter Discharge Instructions AttachmentsThe following attachments cannot be sent through Care Everywhere.Mirtazapine tablets (Danish)Nicotine skin patches (Danish) Triamcinolone skin cream, ointment, lotion, or aerosol (Danish)Finasteride ( Proscar) tablets (Danish)documented in this encounter Progress Notes Marci Lynch, PT - 03/05/2019 3:28 PM CDT03/05/2019 3:29 PM Physical Therapy Note Attempted to see patient for follow up as established in POC, however, patient expressed desire to rest at this time. Patient reports he is tentatively scheduled to discharge to rehab facility later today. PT will continue to follow while in hospital. Marci Lynch, PT, DPT Pager Number: [phone] Total time treatments:0 Total treatment time:0 Mg Teresa MD - 03/05/2019 2:29 PM CDTIn response to coding inquiry: Patient's CHF, is clinically unable to determine chronic vs acute on chronic Mg Quiroga MD Internal Medicine PGY-2 Pager #: [phone] Shanon Horan SLP - 03/05/2019 1:32 PM CDTSPEECH LANGUAGE PATHOLOGY Daily Progress Note - 03/05/2019 13:25-13:34 Azael Crocker Jr. : 1935 Age: [age] year old Sex: male SUBJECTIVE: Pt lying in bed. Pt reported he remembers the swallow evaluation yesterday, but does not remember the recommendations or results. Pt stated he already just finished lunch. OBJECTIVE: Azael Crocker Jr. was seen for 1 TRADE ECONOMIST treatment session this date. Treatment was provided due to mildoropharyngeal dysphagia. MBSS showed intermittent trace penetration of thin liquid, pharyngeal residue, and no aspiration. Progress on short term goals was as follows: Swallowing: - Patient will tolerate the safest, least restricted po diet texture without overt s/sx of aspiration or other negative effects on medical condition. Patient remains afebrile and WBC within normal limits. No changes in respiratory status, per chart review. Monitoring for overt s/s aspiration is not a reliable method in this patient, as he throat-clears even when there is no penetration/aspiration and he appeared to have poor sensation of residue and penetration during the MBSS. GOAL MET - Patient/family will verbalize and demonstrate adherence to swallowing precautions with minimal cues 80% of the time. Informed patient of findings of modified barium swallow study and implications. Educated about swallow precautions. After initial review, patient then verbalized swallowing precautions independently with 100% accuracy. Patient did not complete PO trials this date to demonstrate swallow precautions. DISCONTINUE GOAL - Patient will complete base of tongue, strap muscle, and airway protection exercises with minimal cues 80% of the time. Offered instruction of swallow exercises, but patient declined. DISCONTINUE GOAL ASSESSMENT: Azael Crocker JrAnnette Exhibits demonstrated improvement in knowledge of swallow precautions by being ableto verbalize them without additional cues after initial instruction. Patient could benefit from swallowing exercises, however, he again declined to participate. He appears to be tolerating his diet of regular textures without any fever or spike in WBC or change in respirations per chart review. Patient is being discharged from TRADE ECONOMIST services at this time due to patient stating he does not wish to continue swallowing therapy. PLAN: No further acute TRADE ECONOMIST services indicated at this time, so service is signing off. Please re-consult if indicated. Thank you. Recommend pt continue a regular-textured diet with thin liquids and swallow precautions: sit fully upright/chair, alternate sips/bites and remain upright for 30 minutes after meals Shanon Barajas M.S., [facility]-TRADE ECONOMIST Speech-Language Pathologist Pager: [phone] Monik Grimm RN - 03/05/2019 11:46 AM CDTCare Management Discharge Disposition Note (DCDN) 5-2-1 Interventions: Disease specific education;Intensive medication reconciliation/management;Teachback;Clear discharge plan;Follow-up appointments 5-2-1 Providers: Physician;Kitchen Manager/Medical Parasitologist 5-2-1 Patient Capacity Improvements: Transportation arrangements Discharge Plan for ongoing care and services: Rehabilitation Discharge location(s): Rehabilitation location: [facility], [address], [place], [place] (Ph) [phone] (F) [phone] Patient choice completed for referred services: Yes Discussed with patient/patients family involved in decision making: Yes Patient or family caregiver understands, and agrees with discharge plan. Community resources/referrals made or provided to patient: No Resources/Referrals: Transportation: Ambulance Nursing informed of discharge plan: Yes Name of RN informed: Nicole Estimated discharge date: 03/05/19 Time: 1530 Additional Information: EMS P:[phone] scheduled to p/u patient today at 1530 to transport patient [facility]. RN to call report [phone] JUAN CARLOS/SLY Name & Contact number: Monik Rea RN Ph. [phone] The following information has been provided to the facility noted above: reason for the patient discharge or transfer; patients physical and psychosocial status; summary of care, treatment, servicesprovided to patient; and the patient progress toward goals. Monik Grimm RN - 03/05/2019 9:10 AM CDTCare Coordinator Update Updated clinicals sent to [address], [place] [address] Qnk:[phone], pending facility acceptance. CM spoke with Flores, she is going to speak with [facility] and see if bedside evaluation is needed and call CM back. Update 03/05/19 8513 [facility] called and informed CM that they have clinically accepted patient to transfer when medically ready. JUAN CARLOS informed her will touch base with team after rounding and update if patient medically readyto discharge today. Monik Rea RN,BSN Men'S Basketball Coach Department of Care Management [phone] signed by Monik Rea RN at 03/05/2019 9:17 AM Malcolm Mata MD - 03/05/2019 5:53 AM CDT [facility] Progress Note Date of Service: 03/05/2019 05:53 Chief Complaint: Shortness of Breath 24-HOUR EVENTS: - Hypotension sustain systolic ~ 80 mmHg, asymptomatic, 250 cc bolus given - Can d/c today SUBJECTIVE: Patient was asleep this morning, easily arousable. Very pleasant, states he slept well. Denies any overnight issues. Had a BM yesterday. Denies CP, SOB, nausea/vomiting, abdominal pain, VIVAR, fever, chills, night sweats. Crocker catheter: No SCDs: No Last BM: Yesterday PHYSICAL EXAM: Vitals: 03/04/19 1945 03/04/19 1954 03/04/19 2334 03/05/19 0400 BP: 114/61 137/71 Pulse: 102 98 93 96 Resp: 20 20 Temp: 36.2 C (97.2 F) 36.7 C (98 F) TempSrc: Oral Oral SpO2: 90% 96% 92% 93% Weight: Height: Intake/Output Summary (Last 24 hours) at 03/05/2019 0553 Last data filed at 03/05/2019 0400 Gross per 24 hour Intake Output 675 ml Net -675 ml Gen: NAD, AOx3 (person, year, states city is [place], knows [place] president is [place]), cachetic HEENT: EOMI, MMM P: Mild crackles bilaterally, dry cough, not in respiratory on NC CV: RRR, no MRG; Abd: NT, ND MSK: Moving all extremities spontaneously Neuro: CN2-12 grossly intact, peripheral sensation intact Skin: 1+ pitting edema in feet and ankles - improved LABS/IMAGING - reviewed, pertinent results as below: ECHO Interpretation Summary A two-dimensional transthoracic echocardiogram with M-mode and Doppler was performed. The study was technically adequate. Compared to prior study, there is no significant change. Left ventricular systolic function is normal. The left ventricle is normal Ejection Fraction=60-65%. The right ventricle is normal in size and function. There is a bioprosthetic aortic valve with thickenned leaflets and normal Doppler Velocity Index ASSESSMENT/PLAN Azael Crocker Jr. is a 83 year old male admitted to the hospital with: Episode of unresponsiveness LLL pneumonia, suspect CAP Dysphagia Acute on chronic CHF COPD (on 3L home O2) Patient presents after episode of unresponsiveness at home. Found to have LLL pneumonia w/ concerns for CAP versus aspiration (as patient reported choking/ coughing w/ PO intake), will treat w/ IV abx. Minor increase in furosemide given possible acute on chronic CHF, as seen by crackles, congetion and ble pitting edema (though may be oncotic related). Will order repeat ECHO during admission here - C/w ceftriaxone 1g daily + azithromycin 500mg daily (03/02 - ) - Duonebs Q6H - C/w lasix 20 mg PO BID - prednisone taper Subacute SDH Patient denies recent falls. Takes plavix at home. Neurosurgery consulted and CT head repeated with no change. - Consulted neurosurgery - No surgical intervention at this time Pain Not an active problem - Tylenol Prophylaxis: DVT - heparin Stress Ulcer: no indication for prophylaxis Code Status: addressed: DNR Disposition: Discharge to: [address] [address] Ph: Barriers: None Expected date: 03/05/19 Discharge follow-ups requested: PCP Malcolm Limon MD Internal Medicine, PGY-1 [facility] Team Pager #: [phone] END OF DAILY PROGRESS NOTE HOSPITAL COURSE Mr.Warren Lizzette Dudley is a 83 year old malewith a pmh of COPD on 3L home O2, CHF, CAD s/p CABG, h/o Valve replacement, HTN, CKD and prostate cancer s/p resection and radiation who presented after an episode of unresponsiveness. Pt had benign UA and negative strep pneumoniae antigen and an EKG showing normal sinus rhythm. Of note the patient looked emaciated, severely malnourished, and had hypoalbuminemia (Albumin 2.4) with edema in BLLEs. CT Head showed possible subacute subdural hematoma, neurosurgery recommended repeat head CT, and no acute abnormalities were seen. CXR showing pulmonary edema with possible superimposed infection in LLL w/small L pleural effusion. Suspected oropharyngeal dysphagia in the setting of significant weight loss, poor appetite , and deconditioningwas evaluated by TRADE ECONOMIST.Patient was observed with overt signs of aspiration (throat clearing) after all food consistencies were presented. A Modified Barium Swallow Study showedmild oropharyngeal dysphagia; intermittent trace penetration of thin liquid (PAS 3-5); no aspiration; pharyngeal residue. TRADE ECONOMIST deemed the patient tohavefair-favorable safety with PO intake with swallow precautions. OT's assessment of the patient revealed decreased independence with ADL, impaired postural control and decreased strength/endurance for functional activity. PT evaluated patient ambulation which was unsteady and limited to 3ft, they recommend SNF or Home Health PT with 24/7 family supervision. suggested that SNF would be betterbecause she is struggling to manage his care at home. Echo was ordered to determine ejection fraction. Pt was changed from obs to inpatient & family chose in & amp; out of hospital DNR status. Mini Mental status exam score was 23/30, and the majority of the things he failed were because he could not read/write/draw properly without his glasses. Pt long-time and current smoker was asking his for cigarettes, so a Nicoteine patch was discussed with patient. Pt d/c to rehab facility. CURRENT MEDICATIONS - reviewed. Current Facility-Administered Medications Medication Dose Route Frequency Last Rate Last Dose azithromycin (ZITHROMAX) 250 mg in NaCl 0.9% (NS) 250 mL piggyback 250 mg IV Piggyback Q24H ABX 250 mg at 03/04/19 2337 furosemide (LASIX) tablet 20 mg 20 mg Oral QAM metoprolol tartrate (LOPRESSOR) tablet 25 mg 25 mg Oral BID Stopped at 1999 nicotine (NICODERM) 14 mg/24 hr patch 1 Patch 1 Patch Topical Q24H 1 Patch at 03/04/19 1331 sodium chloride (OCEAN MIST NASAL) 0.65 % nasal spray 1 [place] 1 [place] Nasal PRN 1 [place] at 03/04/19 2240 triamcinolone acetonide (TRIDERM) 0.1 % cream Topical BID acetaminophen (TYLENOL) tablet 650 mg 650 mg Oral Q6HPRN aspirin chewable tablet 81 mg 81 mg Oral DAILY 81 mg at 03/04/19 08 cefTRIAXone (ROCEPHIN) 1,000 mg in NaCl 0.9% (NS) 50 mL MINI-BAG 1,000 mg IV Piggyback Q24H ABX 1,000 mg at 03/04/19 215 clopidogrel (PLAVIX) tablet 75 mg 75 mg Oral DAILY 75 mg at 03/04/19 08 heparin injection 5,000 Units 5,000 Units Subcutaneous Q12H 5,000 Units at 03/04/19 215 ipratropium-albuterol (DUONEB) 0.5 mg-3 mg(2.5 mg base)/3 mL nebulizer solution 3 mL 1 Ampule Inhalation QID 3 mL at 03/04/19 194 isosorbide mononitrate (IMDUR) 24 hr tablet 30 mg 30 mg Oral DAILY 30 mg at 03/04/19 08 predniSONE (DELTASONE) tablet 20 mg 20 mg Oral DAILY 20 mg at 03/04/19 0817 tamsulosin (FLOMAX) capsule 0.4 mg 0.4 mg Oral DAILY 0.4 mg at 03/04/19 0817 Prior to Admission medications Medication Sig Start Date End Date Taking? Authorizing Provider aspirin 81 mg chewable tablet Take 81 mg by mouth daily. Yes Doctor Unassigned , [place] clopidogrel 75 mg tablet Take 75 mg by mouth daily. Yes Doctor Unassigned, [place] Formoterol Fumarate 20 mcg/2 mL Nebu Inhale 1 Vial 2 (two) times daily. Yes Doctor Unassigned, [place] furosemide 20 mg tablet Take 20 mg by mouth daily. Yes Doctor Unassigned, [place] ipratropium-albuterol 0.5 mg-3 mg(2.5 mg base)/3 mL nebulizer solution Inhale 1 Ampule 4 (four) times daily. Yes Doctor Unassigned, [place] isosorbide mononitrate 30 mg 24 hr tablet Take 30 mg by mouth daily. Yes Doctor Unassigned, [facility] predniSONE 20 mg tablet Take 20 mg by mouth daily. Yes Doctor Unassigned, [facility] revefenacin 175 mcg/3 mL Nebu Inhale 3 mL daily. Yes Doctor Unassigned, [facility] tamsulosin 0.4 mg 24 hr capsule Take 0.4 mg by mouth daily. Yes Doctor Unassigned, [place] metoprolol tartrate 25 mg tablet Take 0.5 tablets by mouth 2 (two) times daily. Patient taking differently: Take 50 mg by mouth 2 (two) times daily. 09/25/17 Yes Julio Cesar He MD Associated attestation - Mary Gilliland MD - 03/05/2019 4:09 PM CDT I personally examined the patient and agree with Dr. Limon's progress note as written . I actively participated in the decision-making process. Please see the resident's note for additional details. Mary Thomas MD Geriatric Medicine Pager/cell [phone] Mg Quiroga MD - 03/04/2019 1:15 PM CDTBrief Progress Note: Was informed by RN that patient's blood pressure was in systolic 80s and stayed there after repeat checking three times. Patient reported no symptoms to rn. I went and examined the patient, he is seen resting comfortably, immediately woke up from nap to voice and stated "I'm great, just enjoying a nap". No chest pain , sob, palpitations, dizziness or confusion. Telemetry with sinus tachycardia to low 100's. Will give gentle bolus 250 cc and continue to monitor the patient. Mg Quiroga MD Internal Medicine PGY-2 Pager #: [phone] Associated attestation - Mary Gilliland MD - 03/04/2019 4:19 PM CDTI personally examined the patient and agree with Dr. Quiroga's progress note as written . I activelyparticipated in the decision-making process. Please see the resident's note for additional details. Mary Thomas MD Geriatric Medicine Pager/cell [phone] Mimi Johnson, PT - 03/04/2019 12:01 PM CDTPhysical Therapy Progress Note & amp; Discharge Recommendation Recommendations: -Primary Discharge Plan: Rehabilitation hospital (Inpatient Rehabilitation Facility) Equipment recommendations: Four wheeled walker with seat (Rollator) - current assistive device recommendation; to be reassessed with functional progress at [facility] (Rollator vs. Cane) PAIN: denies pain and no physiologic signs of pain. PRECAUTIONS: Weight Bearing Precaution: NA General Precautions: Fall and Pulmonary oxygen: Nasal canula (4 LPM throughout session; portable O2 for ambulation) Bracing/Cast present or required:N/A S: Patient agreeable to working with PT. Discussion of discharge planning factors with patient/spouse (caregiver) reveals spouse not physically able to provide hands-on assistance, but able to providesupervision if patient's functional status improves to household level endurance. Spouse states patient' s current walking appears much slower and weaker than baseline. Patient agreeable to going to rehab facility to work on strength, balance, endurance with postacute goal of returning to home with spouse. O: Patient met Semi reclined in bed. Patient oriented to person, place, and situation. Patient seen for the following: Bed mobility: - reclined to sitting: SBA/Setup - Scooting to edge of bed: SBA/Setup - Sit to supine: SBA/Setup - educated on body mechanics and breathing during transitions Transfers: - -Sit to stand: SBA/Setup using no device, Four wheeled walker with seat -Stand to sit: SBA/Setup using no device, Four wheeled walker with seat - Static/dynamic standing balance: 4-stage balance test, limited at stage 2 ( semi-tandem) only 5 of 10 seconds - Verbal cueing provided for correct hand placement and correct use of Four wheeled walker with seat - facilitated increased use of bilateral LE (patient attempts to initiate transfer with bilateral UE) - Modified 5 times sit to stand (allowed use of hands as patient unable to perform without hands), time=18 seconds Gait: - Patient required frequent sitting/breathing rest breaks in between gait trials (endurance progressed from 20 feet to maximum 60 feet this session). - Assisted patient with ambulation as follows: 20 feet x 2 using no device and Minimal assist - Gait training (modeled correct use of assistive device followed by active practice with verbal cues for posture): 20 feet x 2, 60 feet using Four wheeled walker with seat and SBA/Setup, on oxygen (4 LPM) - Patient presenting with Step-to (no assistive device) and Step-through gait pattern with use of Four wheeled walker with seat - Timed Up & Go test Without assistive device (influenced by minimal assist required for trunk control): trial 1=28 seconds, trial 2=30 seconds Using Four wheeled walker with seat (rollator): trial 1=31 seconds, trial 2= 30 seconds - 2 Minute Walk Test with use of Four wheeled walker with seat: patient unable to complete full 2 minutes due to high RPE; walked 60 feet in 1 min, 28 seconds. Therapeutic exercise: - Instructed/cued patient in the following therapeutic exercises for standing posture and bilateralLE strengthening: Standing with bilateral UE support on countertop, scapular retractions and trunk extension (from flexed towards upright neutral) with tactile cues x 10 reps, bilateral heel raises x 12 reps. Vital Signs: - RR (breaths/min) 20 at rest, 24 in sitting, 28 in standing - SpO2 (on nasal cannula, 4 LPM) 94% at rest, 88% post ambulation, 93% sitting with rest and breathing cues. - Pulse fluctuated 58 - 76 bpm - Rating of perceived exertion (RPE) modified to categorical options (easy, moderate, hard) as patient had difficulty with 0 to 10 rating scale. RPE "moderate" during gait without assistive device (minimal assist level) and "easy " during 20 feet of gait using Four wheeled walker with seat. 2 Minute Walk Test ended at 60 feet when patient reached "hard" RPE and needed to rest. After session, patient Semi reclined in bed and call zapata provided. Spouse at bedside. Discharge planning factors discussed with Kitchen Manager. Patient and Family member provided with preferred teaching of verbal information and demonstration on use of Four wheeled walker with seat, fall risk management, discharge recommendations. Patient/spouse Barriers to learning include physical limitations. Verbal instruction teaching provided. Individual is able to read and verbalizes understanding of teaching provided. A:. Patient participated with high level of motivation, requiring frequent rest breaks for breathingand then continuing next functional tasks. Patient progressing toward goals As expected given medical complexity. Use of Four wheeled walker with seat promoted increased step length, less physical assistance for balance and lower RPE. Functional outcomes (5 times sit to stand , Timed Up & Go, 2 Minute Walk Test) indicate below normal function, need for assistance to carry out ADL, and high fallrisk. Patient continues to benefit from acute care PT services to address the following: Decline inbed mobility, Decline in gait, Decline in transfers, Decreased strength, Decreased endurance, Decreased balance, posture deficits and Decreased Motor Planning. Goals: The following goals are to maximize independence and safety with functional mobility to eventually return to prior living situation and prior functional status. 1 - Supine to sit: Independent 2 - Stand pivot transfer: Independent (without use of hands) 3 - SBA/Setup with ambulation, Feet: 300 (or 150 ft x 2 with sitting rest break ) using Four wheeled walker with seat (rollator) with portable oxygen and moderate perceived exertion. 4 - Demonstrate understanding and correct form of home exercise program in order to continue with their rehab on their own. 5 - Timed Up & Go using Four wheeled walker with seat in < 20 seconds 6 - 2 Minute Walk Test using Four wheeled walker, portable O2, distance > 300 ft, moderate RPE P: Continue to follow for: Decline in bed mobility, Decline in gait, Decline in transfers, Decreasedstrength, Decreased endurance, Decreased balance, Posture deficits and Decreased Motor Planning. PT will progress functional quality, safety, and endurance using Four wheeled walker and portable O2. Also advance standing balance/strengthening and posture exercises. Total Timed Tx Codes in Minutes: 63 Min Total Treatment Time in Minutes: 63 Min Patient seen by PT from 10:44 to 11:47. Mimi Johnson PT, PhD Board-Certified Clinical Specialist in Geriatric Physical Therapy ([facility]) Work Rehabilitation Services Dept: [phone] Monik Grimm RN - 03/04/2019 10:28 AM CDTCare Coordinator Update CM spoke with patient and spouse, discussing PT/OT recs upon discharge. Patient and spouse to discuss and CM will f/u prior to afternoon. Update 03/04/19 5375 CM spoke with patient spouse, discussing inpatient rehab facility options. [facility] [address] [place] [phone] . Referral sent, pending facility acceptance. Update 03/04/19 6164 CM spoke with [facility] who said that they have received referral and are currently reviewing, she is waiting to hear back from coworker to see if bedside eval is needed. Flores was askingif MRI was done as CT recommended MRI brain without contrast, CM will f/u with team and update rehabtomorrow am to see if they have accepted patient. Monik Rea RN,BSN Men'S Basketball Coach Department of Care Management [phone] signed by Monik Rea, RN at 03/04/2019 4:03 PM Mg Teresa MD - 03/04/2019 7:10 AM CDT PGY- 2 Medicine Progress Note Date of Service: 03/04/2019 07:10 Chief Complaint: Shortness of Breath 24-HOUR EVENTS: -AF, VSS SUBJECTIVE: Mr. Crocker is seen sleeping comfortably prior to interview, he states that he is going "great" and reports that he slept well. States he urinated a lot yesterday and believes his sob is improving, denies subjective fever, chills, chest pain, palpitations and nausea/vomitting. PHYSICAL EXAM: Vitals: 03/03/19 1949 03/03/19 1952 03/03/19 2321 03/04/19 0311 BP: 132/69 134/78 121/60 Pulse: 81 77 76 Resp: 18 18 18 18 Temp: 36.6 C (97.8 F) 36.3 C (97.3 F) 36.6 C (97.8 F) TempSrc: Oral Oral Oral SpO2: 96% 96% 95% 93% Weight: Height: Intake/Output Summary (Last 24 hours) at 03/04/2019 0710 Last data filed at 03/03/2019 1731 Gross per 24 hour Intake Output 920 ml Net -920 ml Gen: NAD, AOx3 (person, year, states city is [place], knows [place] president is [place]), cachetic HEENT: EOMI, MMM P: Mild crackles bilaterally, dry cough, not in respiratory on NC CV: RRR, no MRG; Abd: NT, ND MSK: Moving all extremities spontaneously Neuro: CN2-12 grossly intact, peripheral sensation intact Skin: 1+ pitting edema in feet and ankles - improved LABS/IMAGING - reviewed, pertinent results as below: Labs: CBC BMP PT/INR WBC (10*3/L) Date Value 03/04/2019 9.07 NA (mmol/L) Date Value 03/02/2019 138 No results found for: PT RBC (10*6/L) Date Value 03/04/2019 4.35 K (mmol/L) Date Value 03/02/2019 4.9 INR (no units) Date Value 03/02/2019 1.0 PLT (10*3/L) Date Value 03/04/2019 202 CALCIUM (mg/dL) Date Value 03/02/2019 7.9 (L) HGB (g/dL) Date Value 03/04/2019 12.9 CL (mmol/L) Date Value 03/02/2019 114 (H) aPTT HCT (%) Date Value 03/04/2019 39.9 BUN (mg/dL) Date Value 03/02/2019 41 (H) APTT Patient (Seconds) Date Value 03/02/2019 29 CREATININE (mg/dL) Date Value 03/02/2019 1.53 (H) Chest 1 View Result Date: 03/02/2019 Interstitial pulmonary edema with possible superimposed infection in the left lower lobe. [id number] is recommended to document resolution. Small left pleural effusion. IAdrianna MD., have reviewed this study and agree with the above report. Ct Head Wo Contrast Result Date: 03/03/2019 Impression: 1. Prominence of the extra-axial spaces in the left frontal and temporal region may represent either subarachnoid space prominence due to asymmetric volume loss or a small subdural collection isodense to CSF. Recommend follow-up with MRI brain without contrast to clarify. Ct Head Wo Contrast Result Date: 03/02/2019 Asymmetric prominence of the left frontal extra-axial space with suspicion of subacute blood products may represent subdural hematoma. Follow-up is recommended. ASSESSMENT/PLAN Azael Crocker Jr. is a 83 year old male admitted to the hospital with: Episode of unresponsiveness LLL pneumonia, suspect CAP Dysphagia Acute on chronic CHF COPD (on 3L home O2) Patient presents after episode of unresponsiveness at home. Found to have LLL pneumonia w/ concerns for CAP versus aspiration (as patient reported choking/ coughing w/ PO intake), will treat w/ IV abx. Minor increase in furosemide given possible acute on chronic CHF, as seen by crackles, congetion and ble pitting edema (though may be oncotic related). Will order repeat echo during admission here - CBC, BMP, Mg - Telemetry - CBC, BMP, Mg - F/u BCx - Sputum cx - Strep pneumo, legionella antigen - C/w ceftriaxone 1g daily + azithromycin 500mg daily (03/02 - ) - Duonebs Q6H - C/w lasix 20 mg PO BID - Pending TTE - Consulted speech -MBS yesterday - Consulted PT/OT Subacute SDH Patient denies recent falls. Takes plavix at home. Neurosurgery consulted and CT head repeated with no change. - Consulted neurosurgery -No surgical intervention at this time Pain Not an active problemTylenol Prophylaxis: DVT- heparin Stress Ulcer: no indication for prophylaxis Code Status: addressed: FULL Mg Quiroga MD Internal Medicine PGY-2 Pager #: [phone] END OF DAILY PROGRESS NOTE HOSPITAL COURSE Azael Crocker Jr. is a 83 year old male w/ COPD (on 3L home O2), CHF, CAD s/p CABG (2011?, on plavix), hx of valve replacement (?2011), HTN, CKD and prostate cancer s/p resection + radiation (2008) who presents after episode of unresponsiveness CURRENT MEDICATIONS - reviewed. Current Facility-Administered Medications Medication Dose Route Frequency Last Rate Last Dose acetaminophen (TYLENOL) tablet 650 mg 650 mg Oral Q6HPRN aspirin chewable tablet 81 mg 81 mg Oral DAILY azithromycin (ZITHROMAX) 500 mg in NaCl 0.9% (NS) 250 mL VIAL-MATE IV piggyback 500 mg IV Piggyback Q24H ABX 500 mg at 03/03/19 2348 cefTRIAXone (ROCEPHIN) 1,000 mg in NaCl 0.9% (NS) 50 mL MINI-BAG 1,000 mg IV Piggyback Q24H ABX 1,000 mg at 03/03/192106 clopidogrel (PLAVIX) tablet 75 mg 75 mg Oral DAILY furosemide (LASIX) tablet 20 mg 20 mg Oral QAM+PM 20 mg at 03/03/19 1632 heparin injection 5,000 Units 5,000 Units Subcutaneous Q12H 5,000 Units at 03/03/192116 ipratropium-albuterol (DUONEB) 0.5 mg-3 mg(2.5 mg base)/3 mL nebulizer solution 3 mL 1 Ampule Inhalation QID 3 mL at 03/03/191951 isosorbide mononitrate (IMDUR) 24 hr tablet 30 mg 30 mg Oral DAILY metoprolol tartrate (LOPRESSOR) half tablet 12.5 mg 12.5 mg Oral BID 12.5 mg at 03/03/192106 predniSONE (DELTASONE) tablet 20 mg 20 mg Oral DAILY tamsulosin (FLOMAX) capsule 0.4 mg 0.4 mg Oral DAILY Prior to Admission medications Medication Sig Start Date End Date Taking? Authorizing Provider aspirin 81 mg chewable tablet Take 81 mg by mouth daily. Yes Doctor Unassigned , [facility] clopidogrel 75 mg tablet Take 75 mg by mouth daily. Yes Doctor Unassigned, [place] Formoterol Fumarate 20 mcg/2 mL Nebu Inhale 1 Vial 2 (two) times daily. Yes Doctor Unassigned, [place] furosemide 20 mg tablet Take 20 mg by mouth daily. Yes Doctor Unassigned, [place] ipratropium-albuterol 0.5 mg-3 mg(2.5 mg base)/3 mL nebulizer solution Inhale 1 Ampule 4 (four) times daily. Yes Doctor Unassigned, [place] isosorbide mononitrate 30 mg 24 hr tablet Take 30 mg by mouth daily. Yes Doctor Unassigned, [place] predniSONE 20 mg tablet Take 20 mg by mouth daily. Yes Doctor Unassigned, [place] revefenacin 175 mcg/3 mL Nebu Inhale 3 mL daily. Yes Doctor Unassigned, [place] tamsulosin 0.4 mg 24 hr capsule Take 0.4 mg by mouth daily. Yes Doctor Unassigned, [place] metoprolol tartrate 25 mg tablet Take 0.5 tablets by mouth 2 (two) times daily. Patient taking differently: Take 50 mg by mouth 2 (two) times daily. 09/25/17 Yes Julio Cesar He MD Associated attestation - Mary Gilliland MD - 03/04/2019 4:16 PM CDTI personally examined the patient and agree with Dr. Quiroga's progress note as written . I activelyparticipated in the decision-making process. Please see the resident's note for additional details. Mary Thomas MD Geriatric Medicine Pager/cell [phone] Stanton, TRADE ECONOMIST - 03/03/2019 2:44 PM CDT Modified Barium Swallow Speech-Language Pathology Services Azael Pollardshanti Burch. : 1935 Age: [age] year old Sex: male ABRAHAM: 03/03/2019 Time In/Out: [id number] Referring Physician: Junaid Date of Referral: 03/03/2019 Medical Diagnosis: oropharyngeal dysphagia; weight loss; COPD; SDH Reason for Referral: r/o aspiration; objectively evaluate the oropharyngeal swallow with imaging SUBJECTIVE: Patient awake/alert; agreeable to evaluation. Patient was accompanied by his who remained present throughout. OBJECTIVE: Azael Pollardshanti Dudley was seen for modified barium swallow study (MBS). Patient is a 83 year old male admitted to [facility] after episode of unresponsiveness with PMH significant for COPD (on home O2),CHF, CAD s/p CABG (2011?), history of valve replacement (?2011), HTN, CKD, and prostate cancer s/p resection and radiation (2008). Patient was found to have subacute left SDH - no surgical intervention indicated per neurosurgery. CXR showoing concern for possible infection. Transferred to [place]. Pertinent Imaging: Chest 1 View Result Date: 03/02/2019 Interstitial pulmonary edema with possible superimposed infection in the left lower lobe. Mvxvs-[id number]-mh is recommended to document resolution. Small left pleural effusion. IAdrianna MD., have reviewed this study and agree with the above report. Ct Head Wo Contrast Result Date: 03/03/2019 Impression: 1. Prominence of the extra-axial spaces in the left frontal and temporal region may represent either subarachnoid space prominence due to asymmetric volume loss or a small subdural collection isodense to CSF. Recommend follow-up with MRI brain without contrast to clarify. Ct Head Wo Contrast Result Date: 03/02/2019 Asymmetric prominence of the left frontal extra-axial space with suspicion of subacute blood products may represent subdural hematoma. Follow-up is recommended. Previous TRADE ECONOMIST Services/Swallow History: None prior to this hospitalization. Seen for bedside swallow evaluation earlier this morning; demonstrated overt s/sx of aspiration after all consistencies. MBS was recommended. Past Medical History: Diagnosis Date BPH (benign prostatic hyperplasia) CAD (coronary artery disease) CHF (congestive heart failure) CKD (chronic kidney disease) COPD (chronic obstructive pulmonary disease) Falls H/O aortic valve replacement HTN (hypertension) Oxygen dependent Prostate cancer Wears dentures Past Surgical History: Procedure Laterality Date CABG, ARTERIAL, TWO TRANSURETHRAL PROSTATE RESECTION VALVE REPLACEMENT Current Diet Texture/Means of Nutrition: regular Oral Mechanism: Structure: edentulous, dentures present x2; dry oral mucosa Function: Unremarkable - no facial droop/weakness, symmetric labial spread and pucker, lingual protrusion midline with equal lateralization, symmetrical palatal retraction, no dysphonia, no dysarthria, no apraxia Hearing: Within Functional Limits for speech though occasionally needed increased volume and repetitions EVALUATION: Patient presented with barium in thin liquids, nectar-thick liquids, puree and chewable solid consistencies viewed under fluoroscopy in the lateral and A/P planes with Dr. Quiñones from radiology. COMPONENTS AND SCORES ORAL IMPAIRMENT Component 1-Lip Closure: 1=Interlabial escape, no progression to anterior lip Component 2-Tongue Control During Bolus Hold: 1=Escape to lateral buccal cavity /floor of mouth (FOM) Component 3-Bolus Preparation/Mastication: 1=Slow prolonged chewing/mashing with complete re-collection Component 4-Bolus Transport/Lingual Motion: 0=Brisk tongue action Component 5-Oral Residue: 1=Trace residue lining oral structures and 2=Residue collection on oral structures with cracker Component 6-Initiation of Pharyngeal Swallow: 1=Bolus head in valleculae and 2= Bolus head at posterior laryngeal surface of epiglottis PHARYNGEAL IMPAIRMENT Component 7-Soft Palate Elevation: 0=No bolus between soft palate (SP)/ pharyngeal wall (PW) Component 8-Laryngeal Elevation: 0=Complete superior movement of thyroid cartilage with complete approximation of arytenoids to epiglottic petiole Component 9-Anterior Hyoid Excursion: 1=Partial anterior movement Component 10-Epiglottic Movement: 1=Partial inversion Component 11-Laryngeal Vestibular Closure-Height Swallow: 1=Incomplete; narrow column air/contrast in laryngeal vestibule Component 12-Pharyngeal Stripping Wave: 1=Present - diminished Component 13-Pharyngeal Contraction (A/P view only): 2=Unilateral Bulging ( possible on left) Component 14-Pharyngoesophageal Segment Openin=Partial distension/partial duration;partial obstruction of flow Component 15-Tongue Base (TB) Retraction: 2=Narrow column of contrast or air between TB and PW Component 16-Pharyngeal Residue: 1=Trace residue within or on pharyngeal structures, 2=Collection ofresidue within or on pharyngeal structures, LOCATION B: Valleculae and LOCATION E: Pyriform Sinuses ESOPHAGEAL IMPAIRMENT Component 17-Esophageal Clearance Upright Position: 0=Complete clearance; esophageal coating FACILITATIVE TECHNIQUES ATTEMPTED: bolus modification and mode of presentation Images/loops available for review in PACS. Patient/Family Education: verbal; review of loops/images Patient/Family Goal: safe po intake ASSESSMENT: Azael Crocker Jr. presents with a mild oropharyngeal dysphagia in the setting of advanced age, deconditioning, and COPD with primary impairment in pharyngeal efficiency. Patient had intact oral phase with adequate oral bolus control and manipulation with timely A-P oral transit and no significant oralresidue. Swallow was initiated at the level of the valleculae on majority of trials, though was delayed to the posterior side of the epiglottis with liquids intermittently. Reduced tongue base retraction, hyolaryngeal excursion, and pharyngeal contraction, complicated by patient's deep cavernous pharynx resulted in intermittently incomplete epiglottic inversion and laryngeal vestibular closure. Asa result of incomplete LVC, patient was observed with intermittent penetration of thin liquids during the swallow that was not ejected and trickled down to the vocal cords x1 (PAS 3-5); however no aspiration observed and penetration was in trace amounts. Patient was also noted with diffuse pharyngealresidue with all consistencies, though a collection was seen in the valleculae with chewable solids requiring liquid wash x2 to clear. When turned A/P, residue appeared to be worst on patient's right;however, patient did not want to pursue further trials for strategy attempts. Also of note, patientnot sensate of residue or penetration per report. Patient with intermittent throat clearing throughout that did not appear to be related to penetration/aspiration with the exception of one throat clear that was after a penetration event. Overall, patient is at risk for aspiration due to these oropharyngeal deficits, but is safe to continue a po diet with swallow precautions. Patient would possiblybenefit from dysphagia therapy with TRADE ECONOMIST; however, he did not appear interested as he does not think that he has a swallow problem. However, he would benefit from at least one additional session with TRADE ECONOMIST to review swallow precautions, ensure safe tolerance of po diet, and offer swallow therapy/exercises. Impressions: mild oropharyngeal dysphagia; intermittent trace penetration of thin liquid (PAS 3-5); no aspiration; pharyngeal residue Prognosis for safe po intake is fair-favorable with swallow precautions due to above findings. Prognosis for meeting nutritional needs by mouth is guarded due to history of poor appetite and decreasedpo intake PLAN: 1. Recommend pt continue a regular-textured diet with thin liquids and swallow precautions: sit fully upright/chair, alternate sips/bites and remain upright for 30 minutes after meals 2. Recommend frequent, thorough oral hygiene care due to risk for aspiration. 3. Recommend TRADE ECONOMIST therapy 2-5x/wk for 15-45 min/session to address the following goals: Swallowing: - Patient will tolerate the safest, least restricted po diet texture without overt s/sx of aspiration or other negative effects on medical condition. - Patient/family will verbalize and demonstrate adherence to swallowing precautions with minimal cues 80% of the time. - Patient will complete base of tongue, strap muscle, and airway protection exercises with minimal cues 80% of the time. Heather Stanton MS, CCC-TRADE ECONOMIST Speech-Language Pathologist Office: [phone] Pager: [phone]/[id number] signed by Heather Stanton, TRADE ECONOMIST at 6:06 PM Mimi Garza PT - 03/03/2019 2:24 PM CDTPhysical Therapy Note PT consult received. Patient currently off unit, for radiograph per GIS COORDINATOR report. PT will return forfurther chart review and evaluation as appropriate as time permits. Thank you. Mimi Johnson, PT, PhD Board-Certified Clinical Specialist in Geriatric Physical Therapy ([facility]) Work Rehabilitation Services Dept: [phone] ENETBPeter kessler MD - 03/03/2019 10:56 AM CDTNeurosurgery Brief 03/03/[address] scan stable. No changes in exam from prior note this early this morning. Spoke with familyand patient about findings. No plans for surgical intervention or further follow up at this time. Please call if questions [place] [id number] signed by Tonia Ham MD at 03/03/2019 1: 49 PM CDT Associated attestation - Tonia Ham MD - 03/03/2019 1:49 [address] CDTAfter discussion with Dr. Ruiz, I examined this patient on 03/03/2019. I agree with resident's note as written. I participated in the medical decision making for this patient. Tonia Ham M.D., Ph.D. Neurosurgery Pager: [phone] 03/03/2019 Monik Rea RN - 03/03/2019 10:30 AM CDTCare Management Social Functional Assessment Patient Name: Azael Crocker Jr. Age: [age] year old Sex: male Previous admit date: N/A Current diagnosis and co-morbidities: copd exacerbation Readmission Questions: Was patient discharged from any acute care hospital within the last 30 days: No Social Functional Assessment: Primary language spoken/preferred: Danish Mental Status: Other Other mental status: sleeping Information given by: Child;Spouse Name and phone number of person giving information: Rose Crocker (spouse) [phone]; Sheldon Crocker (son) [phone] Patient's support system: Child;Spouse Name and number of support system: Rose Crocker (spouse) [phone]; Sheldon Crocker (son) [phone] Primary Extension Work Instructor: Self MPOA: No Living Arrangement: Home: single story Address of living arrangement : [address] [place] [address] [place] [address] Persons living in home: Self;Spouse;Same as support system Barriers to returning home: Declining function Baseline functional status- ambulation: Independent Functional status-baseline personal care: Independent Baseline functional status- driving: Independent Baseline functional status- grocery shopping: Independent Functional status-baseline housekeeping: Independent Functional status-baseline meal prep: Independent Current functional status same as prior: Yes Do you have a PCP?: Yes Name of PCP: [facility] Agency: No Provider Services: No DME Company: Yes Name of DME company: Other Other DME company name: patient spouse does not remember name of DME company that supplies patients home O2 Previous or current DME company: Current Equipment: O2:Portable tank available;O2: LPM;Grab bars;Shower bench Hemodialysis: No Community resources utilized: [facility] Funding Resources: Medicare A & B;Supplement/Secondary Prescription coverage plan: Medicare Part D Pharmacy where meds are filled: Other Other pharmacy: [facility] Anticipated services prior to disharge: Continue Medical Eval Expected mode of discharge transportation: Personal vehicle;Same as support system Additional Recommendations for DC: Patient pending PT/OT eval, CM will f/u with recs. Patient familyto transport patient home when medically ready to dc. CM will continue to follow. CHP referral made,patient high risk for readmission. Additional info required for discharge planning: Pending medical evaluation; Pending P/T O/T recommendation Recommended discharge plan: Home;Home with new Home Health SFA Complete: Social Functional Assessment complete: Yes Alcohol Use Screening (AUDIT-C) How often do you have a drink containing alcohol?: Never SCORE: 0 Did patient elect to have resources provided: No Role of Care Management explained. Monik Rea RN,BSN Men'S Basketball Coach Department of Care Management [phone] signed by Monik Rea RN at 03/03/2019 10:30 AM CDTMg Quiroga MD - 03/03/2019 6:18 AM CDTIM Handoff Form Admitting Resident: Anjel Current Resident: Junaid Team Assignment: Aury Fajardo HPI: Mr. Azael Crocker Jr. is a 83 year old male with a pmh of COPD on 3L home O2, CHF, CAD s/p CABG, h/o Valve replacement, HTN, CKD and prostate cancer s/p resection and radiation who presentedafter episode of unresponsiveness. Significant Lab/EKG/Radiology Abnormalities: -CXR showing pulmonary edema w/possible superimposed infection in LLL w/small L pleural effusion. -Repeat CTH showing no acute changes Pending Labs/Radiology/Heart Studies: -MBS Pending Consults: -Speech consult, pending Other information: -Neurosurgery consulted over night due to findings of subacute subdural hematoma in setting of unresponsiveness; no acute intervention -Home meds brought by Mrs. Crocker and reconciled chart Mg Quiroga MD Internal Medicine PGY-2 Pager #: [phone] documented in this encounter Plan of Treatment Name Type Priority Associated Diagnoses Date/Time BLOOD CULTURE SCREEN LAB STAT COPD exacerbation 03/02/2019 8:54 PM CDT Hypoxia BLOOD CULTURE SCREEN LAB STAT COPD exacerbation 03/02/2019 8:54 PM CDT Hypoxia VITAMIN B1 (THIAMINE), LAB Routine 03/04/2019 6:25 AM CDT WHOLE BLOOD VITAMIN B6, PLASMA LAB Routine 03/04/2019 6:24 AM CDT Name Type Priority Associated Diagnoses Order Schedule CBC WITH DIFF LAB Routine EVERY MORNING AT 0400 until discontinued starting 03/04/2019, 2 completed BASIC METABOLIC LAB Routine EVERY MORNING AT 0400 PANEL (NA, K, CL, until discontinued CO2, GLUCOSE, BUN, starting 03/04/2019, 2 CREATININE, CA) completed EKG-12 LEAD ROUTINE HEART STATION Routine ONCE for 1 Occurrences starting 03/03/2019 until 03/03/2019 [facility] LAB Routine ONCE for 1 Occurrences ANTIGEN TST starting 03/03/2019 until 03/03/2019 SPUTUM CULTURE LAB Routine ONCE for 1 Occurrences starting 03/03/2019 until 03/03/2019 VITAMIN B1 LAB Routine ONCE for 1 Occurrences (THIAMINE), WHOLE starting 03/04/2019 BLOOD until 03/04/2019 VITAMIN B6, PLASMA LAB Routine ONCE for 1 Occurrences starting 03/04/2019 until 03/04/2019 Health Maintenance Due Date Last Done Comments Zoster Recombinant Vaccine (SHINGRIX) (1 of 2) 1987 Medicare Wellness Visit 2002 PNEUMOCOCCAL VACCINES 65+ (1 of 2 - PCV13) 2002 DTaP,Tdap,and Td Vaccines (1 - Tdap) 03/03/2019 03/02/2019 INFLUENZA VACCINE (#1) 2019 05/27/2018 documented as of this encounter Procedures Procedure Name Priority Date/Time Associated Comments Diagnosis CBC WITH DIFFERENTIAL Routine 03/05/2019 4:50 Results for this AM CDT procedure are in the results section. CBC WITH DIFF Routine 03/05/2019 4:50 Results for this AM CDT procedure are in the results section. BASIC METABOLIC PANEL Routine 03/05/2019 4:50 Results for this (NA, K, CL, CO2, AM CDT procedure are in GLUCOSE, BUN, the results CREATININE, CA) section. ECHO ROUTINE W/DOPPLER Routine 03/04/2019 3:32 Heart failure, COLOR PM CDT unspecified HF chronicity, unspecified heart failure type CBC WITH DIFFERENTIAL Routine 03/04/2019 6:24 Results for this AM CDT procedure are in the results section. CBC WITH DIFF Routine 03/04/2019 6:24 Results for this AM CDT procedure are in the results section. BASIC METABOLIC PANEL Routine 03/04/2019 6:24 Results for this (NA, K, CL, CO2, AM CDT procedure are in GLUCOSE, BUN, the results CREATININE, CA) section. URINALYSIS Routine 03/03/2019 8:28 Results for this PM CDT procedure are in the results section. FL MODIFIED BARIUM Routine 03/03/2019 2:28 Dysphagia, Results for this SWALLOW PM CDT unspecified type procedure are in Unresponsive the results episode section. PNEUMOCOCCAL ANTIGEN Routine 03/03/2019 1:02 Results for this PM CDT procedure are in the results section. CT HEAD WO CONTRAST STAT 03/03/2019 4:26 SDH (subdural Results for this AM CDT hematoma) procedure are in the results section. LACTIC ACID WHOLE STAT 03/03/2019 2:55 Results for this BLOOD AM CDT procedure are in the results section. TROPONIN I Routine 03/03/2019 2:55 Results for this AM CDT procedure are in the results section. FOLATE Add-on 03/03/2019 2:55 Results for this AM CDT procedure are in the results section. VITAMIN B12, LEVEL Add-on 03/03/2019 2:55 Results for this AM CDT procedure are in the results section. CRITICAL CARE Routine 03/02/2019 11:06 Results for this PM CDT procedure are in the results section. ADC / LCC - DRUG STAT 03/02/2019 9:50 Unresponsive Results for this SCREEN TRIAGE PM CDT episode procedure are in the results section. CT HEAD WO CONTRAST STAT 03/02/2019 9:39 Unresponsive Results for this PM CDT episode procedure are in the results section. BLOOD CULTURE SCREEN STAT 03/02/2019 8:54 COPD exacerbation PM CDT Hypoxia BLOOD CULTURE SCREEN STAT 03/02/2019 8:54 COPD exacerbation PM CDT Hypoxia XR CHEST 1 VW STAT 03/02/2019 8:39 Unresponsive Results for this PM CDT episode procedure are in the results section. AC PANEL 20 + LACTIC STAT 03/02/2019 8:18 Unresponsive Results for this ACID PM CDT episode procedure are in the results section. CBC WITH DIFFERENTIAL STAT 03/02/2019 8:11 Unresponsive Results for this PM CDT episode procedure are in the results section. N-TERMINAL PRO-BNP STAT 03/02/2019 8:11 Unresponsive Results for this PM CDT episode procedure are in the results section. ACTIVATED PARTIAL STAT 03/02/2019 8:11 Unresponsive Results for this THRMPLAS MICHOACANO PM CDT episode procedure are in the results section. PROTHROMBIN TIME / INR STAT 03/02/2019 8:11 Unresponsive Results for this PM CDT episode procedure are in the results section. CBC WITH DIFF Routine 03/02/2019 8:11 Unresponsive Results for this PM CDT episode procedure are in the results section. ETHANOL STAT Add-On 03/02/2019 8:11 Unresponsive Results for this PM CDT episode procedure are in the results section. BASIC METABOLIC PANEL STAT 03/02/2019 8:11 Unresponsive Results for this (NA, K, CL, CO2, PM CDT episode procedure are in GLUCOSE, BUN, the results CREATININE, CA) section. HEPATIC FUNCTION PANEL STAT 03/02/2019 8:11 Unresponsive Results for this (65470) PM CDT episode procedure are in (ALB,T.PRO,BILI the results T,BU/BC,ALT,AST,ALK section. PHOS) THYROID STIMULATING Add-on 03/02/2019 8:11 Results for this HORMONE PM CDT procedure are in the results section. TROPONIN I STAT 03/02/2019 8:11 Unresponsive Results for this PM CDT episode procedure are in the results section. MAGNESIUM Add-on 03/02/2019 8:11 Results for this PM CDT procedure are in the results section. EKG-12 LEAD Routine 03/02/2019 8:09 PM CDT NOTICE OF PRIVACY Routine 03/02/2019 8:08 PRACTICES PM CDT CONSENT/REFUSAL FOR Routine 03/02/2019 8:08 DIAGNOSIS AND PM CDT TREATMENT POCT GLUCOSE Routine 03/02/2019 8:07 Results for this (AUTOMATED) PM CDT procedure are in the results section. EKG-12 LEAD STAT 03/02/2019 8:06 PM CDT AGREEMENTS Routine 03/02/2019 12:01 AUTHORIZATIONS AND AM CDT IRREVOCABLE ASSIGNMENTS (FORM 2001) EMERGENCY DEPARTMENT Routine 03/02/2019 12:01 DOCUMENTS AM CDT EMERGENCY DEPARTMENT Routine 03/02/2019 12:01 DOCUMENTS AM CDT documented in this encounter Results CBC WITH DIFFERENTIAL (03/05/2019 4:50 AM CDT) WBC 9.07 4.20 - 10.70 [facility] 10*3/L SERVICES RBC 4.14 (L) 4.26 - 5.52 [facility] 10*6/L SERVICES HGB 12.4 12.2 - 16.4 [facility] g/dL SERVICES HCT 37.9 (L) 38.4 - 49.3 % [facility] MCV 91.5 81.7 - 95.6 fL [facility] SERVICES MCH 30.0 26.1 - 32.7 pg [facility] MCHC 32.7 31.2 - 35.0 [facility] g/dL SERVICES RDW-SD 49.5 38.5 - 51.6 fL [facility] SERVICES RDW-CV 14.8 12.1 - 15.4 % [facility] SERVICES PLT 179 150 - 328 [facility] 10*3/L SERVICES MPV 9.4 (L) 9.8 - 13.0 fL [facility] SERVICES NRBC/100 WBC 0.0 0.0 - 10.0 /100 [facility] WBCs SERVICES NRBC x10^3 <0.01 10*3/L [facility] SERVICES GRAN MAT (NEUT) % 90.7 % [facility] IMM GRAN % 0.40 % [facility] LYMPH % 3.5 % [facility] MONO % 5.1 % [facility] EOS % 0.3 % [facility] BASO % 0.0 % [facility] GRAN MAT x10^3(ANC) 8.22 (H) 1.99 - 6.95 [facility] 10*3/uL SERVICES IMM GRAN x10^3 0.04 0.00 - 0.06 [facility] 10*3/uL SERVICES LYMPH x10^3 0.32 (L) 1.09 - 3.23 [facility] 10*3/uL SERVICES MONO x10^3 0.46 0.36 - 1.02 [facility] 10*3/uL SERVICES EOS x10^3 0.03 (L) 0.06 - 0.53 [facility] 10*3/uL SERVICES BASO x10^3 <0.03 0.01 - 0.09 [facility] 10*3/uL SERVICES Specimen Blood - ARM, RIGHT Performing Organization Address City/State/Zipcode Phone Number [facility] CLIA: [id number], [address] [place] [address] [facility] BASIC METABOLIC PANEL (NA, K, CL, CO2, GLUCOSE, BUN, CREATININE, CA) (2018 4:50 AM CDT) NA 137 135 - 145 [facility] mmol/L SERVICES K 4.0 3.5 - 5.0 [facility] mmol/L SERVICES CL 111 (H) 98 - 108 mmol/L [facility] SERVICES CO2 TOTAL 21 (L) 23 - 31 mmol/L [facility] SERVICES AGAP 5 2 - 16 [facility] SERVICES BUN 37 (H) 7 - 23 mg/dL [facility] SERVICES GLUCOSE 70 70 - 110 mg/dL [facility] SERVICES CREATININE 1.58 (H) 0.60 - 1.25 [facility] mg/dL SERVICES CALCIUM 8.0 (L) 8.6 - 10.6 [facility] mg/dL SERVICES eGFR Calculation 42.3 mL/min/1.73m2 [facility] (Non- SERVICES Slovenian) eGFR Calculation 51.3 mL/min/1.73m2 [facility] () SERVICES Specimen Blood - ARM, RIGHT Narrative Performed At Association of Glomerular Filtration Rate (GFR) and Staging [facility] SERVICES of Kidney Disease* + + + + | GFR (mL/min/1.73 m2)| With Kidney Damage|Without Kidney Damage + + + + |>90|Stage one| Normal + + + + |60-89|Stage two| Decreased GFR + + + + |30-59|Stage three| Stage three + + + + |15-29|Stage four | Stage four + + + + |<15 (or dialysis)|Stage five | Stage five + + + + *Each stage assumes the associated GFR level has been in effect for at least three months.Stages 1 to 5, with or without kidney disease, indicate chronic kidney disease. Notes: Determination of stages one and two (with eGFR >59mL/min/1.73 m2) requires estimation of kidney damage for at least three months as defined by structural or functional abnormalities of the kidney, manifested by either: Pathological abnormalities or Markers of kidney damage (including abnormalities in the composition of the blood or urine or abnormalities in imaging tests). Performing Organization Address City/State/Zipcode Phone Number [facility] CLIA: [id number], [address] [place] [address] [facility] CBC WITH DIFFERENTIAL (03/04/2019 6:24 AM CDT) WBC 9.07 4.20 - 10.70 [facility] 10*3/L SERVICES RBC 4.35 4.26 - 5.52 [facility] 10*6/L SERVICES HGB 12.9 12.2 - 16.4 [facility] g/dL SERVICES HCT 39.9 38.4 - 49.3 % [facility] SERVICES MCV 91.7 81.7 - 95.6 fL [facility] SERVICES MCH 29.7 26.1 - 32.7 pg [facility] SERVICES MCHC 32.3 31.2 - 35.0 [facility] g/dL SERVICES RDW-SD 49.6 38.5 - 51.6 fL [facility] SERVICES RDW-CV 14.7 12.1 - 15.4 % [facility] SERVICES PLT 202 150 - 328 [facility] 10*3/L SERVICES MPV 9.8 9.8 - 13.0 fL [facility] SERVICES NRBC/100 WBC 0.0 0.0 - 10.0 /100 [facility] WBCs SERVICES NRBC x10^3 <0.01 10*3/L [facility] SERVICES GRAN MAT (NEUT) % 90.0 % [facility] IMM GRAN % 0.60 % [facility] LYMPH % 4.0 % [facility] MONO % 5.1 % [facility] SERVICES EOS % 0.3 % [facility] SERVICES BASO % 0.0 % [facility] SERVICES GRAN MAT x10^3(ANC) 8.17 (H) 1.99 - 6.95 [facility] 10*3/uL SERVICES IMM GRAN x10^3 0.05 0.00 - 0.06 [facility] 10*3/uL SERVICES LYMPH x10^3 0.36 (L) 1.09 - 3.23 [facility] 10*3/uL SERVICES MONO x10^3 0.46 0.36 - 1.02 [facility] 10*3/uL SERVICES EOS x10^3 0.03 (L) 0.06 - 0.53 [facility] 10*3/uL SERVICES BASO x10^3 <0.03 0.01 - 0.09 [facility] 10*3/uL SERVICES Specimen Blood - LINE, VENOUS Performing Organization Address City/State/Zipcode Phone Number [facility] SERVICES CLIA: [id number], [address] [place] [address] [facility] BASIC METABOLIC PANEL (NA, K, CL, CO2, GLUCOSE, BUN, CREATININE, CA) (2018 6:24 AM CDT) NA 136 135 - 145 [facility] mmol/L SERVICES K 4.1 3.5 - 5.0 [facility] mmol/L SERVICES CL 110 (H) 98 - 108 mmol/L [facility] SERVICES CO2 TOTAL 22 (L) 23 - 31 mmol/L [facility] SERVICES AGAP 4 2 - 16 [facility] SERVICES BUN 40 (H) 7 - 23 mg/dL [facility] SERVICES GLUCOSE 66 (L) 70 - 110 mg/dL [facility] SERVICES CREATININE 1.58 (H) 0.60 - 1.25 [facility] mg/dL SERVICES CALCIUM 8.1 (L) 8.6 - 10.6 [facility] mg/dL SERVICES eGFR Calculation 42.3 mL/min/1.73m2 [facility] (Non- SERVICES Slovenian) eGFR Calculation 51.3 mL/min/1.73m2 [facility] () SERVICES Specimen Blood - LINE, VENOUS Narrative Performed At [facility] of Glomerular Filtration Rate (GFR) and Staging [facility] SERVICES of Kidney Disease* + + + + | GFR (mL/min/1.73 m2)| With Kidney Damage|Without Kidney Damage + + + + |>90|Stage one| Normal + + + + |60-89|Stage two| Decreased GFR + + + + |30-59|Stage three| Stage three + + + + |15-29|Stage four | Stage four + + + + |<15 (or dialysis)|Stage five | Stage five + + + + *Each stage assumes the associated GFR level has been in effect for at least three months.Stages 1 to 5, with or without kidney disease, indicate chronic kidney disease. Notes: Determination of stages one and two (with eGFR >59mL/min/1.73 m2) requires estimation of kidney damage for at least three months as defined by structural or functional abnormalities of the kidney, manifested by either: Pathological abnormalities or Markers of kidney damage (including abnormalities in the composition of the blood or urine or abnormalities in imaging tests). Performing Organization Address City/State/Zipcode Phone Number [facility] SERVICES CLIA: [id number], [address] [place] [address] [phone] URINALYSIS (03/03/2019 8:28 PM CDT) APPEARANCE Clear Clear [facility] SERVICES COLOR Straw (A) Yellow [facility] SERVICES PH 5.0 4.8 - 8.0 [facility] SERVICES SP GRAVITY 1.009 1.003 - 1.030 [facility] SERVICES GLU U QUAL Normal Normal [facility] SERVICES BLOOD Negative Negative [facility] SERVICES KETONES Negative Negative [facility] SERVICES PROTEIN Negative Negative [facility] SERVICES UROBILIN Normal Normal [facility] SERVICES BILIRUBIN Negative Negative [facility] SERVICES NITRITE Negative Negative [facility] SERVICES LEUK PIERRE Negative Negative [facility] SERVICES RBC/HPF <1 0 - 3 HPF [facility] SERVICES WBC/HPF <1 0 - 5 HPF [facility] SERVICES BACTERIA Negative Negative [facility] SERVICES SQ EPITH <1 <=2 HPF [facility] SERVICES Specimen Urine - URINE, CLEAN CATCH Performing Organization Address City/State/Zipcode Phone Number [facility] SERVICES CLIA: [id number], [address] [place] [address] [facility] MOD BARIUM SWALLOW, (COOKELIZABETH) (03/03/2019 2:28 PM CDT) Specimen Impressions Performed At PACS/VR/DOSE 1.Laryngeal penetration was observed with thin liquid only. 2.No aspiration was noted. Please refer to the speech pathologist's note for a full report. I reviewed this study and agree. Dayne Rodriguez MD., have reviewed this study and agree with the above report. Narrative Performed At * * * * * * * * ORIGINAL REPORT * * * * * * * * PACS/VR/DOSE MODIFIED BARIUM SWALLOW HISTORY: 83-year-old male who was admitted to the hospital for "episode of unresponsiveness". Patient has left lower lobe pneumonia with concern for aspiration. TECHNIQUE and FINDINGS: Barium of varying consistencies of from solid through thin liquid were administered to the patient during fluoroscopy. The study was performed with the speech pathologist. The swallow reflex and protective mechanisms are mostly intact. Laryngeal penetration was observed with thin liquid only. No aspiration was noted. Procedure Note [facility], Radiant Results Inft User - 03/04/2019 9:16 AM CDT * * * * * * * * ORIGINAL REPORT * * * * * * * * MODIFIED BARIUM SWALLOW HISTORY: 83-year-old male who was admitted to the hospital for "episode of unresponsiveness". Patient has left lower lobe pneumonia with concern for aspiration. TECHNIQUE and FINDINGS: Barium of varying consistencies of from solid through thin liquid were administered to the patient during fluoroscopy. The study was performed with the speech pathologist. The swallow reflex and protective mechanisms are mostly intact. Laryngeal penetration was observed with thin liquid only. No aspiration was noted. IMPRESSION 1. Laryngeal penetration was observed with thin liquid only. 2. No aspiration was noted. Please refer to the speech pathologist's note for a full report. I reviewed this study and agree. IDyane MD., have reviewed this study and agree with the above report. Performing Organization Address City/State/Zipcode Phone Number PACS/VR/DOSE PNEUMOCOCCAL ANTIGEN (03/03/2019 1:02 PM CDT) S. pneumoniae antigen Negative Negative [facility] SERVICES Specimen Urine - URINE, CLEAN CATCH Performing Organization Address City/State/Zipcode Phone Number [facility] SERVICES CLIA: [id number], [address] [place] [address] [phone] [facility] CT HEAD WO CONTRAST (03/03/2019 4:26 AM CDT) Specimen Impressions Performed At Impression: PACS/VR/DOSE 1.Prominence of the extra-axial spaces in the left frontal and temporal region may represent either subarachnoid space prominence due to asymmetric volume loss or a small subdural collection isodense to CSF. Recommend follow-up with MRI brain without contrast to clarify. Narrative Performed At * * * * * * * * ORIGINAL REPORT * * * * * * * * PACS/VR/DOSE Exam: CT HEAD WO CONTRAST Clinical History: subacute SDH; please assess for expansion Technique:CT brain with multiplanar reformats Comparison: CT brain dated 03/02/2019 Findings: There is mild diffuse cerebral volume loss with prominent sulci, cisterns and ventricles. The extra-axial spaces in the left frontal and temporal region are slightly prominent, stable from previous study from 03/02/2019. However, this could also represent prominence of the subarachnoid spaces due to volume loss in the left temporal lobe and frontal opercular region. No focal brain lesions are identified. There is no evidence of mass or acute infarction. The brainstem, cerebellum are grossly within normal limits. Basal cisterns are without obvious abnormality. Included portions of the orbits are within normal limits. Procedure Note [facility], Radiant Results Inft User - 03/03/2019 8:25 AM CDT * * * * * * * * ORIGINAL REPORT * * * * * * * * Exam: CT HEAD WO CONTRAST Clinical History: subacute SDH; please assess for expansion Technique:CT brain with multiplanar reformats Comparison: CT brain dated 03/02/2019 Findings: There is mild diffuse cerebral volume loss with prominent sulci, cisterns and ventricles. The extra-axial spaces in the left frontal and temporal region are slightly prominent, stable from previous study from 03/02/2019. However, this could also represent prominence of the subarachnoid spaces due to volume loss in the left temporal lobe and frontal opercular region. No focal brain lesions are identified. There is no evidence of mass or acute infarction. The brainstem, cerebellum are grossly within normal limits. Basal cisterns are without obvious abnormality. Included portions of the orbits are within normal limits. IMPRESSION Impression: 1. Prominence of the extra-axial spaces in the left frontal and temporal region may represent either subarachnoid space prominence due to asymmetric volume loss or a small subdural collection isodense to CSF. Recommend follow-up with MRI brain without contrast to clarify. Performing Organization Address City/State/Zipcode Phone Number PACS/VR/DOSE VITAMIN B12, LEVEL (03/03/2019 2:55 AM CDT) VIT B12 318 240 - 930 pg/mL [facility] SERVICES Specimen Blood - LINE, VENOUS Narrative Performed At Biotin has been reported to cause a positive bias, interpret [facility] results relative to patient's use of biotin. Performing Organization Address City/State/Zipcode Phone Number [facility] CLIA: [id number], [address] [place] [address] [facility] FOLATE (03/03/2019 2:55 AM CDT) Pathologist [facility] FOLATE SER 7.3 3.0 - 20.0 ng/mL [facility] SERVICES Specimen Blood - LINE, VENOUS Performing Organization Address [facility] Phone Number [facility] CLIA: [id number], [address] [place] [address] [facility] TROPONIN I (03/03/2019 2:55 AM CDT) TROPONIN I 0.015 <=0.034 ng/mL [facility] SERVICES Specimen Blood - LINE, VENOUS Narrative Performed At Equal or Less than 0.034 ng/ml---Normal [facility] Note: Cardiac troponin begins to rise 3-4 hours after the onset of ischemia. Repeat in 4-6 hours if the sample was drawn within 3-4 hours of the onset of the symptom and found normal. Between 0.035 and 0.120 ng/mL--- Borderline. Questionable myocardial injury or necrosis Note: Serial measurement may be necessary to confirm or exclude the diagnosis of myocardial injury or necrosis; Clinical correlation (symptoms, EKGs, imaging studies, and others) required; Repeat in 4-6 hours if clinically indicated. Equal or Higher than 0.121 ng/mL---Abnormal. Myocardial Injury or Necrosis Likely Biotin has been reported to cause a negative bias, interpret results relative to patient's use of biotin. Performing Organization Address City/[facility] Phone Number [facility] CLIA: [id number], [address] [place] [phone] [facility] Lactic Acid Whole Blood (03/03/2019 2:55 AM CDT) LACTIC ACID 1.55 0.50 - 2.20 mmol/L [facility] SERVICES Specimen Blood - LINE, VENOUS Performing Organization Address [facility] Phone Number [facility] CLIA: [id number], [address] [place] [phone] [facility] Critical Care (03/02/2019 11:06 PM CDT) Narrative Performed At Julio Cesar He MD 03/02/2019 11:06 PM Critical Care Performed by: Julio Cesar He MD Authorized by: Julio Cesar He MD Critical care provider statement: Critical care time (minutes):45 Critical care was necessary to treat or prevent imminent or life-threatening deterioration of the following conditions:Cardiac failure and respiratory failure Critical care was time spent personally by me on the following activities:Blood draw for specimens, development of treatment plan with patient or surrogate, discussions with consultants, ordering and performing treatments and interventions, ordering and review of laboratory studies, ordering and review of radiographic studies, pulse oximetry and re-evaluation of patient's condition ADC / LCC - DRUG SCREEN TRIAGE (03/02/2019 9:50 PM CDT) BENZO U Negative Negative [facility] SEBASTIAN U Negative Negative [facility] AMPHET Negative Negative [facility] THC Negative Negative [facility] METHADONE Negative Negative [facility] Meth U Negative Negative [facility] OPIATES Negative Negative [facility] Cocaine Metabolite Negative Negative [facility] PROPOXY Negative Negative [facility] Tric U Negative Negative [facility] PCP Negative Negative [facility] OXYCOD Negative Negative [facility] Specimen Urine - URINE, CLEAN CATCH Narrative Performed At Urine Drug Cutoff Ranges [facility] Benzodiazepines: 150 ng/mL Barbiturates: 200 ng/mL Amphetamine: 500 ng/mL Cannabinoids: 50ng/mL Methadone: 200 ng/mL Methamphetamine: 500 ng/mL Opiates: 100 ng/mL or 2000 ng/mL Cocaine: 150 ng/mL Propoxyphene:300 ng/mL Tricyclics:300 ng/mL Oxycodone: 100 ng/mL PCP: 25ng/mL The results are to be used only for medical (i.e., treatment) purposes. Unconfirmed screening results must not be used for non-medical purposes (e.g., employment testing, legal testing). Performing Organization Address City/State/Zipcode Phone Number [facility] CLIA: [id number], [address] [place] [address] HEAD WO CONTRAST (03/02/2019 9:39 PM CDT) Specimen Impressions Performed At PACS/VR/DOSE Asymmetric prominence of the left frontal extra-axial space with suspicion of subacute blood products may represent subdural hematoma. Follow-up is recommended. Narrative Performed At * * * * * * * * ORIGINAL REPORT * * * * * * * * PACS/VR/DOSE EXAM: CT HEAD WO CONTRAST HISTORY: Altered mental status (AMS), unclear cause TECHNIQUE: CT of the head was performed without intravenous contrast. Sagittal and coronal reformats were generated. The estimated COMPARISON: None. FINDINGS: Mild asymmetric prominence of the extra-axial space in the left frontal convexity with isodense contents may represent subacute subdural hematoma. The ventricles and sulci are otherwise normal in caliber and configuration. No hydrocephalus or midline shift . The basal cisterns are unremarkable. There is no acute intracranial hemorrhage or significant mass effect. No parenchymal attenuation abnormality. The millan-white matter differentiation is preserved. The mastoid air cells and paranasal air sinuses are clear. The calvarium and central skull base are unremarkable. Procedure Note [facility], Radiant Results Inft User - 03/02/2019 9:47 PM CDT * * * * * * * * ORIGINAL REPORT * * * * * * * * EXAM: CT HEAD WO CONTRAST HISTORY: Altered mental status (AMS), unclear cause TECHNIQUE: CT of the head was performed without intravenous contrast. Sagittal and coronal reformats were generated. The estimated COMPARISON: None. FINDINGS: Mild asymmetric prominence of the extra-axial space in the left frontal convexity with isodense contents may represent subacute subdural hematoma. The ventricles and sulci are otherwise normal in caliber and configuration. No hydrocephalus or midline shift . The basal cisterns are unremarkable. There is no acute intracranial hemorrhage or significant mass effect. No parenchymal attenuation abnormality. The millan-white matter differentiation is preserved. The mastoid air cells and paranasal air sinuses are clear. The calvarium and central skull base are unremarkable. IMPRESSION Asymmetric prominence of the left frontal extra-axial space with suspicion of subacute blood products may represent subdural hematoma. Follow-up is recommended. Performing Organization Address City/State/Zipcode Phone Number PACS/VR/DOSE Chest 1 View (03/02/2019 8:39 PM CDT) Specimen Impressions Performed At PACS/VR/DOSE Interstitial pulmonary edema with possible superimposed infection in the left lower lobe. Short-term follow-up is recommended to document resolution. Small left pleural effusion. Ever Rodriguez MD., have reviewed this study and agree with the above report. Narrative Performed At * * * * * * * * ORIGINAL REPORT * * * * * * * * PACS/VR/DOSE EXAM: XR CHEST 1 VW HISTORY: cough COMPARISON: Chest radiograph 09/25/2017 FINDINGS: Midline sternotomy wires are noted. Diffuse severe interstitial and airspace opacities are seen, predominantly along the lower lung lazo and left greater than right. A small left pleural effusion blunts the costophrenic angle. No pneumothorax is identified. The heart is normal in size. No acute bony abnormalities are noted. Procedure Note [facility], Radiant Results Inft User - 03/02/2019 11:16 PM CDT * * * * * * * * ORIGINAL REPORT * * * * * * * * EXAM: XR CHEST 1 VW HISTORY: cough COMPARISON: Chest radiograph 09/25/2017 FINDINGS: Midline sternotomy wires are noted. Diffuse severe interstitial and airspace opacities are seen, predominantly along the lower lung lazo and left greater than right. A small left pleural effusion blunts the costophrenic angle. No pneumothorax is identified. The heart is normal in size. No acute bony abnormalities are noted. IMPRESSION Interstitial pulmonary edema with possible superimposed infection in the left lower lobe. Short-term follow-up is recommended to document resolution. Small left pleural effusion. IAdrianna MD., have reviewed this study and agree with the above report. Performing Organization Address [facility]/Zipcode Phone Number PACS/VR/DOSE AC PANEL 20 + LACTIC ACID (03/02/2019 8:18 PM CDT) PH 7.31 (L) 7.35 - 7.45 [facility] PCO2 33 (L) 35 - 45 mmHg [facility] PO2 54 (L) 80 - 100 mmHg [facility] HCO3 17 (L) 22 - 26 mEq/L [facility] BE -8.6 (L) -3.0 - 3.0 mEq/L [facility] THB 12.9 (L) 13.5 - 18.0 g/dL [facility] %O2HB 82.8 (L) 94.0 - 99.0 % [facility] %COHB ART 4.5 (H) 0.0 - 1.5 % [facility] %METHB ART 0.2 (L) 0.4 - 1.5 % [facility] VOL%O2 ART 15.0 15.0 - 23.0 % [facility] NA 134 (L) 135 - 145 mmol/L [facility] K+ 4.7 3.5 - 5.0 mmol/L [facility] AC CA IONZ 4.70 4.50 - 5.30 mg/dL [facility] GLUCOSE 113 (H) 70 - 110 mg/dL [facility] LACTIC ACID 2.08 0.50 - 2.20 mmol/L [facility] Specimen Blood - ARTERIAL Performing Organization Address [facility]/Zipcode Phone Number [facility] CLIA: [id number], [address] [place] [address] THYROID STIMULATING HORMONE (03/02/2019 8:11 PM CDT) TSH 5.40 (H) 0.45 - 4.70 mIU/L [facility] Specimen Blood - ARM, RIGHT Performing Organization Address City/State/[facility] Phone Number [facility] CLIA: [id number], [address] [place] [address] MAGNESIUM (03/02/2019 8:11 PM CDT) MAGNESIUM 2.2 1.7 - 2.4 mg/dL [facility] Specimen Blood - ARM, RIGHT Performing Organization Address City/[facility] Phone Number [facility] CLIA: [id number], [address] [place], [place] [address] [address] ETHANOL (03/02/2019 8:11 PM CDT) ALCOHOL <10 mg/dL [facility] Specimen Blood - ARM, RIGHT Narrative Performed At <10 Negative [facility] 50-100 Toxic >100 Depression of AFFIRMATIVE ACTION SPECIALIST >400 Fatalities Reported Performing Organization Address [facility] Phone Number [facility] CLIA: [id number], [address] [place] [address] CBC WITH DIFFERENTIAL (03/02/2019 8:11 PM CDT) WBC 11.36 (H) 4.20 - 10.70 [facility] 10*3/L [facility] RBC 3.96 (L) 4.26 - 5.52 [facility] 10*6/L [facility] HGB 11.9 (L) 12.2 - 16.4 [facility] g/dL [facility] HCT 36.7 (L) 38.4 - 49.3 % [facility] MCV 92.7 81.7 - 95.6 fL [facility] MCH 30.1 26.1 - 32.7 pg [facility] MCHC 32.4 31.2 - 35.0 [facility] g/dL [facility] RDW-SD 51.4 38.5 - 51.6 fL [facility] RDW-CV 15.1 12.1 - 15.4 % [facility] PLT 212 150 - 328 [facility] 10*3/L [facility] MPV 9.2 (L) 9.8 - 13.0 fL [facility] NRBC/100 WBC 0.0 0.0 - 10.0 /100 [facility] WBCs [facility] NRBC x10^3 <0.01 10*3/L [facility] GRAN MAT (NEUT) % 89.0 % [facility] IMM GRAN % 0.60 % [facility] LYMPH % 4.0 % [facility] MONO % 4.8 % [facility] EOS % 1.5 % [facility] BASO % 0.1 % [facility] GRAN MAT x10^3(ANC) 10.11 (H) 1.99 - 6.95 [facility] 10*3/uL HOSPITAL LABORATORY IMM GRAN x10^3 0.07 (H) 0.00 - 0.06 [facility] 10*3/uL [facility]OSPITAL LABORATORY LYMPH x10^3 0.45 (L) 1.09 - 3.23 [facility] 10*3/uL HOSPITAL LABORATORY MONO x10^3 0.55 0.36 - 1.02 [facility] 10*3/uL HOSPITAL LABORATORY EOS x10^3 0.17 0.06 - 0.53 [facility] 10*3/uL HOSPITAL LABORATORY BASO x10^3 <0.03 0.01 - 0.09 [facility] 10*3/uL HOSPITAL LABORATORY Specimen Blood - ARM, RIGHT Performing Organization Address [facility] Cent[facility]ode Phone Number [facility] CLIA: [id number], [address] [place] [address] N-TERMINAL PRO-BNP (03/02/2019 8:11 PM CDT) Pathologist [facility] NT-proBNP 7,240 (H) <=450 pg/mL [facility] Specimen Blood - ARM, RIGHT Narrative Performed At Biotin has been reported to cause a negative [facility] bias, interpret results relative to patient's use of biotin. Performing Organization Address City/[facility] [facility] Phone Number [facility] CLIA: [id number], [address] [place] [address] Prothrombin Time (PT) / INR (03/02/2019 8:11 PM CDT) PROTIME PATIENT 12.4 12.0 - 14.7 [facility] LABORATORY INR 1.0Comment: Normal [facility] INR <1.1; [facility] Therapeutic range LABORATORY 2.0 to 3.0 or 2.5 to 3.5, depending upon the indications. Specimen Blood - ARM, RIGHT Performing Organization Address [facility] Cent[facility] Phone Number [facility] CLIA: [id number], [address] [place] [id number] [address] aPTT (03/02/2019 8:11 PM CDT) Pathologist [facility] APTT Patient 29 23 - 38 Seconds [facility] LABOR[facility] Specimen Blood - ARM, RIGHT Narrative Performed At The [facility] patient population mean normal value [facility] LAB[facility] for aPTT is 30 seconds. Performing Organization Address [facility] Phone Number [facility] CLIA: [id number], [address] [place] [address] Troponin I (03/02/2019 8:11 PM CDT) [facility] TROPONIN I 0.017 <=0.034 ng/mL [facility] LABORAT[facility] Specimen Blood - ARM, RIGHT Narrative Performed At Equal or Less than 0.034 ng/ml---Normal [facility] LAB[facility] Note: Cardiac troponin begins to rise 3-4 hours after the onset of ischemia. Repeat in 4-6 hours if the sample was drawn within 3-4 hours of the onset of the symptom and found normal. Between 0.035 and 0.120 ng/mL--- Borderline. Questionable myocardial injury or necrosis Note: Serial measurement may be necessary to confirm or exclude the diagnosis of myocardial injury or necrosis; Clinical correlation (symptoms, EKGs, imaging studies, and others) required; Repeat in 4-6 hours if clinically indicated. Equal or Higher than 0.121 ng/mL---Abnormal. Myocardial Injury or Necrosis Likely Biotin has been reported to cause a negative bias, interpret results relative to patient's use of biotin. Performing Organization Address [facility] Phone Number [facility] CLIA: [id number], [address] [place] [address] Hepatic Function Panel (ALB, T.PRO, BILI T, BU/BC, ALT, AST, ALK PHOS) (2018 8:11 PM CDT) Pathologist [facility] TOTAL BILI 0.2 0.1 - 1.1 mg/dL [facility] BILI UNCON 0.0 (L) 0.1 - 1.1 mg/dL [facility] BILI CONJ 0.0 0.0 - 0.3 mg/dL [facility] T PROTEIN 4.8 (L) 6.3 - 8.2 g/dL [facility] ALBUMIN 2.4 (L) 3.5 - 5.0 g/dL [facility] ALK PHOS 80 34 - 122 U/L [facility] ALT(SGPT) 18 9 - 51 U/L [facility] AST(SGOT) 29 13 - 40 U/L [facility] Specimen Blood - ARM, RIGHT Performing Organization Address City/State/Zipcode Phone Number [facility] CLIA: [id number], [address] [place] [address] Basic Metabolic Panel (NA, K, CL, CO2, GLUCOSE, BUN, CREATININE, CA) (2018 8:11 PM CDT) Pathologist [facility] NA 138 135 - 145 [facility] mmol/L [facility] LABORATORY K 4.9 3.5 - 5.0 [facility] mmol/L [facility] LABORATORY CL 114 (H) 98 - 108 mmol/L [facility] CO2 TOTAL 18 (L) 23 - 31 mmol/L [facility] AGAP 6 2 - 16 [facility] BUN 41 (H) 7 - 23 mg/dL [facility] GLUCOSE 89 70 - 110 mg/dL [facility] CREATININE 1.53 (H) 0.60 - 1.25 [facility] mg/dL [facility] LABORATORY CALCIUM 7.9 (L) 8.6 - 10.6 [facility] mg/dL [facility] LABORATORY eGFR Calculation 43.9 mL/min/1.73m2 [facility] ([facility] LABORATORY [place]) eGFR Calculation 53.2 mL/min/1.73m2 [facility] () [facility] LABORATORY Specimen Blood - ARM, RIGHT Narrative Performed At Association of Glomerular Filtration Rate (GFR) [facility] LABORAT[facility] and Staging of Kidney Disease* + + +- + | GFR (mL/min/1.73 m2)| With Kidney Damage|Without Kidney Damage + + +- + |>90| Stage one| Normal + + +- + |60-89|S tage two| Decreased GFR + + +- + |30-59|S tage three| Stage three + + +- + |15-29|S tage four | Stage four + + +- + |<15 (or dialysis)|Stage five | Stage five + + +- + *Each stage assumes the associated GFR level has been in effect for at least three months.Stages 1 to 5, with or without kidney disease, indicate chronic kidney disease. Notes: Determination of stages one and two (with eGFR >59mL/min/1.73 m2) requires estimation of kidney damage for at least three months as defined by structural or functional abnormalities of the kidney, manifested by either: Pathological abnormalities or Markers of kidney damage (including abnormalities in the composition of the blood or urine or abnormalities in imaging tests). Performing Organization Address City/State/Zipcode Phone Number [facility] CLIA: [id number], [address] [place] [address] POCT GLUCOSE (AUTOMATED) (03/02/2019 8:07 PM CDT) POCT GLU 94 70 - 110 mg/dL [facility] LABORAT[facility] Specimen Blood Performing Organization Address City/[facility]/Zipcode Phone Number [facility] CLIA: [id number], [address] [place] [address] documented in this encounter Visit Diagnoses Diagnosis Unresponsive episode - Primary Other alteration of consciousness COPD exacerbation Obstructive chronic bronchitis with exacerbation Hypoxia Hypoxemia Congestive heart failure, unspecified HF chronicity, unspecified heart failure type Pleural effusion Unspecified pleural effusion Renal insufficiency Unspecified disorder of kidney and ureter SDH (subdural hematoma) Subdural hemorrhage Dysphagia, unspecified type Heart failure, unspecified HF chronicity, unspecified heart failure type SOB (shortness of breath) Shortness of breath E44.1 Mild protein-calorie malnutrition Malnutrition of mild degree documented in this encounter Administered Medications Medication Order MAR Action Action Date Dose Rate Site aspirin chewable tablet 81 mg Given 03/05/2019 9:44 AM CDT 81 mg 81 mg, Oral, DAILY, First dose on Sat03/04/19 at 0900, Until Discontinued, Routine Given 03/04/2019 8:17 AM CDT 81 mg azithromycin (ZITHROMAX) 250 mg in NaCl 0.9% Given 03/04/2019 11:37 PM CDT 250 mg (NS) 250 mL piggyback 250 mg, IV Piggyback, Q24H ABX, First dose on Sat03/04/19 at 2145, Until Discontinued, 250 mL, Reason for Anti-Infective: Documented Infection, Documented Infection Site: Respiratory, Duration of Therapy: 7 days cefTRIAXone (ROCEPHIN) 1,000 mg in NaCl Given 03/04/2019 9:53 PM CDT 1,000 mg 0.9% (NS) 50 mL MINI-BAG 1,000 mg, IV Piggyback, Q24H ABX, First dose on Sat03/03/19 at 2145, Until Discontinued, 50 mL, Reason for Anti-Infective: Documented Infection, Documented Infection Site: Respiratory, Duration of Therapy: 7 days Given 03/03/2019 9:07 PM CDT 1,000 mg clopidogrel (PLAVIX) tablet 75 mg Given 03/05/2019 9:44 AM CDT 75 mg 75 mg, Oral, DAILY, First dose on Sat03/04/19 at 0900, Until Discontinued, Routine Given 03/04/2019 8:17 AM CDT 75 mg finasteride (PROSCAR) tablet 5 mg 5 mg, Oral, DAILY, First dose on Sat03/06/19 at 0900, Until Discontinued, Routine furosemide (LASIX) half tablet 10 mg 10 mg, Oral, QAM, First dose on Sat03/06/19 at 0900, Until Discontinued, Routine heparin injection 5,000 Units Given 03/05/2019 9:46 AM CDT 5,000 Units Abdomen-SC 5,000 Units, Subcutaneous, Q12H, First dose on Sat03/03/19 at 0800, Until Discontinued, Routine Given 03/04/2019 9:52 PM CDT 5,000 Units Abdomen-SC Given 03/04/2019 8:18 AM CDT 5,000 Units Abdomen-SC ipratropium-albuterol (DUONEB) 0.5 mg-3 mg(2.5 Given 03/05/2019 2:09 PM CDT 3 mL mg base)/3 mL nebulizer solution 3 mL 3 mL (1 Ampule), Inhalation, QID, First dose on Sat03/03/19 at 1200, Until Discontinued, Routine Given 03/05/2019 10:32 AM CDT 3 mL Given 03/05/2019 6:21 AM CDT 3 mL isosorbide mononitrate (IMDUR) 24 hr tablet Given 03/05/2019 9:44 AM CDT 30 mg 30 mg 30 mg, Oral, DAILY, First dose on Sat03/04/19 at 0900, Until Discontinued, Routine Given 03/04/2019 8:17 AM CDT 30 mg metoprolol tartrate (LOPRESSOR) tablet 25 mg Given 03/05/2019 9:44 AM CDT 25 mg 25 mg, Oral, BID, First dose on Sat03/04/19 at 2000, Until Discontinued, Routine mirtazapine (REMERON) tablet 7.5 mg 7.5 mg, Oral, QHS, First dose on Sat03/05/19 at 2100, Until Discontinued, Routine nicotine (NICODERM) 14 mg/24 hr patch 1 Given 03/05/2019 2:37 PM CDT 1 Patch Patch 1 Patch, Topical, Administer over 24 Hours, Q24H, First dose on Sat03/04/19 at 1130, Until Discontinued, Routine Given 03/04/2019 1:31 PM CDT 1 Patch predniSONE (DELTASONE) tablet 10 mg Given 03/05/2019 9:44 AM CDT 10 mg 10 mg, Oral, DAILY, First dose on Sat03/05/19 at 0900, Until Discontinued, Routine sodium chloride (OCEAN MIST NASAL) 0.65 % Given 03/04/2019 10:40 PM CDT 1 [place] nasal spray 1 [place] 1 [place], Nasal, PRN, Starting Sat03/04/19 at 2119, Until Discontinued, Routine, nasal congestion tamsulosin (FLOMAX) capsule 0.4 mg Given 03/05/2019 9:44 AM CDT 0.4 mg 0.4 mg, Oral, DAILY, First dose on Sat03/04/19 at 0900, Until Discontinued, Routine Given 03/04/2019 8:17 AM CDT 0.4 mg triamcinolone acetonide (TRIDERM) 0.1 % cream Topical, BID, First dose on Sat03/05/19 at 2000, Until Discontinued, Routine Medication Order MAR Action Action Date Dose Rate Site azithromycin (ZITHROMAX) 500 mg Given 03/03/2019 11:48 PM CDT 500 mg in NaCl 0.9% (NS) 250 mL VIAL-MATE IV piggyback 500 mg, IV Piggyback, Q24H ABX, First dose on Sat03/03/19 at 2145, Until Discontinued, 250 mL, Reason for Anti-Infective: Documented Infection, Documented Infection Site: Respiratory, Duration of Therapy: 7 days azithromycin (ZITHROMAX) injection 500 mg Given 03/02/2019 8:57 PM CDT 500 mg 500 mg, IV Piggyback, ONCE, 1 dose, Sat03/02/19 at 2145, STAT, Reason for Anti-Infective: Documented Infection, Documented Infection Site: Respiratory, Duration of Therapy: Other (see Comments) barium sulfate (LIQUID E-Z PAQUE) 60 % (w/v) Given 03/03/2019 2:10 PM CDT 30 g oral suspension 30 g 30 g, Oral, ONCE, 1 dose, Sat03/03/19 at 1415, Routine barium sulfate-NO CHARGE- (VARIBAR NECTOR) 40 Given 03/03/2019 2:10 PM CDT 10 mL % (w/v) oral suspension 10 mL 10 mL, Oral, ONCE, 1 dose, Sat03/03/19 at 1415, Routine barium sulfate-NO CHARGE- (VARIBAR PUDDING) Given 03/03/2019 2:10 PM CDT 10 mL 40 % (w/v), 30% (w/w) oral paste 10 mL 10 mL, Oral, ONCE, 1 dose, Sat03/03/19 at 1415, Routine cefTRIAXone (ROCEPHIN) 1,000 mg in NaCl Given 03/02/2019 8:55 PM CDT 1,000 mg 0.9% (NS) 50 mL MINI-BAG 1,000 mg, IV Piggyback, ONCE, 1 dose, Sat03/02/19 at 2145, 50 mL, Reason for Anti-Infective: Documented Infection, Documented Infection Site: Respiratory, Duration of Therapy: Other (see Comments) furosemide (LASIX) injection 10 mg Given 03/03/2019 9:16 AM CDT 10 mg 10 mg, Slow IV Push, Q12H, First dose on Sat03/03/19 at 0900, Until Discontinued, Routine furosemide (LASIX) injection 20 mg Given 03/02/2019 9:06 PM CDT 20 mg 20 mg, IV Push, ONCE, 1 dose, Sat03/02/19 at 2200, [place] furosemide (LASIX) tablet 20 mg Given 03/04/2019 8:17 AM CDT 20 mg 20 mg, Oral, QAM+PM, First dose on Sat03/03/19 at 1700, Until Discontinued, Routine Given 03/03/2019 4:32 PM CDT 20 mg furosemide (LASIX) tablet 20 mg Given 03/05/2019 9:44 AM CDT 20 mg 20 mg, Oral, QAM, First dose on Sat03/05/19 at 0900, Until Discontinued, Routine ipratropium-albuterol (DUONEB) 0.5 mg-3 mg(2.5 Given 03/02/2019 8:37 PM CDT 3 mL mg base)/3 mL nebulizer solution 3 mL 3 mL, Inhalation, ONCE, 1 dose, Sat03/02/19 at 2130, [place] ipratropium-albuterol (DUONEB) 0.5 mg-3 mg(2.5 Given 03/02/2019 8:37 PM CDT 3 mL mg base)/3 mL nebulizer solution 3 mL 3 mL, Inhalation, ONCE, 1 dose, Sat03/02/19 at 2130, [place] ipratropium-albuterol (DUONEB) 0.5 mg-3 mg(2.5 Given 03/03/2019 7:46 AM CDT 3 mL mg base)/3 mL nebulizer solution 3 mL 3 mL, Inhalation, Q6H, First dose on Sat03/03/19 at 0600, Until Discontinued, Routine methylprednisolone sod succ (SOLU-MEDROL) Given 03/02/2019 8:32 PM CDT 125 mg injection 125 mg 125 mg, Slow IV Push, ONCE NOW, 1 dose, Sat03/02/19 at 2130, [place] metoprolol tartrate (LOPRESSOR) half tablet Given 03/04/2019 8:17 AM CDT 12.5 mg 12.5 mg 12.5 mg, Oral, BID, First dose on Sat03/03/19 at 1145, Until Discontinued, Routine Given 03/03/2019 9:07 PM CDT 12.5 mg Given 03/03/2019 12:50 PM CDT 12.5 mg NaCl 0.9% (NS) bolus infusion 250 New Bag 03/04/2019 1:31 PM CDT 250 mL 999 mL/hr mL at 999 mL/hr, 250 mL, IV Infusion, ONCE, 1 dose, Sat03/04/19 at 1415, [place] NaCl 0.9% (NS) bolus infusion 250 New Bag 03/04/2019 10:29 PM CDT 250 mL 999 mL/hr mL at 999 mL/hr, 250 mL, IV Infusion, ONCE, 1 dose, Sat03/04/19 at 2330, [place] predniSONE (DELTASONE) tablet 20 mg Given 03/04/2019 8:17 AM CDT 20 mg 20 mg, Oral, DAILY, First dose on Sat03/04/19 at 0900, Until Discontinued, Routine sulfur hexafluoride microsphr (LUMASON) Given 03/04/2019 4:01 PM CDT 5 mL injection 5 mL 5 mL, Intravenous, ONCE, 1 dose, Sat03/04/19 at 1715, Routine tetanus-diphtheria toxoids Given 03/02/2019 8:43 PM 0.5 mL Right Deltoid -IM (TDVAX) 2-2 Lf unit/0.5 mL CDT injection 0.5 mL 0.5 mL, Intramuscular, ONCE, 1 dose, Sat03/02/19 at 2045, Routine documented in this encounter Insurance Payer Benefit Plan / Subscriber ID Effective Phone Address Type Group Dates MEDICARE MEDICARE PART A xxxxxxxxxx 2002-Pres [phone] [address] Medicare & B ent [id number] [place] [phone] BCBS OF BCBS [id number] 2017-Pres [phone] [address] Medicare [place] [employer] ent [id number] [place] [address] documented as of this encounter
[2019-03-05 18:51] LABS: Urine Appearance CLEAR; Urine Bilirubin NEGATIVE (NEG); Urine Blood NEGATIVE (NEG); Urine Color YELLOW; Urine Glucose NEGATIVE (NEG); Urine Protein NEGATIVE (NEG); Urine Urobilinogen 0.2 mg/dL (0.2-1.0)
[2019-03-05 19:03] LABS: Urine Bacteria <20 /HPF (NONE SEEN); Urine Culture Reflex Order NOT NEEDED; Urine RBC <5 /HPF (NONE SEEN)
[2019-03-05] MEDS ORDERED: TRIAMCINOLONE ACET 0.1% CREAM 80 GM TOP PRN (19:26)
[2019-03-05] MEDS: IPRATROPIUM BROM 0.5MG/2.5ML NEB SCH (20:00)
[2019-03-05] MEDS: ARFORMOTEROL TARTRATE 15 MCG/2 ML VIAL.NEB NEB SCH (20:00)
[2019-03-05] MEDS ORDERED: METOPROLOL TAR 25 MG TAB PO SCH (20:00)
[2019-03-05] MEDS: ALBUTEROL 2.5 MG/3 ML NEB SOL NEB SCH (20:00)
[2019-03-05] MEDS: MIRTAZAPINE 15 MG TAB PO SCH (21:24)
[2019-03-05] MEDS ORDERED: OXYMETAZOLINE HCL 0.05% 15ML NAS PRN (23:05)
[2019-03-06] MEDS: IPRATROPIUM BROM 0.5MG/2.5ML NEB SCH ×4 (02:15→19:20)
[2019-03-06] MEDS: ALBUTEROL 2.5 MG/3 ML NEB SOL NEB SCH ×4 (02:15→19:20)
[2019-03-06 06:52] LABS: Absolute Lymphocytes (CBC) 0.4 K/uL (0.7-4.9); Basophils % 0.4 % (0-1.3); Hematocrit 36.3 % (39.6-49.0); Lymphocytes % 4.5 % (15.3-44.8); MPV 7.7 fL (7.6-11.3); RBC Red Blood Cell Count 3.99 M/uL (4.33-5.43)
[2019-03-06] MEDS: ARFORMOTEROL TARTRATE 15 MCG/2 ML VIAL.NEB NEB SCH ×2 (07:35→19:20)
[2019-03-06] MEDS: HOME MED 1 EA UNK IH SCH (08:00)
[2019-03-06] MEDS: ACETAMINOPHEN 325 MG TABLET PO PRN (08:36)
[2019-03-06] MEDS: HEPARIN 5000 UNIT/ML 1 ML VIAL SQ SCH (08:37)
[2019-03-06] MEDS: FUROSEMIDE 20 MG TABLET PO SCH (08:38)
[2019-03-06] MEDS: NICOTINE 14 MG/PAT TD SCH (08:39)
[2019-03-06] MEDS: FINASTERIDE 5 MG TAB PO SCH (08:39)
[2019-03-06] MEDS: ASPIRIN 81 MG CHEWABLE TABLET PO SCH (08:40)
[2019-03-06] MEDS: ISOSORBIDE MONO SR 30 MG TAB PO SCH (08:40)
[2019-03-06] MEDS: predniSONE 10 MG TAB PO SCH (08:41)
[2019-03-06] MEDS: TAMSULOSIN 0.4 MG SR CAP PO SCH (08:41)
[2019-03-06] MEDS: METOPROLOL TAR 25 MG TAB PO SCH ×2 (08:41→20:00)
[2019-03-06] MEDS: CLOPIDOGREL 75 MG TABLET PO SCH (08:41)
[2019-03-06 09:12] LABS: Magnesium 1.9 mg/dL (1.8-2.4); Prealbumin 10.1 mg/dL (20-40)
--- NOTE | 2019-03-06 10:00 | P.RH.PN ---
Estimated Length of Stay: 14 Expected Discharge Date: 03/18/19 Discharge Disposition Plan: Home Family Support: Yes Alf Goal: Mobility, Transfers, Self Care Vital Signs: Last Vital Signs Temp 98.2 F 03/06/19 06:42 Pulse 99 H 03/06/19 08:41 Resp 16 03/06/19 06:42 BP 130/81 03/06/19 08:41 Pulse Ox 91 03/06/19 06:42 Laboratory: Laboratory Last Values WBC 8.2 K/uL (4.3-10.9) 03/06/19 06:26 RBC 3.99 M/uL (4.33-5.43) L 03/06/19 06:26 Hgb 12.0 g/dL (13.6-17.9) L 03/06/19 06:26 Hct 36.3 % (39.6-49.0) L 03/06/19 06:26 MCV 91.0 fL (80-100) 03/06/19 06:26 MCH 30.0 pg (27.0-35.0) 03/06/19 06:26 MCHC 33.0 g/dL (32.0-36.0) 03/06/19 06:26 RDW 15.4 % (12.1-15.2) H 03/06/19 06:26 Plt Count 178 K/uL (152-406) D 03/06/19 06:26 MPV 7.7 fL (7.6-11.3) 03/06/19 06:26 Neutrophils % 88.5 % (41.7-73.7) H 03/06/19 06:26 Lymphocytes % 4.5 % (15.3-44.8) L 03/06/19 06:26 Monocytes % 6.0 % (3.3-12.3) 03/06/19 06:26 Eosinophils % 0.6 % (0-4.4) 03/06/19 06:26 Basophils % 0.4 % (0-1.3) 03/06/19 06:26 Absolute Neutrophils 7.2 K/uL (1.8-8.0) 03/06/19 06:26 Absolute Lymphocytes 0.4 K/uL (0.7-4.9) L 03/06/19 06:26 Absolute Monocytes 0.5 K/uL (0.1-1.3) 03/06/19 06:26 Absolute Eosinophils 0.1 K/uL (0-0.5) 03/06/19 06:26 Absolute Basophils 0.0 K/uL (0-0.5) 03/06/19 06:26 Sodium 144 mmol/L (136-145) 03/06/19 06:26 Potassium 4.0 mmol/L (3.5-5.1) 03/06/19 06:26 Chloride 112 mmol/L (98-107) H 03/06/19 06:26 Carbon Dioxide 23 mmol/L (21-32) 03/06/19 06:26 BUN 38 mg/dL (7-18) H 03/06/19 06:26 Creatinine 1.54 mg/dL (0.55-1.3) H 03/06/19 06:26 Estimated GFR 44 mL/min (=/>90) L 03/06/19 06:26 Glucose 71 mg/dL (74-106) L 03/06/19 06:26 Calcium 8.1 mg/dL (8.5-10.1) L 03/06/19 06:26 Magnesium 1.9 mg/dL (1.8-2.4) 03/06/19 06:26 Albumin 2.0 g/dL (3.4-5.0) L 03/06/19 06:26 Prealbumin 10.1 mg/dL (20-40) L 03/06/19 06:26 Urine Color Yellow 03/05/19 18:00 Urine Appearance Clear 03/05/19 18:00 Urine pH 5.0 (5.0-7.0) 03/05/19 18:00 Ur Specific Wilson 1.010 (1.005-1.030) 03/05/19 18:00 Urine Ketones Negative (NEG) 03/05/19 18:00 Urine Blood Negative (NEG) 03/05/19 18:00 Urine Nitrite Negative (NEG) 03/05/19 18:00 Urine Bilirubin Negative (NEG) 03/05/19 18:00 Urine Urobilinogen 0.2 mg/dL (0.2-1.0) 03/05/19 18:00 Ur Leukocyte Esterase Negative (NEG) 03/05/19 18:00 Urine RBC <5 /HPF (NONE SEEN) 03/05/19 18:00 Urine WBC <5 /HPF (<5) 03/05/19 18:00 Ur Squamous Epith Cells <5 /HPF (NONE SEEN) 03/05/19 18:00 Urine Bacteria <20 /HPF (NONE SEEN) 03/05/19 18:00 Urine Culture Reflexed Not needed 03/05/19 18:00 Urine Glucose Negative (NEG) 03/05/19 18:00 Urine Total Protein Negative (NEG) 03/05/19 18:00 Weight: 104 lb 9.6 oz Wound Present: Yes Closed Surgical Incision Present: No Negative Pressure Wound Therapy Present: No Physician Update: Labs are stable but his creatinine is elevated to 1.54. Will push water. He is very thin with a BMI of 14. He is diffusely weak at 3 to 4/5 with strength. He will be seen by speech today. Will add promod and nutrition consult. Comment: has several small skin tears over arms Summary: Patient's care plan and manager long term care goals have been reviewed and revised as necessary. Please see the Rehabilitation Signature page for all necessary signatures.
[2019-03-06 10:01] LABS: Blood Morphology Comment NOT SEEN (NOT SEEN); Platelet Estimate ADEQ
--- NOTE | 2019-03-06 15:12 | FAST ---
ENCOUNTER DATE AND TIME: 03/06/2019 08:00 (CDT) NAME CECE SPIVEY DATE OF : 1935 DATE OF ADMISSION: 03/05/2019 17:55 (CDT) PHONE: AGE: 83 SSN# [id number] GENDER: Male ENCOUNTER PHYSICIAN: Dr. Ronn Camacho M.D. 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 EATING: Activity did not occur on this shift EATING - SCORE: 0-UNK GROOMING: Comb/brush hair Wash, rinse, and dry face Wash, rinse, and dry hands GROOMING - STEP 1: Does the patient require the assistance of a person or device, or need extra time when grooming? Yes. GROOMING - STEP 2: Does the patient require the assistance of a helper? Yes. GROOMING - STEP 3: How much assistance does the patient require from the helper? Cuing, coaxing, instructions, or encour agement for completion of grooming GROOMING - SCORE: 5-SUP BATHING: Abdomen Buttocks Chest Left arm Left lower leg and foot Left upper leg Perineal area Right arm Right lower leg and foot Right upper leg BATHING - STEP 1: Does the patient require the assistance of a person or device, or need extra time when bathing? Yes. BATHING - STEP 2: Does the patient require the assistance of a helper? Yes. BATHING - STEP 3: How much assistance does the patient require from the helper? Only incidental help such as placement of a wash cloth in his/her hand a few times as s/he bathes OR help to bathe just one or two areas of the body BATHING - SCORE: 4-MIN DRESSING - UPPER BODY: T-shirt/pullover shirt (four steps) ARTICLES SCORE Total number of steps: 4 DRESSING - UPPER BODY - STEP 1: Does the patient require help from a person or device, or need extra time when dressing above the clarence st? Yes. DRESSING - UPPER BODY - STEP 2: Does the patient require the assistance of a helper? Yes. DRESSING - UPPER BODY - STEP 3: Does the helper touch the patient while dressing? No. DRESSING - UPPER BODY - SCORE: 5-SUP DRESSING - LOWER BODY: Elastic waist pants (three steps) Tied or buckled shoe - Left foot (two steps) Tied or buckled shoe - Right foot (two steps) Underwear (three steps) ARTICLES SCORE Total number of steps: 10 DRESSING - LOWER BODY - STEP 1: Does the patient require help from a person or device, or need extra time when dressing below the clarence st? Yes. DRESSING - LOWER BODY - STEP 2: Does the patient require the assistance of a helper? Yes. DRESSING - LOWER BODY - STEP 3: Does the helper touch the patient while dressing? Yes. DRESSING - LOWER BODY - STEP 4: How many of the total steps does the patient complete on his/her own? 10 DRESSING - LOWER BODY - SCORE: 4-MIN TOILETING: Activity did not occur on this shift TOILETING - SCORE: 0-UNK BLADDER MANAGEMENT: Activity did not occur on this shift BLADDER MANAGEMENT - SCORE: 7-IND BOWEL MANAGEMENT: Activity did not occur on this shift BOWEL MANAGEMENT - SCORE: 7-IND TRANSFERS: BED, CHAIR, WHEELCHAIR: Activity did not occur on this shift TRANSFERS: BED, CHAIR, WHEELCHAIR - SCORE: 0-UNK TRANSFERS: TOILET: Activity did not occur on this shift TRANSFERS: TOILET - SCORE: 0-UNK TRANSFERS: SHOWER: TRANSFERS: SHOWER - STEP 1: Does the patient require the assistance of a person or device, or need extra time with shower transfe rs? Yes. TRANSFERS: SHOWER - STEP 2: Does the patient require the assistance of a helper? Yes. TRANSFERS: SHOWER - STEP 3: How much assistance does the patient require from the helper? Only incidental help such as contact gu arding or steadying during shower transfers, or help to lift one leg into the shower TRANSFERS: SHOWER - SCORE: 4-MIN TRANSFERS: TUB: Activity did not occur on this shift TRANSFERS: TUB - SCORE: 0-UNK LOCOMOTION: WALK: Activity did not occur on this shift LOCOMOTION: WALK - SCORE: 0-UNK LOCOMOTION: WHEELCHAIR: Activity did not occur on this shift LOCOMOTION: WHEELCHAIR - SCORE: 0-UNK LOCOMOTION: STAIRS: Activity did not occur on this shift LOCOMOTION: STAIRS - SCORE: 0-UNK COMPREHENSION: COMPREHENSION: TYPE: Both COMPREHENSION - STEP 1: Does the patient require help from a person or device, or need extra time to understand complex and a bstract ideas (such as current events, finances, discharge planning, medical issues, relationships, e tc)? Yes. COMPREHENSION - STEP 2: Does the patient require help to understand questions or statements about basic needs or ideas (such as hunger, thirst, sleep, safety, daily schedule, room location, or discomfort) half or more of the t willian? No. COMPREHENSION - STEP 3: How often does the patient need help to understand directions and conversation about basic needs? Les s than 10% of the time COMPREHENSION - SCORE: 5-SUP EXPRESSION EXPRESSION: TYPE: Both EXPRESSION - STEP 1: Does the patient require help from a person or device, or need extra time expressing complex and abst ract ideas (such as current events, finances, discharge planning, medical issues, relationships, etc) ? Yes. EXPRESSION - STEP 2: Does the patient require help to express basic necessities or ideas (such as hunger, thirst, sleep, s afety, daily schedule, room location, or discomfort) half or more of the time? No. EXPRESSION - STEP 3: How often does the patient need help to express directions and conversation about basic needs? Less t hernandez 10% of the time EXPRESSION - SCORE: 5-SUP SOCIAL INTERACTION: SOCIAL INTERACTION - STEP 1: Does the patient require a helper to interact with others in social and therapeutic situations? No. SOCIAL INTERACTION - STEP 2: Does the patient need extra time in social situations, OR does s/he interact with staff, other patien ts, and family members ONLY in structured environments, OR does s/he require medication for social in teraction? Yes, patient needs extra time SOCIAL INTERACTION - SCORE: 6-CAROLINE PROBLEM SOLVING: PROBLEM SOLVING - STEP 1: Does the patient need help from a person or device, or need extra time to solve complex problems such as managing a checking account or confronting interpersonal problems? Yes. PROBLEM SOLVING - STEP 2: Does the patient solve basic routine problems half or more of the time? Yes. PROBLEM SOLVING - STEP 3: How often does the patient need help to solve basic routine problems? 10%-24% of the time PROBLEM SOLVING - SCORE: 4-MIN MEMORY: MEMORY - STEP 1: Does the patient need help from a person or device, or need extra time to remember frequently encount ered people, daily routines, and executing requests? Yes. MEMORY - STEP 2: How often does the patient need help to remember frequently encountered people, daily routines, and e xecuting requests? 10% - 24% of the time MEMORY - SCORE: 4-MIN SIGNATURE PANEL: The following modified sections: Eating - Score, Grooming - Score, Bathing - Score, Dressing - Upper Body - Score, Dressing - Lower Body - Score, Toileting - Score, Transfers: Bed, Chair, Wheelchair - S core, Transfers: Toilet - Score, Transfers: Shower - Score, Transfers: Tub - Score, Comprehension - S core, Expression - Score, Social Interaction - Score, Problem Solving - Score, Memory - Score were [e lectronically] signed by Mimi Merlos OT on SatMar 06 2019 15:12:40 T-0500 ([place] Da ylight Time)
--- NOTE | 2019-03-06 17:18 | R.HP ---
FACILITY: [facility] ENCOUNTER DATE AND TIME: 03/06/2019 17:14 (CDT) MR#: [id number] NAME CECE CROCKER ADDRESS: [address] [place] [address]: [place] [id number] PHONE: DATE OF : 1935 AGE: 83 SSN# [id number] GENDER: Male DEXTERITY Right-handed MARITAL STATUS RACE White PRE-HOSPITAL LIVING SETTING 01 - Home (private home/apt. board/care, assisted living, residential, transitional living) PRE-HOSPITAL LIVING WITH Family/Relatives ENCOUNTER PHYSICIAN: Dr. Ronn Camacho M.D. REFERRING DOCTOR: Mary Gilliland DATE OF ADMISSION: 03/05/2019 17:55 (CDT) REFERRING FACILITY [facility] HOME TYPE AND DETAILS: Type of home: single family house # of steps to enter the residence: 0 # of steps within the residence: 0 # of levels in the residence: 1 ADMISSION DIAGNOSIS: subacute SDH PRIMARY DIAGNOSIS-RELATED SURGERIES: No surgeries related to the primary diagnosis were performed. SECONDARY/COMORBID DIAGNOSES (TIERED): - Non-Tiered Heart failure, unspecified (I50.9) Shortness of breath (R06.02) Lower left lobe pneumonia dysphagia acute on chronic CHF COPD CAD - N/A Mild protein-calorie malnutrition (E44.1) CKD HISTORY OF PRESENT ILLNESS (HPI): Pt. is a 83 yo Right-handed white male. On 03/02/2019 he was admitted to [facility] with diagnosis subacute SDH. 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 Pre-morbidly, Pt. was independent/mod-I in Self-Care, Sphincter Control, Transfers Control, Locomotio n, Communication, and Social Cognition; and he had good Sphincter Control. Currently, he has deficits of Self-Care, Transfers Control, Locomotion, Communication, Social Cogniti on, Endurance, Balance, and Safety Awareness. Pt. is now referred to [facility] for acute in-patient rehabilitation in order to maximize patient's functional independence in activities of daily living, strength, ROM, and mobi lity. Patient has realistic goal of being discharged at assistance level 6-Samson to reside at Home with Fam pamela/Relatives. Cece Crocker is an 83 old male that lives with his in a single mariely house. He was independent with household ambulation prior and modified independent with BADLs. On 03/02/2019, he found unresponsive and was admitted at [facility]. He is now medically stable but in need of 24-hour nursing, doctor supervision and oversite while receiving participate in 3hours of therapy a day/15 hours per week and receive care with an intensive interdisciplinary approach. MEDICATION ALLERGIES: No Known Drug Allergies (NKDA) ENVIRONMENTAL ALLERGIES: - Substance Allergies None Known - Other Allergies None Known PAST MEDICAL HISTORY: COPD Heart failure, unspecified (I50.9) Lower left lobe pneumonia Mild protein-calorie malnutrition (E44.1) Shortness of breath (R06.02) acute on chronic CHF dysphagia Benign prostatic hyperplasia (N40) CAD CKD PAST SURGICAL HISTORY: H/O aortic valve replacement prostate surgery FAMILY HISTORY: Family history is not contributory. SOCIAL HISTORY: - Home Living Family/Relatives REVIEW OF SYSTEMS: - Gen No Chills Fatigue No Fever - Eyes No Double Vision No itchiness - ENMT No Difficulty Swallowing - CVS No Chest Discomfort No Chest Pain Fatigue No Weight Gain - Resp No Cough No Shortness of Breath - GI Continent No Abdominal Pain No Constipation No Diarrhea - Continent No Kidney Pain No Painful Urination No Urinary Urgency - MSK Joint Pain Muscle Cramps Stiffness - Skin No Itching No Rash No Suspicious Lesions - Neuro Coordination Difficulty No Difficulty with Concentration No Memory Loss No Seizures Weakness - Psych No Anxiety No Depression No HIV Exposure No Persistent Infections No Seasonal Allergies - Endo No Cold/Heat Intolerance No Excessive Hunger No Excessive Thirst No Excessive Urination PHYSICAL EXAM - Gen Alert and awake Lying in bed No apparent distress Oriented to: person, time, and place - Skin Bruising on the dorsal right and left hand and forearm - Eyes No abnormalities - ENMT No abnormalities - Neck No abnormalities - CVS RRR - Chest No abnormalities - Resp Clear to auscultation - Abd Soft - GI Non distended Deferred - No abnormalities - Ext Mild bilateral lower extremity edema. - MSK 4+/5 weakness in both lower extremities. - Neuro No focal deficits - Psych No abnormalities VITAL SIGNS Temperature:97.8 F SBP/DBP: 130/81 Pulse: 99 Resp: 16 NURSING: - Shower allowing shower - Bladder care per protocol - Skin care per protocol PRECAUTIONS: - Aspiration Precaution 1 to 1 supervision with all po intake All meals in the dysphagia dining room No straws Seated at 90 degrees while eating and 30 minutes after meals ACTIVITIES OOB only with supervision FUNCTIONAL STATUS: - Self-Care A. Eating Ind sup B. Grooming Ind sup C. Bathing Ind Antonino D. Dressing - Upper Ind sup E. Dressing - Lower Ind sup F. Toileting Ind Antonino - Sphincter Control G: Bladder control Ind Ind H: Bowel control Ind Ind - Transfers Control I. Bed/Chair/Wheelchair Ind sup J. Toilet Ind sup K. Tub/Shower Ind sup - Locomotion L. Walk/Wheelchair (W) Samson Dep L. Walk/Wheelchair (C) Ind Dep M. Stairs Ind ADNO - Communication N. Comprehension (B) Ind sup O. Expression (B) Ind sup - Social Cognition P. Social Interaction Ind sup Q. Problem Solving Ind sup R. Memory Ind sup - Endurance Poor - Balance Poor - Safety Awareness Poor CURRENT FUNC. DEFICITS: Self-Care, Transfers Control, Locomotion, Communication, Social Cognition, Endurance, Balance, and Sa fety Awareness MEDICATIONS: - Other See attached MAR (Medication Administration Record) ASSESSMENT: Pt. is a 83 yo Right-handed white male.On 03/02/2019 he was admitted to [facility] with diagnosi s subacute SDH.His impairment category is Brain Dysfunction 02 - Non-traumatic Brain Dysfunction (02 .1).Pre-morbidly, Pt. was independent/mod-I in Self-Care, Sphincter Control, Transfers Control, Locom otion, Communication, and Social Cognition; and he had good Sphincter Control.Currently, he has defic its of Self-Care, Transfers Control, Locomotion, Communication, Social Cognition, Endurance, Balance, and Safety Awareness.Pt. is now referred to [facility] for acute in-patient r ehabilitation in order to maximize patient's functional independence in activities of daily living, s trength, ROM, and mobility.- Rehab Goal Patient has realistic goal of being discharged at assistance level 6-Samson to reside at Home with Fam pamela/Relatives. Cece Crocker is an 83 old male that lives with his in a single mariely house. He was independent with household ambulation prior and modified independent with BADLs. On 03/02/2019, he found unresponsive and was admitted at [facility]. He is now medically stable but in need of 24-hour nursing, doctor supervision and oversite while receiving participate in 3hours of therapy a day/15 hours per week and receive care with an intensive interdisciplinary approach.REHAB PLAN: - Physical Therapy Gait dysfunction - to improve, our physical therapists will perform initial evaluation of pt's status upon admission and devise an individualized program for Gait Training, and Wheel Chair mobility Inability to transfer - to improve, our physical therapists will perform initial evaluation of pt's s tatus upon admission and devise an individualized program for Bed mobility Need for home safety evaluation - to improve, our physical therapists will perform initial evaluation of pt's status upon admission and devise an individualized program for Home Evaluation Need in caregiver upon discharge - to improve, our physical therapists will perform initial evaluatio n of pt's status upon admission and devise an individualized program for Caregiver Training New precaution - to improve, our physical therapists will perform initial evaluation of pt's status u mohsen admission and devise an individualized program for Patient precaution education Edema - to improve, our physical therapists will perform initial evaluation of pt's status upon admi ssion and devise an individualized program for Elevation Training, and Lymphedema Therapy Poor balance - to improve, our physical therapists will perform initial evaluation of pt's status upo n admission and devise an individualized program for Balance Training Poor endurance - to improve, our physical therapists will perform initial evaluation of pt's status u mohsen admission and devise an individualized program for Endurance Training Weakness - to improve, our physical therapists will perform initial evaluation of pt's status upon ad mission and devise an individualized program for Aquatic Therapy, Neuromuscular Reeducation, and Stre ngthening Achieving independence - to improve, our physical therapists will perform initial evaluation of pt's status upon admission and devise an individualized program for Community Reintegration Activities - Occupational Therapy ADL deficits - to improve, our occupation therapists will perform initial evaluation of pt's status u mohsen admission and devise an individualized program for Bathing, Bed mobility, Community Reintegration , Cooking, Dressing, Eating, Fine Motor Skills, Grooming, Homemaking, Kitchen Mobility, Laundry, Lorenza ent Education, Safety Awareness, Splinting - Positioning, Transfers(Toilet, Tub, Shower), and Wheel C hair Management Cognitive deficits - to improve, our occupation therapists will perform initial evaluation of pt's st atus upon admission and devise an individualized program for Cognition - orientation Need for direct care worker - to improve, our occupation therapists will perform initial evaluation of pt's s tatus upon admission and devise an individualized program for Caregiver Training Weakness - to improve, our occupation therapists will perform initial evaluation of pt's status upon admission and devise an individualized program for Aquatic Therapy, Balance, Endurance, UE ROM, and U E strengthening MEDICAL PLAN: - Diet Type Start Regular - Diet - Liquid Texture Start Regular - Tube Feed Start N/A - Bladder care per protocol - Aspiration Precaution 1 to 1 supervision with all po intake All meals in the dysphagia dining room No straws Seated at 90 degrees while eating and 30 minutes after meals - Skin care per protocol - Other See attached MAR (Medication Administration Record) - Shower shower DISCHARGE PLAN: - Estimated Length of Stay (days) 13. - Consensus on plan Discharge plan has been discussed with primary caregiver. Patient/Family is in agreement with the alexis n. Primary caregiver is in agreement with the plan. - Patient/Family Goals Return home with assistance. - Planned Living Setting Upon Discharge Home, to live with Family/Relatives. SIGNATURE PANEL: (CDT)
--- NOTE | 2019-03-06 17:20 | PAPE ---
PATIENT: [facility] MR# [id number] REFERRING DOCTOR Mary Gilliland EVALUATION DATE AND TIME 03/06/2019 17:18 (CDT) NAME CECE SPIVEY DATE OF 1935 AGE 83 PHONE N# [id number] GENDER male EVALUATING PHYSICIAN Dr. Ronn Camacho M.D. ADMISSION DIAGNOSIS: subacute SDH SECONDARY/COMORBID DIAGNOSES TIERED: - Non-Tiered Heart failure, unspecified (I50.9) Shortness of breath (R06.02) Lower left lobe pneumonia dysphagia acute on chronic CHF COPD CAD - N/A Mild protein-calorie malnutrition (E44.1) CKD POST-ADMISSION FUNCTIONAL/MEDICAL STATUS: - Bladder Same accident frequency: Ind - No accidents in the past 7 days - Bowel Same accident frequency: Ind - No accidents in the past 7 days - Walking Same score based on distance walked: 1(<=50ft) - Wheelchair Same score based on distance traveled: 1(<=50ft) STATUS CHANGE EVALUATION: No change in Functional or Medical Status is identified compared with Pre-Admission screening. PATIENT NEEDS CLOSE MEDICAL SUPERVISION BY A REHABILITATION PHYSICIAN FOR: Bowel and Bladder Management Coordination of Treatment Team Medical and Co-Morbidity Management PATIENT REQUIRES 24X7 REHAB NURSING FOR MEDICAL AND FUNCTIONAL MGT. OF THE FOLLOWING DEFICITS: ADL's Ambulation Bowel and Bladder Management Cognition Communication Disease Management Medication Management Patient/Family Education Providing Safe Environment Swallowing Transfers PATIENT REQUIRES INTENSIVE, COORDINATED INTERDISCIPLINARY APPROACH TO REHAB: Arranging Home Equipment/Services Discharge Planning Family Intervention/Training Garage Supervisor/Case Management LIST OF IDENTIFIED AND POTENTIAL PROBLEMS: Alteration in leisure activities Aspiration, Actual or Potential Bladder, Incontinence Bowel, Incontinence Fluid volume overload related to Congestive Heart Failure (CHF) Infection, Actual or Potential Mobility Impaired Pain, Alteration in Comfort Self Care Deficit Skin Integrity, Actual or Potential Urinary Tract Infection (UTI), Actual or Potential RISK FOR COMPLICATIONS - Dysphagia Asp. Pneumonia. Dehydration. Malnutrition. - COPD Acute Resp failure. Pneumonia. Resp. Arrest. - CAD CHF. Cardiac Arrest. [place]. Pain. INTERVENTIONS - Dysphagia - COPD 02 sats. Medications. Nebulizers. Oxygen. Resp. therapy. X-rays. - CAD 02 sats. Activity management. Medications. VS. PATIENT COULD BE AT RISK FOR COMPLICATIONS FROM ADVERSE MEDICAL CONDITIONS DUE TO HIS/HER COMORBIDITI ES AND THE RIGORS OF THE INTENSIVE REHABILLITATION PROGRAM. METHODS OR INTERVENTIONS TO AVOID COMPLIC ATIONS INCLUDE: - Infection Clinical staff to assess and manage the signs and symptoms of infection including fever, redness, war mth, etc. - Urinary Tract Infection - Aspiration Clinical staff will assess and manage coughing, drooling, congestion. - Falls Patient will be evaluated for Fall Precautions and will be placed on Fall Precautions as indicated pe r protocol. - Skin Breakdown Nursing will assess skin daily using assessment tool and will place on Skin Breakdown Precautions as indicated per protocol. - Pain Clinical staff may employ non-medication methods such as massage, distraction, decrease stimulus, etc . as needed. Clinical staff will assess patient's pain level every shift per protocol to assess and e nsure pain management effectiveness. Medications will be given and the pain level re-assessed. PRELIMINARY PLAN OF CARE: - Physical Therapy Patient needs Physical Therapy for a daily minimum of 1.5 hours at least 5 out of 7 days, to improve: Mobility, Strengthening, Transfers, Stretching, ROM, Endurance, Ability to manage stairs, Gait, and Balance. - Speech Therapy Patient needs Speech Therapy for a daily minimum of 0.5 hours at least 5 out of 7 days, to improve: S wallowing, Cognition, Language Skills, and Compensatory Strategies. - Rehabilitation Nursing Patient requires 24x7 Rehabilitation Nursing for: Pain Issues, Identifying and preventing risk factor s, Monitoring and reporting current medical conditions, Assisting with ambulation and transfer, Laura ting with all ADL-s, Teaching patients about disease process and medications, Family teaching, Provid ing safe environment, Bowel and Bladder Issues, Skin Integrity, and Medication Management. Patient needs Garage Supervisor and/or Case Management for: Discharge Planning, Arranging Home Equipmen t or Services, and Family Interventions. - Dietary and Nutrition Services Patient needs Dietary and Nutrition Services for: Adequate Nutrition, Nutritional Supplements, and Nu tritional Education. - Occupational Therapy Patient needs Occupational Therapy for a daily minimum of 1.5 hours at least 5 out of 7 days, to impr ove Activities of Daily Living, including: Eating, Grooming, Bathing, Dressing, Toileting, Toilet Tra nsfers, Community Reintegration, Higher functional activities, Adaptive Equipment, Splinting, Househo ld Tasks, and Other activities as determined. POTENTIAL FUNCTIONAL GOALS FOR PATIENT TO ACHIEVE BY DISCHARGE: - Safety Precaution Patient will remain free from falls or injury at time of discharge. - Bed Mobility Patient will perform bed mobility at 4-Antonino level of assistance. - Transfers Patient will complete transfers from bed to chair at 4-Antonino level of assistance. - Mobility Patient will ambulate 150 ft with 4-Antonino level of assistance with RW. PATIENT REHAB POTENTIAL Ortega SPIVEY is able and expected to receive 3 hours of individualized therapy daily on at least 5 of dmitriy ry 7 days Ortega SPIVEY's prognosis for significant practical improvement within a reasonable period of time appears Good Expected level of measurable improvement will be of a practical value to Ortega SPIVEY's functional capaci ty or adaptations to impairments Has a viable Discharge Plan Medically appropriate; condition is sufficiently stable to participate in intensive rehab program DISCHARGE PLAN: - Estimated Length of Stay (days) 13. - Consensus on plan Discharge plan has been discussed with primary caregiver. Patient/Family is in agreement with the alexis n. Primary caregiver is in agreement with the plan. - Patient/Family Goals Return home with assistance. - Planned Living Setting Upon Discharge Home, to live with Family/Relatives. CONCLUSION ON REHABILITATION NECESSITY: I have evaluated patient's pre-admission functional status and, comparing it to the patient's post-ad mission functional status now, I conclude that the pre-admission assessment was accurate. Patient's c ondition on admission supports the medical necessity of admission to IRF. It is safe to proceed with patient's therapy program. SIGNATURE PANEL: (CDT)
--- NOTE | 2019-03-06 19:07 | FAST ---
ENCOUNTER DATE AND TIME: 03/06/2019 08:00 (CDT) NAME CECE SPIVEY DATE OF : 1935 DATE OF ADMISSION: 03/05/2019 17:55 (CDT) PHONE: AGE: 83 SSN# [id number] GENDER: Male ENCOUNTER PHYSICIAN: Dr. Ronn Camacho M.D. 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 EATING: Activity did not occur on this shift EATING - SCORE: 0-UNK GROOMING: Activity did not occur on this shift GROOMING - SCORE: 0-UNK BATHING: Activity did not occur on this shift BATHING - SCORE: 0-UNK DRESSING - UPPER BODY: Activity did not occur on this shift Patient is not dressing in public clothing ARTICLES SCORE Total number of steps: 0 DRESSING - UPPER BODY - SCORE: 0-UNK DRESSING - LOWER BODY: Activity did not occur on this shift Patient is not dressing in public clothing ARTICLES SCORE Total number of steps: 0 DRESSING - LOWER BODY - SCORE: 0-UNK TOILETING: Activity did not occur on this shift TOILETING - SCORE: 0-UNK BLADDER MANAGEMENT: Activity did not occur on this shift BLADDER MANAGEMENT - SCORE: 7-IND BOWEL MANAGEMENT: Activity did not occur on this shift BOWEL MANAGEMENT - SCORE: 7-IND TRANSFERS: BED, CHAIR, WHEELCHAIR: TRANSFERS: BED, CHAIR, WHEELCHAIR - STEP 1: Does the patient require assistance of a person or device, or need extra time with bed, chair, or whe elchair transfers? Yes. TRANSFERS: BED, CHAIR, WHEELCHAIR - STEP 2: Does the patient require the assistance of a helper? Yes. TRANSFERS: BED, CHAIR, WHEELCHAIR - STEP 3: How much assistance does the patient require from the helper? Steadying/guiding assistance TRANSFERS: BED, CHAIR, WHEELCHAIR - SCORE: 4-MIN TRANSFERS: TOILET: Activity did not occur on this shift TRANSFERS: TOILET - SCORE: 0-UNK TRANSFERS: SHOWER: Activity did not occur on this shift TRANSFERS: SHOWER - SCORE: 0-UNK TRANSFERS: TUB: Activity did not occur on this shift TRANSFERS: TUB - SCORE: 0-UNK LOCOMOTION: WALK: Patient walks less than 50 feet LOCOMOTION: WALK - SCORE: 1-DEP LOCOMOTION: WHEELCHAIR: Activity did not occur on this shift LOCOMOTION: WHEELCHAIR - SCORE: 0-UNK LOCOMOTION: STAIRS: Activity did not occur on this shift LOCOMOTION: STAIRS - SCORE: 0-UNK COMPREHENSION: COMPREHENSION - SCORE: 0-UNK EXPRESSION EXPRESSION - SCORE: 0-UNK SOCIAL INTERACTION: SOCIAL INTERACTION - SCORE: 0-UNK PROBLEM SOLVING: PROBLEM SOLVING - SCORE: 0-UNK MEMORY: MEMORY - SCORE: 0-UNK SIGNATURE PANEL: The following modified sections: Transfers: Bed, Chair, Wheelchair - Score, Transfers: Toilet - Score , Locomotion: Walk - Score, Locomotion: Wheelchair - Score, Locomotion: Stairs - Score were [electron ically] signed by David Bill PT on SatMar 06 2019 19:06:14 T-0500 (Central Daylight Time)
[2019-03-06] MEDS: PROMOD 30 ML DOSE PO SCH (20:43)
[2019-03-06] MEDS: JUVEN PACKET PO SCH (20:43)
[2019-03-06] MEDS: ENSURE ENLIVE 237 ML CAN PO SCH (20:43)
[2019-03-06] MEDS: MIRTAZAPINE 15 MG TAB PO SCH (20:45)
--- NOTE | 2019-03-07 02:11 | FAST ---
SHIFT START DATE/TIME: 03/06/2019 19:00 (CDT) SHIFT END DATE/TIME: 03/07/2019 07:00 (CDT) NAME CECE SPIVEY DATE OF : 1935 DATE OF ADMISSION: 03/05/2019 17:55 (CDT) PHONE: AGE: 83 N# [id number] GENDER: Male ENCOUNTER PHYSICIAN: Dr. Ronn Camacho M.D. 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 EATING: Activity did not occur on this shift EATING - SCORE: 0-UNK GROOMING: Activity did not occur on this shift GROOMING - SCORE: 0-UNK BATHING: Activity did not occur on this shift BATHING - SCORE: 0-UNK DRESSING - UPPER BODY: Patient is not dressing in public clothing ARTICLES SCORE Total number of steps: 0 DRESSING - UPPER BODY - SCORE: 0-UNK DRESSING - LOWER BODY: Patient is not dressing in public clothing ARTICLES SCORE Total number of steps: 0 DRESSING - LOWER BODY - SCORE: 0-UNK TOILETING: TOILETING - STEP 1: Does the patient require the assistance of a person or device, or need extra time with toileting? Yes . TOILETING - STEP 2: Does the patient require the assistance of a helper? Yes. TOILETING - STEP 3: How much assistance does the patient require from the helper? Only supervision TOILETING - SCORE: 5-SUP BLADDER MANAGEMENT: BLADDER MANAGEMENT - STEP 1: Does the patient control the bladder completely and intentionally without equipment or devices or med ications, and is always continent? No. BLADDER MANAGEMENT - STEP 2: Does the patient require the assistance of a helper? Yes. BLADDER MANAGEMENT - STEP 3: How much assistance does the patient require from the helper? Only set-up of equipment - such as plac ing it within reach of the patient or emptying a device - to maintain either satisfactory voiding pat tern or managing an external device, such as an absorbent pad, ileal device, or catheter BLADDER MANAGEMENT - SCORE: 5-SUP BOWEL MANAGEMENT: Activity did not occur on this shift BOWEL MANAGEMENT - SCORE: 7-IND TRANSFERS: BED, CHAIR, WHEELCHAIR: TRANSFERS: BED, CHAIR, WHEELCHAIR - STEP 1: Does the patient require assistance of a person or device, or need extra time with bed, chair, or whe elchair transfers? Yes. TRANSFERS: BED, CHAIR, WHEELCHAIR - STEP 2: Does the patient require the assistance of a helper? Yes. TRANSFERS: BED, CHAIR, WHEELCHAIR - STEP 3: How much assistance does the patient require from the helper? Steadying/guiding assistance TRANSFERS: BED, CHAIR, WHEELCHAIR - SCORE: 4-MIN TRANSFERS: TOILET: TRANSFERS: TOILET - STEP 1: Does the patient require the assistance of a person or device, or need extra time with toilet transfe rs? Yes. TRANSFERS: TOILET - STEP 2: Does the patient require the assistance of a helper? Yes. TRANSFERS: TOILET - STEP 3: How much assistance does the patient require from the helper? Patient performs half or more of the tr ansferring tasks TRANSFERS: TOILET - STEP 4: Does the patient need only incidental help such as contact guard or steadying during toilet transfer? Yes. TRANSFERS: TOILET - SCORE: 4-MIN TRANSFERS: SHOWER: Activity did not occur on this shift TRANSFERS: SHOWER - SCORE: 0-UNK TRANSFERS: TUB: Activity did not occur on this shift TRANSFERS: TUB - SCORE: 0-UNK LOCOMOTION: WALK: Activity did not occur on this shift LOCOMOTION: WALK - SCORE: 0-UNK LOCOMOTION: WHEELCHAIR: Activity did not occur on this shift LOCOMOTION: WHEELCHAIR - SCORE: 0-UNK COMPREHENSION: COMPREHENSION: TYPE: Both COMPREHENSION - STEP 1: Does the patient require help from a person or device, or need extra time to understand complex and a bstract ideas (such as current events, finances, discharge planning, medical issues, relationships, e tc)? Yes. COMPREHENSION - STEP 2: Does the patient require help to understand questions or statements about basic needs or ideas (such as hunger, thirst, sleep, safety, daily schedule, room location, or discomfort) half or more of the t willian? No. COMPREHENSION - STEP 3: How often does the patient need help to understand directions and conversation about basic needs? Les s than 10% of the time COMPREHENSION - SCORE: 5-SUP EXPRESSION EXPRESSION: TYPE: Both EXPRESSION - STEP 1: Does the patient require help from a person or device, or need extra time expressing complex and abst ract ideas (such as current events, finances, discharge planning, medical issues, relationships, etc) ? Yes. EXPRESSION - STEP 2: Does the patient require help to express basic necessities or ideas (such as hunger, thirst, sleep, s afety, daily schedule, room location, or discomfort) half or more of the time? No. EXPRESSION - STEP 3: How often does the patient need help to express directions and conversation about basic needs? Less t hernandez 10% of the time EXPRESSION - SCORE: 5-SUP SOCIAL INTERACTION: SOCIAL INTERACTION - STEP 1: Does the patient require a helper to interact with others in social and therapeutic situations? No. SOCIAL INTERACTION - STEP 2: Does the patient need extra time in social situations, OR does s/he interact with staff, other patien ts, and family members ONLY in structured environments, OR does s/he require medication for social in teraction? Yes, patient needs extra time SOCIAL INTERACTION - SCORE: 6-CAROLINE PROBLEM SOLVING: PROBLEM SOLVING - STEP 1: Does the patient need help from a person or device, or need extra time to solve complex problems such as managing a checking account or confronting interpersonal problems? Yes. PROBLEM SOLVING - STEP 2: Does the patient solve basic routine problems half or more of the time? Yes. PROBLEM SOLVING - STEP 3: How often does the patient need help to solve basic routine problems? Less than 10% of the time PROBLEM SOLVING - SCORE: 5-SUP MEMORY: MEMORY - STEP 1: Does the patient need help from a person or device, or need extra time to remember frequently encount ered people, daily routines, and executing requests? Yes. MEMORY - STEP 2: How often does the patient need help to remember frequently encountered people, daily routines, and e xecuting requests? Less than 10% of the time MEMORY - SCORE: 5-SUP
[2019-03-07] MEDS: ALBUTEROL 2.5 MG/3 ML NEB SOL NEB SCH ×4 (02:15→20:00)
[2019-03-07] MEDS: IPRATROPIUM BROM 0.5MG/2.5ML NEB SCH ×4 (02:15→20:00)
[2019-03-07 05:23] VITALS: BMI 14.0
[2019-03-07] MEDS: ARFORMOTEROL TARTRATE 15 MCG/2 ML VIAL.NEB NEB SCH ×2 (07:28→20:00)
[2019-03-07] MEDS: HEPARIN 5000 UNIT/ML 1 ML VIAL SQ SCH ×2 (07:33→23:07)
[2019-03-07] MEDS: FUROSEMIDE 20 MG TABLET PO SCH (07:39)
[2019-03-07] MEDS: ASPIRIN 81 MG CHEWABLE TABLET PO SCH (07:39)
[2019-03-07] MEDS: METOPROLOL TAR 25 MG TAB PO SCH ×2 (07:40→20:00)
[2019-03-07] MEDS: TAMSULOSIN 0.4 MG SR CAP PO SCH (07:41)
[2019-03-07] MEDS: predniSONE 10 MG TAB PO SCH (07:41)
[2019-03-07] MEDS: JUVEN PACKET PO SCH ×2 (07:41→20:00)
[2019-03-07] MEDS: ACETAMINOPHEN 325 MG TABLET PO PRN (07:42)
[2019-03-07] MEDS: ENSURE ENLIVE 237 ML CAN PO SCH ×2 (07:42→20:00)
[2019-03-07] MEDS: ISOSORBIDE MONO SR 30 MG TAB PO SCH (07:42)
[2019-03-07] MEDS: FINASTERIDE 5 MG TAB PO SCH (07:42)
[2019-03-07] MEDS: CLOPIDOGREL 75 MG TABLET PO SCH (07:42)
[2019-03-07] MEDS: PROMOD 30 ML DOSE PO SCH ×2 (07:43→20:00)
[2019-03-07] MEDS: HOME MED 1 EA UNK IH SCH (07:43)
[2019-03-07] MEDS: NICOTINE 14 MG/PAT TD SCH (07:46)
--- NOTE | 2019-03-07 10:46 | FAST ---
SHIFT START DATE/TIME: 03/07/2019 07:00 (CDT) SHIFT END DATE/TIME: 03/07/2019 19:00 (CDT) NAME CECE SPIVEY DATE OF : 1935 DATE OF ADMISSION: 03/05/2019 17:55 (CDT) PHONE: AGE: 83 SSN# [id number] GENDER: Male ENCOUNTER PHYSICIAN: Dr. Ronn Camacho M.D. 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 EATING: EATING - STEP 1: Does the patient require the assistance of a person or device, or need extra time when eating? Yes. EATING - STEP 2: Does the patient require the assistance of a helper? No, patient only requires an assistive device, O R s/he takes more than reasonable time to eat, OR there is a safety concern, OR s/he requires modifie d food consistency EATING - SCORE: 6-CAROLINE GROOMING: Activity did not occur on this shift GROOMING - SCORE: 0-UNK BATHING: Activity did not occur on this shift BATHING - SCORE: 0-UNK DRESSING - UPPER BODY: Activity did not occur on this shift ARTICLES SCORE Total number of steps: 0 DRESSING - UPPER BODY - SCORE: 0-UNK DRESSING - LOWER BODY: Activity did not occur on this shift ARTICLES SCORE Total number of steps: 0 DRESSING - LOWER BODY - SCORE: 0-UNK TOILETING: TOILETING - STEP 1: Does the patient require the assistance of a person or device, or need extra time with toileting? Yes . TOILETING - STEP 2: Does the patient require the assistance of a helper? Yes. TOILETING - STEP 3: How much assistance does the patient require from the helper? Hands-on assistance from the helper TOILETING - STEP 4: Of the 3 tasks: 1) Adjusting clothing prior to use, 2) Cleansing of perineal area, 3) Adjusting clot esperanza after use; How many tasks does the patient perform WITHOUT assistance of the helper? Two tasks TOILETING - SCORE: 3-MOD BLADDER MANAGEMENT: BLADDER MANAGEMENT - STEP 1: Does the patient control the bladder completely and intentionally without equipment or devices or med ications, and is always continent? No. BLADDER MANAGEMENT - STEP 2: Does the patient require the assistance of a helper? Yes. BLADDER MANAGEMENT - STEP 3: How much assistance does the patient require from the helper? Only supervision, stand-by, cuing, or c oaxing BLADDER MANAGEMENT - SCORE: 5-SUP BOWEL MANAGEMENT: Activity did not occur on this shift BOWEL MANAGEMENT - SCORE: 7-IND TRANSFERS: BED, CHAIR, WHEELCHAIR: TRANSFERS: BED, CHAIR, WHEELCHAIR - STEP 1: Does the patient require assistance of a person or device, or need extra time with bed, chair, or whe elchair transfers? Yes. TRANSFERS: BED, CHAIR, WHEELCHAIR - STEP 2: Does the patient require the assistance of a helper? Yes. TRANSFERS: BED, CHAIR, WHEELCHAIR - STEP 3: How much assistance does the patient require from the helper? Steadying/guiding assistance TRANSFERS: BED, CHAIR, WHEELCHAIR - SCORE: 4-MIN TRANSFERS: TOILET: TRANSFERS: TOILET - STEP 1: Does the patient require the assistance of a person or device, or need extra time with toilet transfe rs? Yes. TRANSFERS: TOILET - STEP 2: Does the patient require the assistance of a helper? Yes. TRANSFERS: TOILET - STEP 3: How much assistance does the patient require from the helper? Patient performs half or more of the tr ansferring tasks TRANSFERS: TOILET - STEP 4: Does the patient need only incidental help such as contact guard or steadying during toilet transfer? No. Patient needs more than incidental help TRANSFERS: TOILET - SCORE: 3-MOD TRANSFERS: SHOWER: Activity did not occur on this shift TRANSFERS: SHOWER - SCORE: 0-UNK TRANSFERS: TUB: Activity did not occur on this shift TRANSFERS: TUB - SCORE: 0-UNK LOCOMOTION: WALK: Activity did not occur on this shift LOCOMOTION: WALK - SCORE: 0-UNK LOCOMOTION: WHEELCHAIR: Activity did not occur on this shift LOCOMOTION: WHEELCHAIR - SCORE: 0-UNK COMPREHENSION: COMPREHENSION: TYPE: Both COMPREHENSION - STEP 1: Does the patient require help from a person or device, or need extra time to understand complex and a bstract ideas (such as current events, finances, discharge planning, medical issues, relationships, e tc)? No. COMPREHENSION - STEP 2: Does the patient need extra time, require an assistive device (such as glasses for visual comprehensi on or a hearing aid for auditory comprehension) or does s/he have mild difficulty understanding compl ex and abstract information? Yes. COMPREHENSION - SCORE: 6-CAROLINE EXPRESSION EXPRESSION: TYPE: Both EXPRESSION - STEP 1: Does the patient require help from a person or device, or need extra time expressing complex and abst ract ideas (such as current events, finances, discharge planning, medical issues, relationships, etc) ? No. EXPRESSION - STEP 2: Does the patient need extra time, require an assistive device (such as augmentive communication syste m or a communication board), OR does s/he have mild difficulty expressing complex and abstract ideas (including mild dysarthria or mild word-find problems)? Yes. EXPRESSION - SCORE: 6-CAROLINE SOCIAL INTERACTION: SOCIAL INTERACTION - STEP 1: Does the patient require a helper to interact with others in social and therapeutic situations? No. SOCIAL INTERACTION - STEP 2: Does the patient need extra time in social situations, OR does s/he interact with staff, other patien ts, and family members ONLY in structured environments, OR does s/he require medication for social in teraction? Yes, patient needs extra time SOCIAL INTERACTION - SCORE: 6-CAROLINE PROBLEM SOLVING: PROBLEM SOLVING - STEP 1: Does the patient need help from a person or device, or need extra time to solve complex problems such as managing a checking account or confronting interpersonal problems? No. PROBLEM SOLVING - STEP 2: Does the patient require extra time to make decisions or solve problems, OR does s/he have slight dif ficulty reading, initiating, or self-correcting in unfamiliar situations? Yes, patient needs extra ti me. PROBLEM SOLVING - SCORE: 6-CAROLINE MEMORY: MEMORY - STEP 1: Does the patient need help from a person or device, or need extra time to remember frequently encount ered people, daily routines, and executing requests? No. MEMORY - STEP 2: Does the patient have slight difficulty recognizing frequently encountered people, daily routines, or executing requests without the need for repetition or using self-initiated or environmental cues to remember? Yes. MEMORY - SCORE: 6-CAROLINE SIGNATURE PANEL: The following modified sections: Eating - Score, Grooming - Score, Bathing - Score, Dressing - Upper Body - Score, Dressing - Lower Body - Score, Toileting - Score, Bladder Management - Score, Bowel Man agement - Score, Transfers: Bed, Chair, Wheelchair - Score, Transfers: Toilet - Score, Transfers: Ines wer - Score, Transfers: Tub - Score, Locomotion: Walk - Score, Locomotion: Wheelchair - Score, Compre hension - Score, Expression - Score, Social Interaction - Score, Problem Solving - Score, Memory - Sc ore were [electronically] signed by Genaro Peña on Sat Mar 07 2019 10:45:58 GMT-0500 (Central Daylight Time)
[2019-03-07] MEDS: MIRTAZAPINE 15 MG TAB PO SCH (21:14)
[2019-03-08] MEDS: IPRATROPIUM BROM 0.5MG/2.5ML NEB SCH ×4 (02:00→19:05)
[2019-03-08] MEDS: ALBUTEROL 2.5 MG/3 ML NEB SOL NEB SCH ×4 (02:00→19:05)
[2019-03-08] MEDS: ARFORMOTEROL TARTRATE 15 MCG/2 ML VIAL.NEB NEB SCH ×2 (07:35→19:05)
[2019-03-08] MEDS: HOME MED 1 EA UNK IH SCH (08:00)
[2019-03-08] MEDS: PROMOD 30 ML DOSE PO SCH ×2 (08:00→20:00)
[2019-03-08] MEDS: FINASTERIDE 5 MG TAB PO SCH (08:40)
[2019-03-08] MEDS: TAMSULOSIN 0.4 MG SR CAP PO SCH (08:41)
[2019-03-08] MEDS: FUROSEMIDE 20 MG TABLET PO SCH (08:41)
[2019-03-08] MEDS: predniSONE 10 MG TAB PO SCH (08:42)
[2019-03-08] MEDS: ISOSORBIDE MONO SR 30 MG TAB PO SCH (08:42)
[2019-03-08] MEDS: CLOPIDOGREL 75 MG TABLET PO SCH (08:42)
[2019-03-08] MEDS: METOPROLOL TAR 25 MG TAB PO SCH ×2 (08:42→19:47)
[2019-03-08] MEDS: ASPIRIN 81 MG CHEWABLE TABLET PO SCH (08:43)
[2019-03-08] MEDS: NICOTINE 14 MG/PAT TD SCH (08:44)
[2019-03-08] MEDS: JUVEN PACKET PO SCH ×2 (08:44→19:47)
[2019-03-08] MEDS: ENSURE ENLIVE 237 ML CAN PO SCH ×2 (08:47→19:46)
[2019-03-08] MEDS: HEPARIN 5000 UNIT/ML 1 ML VIAL SQ SCH ×2 (09:00→19:49)
--- NOTE | 2019-03-08 10:51 | FAST ---
SHIFT START DATE/TIME: 03/08/2019 07:00 (CDT) SHIFT END DATE/TIME: 03/08/2019 19:00 (CDT) NAME CECE SPIVEY DATE OF : 1935 DATE OF ADMISSION: 03/05/2019 17:55 (CDT) PHONE: AGE: 83 SSN# [id number] GENDER: Male ENCOUNTER PHYSICIAN: Dr. Ronn Camcaho M.D. 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 EATING: EATING - STEP 1: Does the patient require the assistance of a person or device, or need extra time when eating? Yes. EATING - STEP 2: Does the patient require the assistance of a helper? No, patient only requires an assistive device, O R s/he takes more than reasonable time to eat, OR there is a safety concern, OR s/he requires modifie d food consistency EATING - SCORE: 6-CAROLINE GROOMING: Activity did not occur on this shift GROOMING - SCORE: 0-UNK BATHING: Activity did not occur on this shift BATHING - SCORE: 0-UNK DRESSING - UPPER BODY: Activity did not occur on this shift ARTICLES SCORE Total number of steps: 0 DRESSING - UPPER BODY - SCORE: 0-UNK DRESSING - LOWER BODY: Activity did not occur on this shift ARTICLES SCORE Total number of steps: 0 DRESSING - LOWER BODY - SCORE: 0-UNK TOILETING: TOILETING - STEP 1: Does the patient require the assistance of a person or device, or need extra time with toileting? Yes . TOILETING - STEP 2: Does the patient require the assistance of a helper? Yes. TOILETING - STEP 3: How much assistance does the patient require from the helper? Only supervision TOILETING - SCORE: 5-SUP BLADDER MANAGEMENT: BLADDER MANAGEMENT - STEP 1: Does the patient control the bladder completely and intentionally without equipment or devices or med ications, and is always continent? No. BLADDER MANAGEMENT - STEP 2: Does the patient require the assistance of a helper? No, patient requires and independently uses an a ssistive device, such as a urinal, bedpan, bedside commode, catheter, absorbent pad, or collecting de vice BLADDER MANAGEMENT - SCORE: 6-CAROLINE BOWEL MANAGEMENT: Activity did not occur on this shift BOWEL MANAGEMENT - SCORE: 7-IND TRANSFERS: BED, CHAIR, WHEELCHAIR: TRANSFERS: BED, CHAIR, WHEELCHAIR - STEP 1: Does the patient require assistance of a person or device, or need extra time with bed, chair, or whe elchair transfers? Yes. TRANSFERS: BED, CHAIR, WHEELCHAIR - STEP 2: Does the patient require the assistance of a helper? Yes. TRANSFERS: BED, CHAIR, WHEELCHAIR - STEP 3: How much assistance does the patient require from the helper? Only supervision TRANSFERS: BED, CHAIR, WHEELCHAIR - SCORE: 5-SUP TRANSFERS: TOILET: TRANSFERS: TOILET - STEP 1: Does the patient require the assistance of a person or device, or need extra time with toilet transfe rs? Yes. TRANSFERS: TOILET - STEP 2: Does the patient require the assistance of a helper? Yes. TRANSFERS: TOILET - STEP 3: How much assistance does the patient require from the helper? Only supervision, cuing, coaxing, OR he lp to set out transfer equipment or to lock brakes and/or lift foot rests TRANSFERS: TOILET - SCORE: 5-SUP TRANSFERS: SHOWER: Activity did not occur on this shift TRANSFERS: SHOWER - SCORE: 0-UNK TRANSFERS: TUB: Activity did not occur on this shift TRANSFERS: TUB - SCORE: 0-UNK LOCOMOTION: WALK: Activity did not occur on this shift LOCOMOTION: WALK - SCORE: 0-UNK LOCOMOTION: WHEELCHAIR: Activity did not occur on this shift LOCOMOTION: WHEELCHAIR - SCORE: 0-UNK COMPREHENSION: COMPREHENSION: TYPE: Both COMPREHENSION - STEP 1: Does the patient require help from a person or device, or need extra time to understand complex and a bstract ideas (such as current events, finances, discharge planning, medical issues, relationships, e tc)? No. COMPREHENSION - STEP 2: Does the patient need extra time, require an assistive device (such as glasses for visual comprehensi on or a hearing aid for auditory comprehension) or does s/he have mild difficulty understanding compl ex and abstract information? Yes. COMPREHENSION - SCORE: 6-CAROLINE EXPRESSION EXPRESSION: TYPE: Both EXPRESSION - STEP 1: Does the patient require help from a person or device, or need extra time expressing complex and abst ract ideas (such as current events, finances, discharge planning, medical issues, relationships, etc) ? No. EXPRESSION - STEP 2: Does the patient need extra time, require an assistive device (such as augmentive communication syste m or a communication board), OR does s/he have mild difficulty expressing complex and abstract ideas (including mild dysarthria or mild word-find problems)? Yes. EXPRESSION - SCORE: 6-CAROLINE SOCIAL INTERACTION: SOCIAL INTERACTION - STEP 1: Does the patient require a helper to interact with others in social and therapeutic situations? No. SOCIAL INTERACTION - STEP 2: Does the patient need extra time in social situations, OR does s/he interact with staff, other patien ts, and family members ONLY in structured environments, OR does s/he require medication for social in teraction? Yes, patient needs extra time SOCIAL INTERACTION - SCORE: 6-CAROLINE PROBLEM SOLVING: PROBLEM SOLVING - STEP 1: Does the patient need help from a person or device, or need extra time to solve complex problems such as managing a checking account or confronting interpersonal problems? No. PROBLEM SOLVING - STEP 2: Does the patient require extra time to make decisions or solve problems, OR does s/he have slight dif ficulty reading, initiating, or self-correcting in unfamiliar situations? Yes, patient needs extra ti me. PROBLEM SOLVING - SCORE: 6-CAROLINE MEMORY: MEMORY - STEP 1: Does the patient need help from a person or device, or need extra time to remember frequently encount ered people, daily routines, and executing requests? No. MEMORY - STEP 2: Does the patient have slight difficulty recognizing frequently encountered people, daily routines, or executing requests without the need for repetition or using self-initiated or environmental cues to remember? Yes. MEMORY - SCORE: 6-CAROLINE SIGNATURE PANEL: The following modified sections: Eating - Score, Grooming - Score, Bathing - Score, Dressing - Upper Body - Score, Dressing - Lower Body - Score, Toileting - Score, Bladder Management - Score, Bowel Man agement - Score, Transfers: Bed, Chair, Wheelchair - Score, Transfers: Toilet - Score, Transfers: Ines wer - Score, Transfers: Tub - Score, Locomotion: Walk - Score, Locomotion: Wheelchair - Score, Compre hension - Score, Expression - Score, Social Interaction - Score, Problem Solving - Score, Memory - Sc ore were [electronically] signed by Genaro Peña on SatMar 08 2019 10:51:23 T-0500 (Central Daylight Time)
[2019-03-08] MEDS: ACETAMINOPHEN 325 MG TABLET PO PRN (12:39)
[2019-03-08] MEDS: MIRTAZAPINE 15 MG TAB PO SCH (19:49)
--- NOTE | 2019-03-08 20:26 | P.CNS ---
Date of Consult: 03/08/19 Reason for Consult: Rapid heart rate Requesting Physician: Ronn Camacho Chief Complaint: Rapid heart rate History of Present Illness: 83-year-old man with a past medical history of atrial fibrillation, history of aortic prosthetic valve replacement, COPD and CHF admitted to undergo rehab after hospitalization for subdural hematoma. The patient is noted to have rapid heart rate up to 170 along with hypotension in the rehab unit today. Hospitalist service is consulted to assist with management of SVT. The patient was admitted through the ED on February 25, 2019 for similar reasons, had an echocardiogram performed which reported normal EF, hyperdynamic LVF and normal aortic valve orifice. It appears the SVT spontaneously resolved at that time. He uses 3 L of oxygen by nasal cannula at baseline. He reports diarrhea of onset today. No nausea or vomiting. He denies any chest pain. Stated he feels funny and short of breath. He is not orthopneic. He is on Lasix for CHF and there has been a slight increase in serum creatinine. Allergies No Known Allergies Allergy (Verified 03/08/19 16:22) Home medications list reviewed: Yes Home Medications: Clopidogrel Bisulfate [Plavix*] 75 mg PO DAILY 02/25/19 Formoterol Fumarate 20 mcg IN BID 02/25/19 Isosorbide Mononitrate [Isosorbide Mononitrate ER] 30 mg pe PO DAILY 02/25/19 Revefenacin [Yupelri] 1 inhaler IN DAILY 02/25/19 Tamsulosin [Flomax*] 0.4 mg PO DAILY 02/25/19 Aspirin Chewable [Aspirin Chewable*] 81 mg PO DAILY 03/06/19 Duoneb 2.5 mg IN QID 03/06/19 Finasteride [Proscar] 5 mg PO DAILY 03/06/19 Furosemide [Lasix] 10 mg PO DAILY 03/06/19 Metoprolol Tartrate [Lopressor] 25 mg PO BID 03/06/19 Mirtazapine 7.5 mg PO BEDTIME 03/06/19 Nicotine [Nicoderm] 1 patch TD DAILY 03/06/19 Triamcinolone 0.1% Crm [Kenalog 0.1% Cream] 15 appl TOP BID 03/06/19 predniSONE [Deltasone] 5 mg PO SEECOM 03/06/19 - Past Medical/Surgical History Diabetic: No -: COPD -: Prostate CA 2008 -: Testicular CA -: CAD -: CHF -: pneumonia -: CKD -: HTN -: Subdural hematoma -: laparoscopic hernia repair 2006 -: CABG -: aortic valve replacement -: testicular resection - Family History Father Notes: prostate cancer son Medical History: Heart disease Notes: myocardial infarction daughter Medical History: Cancer Notes: ovarian cancer - Social History Smoking Status: Current every day smoker Alcohol use: No CD- Drugs: No Caffeine use: Yes Review of Systems Other: General: No fever, no malaise. Respiratory: No cough.. CVS: No chest pain, no palpitation, no lightheadedness. GI: No abdominal pain, no nausea no vomit, no constipation. Genitourinary: No dysuria, no urinary frequency, no incontinence, no hematuria. Neurology: No headache, no asymmetric, weakness, no problem with swallowing. Except as documented, all other systems reviewed and negative. Physical Examination Temp Pulse Resp BP Pulse Ox 97.4 F 88 18 105/61 92 03/08/19 08:07 03/08/19 19:47 03/08/19 08:07 03/08/19 19:47 03/08/19 08:07 General: Alert, In no apparent distress, Oriented x3, Cachectic HEENT: Atraumatic, Normocephalic, PERRLA, Other (Dry oral mucosa), EOMI Neck: Supple, 2+ carotid pulse no bruit, JVD not distended Respiratory: Normal air movement, Crackles/rales (Because dry crackles - bilateral bases.) Cardiovascular: No edema, Normal pulses, No murmurs, Irregular heart rate/rhythm Capillary refill: <2 Seconds Gastrointestinal: Normal bowel sounds, Non-distended, No tenderness Musculoskeletal: No clubbing, No swelling, No erythema (Dry skin with reduced due turgor.) Neurological: Normal strength at 5/5 x4 extr, Cranial nerves 3-12 intact, Normal affect Lymphatics: No axilla or inguinal lymphadenopathy Imagings Data: EKG: SVT at 178 beats per min. - Problems (1) SVT (supraventricular tachycardia) Current Visit: No Status: Acute (2) Hypotension Current Visit: Yes Status: Acute (3) Dehydration Current Visit: Yes Status: Acute (4) Chronic respiratory failure with hypoxia Current Visit: Yes Status: Acute (5) COPD (chronic obstructive pulmonary disease) Current Visit: No Status: Chronic Qualifiers: COPD type: chronic bronchitis Chronic bronchitis type: simple Qualified Code(s): J41.0 - Simple chronic bronchitis Conclusions/Impression: Obtain chest x-ray and EKG Morning labs reviewed. Repeat BMP and check magnesium level. Patient looks dry and suspect dehydration causing SVT and hypotension. Start IV hydration with normal saline Extent of IV hydration pending chest x-ray given history of CHF. Give oral Metoprolol once his BP is able to tolerate it. Optimize electrolytes-potassium and magnesium.
[2019-03-08] MEDS ORDERED: NA CHLORIDE 0.9% 500 ML IV ONE (20:32)
[2019-03-08] MEDS ORDERED: NA CHLORIDE 0.9% 1,000 ML IV ONE (20:48)
--- NOTE | 2019-03-08 20:53 | RAD REPORT ---
EXAM DESCRIPTION: RAD - Chest Single View - 03/08/2019 8:47 pm CLINICAL HISTORY: R/O CHF Chest pain. COMPARISON: Chest Single View dated 02/24/2019; Chest Single View dated 11/08/2017; Chest Single View dated 10/31/2017; CHEST SINGLE VIEW dated 05/13/2015 FINDINGS: Portable technique limits examination quality. COPD is present with bilateral pulmonary opacities again seen, essentially stable since the comparati ve imaging. The heart is mildly enlarged with sternotomy wires with present. No displaced fractures. IMPRESSION: Bilateral pulmonary opacities appear stable since 02/24/2019. Pneumonia or pulmonary erika ma would be the primary differential considerations.
[2019-03-08 21:31] LABS: Magnesium 2.1 mg/dL (1.8-2.4); Potassium 4.3 mmol/L (3.5-5.1)
[2019-03-09] MEDS: IPRATROPIUM BROM 0.5MG/2.5ML NEB SCH ×4 (01:24→20:00)
[2019-03-09] MEDS: ALBUTEROL 2.5 MG/3 ML NEB SOL NEB SCH ×4 (01:24→20:00)
--- NOTE | 2019-03-09 03:24 | FAST ---
SHIFT START DATE/TIME: 03/08/2019 19:00 (CDT) SHIFT END DATE/TIME: 03/09/2019 07:00 (CDT) NAME CECE SPIVEY DATE OF : 1935 DATE OF ADMISSION: 03/05/2019 17:55 (CDT) PHONE: AGE: 83 SSN# [id number] GENDER: Male ENCOUNTER PHYSICIAN: Dr. Ronn Camacho M.D. 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 EATING: Activity did not occur on this shift EATING - SCORE: 0-UNK GROOMING: Comb/brush hair Oral care Wash, rinse, and dry face Wash, rinse, and dry hands GROOMING - STEP 1: Does the patient require the assistance of a person or device, or need extra time when grooming? Yes. GROOMING - STEP 2: Does the patient require the assistance of a helper? Yes. GROOMING - STEP 3: How much assistance does the patient require from the helper? Only prior equipment preparation/set up from the helper GROOMING - SCORE: 5-SUP BATHING: Abdomen Buttocks Chest Left arm Left lower leg and foot Left upper leg Perineal area Right arm Right lower leg and foot Right upper leg BATHING - STEP 1: Does the patient require the assistance of a person or device, or need extra time when bathing? Yes. BATHING - STEP 2: Does the patient require the assistance of a helper? Yes. BATHING - STEP 3: How much assistance does the patient require from the helper? Only prior preparation such as putting bathing equipment within reach, turning on water, checking water temperature BATHING - SCORE: 5-SUP DRESSING - UPPER BODY: T-shirt/pullover shirt (four steps) ARTICLES SCORE Total number of steps: 4 DRESSING - UPPER BODY - STEP 1: Does the patient require help from a person or device, or need extra time when dressing above the cla[address] st? No. DRESSING - UPPER BODY - SCORE: 7-IND DRESSING - LOWER BODY: Elastic waist pants (three steps) Underwear (three steps) ARTICLES SCORE Total number of steps: 6 DRESSING - LOWER BODY - STEP 1: Does the patient require help from a person or device, or need extra time when dressing below the clarence st? No. DRESSING - LOWER BODY - SCORE: 7-IND TOILETING: TOILETING - STEP 1: Does the patient require the assistance of a person or device, or need extra time with toileting? Yes . TOILETING - STEP 2: Does the patient require the assistance of a helper? Yes. TOILETING - STEP 3: How much assistance does the patient require from the helper? Only supervision TOILETING - SCORE: 5-SUP BLADDER MANAGEMENT: BLADDER MANAGEMENT - STEP 1: Does the patient control the bladder completely and intentionally without equipment or devices or med ications, and is always continent? Yes. BLADDER MANAGEMENT - SCORE: 7-IND BLADDER MANAGEMENT - FREQUENCY OF ACCIDENTS: BLADDER MANAGEMENT(FA) - STEP 1: How many accidents has the patient had during the current shift? 0 BOWEL MANAGEMENT: BOWEL MANAGEMENT - STEP 1: Does the patient control bowels completely and intentionally without equipment devices or medications AND is always continent? No. BOWEL MANAGEMENT - STEP 2: Does the patient require the assistance of a helper? Yes. BOWEL MANAGEMENT - STEP 3: How much assistance does the patient require from the helper? Patient requires supervision, stand by, cueing, coaxing, or setup of equipment - placing within reach of patient and emptying device / bedpa nd or BSC bucket - to maintain either satisfactory bowel pattern or managing an external device such as an absorbent pad, colostomy bag / ileostomy bag BOWEL MANAGEMENT - SCORE: 5-SUP BOWEL MANAGEMENT - FREQUENCY OF ACCIDENTS: BOWEL MANAGEMENT(FA) - STEP 1: How many accidents has the patient had during the current shift? 2 TRANSFERS: BED, CHAIR, WHEELCHAIR: TRANSFERS: BED, CHAIR, WHEELCHAIR - STEP 1: Does the patient require assistance of a person or device, or need extra time with bed, chair, or whe elchair transfers? Yes. TRANSFERS: BED, CHAIR, WHEELCHAIR - STEP 2: Does the patient require the assistance of a helper? Yes. TRANSFERS: BED, CHAIR, WHEELCHAIR - STEP 3: How much assistance does the patient require from the helper? Only supervision TRANSFERS: BED, CHAIR, WHEELCHAIR - SCORE: 5-SUP TRANSFERS: TOILET: TRANSFERS: TOILET - STEP 1: Does the patient require the assistance of a person or device, or need extra time with toilet transfe rs? Yes. TRANSFERS: TOILET - STEP 2: Does the patient require the assistance of a helper? Yes. TRANSFERS: TOILET - STEP 3: How much assistance does the patient require from the helper? Patient performs half or more of the tr ansferring tasks TRANSFERS: TOILET - STEP 4: Does the patient need only incidental help such as contact guard or steadying during toilet transfer? Yes. TRANSFERS: TOILET - SCORE: 4-MIN TRANSFERS: SHOWER: After patient transfers from bed to shower chair on wheels, the helper pushes the chair into the walk -in shower TRANSFERS: SHOWER - SCORE: 1-DEP TRANSFERS: TUB: Activity did not occur on this shift TRANSFERS: TUB - SCORE: 0-UNK LOCOMOTION: WALK: LOCOMOTION: WALK - STEP 1: Does the patient need help from a person or device, or need extra time to walk 150 feet? Yes. LOCOMOTION: WALK - STEP 2: How much assistance does the patient require to walk a minimum of 150 feet? Only supervision, cuing, or coaxing LOCOMOTION: WALK - SCORE: 5-SUP LOCOMOTION: WHEELCHAIR: Patient propels wheelchair less than 50 ft LOCOMOTION: WHEELCHAIR - SCORE: 1-DEP COMPREHENSION: COMPREHENSION: TYPE: Both COMPREHENSION - STEP 1: Does the patient require help from a person or device, or need extra time to understand complex and a bstract ideas (such as current events, finances, discharge planning, medical issues, relationships, e tc)? No. COMPREHENSION - STEP 2: Does the patient need extra time, require an assistive device (such as glasses for visual comprehensi on or a hearing aid for auditory comprehension) or does s/he have mild difficulty understanding compl ex and abstract information? No. COMPREHENSION - SCORE: 7-IND EXPRESSION EXPRESSION: TYPE: Both EXPRESSION - STEP 1: Does the patient require help from a person or device, or need extra time expressing complex and abst ract ideas (such as current events, finances, discharge planning, medical issues, relationships, etc) ? No. EXPRESSION - STEP 2: Does the patient need extra time, require an assistive device (such as augmentive communication syste m or a communication board), OR does s/he have mild difficulty expressing complex and abstract ideas (including mild dysarthria or mild word-find problems)? No. EXPRESSION - SCORE: 7-IND SOCIAL INTERACTION: SOCIAL INTERACTION - STEP 1: Does the patient require a helper to interact with others in social and therapeutic situations? No. SOCIAL INTERACTION - STEP 2: Does the patient need extra time in social situations, OR does s/he interact with staff, other patien ts, and family members ONLY in structured environments, OR does s/he require medication for social in teraction? No. SOCIAL INTERACTION - SCORE: 7-IND PROBLEM SOLVING: PROBLEM SOLVING - STEP 1: Does the patient need help from a person or device, or need extra time to solve complex problems such as managing a checking account or confronting interpersonal problems? No. PROBLEM SOLVING - STEP 2: Does the patient require extra time to make decisions or solve problems, OR does s/he have slight dif ficulty reading, initiating, or self-correcting in unfamiliar situations? No. PROBLEM SOLVING - SCORE: 7-IND MEMORY: MEMORY - STEP 1: Does the patient need help from a person or device, or need extra time to remember frequently encount ered people, daily routines, and executing requests? No. MEMORY - STEP 2: Does the patient have slight difficulty recognizing frequently encountered people, daily routines, or executing requests without the need for repetition or using self-initiated or environmental cues to remember? No. MEMORY - SCORE: 7-IND SIGNATURE PANEL: The following modified sections: Eating - Score, Grooming - Score, Bathing - Score, Dressing - Upper Body - Score, Dressing - Lower Body - Score, Toileting - Score, Bladder Management - Score, Bowel Man agement - Score, Transfers: Bed, Chair, Wheelchair - Score, Transfers: Toilet - Score, Transfers: Ines wer - Score, Transfers: Tub - Score, Locomotion: Walk - Score, Locomotion: Wheelchair - Score, Compre hension - Score, Expression - Score, Social Interaction - Score, Problem Solving - Score, Memory - Sc ore were [electronically] signed by Yung Ricks on SatMar 09 2019 03:23:00 GMT-0500 (Central Dayl ight Time)
--- NOTE | 2019-03-09 07:46 | EKG ---
Test Date: 2019-03-08 Test Time: 20:42:36 Senior Digital Designer: RT MEASUREMENT RESULTS: Intervals: Rate: 178 [place]: QRSD: 92 QT: 272 QTc: 468 [place]: P: [place]: QRS: 87 T: -90 INTERPRETIVE STATEMENTS: Supraventricular tachycardia ST & T wave abnormality, consider inferior ischemia Abnormal ECG Compared to ECG 02/25/2019 07:50:51 ST (T wave) deviation now present Possible ischemia now present Sinus rhythm no longer present Electronically Signed On 03-09-19 07:45:53 CDT by Amilcar Vann
[2019-03-09] MEDS: ENSURE ENLIVE 237 ML CAN PO SCH ×2 (08:00→19:43)
[2019-03-09] MEDS: ISOSORBIDE MONO SR 30 MG TAB PO SCH (08:00)
[2019-03-09] MEDS: METOPROLOL TAR 25 MG TAB PO SCH (08:00)
[2019-03-09] MEDS: PROMOD 30 ML DOSE PO SCH ×2 (08:00→19:43)
[2019-03-09] MEDS: FUROSEMIDE 20 MG TABLET PO SCH (08:00)
[2019-03-09] MEDS: JUVEN PACKET PO SCH ×2 (08:00→19:43)
[2019-03-09] MEDS: HOME MED 1 EA UNK IH SCH (08:00)
[2019-03-09] MEDS: NICOTINE 14 MG/PAT TD SCH (08:00)
[2019-03-09] MEDS: ARFORMOTEROL TARTRATE 15 MCG/2 ML VIAL.NEB NEB SCH ×2 (08:32→20:00)
[2019-03-09] MEDS: HEPARIN 5000 UNIT/ML 1 ML VIAL SQ SCH (09:00)
[2019-03-09] MEDS: TAMSULOSIN 0.4 MG SR CAP PO SCH (09:15)
[2019-03-09] MEDS: FINASTERIDE 5 MG TAB PO SCH (09:15)
[2019-03-09] MEDS: predniSONE 10 MG TAB PO SCH (09:16)
[2019-03-09] MEDS: CLOPIDOGREL 75 MG TABLET PO SCH (09:16)
[2019-03-09] MEDS: ASPIRIN 81 MG CHEWABLE TABLET PO SCH (09:17)
[2019-03-09] MEDS ORDERED: METOPROLOL TAR 25 MG TAB PO SCH (10:12)
--- NOTE | 2019-03-09 10:59 | CON ---
Mr. Crocker is on the rehab floor. He is on a do not resuscitate status. He has a history of valvular heart disease, coronary heart disease. He has a bioprosthetic aortic valve, paroxysmal atrial fib, coronary heart disease, and now he is under a do not attempt resuscitate status. He had an episode o f what looked like AV node re-entrant type SVT which is resolved. He is now in sinus rhythm. He is known to have a subdural hematoma. He has hyperdynamic left ventricular ejection fraction, normal-ap pearing aortic valve. He presently gets metoprolol 25 b.i.d., but it is often held because blood pre ssures are often less than 120, so it is being held whenever his blood pressure is less than 120, hea rt rate less than 100, but I think it needs to be given under different parameters, so we will re-wri te that and see if we can manage to keep him from having other episodes of SVT. DAYDAY/ANIKET Voice ID: [id number] Report ID: [id number]
--- NOTE | 2019-03-09 13:29 | PN ---
Date of Progress Note: 03/09/2019 Subjective: Patient is seen and examined. Chart reviewed and case discussed with RN. Patient is do ing better this morning. Still requiring supplemental oxygen. Complains of some shortness of breath . No further episodes of SVT. Medications: Medications list reviewed. Code Status: Do not attempt resuscitation. Physical Examination: Vital Signs: Temperature 98.6, heart rate 88, blood pressure 115/72, respirations 16, O2 93% on 4 L via nasal cannula. General: Awake, alert, oriented x3. Elderly male. Severely cachectic. BMI of 14. Frail, ill-appe aring male. CV: S1, S2. Peripheral pulses weak. Respiratory: Diminished breath sounds. No wheezing or stridor. Gastrointestinal: Abdomen is soft, nontender, nondistended. Positive bowel sounds. Extremities: No clubbing, cyanosis, or edema. Neurologic: Nonfocal. Laboratory Data: Sodium 143, potassium 4.3, chloride 110, CO2 of 26, BUN 45, creatinine 1.67, glucos e 119, calcium 8, magnesium 2.1. These labs are from 03/08/2019. Urine culture, no growth. Chest x -ray, personally reviewed, shows COPD, bilateral pulmonary opacities, stable since 02/24/2019. Pneum onia or pulmonary edema would be the primary differential considerations. Assessment And Plan: 1.Supraventricular tachycardia. We will continue beta-blockers. 2.History of atrial fibrillation, paroxysmal. 3.Acute hypotension. 4.Acute dehydration. Continue IV fluids. 5.Chronic respiratory failure with hypoxia, currently on 4 L of oxygen. 6.Chronic obstructive pulmonary disease, chronic bronchitis. 7.History of prostate cancer and testicular cancer. 8.Coronary artery disease, koi artery and koi heart, status post coronary artery bypass graft. 9.History of congestive heart failure with diastolic dysfunction. 10.Bioprosthetic aortic valve. 11.Subdural hematoma. 12.Essential hypertension. 13.Chronic kidney disease. Plan: Continue current treatment. We will follow along with you. /ANIKET Voice ID: [id number] Report ID: [id number]
[2019-03-09] MEDS ORDERED: NA CHLORIDE 0.9% 1,000 ML IV ONE (14:54)
[2019-03-09] MEDS: ACETAMINOPHEN 325 MG TABLET PO PRN (15:11)
--- NOTE | 2019-03-09 19:08 | R.PN ---
ENCOUNTER DATE AND TIME: 03/09/2019 19:02 (CDT) NAME CECE SPIVEY DATE OF : 1935 DATE OF ADMISSION: 03/05/2019 17:55 (CDT) subacute SDHCHIEF COMPLAINT: Subacute subdural hematoma SUBJECTIVE: Pt denied any Shortness of Breath. Pt denied any depression. Bed mobility done with standby assistance. VITAL SIGNS Temperature: 98.6 F SBP/DBP: 102/67 Pulse: 70 Resp: 16 MEDICATION ALLERGIES: No Known Drug Allergies (NKDA) ENVIRONMENTAL ALLERGIES: - Substance Allergies None Known - Other Allergies None Known NURSING: - Shower allowing shower - Bladder care per protocol - Skin care per protocol PRECAUTIONS: - Aspiration Precaution 1 to 1 supervision with all po intake All meals in the dysphagia dining room No straws Seated at 90 degrees while eating and 30 minutes after meals ACTIVITIES OOB only with supervision THERAPIES: - Dietary and Nutrition Adequate Nutrition. Nutritional Education. Nutritional Supplements. - Speech Therapy Cognitive Training. Dysphagia Therapy. Expressive Language Skills. Receptive Language Skills. PHYSICAL EXAM - Gen Alert and awake Lying in bed No apparent distress Oriented to: person, time, and place - Skin Bruising on the dorsal right and left hand and forearm - Eyes No abnormalities - ENMT No abnormalities - Neck No abnormalities - CVS RRR - Chest No abnormalities - Resp Clear to auscultation - Abd Soft - GI Non distended Deferred - No abnormalities - Ext Mild bilateral lower extremity edema. - MSK 4+/5 weakness in both lower extremities. - Neuro No focal deficits - Psych No abnormalities ASSESSMENT: Pt. is a 83 yo Right-handed white male.On 03/02/2019 he was admitted to [facility] with diagnosi s subacute SDH.His impairment category is Brain Dysfunction 02 - Non-traumatic Brain Dysfunction (02 .1).Pre-morbidly, Pt. was independent/mod-I in Self-Care, Sphincter Control, Transfers Control, Locom otion, Communication, and Social Cognition; and he had good Sphincter Control.Currently, he has defic its of Self-Care, Transfers Control, Locomotion, Communication, Social Cognition, Endurance, Balance, and Safety Awareness.Pt. is now referred to [facility] for acute in-patient r ehabilitation in order to maximize patient's functional independence in activities of daily living, s trength, ROM, and mobility.- Rehab Goal Patient has realistic goal of being discharged at assistance level 6-Samson to reside at Home with Fam pamela/Relatives. MDM/PLAN: - Physical Therapy Gait dysfunction - to improve, our physical therapists will perform initial evaluation of pt's statu s upon admission and devise an individualized program for Gait Training, and Wheel Chair mobility Inability to transfer - to improve, our physical therapists will perform initial evaluation of pt's status upon admission and devise an individualized program for Bed mobility Need for home safety evaluation - to improve, our physical therapists will perform initial evaluatio n of pt's status upon admission and devise an individualized program for Home Evaluation Need in caregiver upon discharge - to improve, our physical therapists will perform initial evaluati on of pt's status upon admission and devise an individualized program for Caregiver Training New precaution - to improve, our physical therapists will perform initial evaluation of pt's status upon admission and devise an individualized program for Patient precaution education Edema - to improve, our physical therapists will perform initial evaluation of pt's status upon admis love and devise an individualized program for Elevation Training, and Lymphedema Therapy Poor balance - to improve, our physical therapists will perform initial evaluation of pt's status up on admission and devise an individualized program for Balance Training Poor endurance - to improve, our physical therapists will perform initial evaluation of pt's status upon admission and devise an individualized program for Endurance Training Weakness - to improve, our physical therapists will perform initial evaluation of pt's status upon a dmission and devise an individualized program for Aquatic Therapy, Neuromuscular Reeducation, and Str engthening Achieving independence - to improve, our physical therapists will perform initial evaluation of pt's status upon admission and devise an individualized program for Community Reintegration Activities - Occupational Therapy ADL deficits - to improve, our occupation therapists will perform initial evaluation of pt's status upon admission and devise an individualized program for Bathing, Bed mobility, Community Reintegratio n, Cooking, Dressing, Eating, Fine Motor Skills, Grooming, Homemaking, Kitchen Mobility, Laundry, Pat ient Education, Safety Awareness, Splinting - Positioning, Transfers(Toilet, Tub, Shower), and Wheel Chair Management Cognitive deficits - to improve, our occupation therapists will perform initial evaluation of pt's s tatus upon admission and devise an individualized program for Cognition - orientation Need for healthcare network pricing consultant - to improve, our occupation therapists will perform initial evaluation of pt's status upon admission and devise an individualized program for Caregiver Training Weakness - to improve, our occupation therapists will perform initial evaluation of pt's status upon admission and devise an individualized program for Aquatic Therapy, Balance, Endurance, UE ROM, and UE strengthening - Other See attached MAR (Medication Administration Record) - Diet Type Continue Regular - Diet - Liquid Texture Continue Regular - Tube Feed Continue N/A - Bladder care per protocol - Aspiration Precaution 1 to 1 supervision with all po intake All meals in the dysphagia dining room No straws Seated at 90 degrees while eating and 30 minutes after meals - Skin care per protocol - Shower allowing shower FUNCTIONAL STATUS: UPDATED AT WEEKLY TEAM CONFERENCE - Bladder Same accident frequency: 7-Ind - No accidents in the past 7 days - Bowel Same accident frequency: 7-Ind - No accidents in the past 7 days - Walking Same score based on distance walked: 1(<=50ft) - Wheelchair Same score based on distance traveled: 1(<=50ft) FUNCTIONAL STATUS: - Self-Care A. Eating sup B. Grooming sup C. Bathing Antonino D. Dressing - Upper sup E. Dressing - Lower sup F. Toileting Antonino - Sphincter Control G: Bladder control Ind H: Bowel control Ind - Transfers Control I. Bed/Chair/Wheelchair sup J. Toilet sup K. Tub/Shower sup - Locomotion L. Walk/Wheelchair (W) Dep L. Walk/Wheelchair (C) Dep M. Stairs ADNO - Communication N. Comprehension (B) sup O. Expression (B) sup - Social Cognition P. Social Interaction sup Q. Problem Solving sup R. Memory sup - Endurance Poor - Balance Poor - Safety Awareness Poor CURRENT FUNC. DEFICITS: Self-Care, Transfers Control, Locomotion, Communication, Social Cognition, Endurance, Balance, and Sa fety Awareness SIGNATURE PANEL: (CDT)
[2019-03-09 20:39] VITALS: TEMP 98.3
[2019-03-09 20:40] VITALS: BP 107/63
[2019-03-09 21:33] VITALS: O2SAT 94
[2019-03-10] MEDS ORDERED: ISOSORBIDE MONO SR 30 MG TAB PO SCH (08:00)
--- NOTE | 2019-03-10 11:23 | EKG ---
Test Date: 2019-03-09 Test Time: 15:21:30 Thread Dresser: LILI MEASUREMENT RESULTS: Intervals: Rate: 169 [place]: QRSD: 88 QT: 282 QTc: 472 [place]: P: [place]: QRS: 88 T: 255 INTERPRETIVE STATEMENTS: Supraventricular tachycardia Low voltage QRS Marked ST abnormality, possible inferior subendocardial injury Abnormal ECG Compared to ECG 03/08/2019 20:42:36 Low QRS voltage now present Possible ischemia no longer present ST (T wave) deviation still present Electronically Signed On 03-10-19 11:19:35 CDT by Miah Fan
--- NOTE | 2019-03-10 15:35 | FAST ---
ENCOUNTER DATE AND TIME: 03/09/2019 08:00 (CDT) NAME CECE SPIVEY DATE OF : 1935 DATE OF ADMISSION: 03/05/2019 17:55 (CDT) PHONE: AGE: 83 SSN# [id number] GENDER: Male ENCOUNTER PHYSICIAN: Dr. Ronn Camacho M.D. 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 EATING: Activity did not occur on this shift EATING - SCORE: 0-UNK GROOMING: Activity did not occur on this shift GROOMING - SCORE: 0-UNK BATHING: Activity did not occur on this shift BATHING - SCORE: 0-UNK DRESSING - UPPER BODY: Activity did not occur on this shift Patient is not dressing in public clothing ARTICLES SCORE Total number of steps: 0 DRESSING - UPPER BODY - SCORE: 0-UNK DRESSING - LOWER BODY: Activity did not occur on this shift Patient is not dressing in public clothing ARTICLES SCORE Total number of steps: 0 DRESSING - LOWER BODY - SCORE: 0-UNK TOILETING: Activity did not occur on this shift TOILETING - SCORE: 0-UNK BLADDER MANAGEMENT: Activity did not occur on this shift BLADDER MANAGEMENT - SCORE: 7-IND BOWEL MANAGEMENT: Activity did not occur on this shift BOWEL MANAGEMENT - SCORE: 7-IND TRANSFERS: BED, CHAIR, WHEELCHAIR: TRANSFERS: BED, CHAIR, WHEELCHAIR - STEP 1: Does the patient require assistance of a person or device, or need extra time with bed, chair, or whe elchair transfers? Yes. TRANSFERS: BED, CHAIR, WHEELCHAIR - STEP 2: Does the patient require the assistance of a helper? Yes. TRANSFERS: BED, CHAIR, WHEELCHAIR - STEP 3: How much assistance does the patient require from the helper? Only supervision TRANSFERS: BED, CHAIR, WHEELCHAIR - SCORE: 5-SUP TRANSFERS: TOILET: Activity did not occur on this shift TRANSFERS: TOILET - SCORE: 0-UNK TRANSFERS: SHOWER: Activity did not occur on this shift TRANSFERS: SHOWER - SCORE: 0-UNK TRANSFERS: TUB: Activity did not occur on this shift TRANSFERS: TUB - SCORE: 0-UNK LOCOMOTION: WALK: Activity did not occur on this shift LOCOMOTION: WALK - SCORE: 0-UNK LOCOMOTION: WHEELCHAIR: Activity did not occur on this shift LOCOMOTION: WHEELCHAIR - SCORE: 0-UNK LOCOMOTION: STAIRS: Activity did not occur on this shift LOCOMOTION: STAIRS - SCORE: 0-UNK COMPREHENSION: COMPREHENSION - SCORE: 0-UNK EXPRESSION EXPRESSION - SCORE: 0-UNK SOCIAL INTERACTION: SOCIAL INTERACTION - SCORE: 0-UNK PROBLEM SOLVING: PROBLEM SOLVING - SCORE: 0-UNK MEMORY: MEMORY - SCORE: 0-UNK SIGNATURE PANEL: The following modified sections: Transfers: Bed, Chair, Wheelchair - Score, Transfers: Toilet - Score , Locomotion: Walk - Score, Locomotion: Wheelchair - Score, Locomotion: Stairs - Score were [electron ically] signed by Eber Box PTA on SatMar 10 2019 15:33:57 T-0500 (Central Daylight Time)
== END 2019-03-09 20:20 | disposition short-term general hospital (02) | DRG 64 ==
LOC: 5TH 17:55
PROVIDERS: ADMIT Psychiatry & Neurology Neurology with Special Qualifications in Child Neurology; ATTEND Psychiatry & Neurology Neurology with Special Qualifications in Child Neurology
DX: I62.02 Nontraumatic subacute subdural hemorrhage (principal); J96.21 Acute and chronic respiratory failure with hypoxia; E44.1 Mild protein-calorie malnutrition; Z68.1 Body mass index [BMI] 19.9 or less, adult; I47.1 Supraventricular tachycardia; I50.32 Chronic diastolic (congestive) heart failure; I48.0 Paroxysmal atrial fibrillation; J44.9 Chronic obstructive pulmonary disease, unspecified; N18.9 Chronic kidney disease, unspecified; I25.10 Atherosclerotic heart disease of native coronary artery without angina pectoris; I95.9 Hypotension, unspecified; E86.0 Dehydration; F17.200 Nicotine dependence, unspecified, uncomplicated; Z66 Do not resuscitate; Z95.1 Presence of aortocoronary bypass graft; Z95.4 Presence of other heart-valve replacement
CPT/HCPCS: 36415; 71045; 80048; 81001; 82040; 82962; 83735; 84134; 85025; 87086; 87088; 92526; 92610; 93005; 94640; 97110; 97112; 97116; 97161; 97530; J1644; J7030; J7512; J7605

== ENCOUNTER 2019-03-09 18:46 | Inpatient (IN) | payer OTHER, BC ==
--- OUTSIDE RECORDS SUMMARY | 2019-03-09 19:07 | XMS REPORT | Clinical Summary ---
:1935 Author Organization [facility] Address [address] [place] [address] Care Team Providers Name Role Phone Remy Phoenix Primary Care Provider Allergies No Known Allergies Medications Medication Sig Dispensed Refills Start End Status Date Date tamsulosin (FLOMAX) Take 0.4 mg by 0 Active 0.4 mg mouth nightly. capsule,extended release 24hr aspirin (ECOTRIN) 81 Take 81 mg by 0 Active MG enteric coated mouth daily. tablet CALCIUM Take 1 tablet 0 Active CARBONATE/VITAMIN D3 by mouth (CALTRATE 600 + D daily. ORAL) isosorbide mononitrate Take 30 mg by 0 Active (IMDUR) 30 MG 24 hr mouth nightly. tablet clopidogrel (PLAVIX) Take 75 mg by 0 Active 75 mg tablet mouth nightly. metoprolol tartrate Take 25 mg by 0 Active (LOPRESSOR) 25 mg mouth 2 (two) tablet times a day. fluticasone-umeclidin- Inhale 1 puff 0 Active vilanter (TRELEGY nightly. ELLIPTA) 100-62.5-25 mcg blister with device furosemide (LASIX) 20 Take 20 mg by 0 Active mg tablet mouth daily. umeclidinium-vilantero Inhale 0 Discontinued l (ANORO ELLIPTA) nightly. 019 (Med List 62.5-25 mcg/actuation Cleanup) blister with device albuterol sulfate Inhale as 0 Discontinued (VENTOLIN HFA INHL) needed. 019 (Med List Cleanup) albuterol (PROAIR Inhale 2 puffs 0 Discontinued HFA,PROVENTIL every 6 (six) 019 (Reorder) HFA,VENTOLIN HFA) 90 hours as mcg/actuation inhaler needed for wheezing. albuterol (PROAIR Inhale 2 puffs 18 g 0 HFA,PROVENTIL every 6 (six) 9 019 HFA,VENTOLIN HFA) 90 hours as mcg/actuation inhaler needed for wheezing for up to 30 days. methylPREDNISolone follow package 21 tablet 0 (MEDROL DOSEPAK) 4 mg directions 9 019 tablet Active Problems Not on file Encounters Date Type Specialty Care Team Description 03/02/2019 Intake Access N/A 02/06/2019 Emergency Emergency Medicine Kim COPD exacerbation John ([facility]) (Primary Dx) MD Shashi 02/06/2019 Travel 01/29/2019 Hospital Encounter Radiology Nacho Garduno Shortness of breath MD Nakia 01/29/2019 Hospital Encounter Radiology Nacho Garduno, unspecified MD Nakia type 01/29/2019 Transcribe Orders Access Nacho Garduno Dyspnea, unspecified MD Nakia type (Primary Dx) 01/23/2019 Transcribe Orders Access Nacho Garduno Shortness of breath MD Nakia (Primary Dx) after 03/08/2018 Family History Medical History Relation Name Comments [...] Sign Reading Time Taken Comments Blood Pressure 141/63 02/06/2019 5:15 PM CDT [...] Completed 12/11/2018, 07/15/2015 Implants Implanted Type Area Sole Tier Device Shelf Model / Identifier Expiration Serial / Date Lot Rosita Beasley Single Use Digital Flexible Ureteroscope Implements, N/A: [employer] 09/30/2019 [id number] / Implanted: Qty: 1 on 11/04/2017 by Farshad Ames MD at [facility] Tools, N/A SCIENTIFIC/MICR / Devices OVASIVE UROLOGY [id number] Stent Uretl S-Flx Kwart Retro-Inject 6fr 24cm - [id number] Peripheral or Left : [employer] 07/16/2020 [id number] / Implanted: Qty: 1 on 11/04/2017 by Farshad Ames MD at [facility] Biliary N/A / Stents [id number] Catheter Uretl 4.8fr 8fr 70cm Cn-Tp W/ Opn-End - [id number] Surgical N/A: [employer] [id number] / Implanted: 04/23/2017 at [facility] (Quantity not on file) Implants; N/A / Expanders; Extenders; Surgical Wires Catheter Uretl 6/10fr 50cm Flx-Tp Dlmn Std Accs - [id number] Surgical N/A: [facility] [id number] / Implanted: 04/23/2017 at [facility] (Quantity not on file) Implants; N/A / Expanders; Extenders; Surgical Wires Catheter Uretl 6/10fr 50cm Flx-Tp Dlmn Std Accs - [id number] Surgical N/A: [employer] [id number] / Implanted: Qty: 1 on 11/04/2017 by Farshad Ames MD at [facility] Implants; N/A / Expanders; Extenders; Surgical Wires Catheter Uretl 6fr 70cm Opn-End Rtrgd Pyelogram - [id number] Urological N/A: [facility] [id number] / Implanted: 04/23/2017 at [facility] (Quantity not on file) Implants or N/A [...] procedure are in the results section. after 03/08/2018 Results Us duplex venous lower extremity (02/06/2019 4:53 PM CDT) Specimen Narrative Performed At [facility] Vascular Ultrasound Laboratory Lower Extremity Venous Report [address] [address], [place] [address] Pat.Name:CECE SPIVEY Pat.ID:[id number] St.Date: 02/06/2019 Refer.MD:PHYSICIAN, EMERGENCY, MD Exam Time: 4:35:00 PMStudy Type:LE Venous Height:71inWeight: 169lb BSA: 1.96 m2 DOBAge:1935,83Y Sex: MALESonogrphr: Donna Vargas, RVVishnu Pat. Stat.:Inpatient Room:ED-ED8 TapeVol: DAVIS, CPT - 4: 06988 Echo Event ID:[id number] Order ID:[id number] Reason for Study:LE swelling. Procedures:Colorflow, Grayscale/2D, Pulsed [...] Vascular Ultrasound Laboratory Lower Extremity Venous Report [id number] [address] Pat.Name: CECE SPIVEY Pat.ID: [id number] .Date: 02/06/2019 Refer.MD: PHYSICIAN, EMERGENCY, MD Exam Time: 4:35:00 PM Study Type:LE Venous Height: 71in Weight: 169lb BSA: 1.96 m2 Age: 11 1935,83Y Sex: MALE Sonogrphr: Donna Vargas RVT Pat. Stat.:Inpatient Room: ED-ED8 Tape Vol: JJ, CPT - 4: 03649 Echo Event ID:[id number] Order ID: [id number] Reason for Study:LE swelling. Procedures:Colorflow, Grayscale/2D, Pulsed [...] RPVI Performing Organization Address City/State/Zipcode Phone Number [facility] [address] [place] [address] Troponin (02/06/2019 3:05 PM CDT)Only the most recent of2 resultswithin the time period is included. Troponin <0.006 0.000 - 0.040 [facility] Comment: ng/mL [facility] changed methodology effective: 11/18/2018 at 10:00 am The new method has a 99th percentile cutoff of 0.040 ng/mL Specimen Plasma specimen Performing Organization Address City/State/Zipcode Phone Number [facility] DEPARTMENT OF PATHOLOGY AND [address] [place] [address] GENOMIC MEDICINE [facility] [address] [place] [address] NM Lung Ventilation Perfusion (02/06/2019 3:00 PM CDT) Specimen Narrative Performed At PROCEDURE:NM LUNG VENTILATION PERFUSION RADIANT INDICATION:PE suspected. COMPARISON:Chest radiograph 02/06/2019, CT chest [...] excluded, but is not highly suggested. 2.COPD. [facility]-[id number] Dictated and approved by doctor of radiology/fellow: Prudencio Vega M.D. I, Vincent Bautista MD, personally reviewed the images and resident's/fellow's findings and agree with the final report. Procedure Note Interface, Radiology Results Incoming - 02/06/2019 4:18 PM [...] but is not highly suggested. 2. COPD. [facility]-[id number] Dictated and approved by doctor of radiology/fellow: Prudencio Vega M.D. I, Vincent Bautista MD, personally reviewed the images and resident's/fellow's findings and agree with the final report. Performing Organization Address [facility] Phone Number [facility] [address] [place] [address] XR Chest 1 Vw Portable (02/06/2019 12:10 PM CDT) Specimen Narrative Performed At EXAMINATION:XR CHEST 1 VW PORTABLE [facility] CLINICAL HISTORY: 83 years Male SOB [facility] COMPARISON:Most recent prior at [facility] IMPRESSION: 1.Midline sternotomy wires. Heart size is normal. There are calcifications in the aortic arch. 2.The lungs are emphysematous. There has been increase in interstitial prominence, may represent edema. Clinical correlation. There is some underlying fibrosis. No confluent consolidation or significant effusion. No pneumothorax. 3.Bones are intact [facility]-[id number] Procedure Note [facility], Radiology Results Incoming - 02/06/2019 12:17 PM CDT EXAMINATION: XR CHEST 1 VW PORTABLE CLINICAL HISTORY: 83 years Male SOB H COMPARISON: Most recent prior at [facility] IMPRESSION: 1. Midline sternotomy wires. Heart size is normal. There are calcifications in the aortic arch. 2. The lungs are emphysematous. There has been increase in interstitial prominence, may represent edema. Clinical correlation. There is some underlying fibrosis. No confluent consolidation or significant effusion. No pneumothorax. 3. Bones are intact [facility]-[id number] Performing Organization Address [facility] Phone Number [facility] [address] [place] [address] ECG ED Preliminary Interpretation - Not an Order (02/06/2019 11:55 AM CDT) Narrative Performed At John Alvarez MD 02/10/2019 10:51 AM ECG ED Preliminary Interpretation - Not an Order Performed by: John Alvarez MD Authorized by: John Alvarez MD ECG reviewed by ED Physician in the absence of a dean for student affairs: yes Previous ECG: Previous ECG:Unavailable Interpretation: Interpretation: abnormal Rate: ECG rate:69 ECG rate assessment: normal Rhythm: Rhythm: sinus rhythm QRS: QRS axis:Right QRS intervals:Normal ST segments: ST segments:Non-specific T waves: T waves: non-specific Estimated GFR (02/06/2019 11:45 AM CDT) Pathologist [facility] Estimated GFR 34 (A) mL/min/1.73 [place] [facility]STAFARI Comment: [address] CatergoryUnitsInterpretation G1 >=90 Normal or high G2 60-89Mildly decreased F0c26-80Bkhiqe to moderately decreased G9l45-70Cinkxcgqfe to severely decreased G4 15-29Severely decreased G5 <15Kidney failure The eGFR was calculated using the Chronic Kidney Disease Epidemiology Collaboration (CKD-EPI) equation. Interpretation is based on recommendations of the National Kidney Foundation-Kidney Disease Outcomes Quality Initiative (NKF-KDOQI) published in 2014. Specimen Plasma specimen Performing Organization Address [facility] Phone Number [facility] DEPARTMENT OF PATHOLOGY AND [address] [place] [phone] Partial thromboplastin time, activated (02/06/2019 11:45 AM CDT) Pathologist [facility] PTT 32.4 23.0 - 36.0 [facility] Comment: [facility] PTT therapeutic range for unfractionated heparin is 61.0-112.0 seconds which corresponds to Anti-Xa 0.3-0.7 U/ml. Specimen Blood Performing Organization Address [facility] Phone Number [facility] DEPARTMENT OF PATHOLOGY AND [address] [place] [phone] [place] [phone] Prothrombin time with INR (02/06/2019 11:45 AM CDT) Pathologist [facility] Prothrombin time 12.6 11.5 - 14.5 [facility] INR 1.0 [place] Comment: RASTAFARI [facility] International Normalized Ratio (INR) is a therapeutic HOSPITAL monitoring tool for patients who are stable on oral anticoagulant therapy. An INR of 2.0-3.0 is suggested for deep vein thrombosis/pulmonary embolism. Specimen Blood Performing Organization Address [facility] Phone Number [facility] DEPARTMENT OF PATHOLOGY AND [address] [place] [phone] [address] CBC with platelet and differential (02/06/2019 11:45 AM CDT) WBC 10.64 4.50 - 11.00 [facility] k/uL HOSPITAL RBC 4.22 (L) 4.40 - 6.00 [facility] m/uL [facility] HGB 12.7 (L) 14.0 - 18.0 [facility] g/dL [facility] HCT 40.1 (L) 41.0 - 51.0 % [facility] MCV 95.0 82.0 - 100.0 [facility] MCH 30.1 27.0 - 34.0 pg [facility] MCHC 31.7 31.0 - 37.0 [facility] RDW - SD 51.5 37.0 - 55.0 fL [facility] MPV 9.3 8.8 - 13.2 fL [facility] Platelet count 240 150 - 400 k/uL [facility] Nucleated RBC 0.00 /100 WBC [facility] Neutrophils 82.2 (H) 39.0 - 69.0 % [facility] Lymphocytes 4.6 (L) 25.0 - 45.0 % [facility] Monocytes 6.9 0.0 - 10.0 % [facility] Eosinophils 5.0 0.0 - 5.0 % [facility] Basophils 0.7 0.0 - 1.0 % [facility] Immature granulocytes 0.6Comment: 0.0 - 1.0 % [facility] "Immature HOSPITAL granulocytes" (promyelocytes , myelocytes, metamyelocytes ) Specimen Blood Performing Organization Address City/State/Zipcode Phone Number [facility] DEPARTMENT OF PATHOLOGY AND [address] [place] [phone] [address] B natriuretic peptide (02/06/2019 11:45 AM CDT) BNP 172 (H) 0 - 100 pg/mL [facility] Specimen Blood Performing Organization Address City/State/Zipcode Phone Number [facility] DEPARTMENT OF PATHOLOGY AND [address] [place] [phone] [address] Comprehensive metabolic panel (02/06/2019 11:45 AM CDT) Sodium 135 135 - 148 [facility] mEq/L [facility] Potassium 5.0 3.5 - 5.0 [facility] mEq/L [facility] Chloride 102 98 - 112 mEq/L [facility] CO2 23 (L) 24 - 31 mEq/L [facility] Anion gap 10@ANIO 7 - 15 mEq/L [facility] BUN 36 (H) 8 - 23 mg/dL [facility] Creatinine 1.81 (H) 0.70 - 1.20 [facility] mg/dL [facility] Glucose 86 65 - 99 mg/dL [facility] Calcium 8.8 8.8 - 10.2 [facility] mg/dL [facility] Protein 6.0 (L) 6.3 - 8.3 g/dL [facility] Comment: HOSPITAL 4.6-7.0 g/dL 1 week 4.4-7.6 g/dL 7 months-1year5.1-7.3 g/dL 1-2 years5.6-7.5 g/dL >3 years6.0-8.0 g/dL 18-150 6.3-8.3 g/dL Albumin 2.7 (L) 3.5 - 5.0 g/dL [facility] A/G ratio 0.8 0.7 - 3.8 [facility] Alkaline phosphatase 75 40 - 129 U/L [facility] AST 15 10 - 50 U/L [facility] ALT 12 5 - 50 U/L [facility] Total bilirubin 0.3 0.0 - 1.2 [facility] mg/dL [facility] Specimen Plasma specimen Performing Organization Address City/State/Zipcode Phone Number [facility] DEPARTMENT OF PATHOLOGY AND [address] [place] [address] GENOMIC MEDICINE [address] [address] ECG 12 lead (02/06/2019 11:18 AM CDT) Pathologist [facility] Ventricular rate 69 [facility] MUSE Atrial rate 69 [facility] MUSE OH interval 132 [facility] MUSE QRSD interval 92 [facility] MUSE QT interval 388 [facility] MUSE QTC interval 415 [facility] MUSE P axis 1 89 [facility] MUSE QRS axis 1 95 [facility] MUSE T wave axis 84 [facility] MUSE EKG impression Normal sinus [facility] MUSE rhythm-Rightward axis-Nonspecific ST abnormality-Abnormal ECG- Specimen Narrative Performed At Performing Organization Address City/State/Zipcode Phone Number [facility] MUSE [address] [place] [address] CT Chest Wo Contrast (01/29/2019 3:22 PM [...] ensure resolution recommended. Incidental findings see above. [id number] Procedure Note Hm Interface, Radiology Results Incoming - 01/29/2019 3:45 [...] ensure resolution recommended. Incidental findings see above. [id number] Performing Organization Address City/[facility]/Zipcode Phone Number [facility] [address] [place] [address] XR Chest 2 Vw (01/29/2019 1:42 PM CDT) Specimen Narrative Performed At EXAMINATION:XR CHEST 2 VW RADIANT CLINICAL HISTORY:R06.00 Dyspneaunspecified, r06.02 COMPARISON:08/20/2017 IMPRESSION: 1.Hyperinflation of the lungs, likely obstructive lung disease. Mild coarse interstitial markings. Query whether patient could have smoking-related interstitial lung disease. If clinically indicated chest CT could provide further assessment. 2.Normal heart size. Aorta is mildly atherosclerotic. Poststernotomy. 3.No acute osseous abnormality. [id number] Procedure Note Hm Interface, Radiology Results Incoming [...] atherosclerotic. Poststernotomy. 3. No acute osseous abnormality. [id number] Performing Organization Address [facility] Phone Number [facility] [address] [place] [address] after 03/08/2018 Insurance Payer Benefit Plan / Subscriber ID Effective Dates Phone Address Type Group MEDICARE MEDICARE PART A xxxxxxxxxxx 2002-Present [place], [place] Medicare AND B BCBS [facility] xxxxxxxxxxxx 2017-Present PPO Advance Directives For more information, please contact: [phone] Type Date Recorded Patient Pad Cutter Explanation Advance Directives, Living Will 04/10/2017 11:29 AM and Medical Power of [place]
--- OUTSIDE RECORDS SUMMARY | 2019-03-09 19:07 | XMS REPORT ---
:1935 [facility] Address [address] [place] [address] Care Team Providers Name Role Phone Unavailable Unavailable Unavailable Problems This patient has no known problems. Allergies, Adverse Reactions, Alerts This patient has no known allergies or adverse reactions. Medications This patient has no known medications.
--- OUTSIDE RECORDS SUMMARY | 2019-03-09 19:08 | XMS REPORT | Summary of Care ---
:1935 Author Organization [facility] Address [address] [place] [id number] Care Team Providers Name Role Phone PhoenixMaryDemarcoBj Primary Care Provider Reason for Visit Reason Comments Transition Of Care Encounter Details Date Type Department Care Team Description 03/06/2019 Transition of Care [facility] Albertina Shannon Transition Of Care [facility] RN [phone] Allergies No Known Allergiesdocumented as of this encounter (statuses as of 03/06/2019) Medications Medication Sig Dispensed Refills Start Date End Date Status tamsulosin 0.4 mg 24 Take 0.4 mg by 0 Active hr capsule mouth daily. Formoterol Fumarate 20 Inhale 1 Vial 2 0 Active mcg/2 mL Nebu (two) times daily. ipratropium-albuterol Inhale 1 Ampule 0 Active 0.5 mg-3 mg(2.5 mg 4 (four) times base)/3 mL nebulizer daily. solution isosorbide mononitrate Take 30 mg by 0 Active 30 mg 24 hr tablet mouth daily. clopidogrel 75 mg Take 75 mg by 0 Active tablet mouth daily. revefenacin 175 mcg/3 Inhale 3 mL 0 Active mL Nebu daily. aspirin 81 mg chewable Take 81 mg by 0 Active tablet mouth daily. furosemide 20 mg Take 0.5 tablets 30 tablet 1 03/06/2019 Active tabletIndications: by mouth every Unresponsive episode morning. metoprolol tartrate 25 Take 1 tablet by 60 tablet 1 03/05/2019 Active mg tabletIndications: mouth 2 (two) Unresponsive episode times daily. predniSONE 10 mg Take 1 tablet by 10 tablet 0 03/06/2019 03/21/2019 Active tabletIndications: mouth daily for Unresponsive episode 5 days, THEN 0.5 tablets daily for 10 days. finasteride 5 mg Take 1 tablet by 30 tablet 1 03/06/2019 Active tabletIndications: mouth daily. Unresponsive episode mirtazapine 7.5 mg Take 1 tablet by 30 tablet 1 03/05/2019 Active tabletIndications: mouth at Unresponsive episode bedtime. nicotine 14 mg/24 hr Apply 1 Patch to 30 Patch 1 03/06/2019 Active patchIndications: area(s) every 24 Unresponsive episode (twenty-four) hours. triamcinolone Apply to 454 g 0 03/05/2019 Active acetonide 0.1 % area(s) 2 (two) creamIndications: times daily. Unresponsive episode documented as of this encounter (statuses as of 03/06/2019) Active Problems Problem Noted Date SOB (shortness of breath) 03/03/2019 Heart failure 03/03/2019 E44.1 Mild protein-calorie malnutrition 03/03/2019 documented as of this encounter (statuses as of 03/06/2019) Immunizations Name Administration Dates Next Due Td [...] of this encounter Last Filed Vital Signs Not on filedocumented in this encounter Plan of Treatment Health Maintenance Due Date Last Done Comments Zoster Recombinant Vaccine (SHINGRIX) (1 of 2) 1987 Medicare Wellness Visit 2002 PNEUMOCOCCAL VACCINES 65+ (1 of 2 - PCV13) 2002 DTaP,Tdap,and Td Vaccines (1 - Tdap) 03/03/2019 03/02/2019 INFLUENZA VACCINE (#1) 2019 05/27/2018 documented as of this encounter Results Not on filedocumented in this encounter Insurance Payer Benefit Plan / Subscriber ID Effective Phone Address Type Group Dates MEDICARE MEDICARE PART A xxxxxxxxxx 2002-Pre [phone] [address] Medicare & B sent [id number] [place] [phone] [facility] [id number] 2017-Pre [phone] Medicare TRADITIONAL sent [id number] [place] [address] [employer] [id number] 2014-Pr PPO esent documented as of this encounter
[2019-03-09] MEDS: IPRATROPIUM BROM 0.5MG/2.5ML NEB SCH (20:00)
[2019-03-09] MEDS ORDERED: NA CHLORIDE 0.9% 1,000 ML IV SCH (20:00)
[2019-03-09] MEDS: ENSURE ENLIVE 237 ML CAN PO SCH (21:00)
[2019-03-09] MEDS ORDERED: ACETAMINOPHEN 325 MG TABLET PO PRN (21:00)
[2019-03-09] MEDS ORDERED: TRIAMCINOLONE ACET 0.1% CREAM 80 GM TOP PRN (21:00)
[2019-03-09] MEDS: METOPROLOL TAR 25 MG TAB PO SCH (21:00)
[2019-03-09] MEDS: PROMOD 30 ML DOSE PO SCH (21:00)
[2019-03-09] MEDS: JUVEN PACKET PO SCH (21:00)
[2019-03-09] MEDS ORDERED: FORMOTEROL FUMARATE 20 MCG NEB SCH (21:00)
[2019-03-09] MEDS ORDERED: HYDROCORTISONE SUC 100 MG INJ IV SCH (21:00)
[2019-03-09] MEDS ORDERED: OXYMETAZOLINE HCL 0.05% 15ML NAS PRN (21:03)
[2019-03-09] MEDS: MIRTAZAPINE 15 MG TAB PO SCH (21:55)
[2019-03-09] MEDS: HEPARIN 5000 UNIT/ML 1 ML VIAL SQ SCH (21:56)
[2019-03-10 06:21] LABS: Absolute Lymphocytes (CBC) 0.3 K/uL (0.7-4.9); Basophils % 0.2 % (0-1.3); Hematocrit 38.4 % (39.6-49.0); Lymphocytes % 3.4 % (15.3-44.8); MPV 7.9 fL (7.6-11.3); RBC Red Blood Cell Count 4.17 M/uL (4.33-5.43)
[2019-03-10 06:44] LABS: Albumin 1.9 g/dL (3.4-5.0); Bilirubin Total 0.4 mg/dL (0.2-1.0); Potassium 4.4 mmol/L (3.5-5.1); Protein, Total 4.5 g/dL (6.4-8.2)
[2019-03-10] MEDS: ARFORMOTEROL TARTRATE 15 MCG/2 ML VIAL.NEB NEB SCH ×2 (07:35→20:00)
[2019-03-10] MEDS: IPRATROPIUM BROM 0.5MG/2.5ML NEB SCH ×3 (07:35→20:00)
[2019-03-10] MEDS: ENSURE ENLIVE 237 ML CAN PO SCH ×2 (09:00→21:00)
[2019-03-10] MEDS ORDERED: REVEFENACIN IN SCH (09:00)
[2019-03-10] MEDS: PROMOD 30 ML DOSE PO SCH ×2 (09:00→21:00)
[2019-03-10] MEDS: JUVEN PACKET PO SCH ×2 (09:00→21:00)
[2019-03-10] MEDS: NICOTINE 14 MG/PAT TD SCH (09:03)
[2019-03-10] MEDS: METOPROLOL TAR 25 MG TAB PO SCH ×2 (09:03→22:09)
[2019-03-10] MEDS: TAMSULOSIN 0.4 MG SR CAP PO SCH (09:04)
[2019-03-10] MEDS: FINASTERIDE 5 MG TAB PO SCH (09:04)
[2019-03-10] MEDS: ASPIRIN 81 MG CHEWABLE TABLET PO SCH (09:04)
[2019-03-10] MEDS: CLOPIDOGREL 75 MG TABLET PO SCH (09:04)
[2019-03-10] MEDS: HEPARIN 5000 UNIT/ML 1 ML VIAL SQ SCH ×2 (09:04→22:07)
[2019-03-10] MEDS: METHYLPREDNISOLONE 40 MG INJ IV SCH ×2 (09:13→16:25)
[2019-03-10] MEDS: FUROSEMIDE 20 MG/ 2ML VIAL IV SCH ×2 (09:13→16:25)
[2019-03-10] MEDS: DOXYCYCLINE 100 MG CAP PO SCH ×2 (09:13→22:06)
[2019-03-10] MEDS: CEFUROXIME 250 MG TAB PO SCH ×2 (09:13→22:06)
[2019-03-10 10:21] LABS: Blood Morphology Comment NOT SEEN (NOT SEEN); Platelet Estimate ADEQ; Urine White Blood Cell Casts OK
--- NOTE | 2019-03-10 10:26 | RAD REPORT ---
EXAM DESCRIPTION: CT - Thorax Wo Con - 03/10/2019 9:40 am CLINICAL HISTORY: Fibrosis, COPD, shortness of breath COMPARISON: Chest film March 08, lung base images from October 2017 CT study TECHNIQUE: Axial 5 mm thick images of the chest were obtained without IV contrast. All CT scans are performed using dose optimization technique as appropriate and may include automated exposure control or mA/KV adjustment according to patient size. FINDINGS: Patient has moderate bilateral pleural effusions. There is extensive bulla and bleb format ion in the mid and upper lung lazo. Interstitial pattern is diffusely prominent compared to the Oct lung base images. Partial atelectasis of each lower lobe is present. No pneumothorax is prese nt. In the posterior right upper lobe lobe abutting the pleura there is a 2.2 centimeter area of spic ulated parenchyma. Central cavity is present. This could be a chronic cystic cavity related to the em physema. The surrounding parenchyma could be scarring, infiltrate or developing mass. A juxtapleural 8 millimeter nodule is present in the right midlung field (image 43/66). A 7 x 7 millimeter nodule is present in the anterior base right middle lobe (image 51/66). In the anterior inferior lingula there is a 9 x 9 millimeter mass (image 55/66). A 6 millimeter round nodule is present in the medial anter ior left upper lobe (image 34/ 66). There are few small additional areas of nodularity. A small spicu lated focus is present 10 mm in size in the posterior left upper lobe (image 20/66). Small nonspecific mediastinal lymph nodes are present. No hilar mass or lymphadenopathy confirmed. Assessment is limited in the absence of contrast. Dense a ortic calcifications are present. Coronary artery calcifications are present. Vascular assessment is limited in the absence of contrast. No pericardial effusion. No chest wall mass or abnormal axillary lymphadenopathy. Limited upper abdomen imaging shows a large right renal cyst 8 cm in size. This is only partially lizandro ged. IMPRESSION: Small a moderate bilateral pleural effusions with partial atelectasis of each lower lobe . Patient has a very prominent COPD pattern. Interstitial thickening is seen throughout the lung lazo most pronounced in each base. This pattern is much more pronounced than seen in October 2017. Findings may reflect prominent interstitial edema or possibly interstitial infiltrate. Progressive fi brosis is possible. Patient has multiple pulmonary nodules. These are both smooth rounded nodules and more spiculated are as of parenchyma. 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 A primary neoplastic process in the chest is not seen. Metastatic nodules are possible.
--- NOTE | 2019-03-10 11:15 | P.HP ---
Certification for Inpatient Patient admitted to: Inpatient Practitioner: I am a practitioner with admitting privileges, knowledge of patient current condition, hospital course, and medical plan of care. Services: Services provided to patient in accordance with Admission requirements found in Title 42 Section 412.3 of the Code of Federal Regulations Patient History Date of Service: 03/10/19 History of Present Illness: This is a 83-year-old man with a past medical history of atrial fibrillation, history of aortic prosthetic valve replacement, COPD and CHF admitted to inpatient rehab after hospitalization for recent subdural hematoma, from [facility]. The patient was noted to have rapid heart rate up to 170 along with hypotension in the rehab unit. Hospitalist service was consulted to assist with management of SVT. The patient was admitted through the ED on February 25, 2019 for similar reasons, had an echocardiogram performed which reported normal EF, hyperdynamic LVF and normal aortic valve orifice. It appears the SVT spontaneously resolved at that time. He did leave against medical advice at that time. He uses 3 L of oxygen by nasal cannula at baseline. At the time of my exam, he stated that he feels funny and unsure of breath. He denies any chest pain, dizziness. He was transferred from inpatient rehab to the floor for SVT and shortness of breath. Allergies No Known Allergies Allergy (Verified 03/08/19 16:22) Home medications list reviewed: Yes Home Medications: Clopidogrel Bisulfate [Plavix*] 75 mg PO DAILY 02/25/19 Formoterol Fumarate 20 mcg IN BID 02/25/19 Isosorbide Mononitrate [Isosorbide Mononitrate ER] 30 mg pe PO DAILY 02/25/19 Revefenacin [Yupelri] 175 mcg IN DAILY 02/25/19 Tamsulosin [Flomax*] 0.4 mg PO DAILY 02/25/19 Aspirin Chewable [Aspirin Chewable*] 81 mg PO DAILY 03/06/19 Duoneb 2.5 mg IN QID 03/06/19 Finasteride [Proscar] 5 mg PO DAILY 03/06/19 Furosemide [Lasix] 10 mg PO DAILY 03/06/19 Metoprolol Tartrate [Lopressor] 25 mg PO BID 03/06/19 Mirtazapine 7.5 mg PO BEDTIME 03/06/19 Nicotine [Nicoderm] 1 patch TD DAILY 03/06/19 Triamcinolone 0.1% Crm [Kenalog 0.1% Cream] 15 appl TOP BID 03/06/19 predniSONE [Deltasone] 5 mg PO SEECOM 03/06/19 - Past Medical/Surgical History Has patient received pneumonia vaccine in the past: Yes Diabetic: No -: COPD -: Prostate CA 2008 -: Testicular CA -: CAD -: CHF -: pneumonia -: CKD -: HTN -: Subdural hematoma -: laparoscopic hernia repair 2006 -: CABG -: aortic valve replacement -: testicular resection - Family History Father Notes: prostate cancer son -: Heart disease Notes: myocardial infarction daughter -: Cancer Notes: ovarian cancer - Social History Smoking Status: Current every day smoker Alcohol use: No CD- Drugs: No Caffeine use: Yes Place of Residence: Home Review of Systems 10-point ROS is otherwise unremarkable Physical Examination - Vital Signs Temperature: 97.8 F Blood Pressure: 157/82 Pulse: 93 Respirations: 20 Pulse Ox (%): 92 - Physical Exam General: Alert, Oriented x3, Cachectic, Moderate distress, Other (Elderly, ill appear) HEENT: Atraumatic, PERRLA, Mucous membr. moist/pink, EOMI, Sclerae nonicteric Neck: Supple, 2+ carotid pulse no bruit, No LAD, Without JVD or thyroid abnormality Respiratory: Diminished, Dull, Crackles/rales Cardiovascular: Regular rate/rhythm, Normal S1 S2, Abnormal pulses (Weak peripheral pulses) Gastrointestinal: Normal bowel sounds, No tenderness Musculoskeletal: No tenderness - Studies Laboratory Data (last 24 hrs) 03/10/19 05:58: Sodium 144, Potassium 4.4, BUN 40 H, Creatinine 1.48 H, Glucose 90, Total Bilirubin 0.4, AST 17, ALT 19, Alkaline Phosphatase 81 03/10/19 05:58: WBC 7.5, Hgb 12.5 L, Hct 38.4 L, Plt Count 189 Assessment and Plan - Problems (Diagnosis) (1) Acute and chronic respiratory failure Current Visit: Yes Status: Acute Plan: Patient with acute dyspnea/shortness of breath on chronic respiratory failure. This could be secondary to infectious causes versus worsening of COPD versus IV fluids/CHF -usually uses 4 L of oxygen at home -pulmonology consulted, recommendations appreciated -CT thorax ordered, pending -BiPAP as needed, wean as tolerated -will continue antibiotics, Lasix, breathing treatments, steroids Qualifiers: Respiratory failure complication: hypoxia Qualified Code(s): J96.21 - Acute and chronic respiratory failure with hypoxia (2) SVT (supraventricular tachycardia) Current Visit: No Status: Resolved Plan: Patient now in normal sinus rhythm. -continue monitoring on tele -cardiology consulted, recommendations appreciated (3) Atrial fibrillation Current Visit: Yes Status: Chronic Plan: Currently in normal sinus rhythm -will continue beta-debra and anticoagulation Qualifiers: Atrial fibrillation type: paroxysmal Qualified Code(s): I48.0 - Paroxysmal atrial fibrillation (4) History of prostate cancer Current Visit: Yes Status: Acute (5) History of testicular cancer Current Visit: Yes Status: Acute (6) Coronary artery disease Current Visit: No Status: Chronic Qualifiers: Coronary Disease-Associated Artery/Lesion type: [place] artery [place] vs. transplanted heart: [place] heart Associated angina: without angina Qualified Code(s): I25.10 - Atherosclerotic heart disease of [place] coronary artery without angina pectoris (7) Congestive heart failure Current Visit: No Status: Chronic Qualifiers: Heart failure type: diastolic (8) History of aortic valve replacement with bioprosthetic valve Current Visit: Yes Status: Acute (9) Subdural hematoma Current Visit: No Status: Chronic Plan: Will get PT/OT eval once patient more stable. - Will evaluate for returning to rehab once medically stable. (10) Hypertension Current Visit: No Status: Chronic Qualifiers: Hypertension type: essential hypertension Qualified Code(s): I10 - Essential (primary) hypertension (11) Chronic kidney disease Current Visit: No Status: Chronic Qualifiers: Chronic kidney disease stage: stage 3 (moderate) Qualified Code(s): N18.3 - Chronic kidney disease, stage 3 (moderate) (12) Dehydration Current Visit: No Status: Acute Plan: Improving (13) Hypotension Current Visit: No Status: Resolved Plan: Resolved Qualifiers: Hypotension type: unspecified hypotension type Qualified Code(s): I95.9 - Hypotension, unspecified (14) COPD (chronic obstructive pulmonary disease) Current Visit: No Status: Chronic Qualifiers: COPD type: chronic bronchitis Chronic bronchitis type: simple Qualified Code(s): J41.0 - Simple chronic bronchitis - Plan Disposition: Pending symptomatic improvement. - Advance Directives Does patient have a Living Will: No Does patient have a Durable POA for Healthcare: No
--- NOTE | 2019-03-10 12:08 | P.CNS ---
Date of Consult: 03/10/19 Chief Complaint: Resp distress History of Present Illness: Patient is 83 years of age well known to me he has had progressive deterioration for the past few weeks as did the responded to any therapy patient apparently ended up at [facility] and then was transferred to [facility] admitted with tachycardia hypotension transfer from the rehab service down to the floor patient has terminal COPD and has rapidly deteriorated patient does not feel any better Allergies No Known Allergies Allergy (Verified 03/08/19 16:22) Home Medications: Clopidogrel Bisulfate [Plavix*] 75 mg PO DAILY 02/25/19 Formoterol Fumarate 20 mcg IN BID 02/25/19 Isosorbide Mononitrate [Isosorbide Mononitrate ER] 30 mg pe PO DAILY 02/25/19 Revefenacin [Yupelri] 175 mcg IN DAILY 02/25/19 Tamsulosin [Flomax*] 0.4 mg PO DAILY 02/25/19 Aspirin Chewable [Aspirin Chewable*] 81 mg PO DAILY 03/06/19 Duoneb 2.5 mg IN QID 03/06/19 Finasteride [Proscar] 5 mg PO DAILY 03/06/19 Furosemide [Lasix] 10 mg PO DAILY 03/06/19 Metoprolol Tartrate [Lopressor] 25 mg PO BID 03/06/19 Mirtazapine 7.5 mg PO BEDTIME 03/06/19 Nicotine [Nicoderm] 1 patch TD DAILY 03/06/19 Triamcinolone 0.1% Crm [Kenalog 0.1% Cream] 15 appl TOP BID 03/06/19 predniSONE [Deltasone] 5 mg PO SEECOM 03/06/19 - Past Medical/Surgical History Diabetic: No -: COPD -: Prostate CA 2008 -: Testicular CA -: CAD -: CHF -: pneumonia -: CKD -: HTN -: Subdural hematoma -: laparoscopic hernia repair 2006 -: CABG -: aortic valve replacement -: testicular resection - Family History Father Notes: prostate cancer son Medical History: Heart disease Notes: myocardial infarction daughter Medical History: Cancer Notes: ovarian cancer - Social History Smoking Status: Current every day smoker Alcohol use: No CD- Drugs: No Caffeine use: Yes Place of Residence: Home Review of Systems General: Weakness Physical Examination Temp Pulse Resp BP Pulse Ox 97.8 F 93 H 20 157/82 H 92 03/10/19 11:24 03/10/19 11:24 03/10/19 11:24 03/10/19 11:24 03/10/19 11:24 General: Alert, Moderate distress Neck: Supple Respiratory: Crackles/rales, Rhonchi/gurgles Cardiovascular: No edema, Normal pulses, Regular rate/rhythm Gastrointestinal: Normal bowel sounds, Soft and benign Laboratory Data (last 24 hrs) 03/10/19 05:58: Sodium 144, Potassium 4.4, BUN 40 H, Creatinine 1.48 H, Glucose 90, Total Bilirubin 0.4, AST 17, ALT 19, Alkaline Phosphatase 81 03/10/19 05:58: WBC 7.5, Hgb 12.5 L, Hct 38.4 L, Plt Count 189 - Problems (1) Chronic respiratory failure Current Visit: Yes Status: Acute Plan: Patient is 83 years of age with terminal progressive COPD chest x-ray she had CT scan shows interstitial changes with bilateral pleural effusion patient has a prostatic aortic valve possible diastolic dysfunction I have added some diuretics bronchodilators steroids BiPAP I have added the cefuroxime and doxycycline for the possibility of infection patient continues to smoke Qualifiers: Respiratory failure complication: unspecified whether with hypoxia or hypercapnia Qualified Code(s): J96.10 - Chronic respiratory failure, unspecified whether with hypoxia or hypercapnia
[2019-03-10 12:58] LABS: Arterial Blood Carboxyhemoglob 1.2 % (0-1.5); Blood Gas Oxyhemoglobin 77.1 % (94-97); Blood O2 Saturation 78.8 % (92-98.5)
--- NOTE | 2019-03-10 13:28 | PN ---
Date of Progress Note: 03/10/2019 Subjective: Mr. Crocker was admitted because of COPD. Had a short run of supraventricular tachycardia . He has a history of coronary artery disease, aortic valve replacement, subdural hematoma. He is o n metoprolol, Imdur, inhalers as well as Lasix, aspirin and Plavix for his medical history. Echocard iogram that was done yesterday was within normal limit. We agree with beta blockers for his SVT. He has not had any more SVT overnight. I will give him beta blockers IV on an as-needed basis. Otherw ise, no change in medical therapy. BRUNO/ANIKET Voice ID: [id number] Report ID: [id number]
[2019-03-10] MEDS: ALBUTEROL 2.5 MG/3 ML NEB SOL NEB PRN (13:45)
[2019-03-10] MEDS: MIRTAZAPINE 15 MG TAB PO SCH (22:06)
[2019-03-11] MEDS: METHYLPREDNISOLONE 40 MG INJ IV SCH (00:05)
[2019-03-11] MEDS: IPRATROPIUM BROM 0.5MG/2.5ML NEB SCH ×4 (02:00→20:00)
[2019-03-11 05:51] LABS: Absolute Lymphocytes (CBC) 0.2 K/uL (0.7-4.9); Basophils % 0.2 % (0-1.3); Hematocrit 39.6 % (39.6-49.0); Lymphocytes % 2.6 % (15.3-44.8); MPV 7.9 fL (7.6-11.3)
[2019-03-11 06:06] LABS: Albumin 2.1 g/dL (3.4-5.0); Bilirubin Total 0.4 mg/dL (0.2-1.0); Potassium 4.6 mmol/L (3.5-5.1); Protein, Total 4.9 g/dL (6.4-8.2)
[2019-03-11] MEDS: ALBUTEROL 2.5 MG/3 ML NEB SOL NEB PRN ×2 (08:02→13:24)
[2019-03-11] MEDS: ARFORMOTEROL TARTRATE 15 MCG/2 ML VIAL.NEB NEB SCH ×2 (08:02→20:00)
--- NOTE | 2019-03-11 08:43 | P.PN ---
Subjective Date of Service: 03/11/19 Chief Complaint: Resp distress No changes still complains of dyspnea on mild exertion tolerating BiPAP productive cough Review of Systems General: Weakness Respiratory: Cough, Shortness of Breath Physical Examination - Vital Signs Temperature: 97.6 F Blood Pressure: 134/76 Pulse: 77 Respirations: 18 Pulse Ox (%): 94 - Physical Exam General: Alert, Moderate distress Respiratory: Expiratory wheezes Cardiovascular: No edema, Normal S1 S2 - Studies Laboratory Data (last 24 hrs) 03/11/19 05:32: Sodium 143, Potassium 4.6, BUN 45 H, Creatinine 1.75 H, Glucose 101, Total Bilirubin 0.4, AST 15, ALT 24, Alkaline Phosphatase 83 03/11/19 05:32: WBC 8.3, Hgb 13.5 L, Hct 39.6, Plt Count 206 Assessment & Plan - Problems (Diagnosis) (1) Chronic respiratory failure Current Visit: Yes Status: Acute Plan: Patient is not doing any better I have increased dose of his Lasix patient has chronic renal failure may have element of volume overload prognosis poor his progressively deteriorated Qualifiers: Respiratory failure complication: unspecified whether with hypoxia or hypercapnia Qualified Code(s): J96.10 - Chronic respiratory failure, unspecified whether with hypoxia or hypercapnia
[2019-03-11] MEDS: DOXYCYCLINE 100 MG CAP PO SCH ×2 (08:55→21:01)
[2019-03-11] MEDS: FINASTERIDE 5 MG TAB PO SCH (08:56)
[2019-03-11] MEDS: CEFUROXIME 250 MG TAB PO SCH ×2 (08:56→21:13)
[2019-03-11] MEDS: ASPIRIN 81 MG CHEWABLE TABLET PO SCH (08:56)
[2019-03-11] MEDS: CLOPIDOGREL 75 MG TABLET PO SCH (08:56)
[2019-03-11] MEDS: TAMSULOSIN 0.4 MG SR CAP PO SCH ×2 (08:57→21:01)
[2019-03-11] MEDS: METOPROLOL TAR 25 MG TAB PO SCH ×2 (08:57→21:03)
[2019-03-11] MEDS: NICOTINE 14 MG/PAT TD SCH (08:58)
[2019-03-11] MEDS: JUVEN PACKET PO SCH ×2 (08:58→21:00)
[2019-03-11] MEDS: HEPARIN 5000 UNIT/ML 1 ML VIAL SQ SCH ×2 (08:59→21:00)
[2019-03-11] MEDS: ENSURE ENLIVE 237 ML CAN PO SCH ×2 (09:00→21:00)
[2019-03-11] MEDS: FUROSEMIDE 40 MG/4 ML VIAL IV SCH ×2 (09:05→17:02)
[2019-03-11] MEDS: predniSONE 20 MG TAB PO SCH ×2 (09:05→21:01)
[2019-03-11] MEDS: ROFLUMILAST 500 MCG TABLET PO SCH (09:05)
[2019-03-11] MEDS: PROMOD 30 ML DOSE PO SCH ×2 (09:06→21:00)
--- NOTE | 2019-03-11 11:30 | P.PN ---
Subjective Date of Service: 03/11/19 Chief Complaint: Resp distress Subjective: No new changes, No C/O voiced Patient seen and examined at bedside. family at bedside. Chart reviewed and case discussed with nursing staff. No acute events noted overnight. Patient with no complaints this morning. No BiPAP required overnight. Review of Systems 10-point ROS is otherwise unremarkable Physical Examination - Vital Signs Temperature: 97.6 F Blood Pressure: 134/76 Pulse: 77 Respirations: 18 Pulse Ox (%): 94 - Physical Exam General: Alert, In no apparent distress, Cachectic HEENT: Atraumatic, PERRLA, EOMI Neck: Supple, JVD not distended Respiratory: Dull, Crackles/rales Cardiovascular: Regular rate/rhythm, Normal S1 S2 Gastrointestinal: Normal bowel sounds, No tenderness Musculoskeletal: No tenderness Integumentary: No rashes Neurological: Normal speech, Normal tone, Normal affect - Studies Laboratory Data (last 24 hrs) 03/11/19 05:32: Sodium 143, Potassium 4.6, BUN 45 H, Creatinine 1.75 H, Glucose 101, Total Bilirubin 0.4, AST 15, ALT 24, Alkaline Phosphatase 83 03/11/19 05:32: WBC 8.3, Hgb 13.5 L, Hct 39.6, Plt Count 206 Assessment And Plan - Current Problems (Diagnosis) (1) Acute and chronic respiratory failure Current Visit: Yes Status: Acute Plan: Patient with acute dyspnea/shortness of breath on chronic respiratory failure. This could be secondary to infectious causes versus worsening of COPD versus IV fluids/CHF -usually uses 4 L of oxygen at home -pulmonology consulted, recommendations appreciated -CT thorax reviewed. With evidence of pleural effusions bilaterally along with very prominent COPD pattern. Interstitial thickening is seen throughout the lung lazo most pronounced in each base. This pattern is much more pronounced than seen in October 2017. Findings may reflect prominent interstitial edema or possibly interstitial infiltrate. Progressive fibrosis is possible. -BiPAP as needed, wean as tolerated. -will continue antibiotics, Lasix, breathing treatments, steroids Qualifiers: Respiratory failure complication: hypoxia Qualified Code(s): J96.21 - Acute and chronic respiratory failure with hypoxia (2) Atrial fibrillation Current Visit: Yes Status: Chronic Plan: Currently in normal sinus rhythm -will continue beta-debra and anticoagulation Qualifiers: Atrial fibrillation type: paroxysmal Qualified Code(s): I48.0 - Paroxysmal atrial fibrillation (3) History of prostate cancer Current Visit: Yes Status: Acute (4) History of testicular cancer Current Visit: Yes Status: Acute (5) Coronary artery disease Current Visit: No Status: Chronic Qualifiers: Coronary Disease-Associated Artery/Lesion type: [place] artery [place] vs. transplanted heart: [place] heart Associated angina: without angina Qualified Code(s): I25.10 - Atherosclerotic heart disease of [place] coronary artery without angina pectoris (6) Congestive heart failure Current Visit: No Status: Chronic Plan: Patient with acute on chronic congestive heart failure, symptomatic. -Continue diuresis with IV Lasix at this time. Qualifiers: Heart failure type: diastolic Heart failure chronicity: acute on chronic Qualified Code(s): I50.33 - Acute on chronic diastolic (congestive) heart failure (7) History of aortic valve replacement with bioprosthetic valve Current Visit: Yes Status: Acute (8) Subdural hematoma Current Visit: No Status: Chronic Plan: Will get PT/OT eval, ordered. - Will evaluate for returning to rehab once medically stable. 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 -continue monitoring on tele -cardiology consulted, recommendations appreciated - Plan Disposition: Pending symptomatic improvement. Pending physical therapy evaluation. He will need to be evaluated for return to rehab once medically stable.
[2019-03-11] MEDS: MIRTAZAPINE 15 MG TAB PO SCH (21:02)
[2019-03-12] MEDS: IPRATROPIUM BROM 0.5MG/2.5ML NEB SCH ×4 (02:00→19:35)
[2019-03-12 06:16] LABS: Absolute Lymphocytes (CBC) 0.3 K/uL (0.7-4.9); Basophils % 0.2 % (0-1.3); Hematocrit 37.6 % (39.6-49.0); Lymphocytes % 3.1 % (15.3-44.8); RBC Red Blood Cell Count 4.11 M/uL (4.33-5.43)
[2019-03-12 06:38] LABS: Albumin 2.1 g/dL (3.4-5.0); Bilirubin Total 0.4 mg/dL (0.2-1.0); Potassium 4.1 mmol/L (3.5-5.1); Protein, Total 4.8 g/dL (6.4-8.2)
[2019-03-12] MEDS ORDERED: METOPROLOL TARTRATE 5 MG/5 ML INJ IV STA (07:14)
[2019-03-12 07:39] LABS: Blood Morphology Comment NOT SEEN (NOT SEEN); Platelet Estimate ADEQ
[2019-03-12] MEDS: ARFORMOTEROL TARTRATE 15 MCG/2 ML VIAL.NEB NEB SCH ×2 (08:20→19:35)
--- NOTE | 2019-03-12 08:44 | RAD REPORT ---
EXAM DESCRIPTION: RAD - Chest Single View - 03/12/2019 7:48 am CLINICAL HISTORY: sob Chest pain. COMPARISON: Chest Single View dated 03/08/2019; Chest Single View dated 02/24/2019; Chest Single View dated 11/08/2017; Chest Single View dated 10/31/2017 FINDINGS: Portable technique limits examination quality. No significant change is seen in bilateral pulmonary opacities since comparative study. The heart is normal in size. Sternotomy wires present. IMPRESSION: Stable chest since 03/08/2019.
[2019-03-12] MEDS: ROFLUMILAST 500 MCG TABLET PO SCH (08:56)
[2019-03-12] MEDS: CEFUROXIME 250 MG TAB PO SCH ×2 (08:56→20:38)
[2019-03-12] MEDS: FINASTERIDE 5 MG TAB PO SCH (08:57)
[2019-03-12] MEDS: TAMSULOSIN 0.4 MG SR CAP PO SCH ×2 (08:57→20:41)
[2019-03-12] MEDS: predniSONE 20 MG TAB PO SCH (08:57)
[2019-03-12] MEDS: DOXYCYCLINE 100 MG CAP PO SCH ×2 (08:57→20:41)
[2019-03-12] MEDS: CLOPIDOGREL 75 MG TABLET PO SCH (08:57)
[2019-03-12] MEDS: ASPIRIN 81 MG CHEWABLE TABLET PO SCH (08:57)
[2019-03-12] MEDS: METOPROLOL TAR 25 MG TAB PO SCH ×2 (08:58→20:41)
[2019-03-12] MEDS: FUROSEMIDE 40 MG/4 ML VIAL IV SCH (08:58)
[2019-03-12] MEDS: JUVEN PACKET PO SCH ×2 (08:58→21:00)
[2019-03-12] MEDS: ENSURE ENLIVE 237 ML CAN PO SCH ×2 (08:59→21:00)
[2019-03-12] MEDS: HEPARIN 5000 UNIT/ML 1 ML VIAL SQ SCH ×2 (08:59→20:42)
[2019-03-12] MEDS: NICOTINE 14 MG/PAT TD SCH (08:59)
[2019-03-12] MEDS: PROMOD 30 ML DOSE PO SCH ×2 (09:00→21:00)
--- NOTE | 2019-03-12 11:59 | P.PN ---
Subjective Date of Service: 03/12/19 Chief Complaint: Resp distress No changes still complains of dyspnea on mild exertion all current of BiPAP still has a cough Review of Systems General: Weakness, Malaise Respiratory: Cough, Shortness of Breath Physical Examination - Vital Signs Temperature: 97.9 F Blood Pressure: 109/66 Pulse: 80 Respirations: 20 Pulse Ox (%): 91 - Physical Exam General: Moderate distress Neck: Supple Respiratory: Crackles/rales, Expiratory wheezes Cardiovascular: No edema, Regular rate/rhythm - Studies Laboratory Data (last 24 hrs) 03/12/19 05:36: Sodium 145, Potassium 4.1, BUN 55 H, Creatinine 1.88 H, Glucose 90, Total Bilirubin 0.4, AST 17, ALT 23, Alkaline Phosphatase 82 03/12/19 05:36: WBC 9.7 D, Hgb 12.6 L, Hct 37.6 L, Plt Count 221 Assessment & Plan - Problems (Diagnosis) (1) Chronic respiratory failure Current Visit: Yes Status: Acute Plan: Drip patient has progressive terminal COPD chest x-ray shows interstitial changes no response to diuretics steroids or bronchodilator therapy patient is intolerant to BiPAP will Dc BiPAP discuss with Dr. Moya hospice care reduce prednisone to 10 mg twice a day and then 10 mg daily continue with Dalresp and bronchodilators reduce Lasix to 40 mg daily Qualifiers: Respiratory failure complication: unspecified whether with hypoxia or hypercapnia Qualified Code(s): J96.10 - Chronic respiratory failure, unspecified whether with hypoxia or hypercapnia
--- NOTE | 2019-03-12 12:57 | P.PN ---
Subjective Date of Service: 03/12/19 Chief Complaint: Resp distress Patient seen and examined at bedside. family at bedside. Chart reviewed and case discussed with nursing staff. Overnight, episode of SVT. Continues to have shortness of breath today, with increased work of breathing, Review of Systems 10-point ROS is otherwise unremarkable Physical Examination - Vital Signs Temperature: 97.9 F Blood Pressure: 109/66 Pulse: 80 Respirations: 20 Pulse Ox (%): 91 - Physical Exam General: Alert, Oriented x3, Cachectic, Moderate distress HEENT: Atraumatic, PERRLA, EOMI Neck: Supple, JVD not distended Respiratory: Diminished, Dull, Crackles/rales Cardiovascular: Regular rate/rhythm, Normal S1 S2 Gastrointestinal: Normal bowel sounds, No tenderness Musculoskeletal: No tenderness Integumentary: No rashes Neurological: Normal speech, Normal tone, Normal affect Lymphatics: No axilla or inguinal lymphadenopathy - Studies Laboratory Data (last 24 hrs) 03/12/19 05:36: Sodium 145, Potassium 4.1, BUN 55 H, Creatinine 1.88 H, Glucose 90, Total Bilirubin 0.4, AST 17, ALT 23, Alkaline Phosphatase 82 03/12/19 05:36: WBC 9.7 D, Hgb 12.6 L, Hct 37.6 L, Plt Count 221 Assessment And Plan - Current Problems (Diagnosis) (1) Acute and chronic respiratory failure Current Visit: Yes Status: Acute Plan: Patient with acute dyspnea/shortness of breath on chronic respiratory failure. This could be secondary to infectious causes versus worsening of COPD versus IV fluids/CHF -usually uses 4 L of oxygen at home -pulmonology consulted, recommendations appreciated -CT thorax reviewed. With evidence of pleural effusions bilaterally along with very prominent COPD pattern. Interstitial thickening is seen throughout the lung lazo most pronounced in each base. This pattern is much more pronounced than seen in October 2017. Findings may reflect prominent interstitial edema or possibly interstitial infiltrate. Progressive fibrosis is possible. -BiPAP as needed, wean as tolerated. -will continue antibiotics, Lasix, breathing treatments, steroids Qualifiers: Respiratory failure complication: hypoxia Qualified Code(s): J96.21 - Acute and chronic respiratory failure with hypoxia (2) Atrial fibrillation Current Visit: Yes Status: Chronic Plan: Currently in normal sinus rhythm -will continue beta-debra and anticoagulation Qualifiers: Atrial fibrillation type: paroxysmal Qualified Code(s): I48.0 - Paroxysmal atrial fibrillation (3) History of prostate cancer Current Visit: Yes Status: Acute (4) History of testicular cancer Current Visit: Yes Status: Acute (5) Coronary artery disease Current Visit: No Status: Chronic Qualifiers: Coronary Disease-Associated Artery/Lesion type: [place] artery [place] vs. transplanted heart: [place] heart Associated angina: without angina Qualified Code(s): I25.10 - Atherosclerotic heart disease of [place] coronary artery without angina pectoris (6) Congestive heart failure Current Visit: No Status: Chronic Plan: Patient with acute on chronic congestive heart failure, symptomatic. -Continue diuresis with IV Lasix at this time. Qualifiers: Heart failure type: diastolic Heart failure chronicity: acute on chronic Qualified Code(s): I50.33 - Acute on chronic diastolic (congestive) heart failure (7) History of aortic valve replacement with bioprosthetic valve Current Visit: Yes Status: Acute (8) Subdural hematoma Current Visit: No Status: Chronic Plan: Will get PT/OT eval, ordered. - Will evaluate for returning to rehab once medically stable. 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 -continue monitoring on tele -cardiology consulted, recommendations appreciated - Plan Disposition: Patient unable to work with PT at this time. Rehab consult cancelled. Patient with end stage COPD, not improving with interventions at this time. Will discuss goals of care discussion/options and possible hospice with patient and family.
[2019-03-12] MEDS: ALBUTEROL 2.5 MG/3 ML NEB SOL NEB PRN (14:20)
[2019-03-12] MEDS: predniSONE 10 MG TAB PO SCH (20:40)
[2019-03-12] MEDS: MIRTAZAPINE 15 MG TAB PO SCH (20:40)
[2019-03-13] MEDS: IPRATROPIUM BROM 0.5MG/2.5ML NEB SCH ×4 (02:10→19:50)
[2019-03-13 06:15] LABS: Absolute Lymphocytes (CBC) 0.3 K/uL (0.7-4.9); Basophils % 0.3 % (0-1.3); Hematocrit 35.5 % (39.6-49.0); Lymphocytes % 3.1 % (15.3-44.8); MPV 7.8 fL (7.6-11.3); RBC Red Blood Cell Count 3.88 M/uL (4.33-5.43)
[2019-03-13 06:44] LABS: Bilirubin Total 0.4 mg/dL (0.2-1.0); Protein, Total 4.4 g/dL (6.4-8.2)
[2019-03-13] MEDS: ARFORMOTEROL TARTRATE 15 MCG/2 ML VIAL.NEB NEB SCH ×2 (08:10→19:50)
[2019-03-13] MEDS: NICOTINE 14 MG/PAT TD SCH (08:52)
[2019-03-13] MEDS: CEFUROXIME 250 MG TAB PO SCH ×2 (08:52→21:03)
[2019-03-13] MEDS: ROFLUMILAST 500 MCG TABLET PO SCH (08:52)
[2019-03-13] MEDS: DOXYCYCLINE 100 MG CAP PO SCH ×2 (08:53→21:03)
[2019-03-13] MEDS: TAMSULOSIN 0.4 MG SR CAP PO SCH ×2 (08:53→21:03)
[2019-03-13] MEDS: ASPIRIN 81 MG CHEWABLE TABLET PO SCH (08:53)
[2019-03-13] MEDS: HEPARIN 5000 UNIT/ML 1 ML VIAL SQ SCH ×2 (08:53→21:03)
[2019-03-13] MEDS: predniSONE 10 MG TAB PO SCH ×2 (08:53→21:03)
[2019-03-13] MEDS: CLOPIDOGREL 75 MG TABLET PO SCH (08:53)
[2019-03-13] MEDS: METOPROLOL TAR 25 MG TAB PO SCH ×2 (08:54→21:04)
[2019-03-13] MEDS: FUROSEMIDE 40 MG TABLET PO SCH (08:54)
[2019-03-13] MEDS: ENSURE ENLIVE 237 ML CAN PO SCH ×2 (08:56→21:00)
[2019-03-13] MEDS: PROMOD 30 ML DOSE PO SCH ×2 (08:56→21:05)
[2019-03-13] MEDS: JUVEN PACKET PO SCH ×2 (08:56→21:00)
[2019-03-13] MEDS: FINASTERIDE 5 MG TAB PO SCH (09:00)
--- NOTE | 2019-03-13 14:54 | P.PN ---
Subjective Date of Service: 03/13/19 Chief Complaint: Resp distress Subjective: No new changes Patient seen and examined at bedside. family at bedside. Chart reviewed and case discussed with nursing staff. No acute events noted overnight. Continues to have shortness of breath today, with increased work of breathing, Review of Systems 10-point ROS is otherwise unremarkable Physical Examination - Vital Signs Temperature: 97.5 F Blood Pressure: 100/58 Pulse: 80 Respirations: 18 Pulse Ox (%): 96 - Physical Exam General: Alert, Cachectic, Mild distress, Other (Elderly, ill appearing) HEENT: Atraumatic, PERRLA, EOMI Neck: Supple, JVD not distended Respiratory: Diminished, Crackles/rales Cardiovascular: Regular rate/rhythm, Normal S1 S2 Gastrointestinal: Normal bowel sounds, No tenderness Musculoskeletal: No tenderness Integumentary: No rashes Neurological: Normal speech, Normal tone, Normal affect Lymphatics: No axilla or inguinal lymphadenopathy - Studies Laboratory Data (last 24 hrs) 03/13/19 05:59: Sodium 142, Potassium 4.0, BUN 58 H, Creatinine 1.88 H, Glucose 86, Total Bilirubin 0.4, AST 19, ALT 25, Alkaline Phosphatase 83 03/13/19 05:59: WBC 10.0, Hgb 12.0 L, Hct 35.5 L, Plt Count 207 Assessment And Plan - Current Problems (Diagnosis) (1) Acute and chronic respiratory failure Current Visit: Yes Status: Acute Plan: Patient with acute dyspnea/shortness of breath on chronic respiratory failure. It seems that Mr. lockwood that is not really improves. It may be patient's new baseline due to end-stage COPD This could be secondary to infectious causes versus worsening of COPD versus IV fluids/CHF -usually uses 4 L of oxygen at home -pulmonology consulted, recommendations appreciated -CT thorax reviewed. With evidence of pleural effusions bilaterally along with very prominent COPD pattern. Interstitial thickening is seen throughout the lung lazo most pronounced in each base. This pattern is much more pronounced than seen in October 2017. Findings may reflect prominent interstitial edema or possibly interstitial infiltrate. Progressive fibrosis is possible. -BiPAP as needed, wean as tolerated. -will continue antibiotics, Lasix, breathing treatments, steroids Qualifiers: Respiratory failure complication: hypoxia Qualified Code(s): J96.21 - Acute and chronic respiratory failure with hypoxia (2) Atrial fibrillation Current Visit: Yes Status: Chronic Plan: Currently in normal sinus rhythm -will continue beta-debra and anticoagulation Qualifiers: Atrial fibrillation type: paroxysmal Qualified Code(s): I48.0 - Paroxysmal atrial fibrillation (3) History of prostate cancer Current Visit: Yes Status: Acute (4) History of testicular cancer Current Visit: Yes Status: Acute (5) Coronary artery disease Current Visit: No Status: Chronic Qualifiers: Coronary Disease-Associated Artery/Lesion type: [place] artery [place] vs. transplanted heart: [place] heart Associated angina: without angina Qualified Code(s): I25.10 - Atherosclerotic heart disease of [place] coronary artery without angina pectoris (6) Congestive heart failure Current Visit: No Status: Chronic Plan: Patient with acute on chronic congestive heart failure, symptomatic. -Continue diuresis with IV Lasix at this time. Qualifiers: Heart failure type: diastolic Heart failure chronicity: acute on chronic Qualified Code(s): I50.33 - Acute on chronic diastolic (congestive) heart failure (7) History of aortic valve replacement with bioprosthetic valve Current Visit: Yes Status: Acute (8) Subdural hematoma Current Visit: No Status: Chronic Plan: Will get PT/OT eval, ordered. - Will evaluate for returning to rehab once medically stable. 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 -continue monitoring on tele -cardiology consulted, recommendations appreciated - Plan Disposition: Patient unable to work with PT at this time. Rehab consult cancelled. Patient with end stage COPD, not improving with interventions at this time. Discussed with and son regarding hospice at this time. states that she will discuss with the rest of the family and make a further decision. Social work consulted for further hospice help. A [facility] hospice rep contacted and will discuss with family once they are ready.
[2019-03-13] MEDS: ALBUTEROL 2.5 MG/3 ML NEB SOL NEB PRN (15:15)
[2019-03-13] MEDS: MIRTAZAPINE 15 MG TAB PO SCH (21:03)
[2019-03-14] MEDS: IPRATROPIUM BROM 0.5MG/2.5ML NEB SCH ×4 (01:50→20:00)
[2019-03-14] MEDS: ARFORMOTEROL TARTRATE 15 MCG/2 ML VIAL.NEB NEB SCH ×2 (08:09→20:00)
[2019-03-14] MEDS: CEFUROXIME 250 MG TAB PO SCH (09:00)
[2019-03-14] MEDS: FUROSEMIDE 40 MG TABLET PO SCH (09:00)
[2019-03-14] MEDS: DOXYCYCLINE 100 MG CAP PO SCH (09:00)
[2019-03-14] MEDS ORDERED: MORPHINE SULF 10 MG/5 ML OSYR PO PRN (09:27)
--- NOTE | 2019-03-14 09:33 | P.PN ---
Subjective Date of Service: 03/14/19 Chief Complaint: Resp distress No new change she is not doing well still has shortness of breath on minimal exertion anxious not sleeping well Review of Systems General: Weakness Respiratory: Shortness of Breath Physical Examination - Vital Signs Temperature: 98 F Blood Pressure: 115/54 Pulse: 83 Respirations: 16 Pulse Ox (%): 92 - Physical Exam General: Alert, Moderate distress Respiratory: Diminished, Expiratory wheezes Cardiovascular: No edema, Normal S1 S2 Assessment & Plan - Problems (Diagnosis) (1) Chronic respiratory failure Current Visit: Yes Status: Acute Plan: Patient has terminal COPD with some interstitial changes no change with the diuretics were maximum bronchodilator therapy he has been referred to hospice care I have also started him on low-dose morphine and Ativan for anxiety and relief of dyspnea the reduce dose of Lasix and fluid restriction Dc antibiotics per overall prognosis is very poor social work console for sniff placement discussed with patient's son and his Qualifiers: Respiratory failure complication: unspecified whether with hypoxia or hypercapnia Qualified Code(s): J96.10 - Chronic respiratory failure, unspecified whether with hypoxia or hypercapnia
[2019-03-14] MEDS: JUVEN PACKET PO SCH ×2 (10:44→20:44)
[2019-03-14] MEDS: PROMOD 30 ML DOSE PO SCH ×2 (10:44→20:44)
[2019-03-14] MEDS: ENSURE ENLIVE 237 ML CAN PO SCH ×3 (10:44→20:47)
[2019-03-14] MEDS: HEPARIN 5000 UNIT/ML 1 ML VIAL SQ SCH ×2 (10:45→20:43)
[2019-03-14] MEDS: NICOTINE 14 MG/PAT TD SCH (10:45)
[2019-03-14] MEDS: ROFLUMILAST 500 MCG TABLET PO SCH (10:46)
[2019-03-14] MEDS: TAMSULOSIN 0.4 MG SR CAP PO SCH ×2 (10:46→20:43)
[2019-03-14] MEDS: METOPROLOL TAR 25 MG TAB PO SCH ×2 (10:47→20:43)
[2019-03-14] MEDS: ASPIRIN 81 MG CHEWABLE TABLET PO SCH (10:47)
[2019-03-14] MEDS: CLOPIDOGREL 75 MG TABLET PO SCH (10:47)
[2019-03-14] MEDS: predniSONE 10 MG TAB PO SCH ×2 (10:47→20:43)
[2019-03-14] MEDS: FINASTERIDE 5 MG TAB PO SCH (10:50)
--- NOTE | 2019-03-14 11:41 | P.PN ---
Subjective Date of Service: 03/14/19 Chief Complaint: Resp distress Subjective: No new changes Patient seen and examined at bedside. family at bedside. Chart reviewed and case discussed with nursing staff. No acute events noted overnight. Continues to have shortness of breath today, with increased work of breathing, Review of Systems 10-point ROS is otherwise unremarkable Physical Examination - Vital Signs Temperature: 98 F Blood Pressure: 115/54 Pulse: 83 Respirations: 16 Pulse Ox (%): 92 - Physical Exam General: Alert, Oriented x3, Mild distress, Moderate distress HEENT: Atraumatic, PERRLA, EOMI Neck: Supple, JVD not distended Respiratory: Dull, Crackles/rales Cardiovascular: Regular rate/rhythm, Normal S1 S2 Gastrointestinal: Normal bowel sounds, No tenderness Musculoskeletal: No tenderness Integumentary: No rashes Neurological: Normal speech, Normal tone, Normal affect Lymphatics: No axilla or inguinal lymphadenopathy Assessment And Plan - Current Problems (Diagnosis) (1) Acute and chronic respiratory failure Current Visit: Yes Status: Acute Plan: Patient with acute dyspnea/shortness of breath on chronic respiratory failure. It seems that Mr. lockwood that is not really improves. It may be patient's new baseline due to end-stage COPD This could be secondary to infectious causes versus worsening of COPD versus IV fluids/CHF -usually uses 4 L of oxygen at home -pulmonology consulted, recommendations appreciated -CT thorax reviewed. With evidence of pleural effusions bilaterally along with very prominent COPD pattern. Interstitial thickening is seen throughout the lung lazo most pronounced in each base. This pattern is much more pronounced than seen in October 2017. Findings may reflect prominent interstitial edema or possibly interstitial infiltrate. Progressive fibrosis is possible. -BiPAP as needed, wean as tolerated. -will continue antibiotics, Lasix, breathing treatments, steroids Qualifiers: Respiratory failure complication: hypoxia Qualified Code(s): J96.21 - Acute and chronic respiratory failure with hypoxia (2) Atrial fibrillation Current Visit: Yes Status: Chronic Plan: Currently in normal sinus rhythm -will continue beta-debra and anticoagulation Qualifiers: Atrial fibrillation type: paroxysmal Qualified Code(s): I48.0 - Paroxysmal atrial fibrillation (3) History of prostate cancer Current Visit: Yes Status: Acute (4) History of testicular cancer Current Visit: Yes Status: Acute (5) Coronary artery disease Current Visit: No Status: Chronic Qualifiers: Coronary Disease-Associated Artery/Lesion type: [place] artery [place] vs. transplanted heart: [place] heart Associated angina: without angina Qualified Code(s): I25.10 - Atherosclerotic heart disease of [place] coronary artery without angina pectoris (6) Congestive heart failure Current Visit: No Status: Chronic Plan: Patient with acute on chronic congestive heart failure, symptomatic. -Continue diuresis with IV Lasix at this time. Qualifiers: Heart failure type: diastolic Heart failure chronicity: acute on chronic Qualified Code(s): I50.33 - Acute on chronic diastolic (congestive) heart failure (7) History of aortic valve replacement with bioprosthetic valve Current Visit: Yes Status: Acute (8) Subdural hematoma Current Visit: No Status: Chronic Plan: Will get PT/OT eval, ordered. - Will evaluate for returning to rehab once medically stable. 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 -continue monitoring on tele -cardiology consulted, recommendations appreciated - Plan Disposition: Overall, poor prognosis. Patient unable to work with PT at this time. Rehab consult cancelled. Patient with end stage COPD, not improving with interventions at this time. It seems that family still continues to decide if they would like to do hospice and if they would like to do this at home versus a senior care facility. Social work has already been consulted and are working on it. Family did discuss hospice with [facility] hospice rep. Will continue to work on this.
[2019-03-14] MEDS: LORAZEPAM 0.5 MG TABLET PO SCH ×2 (14:51→20:43)
[2019-03-14] MEDS: MIRTAZAPINE 15 MG TAB PO SCH (20:43)
[2019-03-15] MEDS: IPRATROPIUM BROM 0.5MG/2.5ML NEB SCH ×4 (02:20→19:30)
[2019-03-15] MEDS: ARFORMOTEROL TARTRATE 15 MCG/2 ML VIAL.NEB NEB SCH ×2 (06:10→19:30)
[2019-03-15] MEDS: ROFLUMILAST 500 MCG TABLET PO SCH (09:00)
[2019-03-15] MEDS: JUVEN PACKET PO SCH ×2 (09:00→20:34)
[2019-03-15] MEDS: NICOTINE 14 MG/PAT TD SCH (09:57)
[2019-03-15] MEDS: FUROSEMIDE 20 MG TABLET PO SCH (09:57)
[2019-03-15] MEDS: predniSONE 10 MG TAB PO SCH ×2 (09:58→20:33)
[2019-03-15] MEDS: FINASTERIDE 5 MG TAB PO SCH (09:58)
[2019-03-15] MEDS: LORAZEPAM 0.5 MG TABLET PO SCH ×2 (09:58→20:33)
[2019-03-15] MEDS: HEPARIN 5000 UNIT/ML 1 ML VIAL SQ SCH ×2 (09:58→20:33)
[2019-03-15] MEDS: ASPIRIN 81 MG CHEWABLE TABLET PO SCH (09:58)
[2019-03-15] MEDS: CLOPIDOGREL 75 MG TABLET PO SCH (09:59)
[2019-03-15] MEDS: TAMSULOSIN 0.4 MG SR CAP PO SCH ×2 (09:59→20:33)
[2019-03-15] MEDS: METOPROLOL TAR 25 MG TAB PO SCH ×2 (09:59→20:33)
[2019-03-15] MEDS: ENSURE ENLIVE 237 ML CAN PO SCH ×2 (10:00→20:34)
[2019-03-15] MEDS: PROMOD 30 ML DOSE PO SCH ×2 (10:00→20:34)
[2019-03-15] MEDS ORDERED: MORPHINE SULF 10 MG/5 ML OSYR PO PRN (10:35)
--- NOTE | 2019-03-15 10:37 | P.PN ---
Subjective Date of Service: 03/15/19 Chief Complaint: COPD Patient is doing somewhat better today he is less anxious Review of Systems General: Weakness Respiratory: Shortness of Breath Physical Examination - Vital Signs Temperature: 97 F Blood Pressure: 128/85 Pulse: 80 Respirations: 22 Pulse Ox (%): 88 - Physical Exam General: Alert, Oriented x3, Moderate distress Respiratory: Expiratory wheezes Cardiovascular: No edema, Normal pulses Assessment & Plan - Problems (Diagnosis) (1) Chronic respiratory failure Current Visit: Yes Status: Acute Plan: Patient has terminal COPD continue with comfort care at low doses of morphine and Ativan continue with low-dose Lasix he probably can be discharged home with hospice care with low-dose narcotics and sedatives Qualifiers: Respiratory failure complication: unspecified whether with hypoxia or hypercapnia Qualified Code(s): J96.10 - Chronic respiratory failure, unspecified whether with hypoxia or hypercapnia
--- NOTE | 2019-03-15 10:59 | P.PN ---
Subjective Date of Service: 03/15/19 Chief Complaint: COPD Subjective: No new changes Patient seen and examined at bedside. family at bedside. Chart reviewed and case discussed with nursing staff. No acute events noted overnight. Continues to have shortness of breath today, with increased work of breathing, Review of Systems 10-point ROS is otherwise unremarkable Physical Examination - Vital Signs Temperature: 97 F Blood Pressure: 128/85 Pulse: 80 Respirations: 22 Pulse Ox (%): 88 - Physical Exam General: Alert, Oriented x3, Mild distress HEENT: Atraumatic, PERRLA, EOMI Neck: Supple, JVD not distended Respiratory: Diminished, Dull, Crackles/rales Cardiovascular: Regular rate/rhythm, Normal S1 S2 Gastrointestinal: Normal bowel sounds, No tenderness Musculoskeletal: No tenderness Integumentary: No rashes Neurological: Normal speech, Normal tone, Normal affect Lymphatics: No axilla or inguinal lymphadenopathy Assessment And Plan - Current Problems (Diagnosis) (1) Acute and chronic respiratory failure Current Visit: Yes Status: Acute Plan: Patient with acute dyspnea/shortness of breath on chronic respiratory failure. It seems that Mr. lockwood that is not really improves. It may be patient's new baseline due to end-stage COPD This could be secondary to infectious causes versus worsening of COPD versus IV fluids/CHF -usually uses 4 L of oxygen at home -pulmonology consulted, recommendations appreciated -CT thorax reviewed. With evidence of pleural effusions bilaterally along with very prominent COPD pattern. Interstitial thickening is seen throughout the lung lazo most pronounced in each base. This pattern is much more pronounced than seen in October 2017. Findings may reflect prominent interstitial edema or possibly interstitial infiltrate. Progressive fibrosis is possible. -BiPAP as needed, wean as tolerated. -will continue antibiotics, Lasix, breathing treatments, steroids Qualifiers: Respiratory failure complication: hypoxia Qualified Code(s): J96.21 - Acute and chronic respiratory failure with hypoxia (2) Atrial fibrillation Current Visit: Yes Status: Chronic Plan: Currently in normal sinus rhythm -will continue beta-debra and anticoagulation Qualifiers: Atrial fibrillation type: paroxysmal Qualified Code(s): I48.0 - Paroxysmal atrial fibrillation (3) History of prostate cancer Current Visit: Yes Status: Acute (4) History of testicular cancer Current Visit: Yes Status: Acute (5) Coronary artery disease Current Visit: No Status: Chronic Qualifiers: Coronary Disease-Associated Artery/Lesion type: [place] artery [place] vs. transplanted heart: [place] heart Associated angina: without angina Qualified Code(s): I25.10 - Atherosclerotic heart disease of [place] coronary artery without angina pectoris (6) Congestive heart failure Current Visit: No Status: Chronic Plan: Patient with acute on chronic congestive heart failure, symptomatic. -Continue diuresis with IV Lasix at this time. Qualifiers: Heart failure type: diastolic Heart failure chronicity: acute on chronic Qualified Code(s): I50.33 - Acute on chronic diastolic (congestive) heart failure (7) History of aortic valve replacement with bioprosthetic valve Current Visit: Yes Status: Acute (8) Subdural hematoma Current Visit: No Status: Chronic Plan: Will get PT/OT eval, ordered. - Will evaluate for returning to rehab once medically stable. 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 -continue monitoring on tele -cardiology consulted, recommendations appreciated - Plan Disposition: Overall, poor prognosis. Patient unable to work with PT at this time. Rehab consult cancelled. Patient with end stage COPD, not improving with interventions at this time. It seems that family still continues to decide if they would like to do hospice and if they would like to do this at home versus a [facility] facility. Social work has already been consulted and are working on it. Family did discuss hospice with [facility] hospice rep. Will continue to work on this.
[2019-03-15] MEDS: MIRTAZAPINE 15 MG TAB PO SCH (20:33)
[2019-03-16] MEDS: ALBUTEROL 2.5 MG/3 ML NEB SOL NEB PRN (01:20)
[2019-03-16] MEDS: IPRATROPIUM BROM 0.5MG/2.5ML NEB SCH ×4 (01:20→19:40)
[2019-03-16] MEDS: ARFORMOTEROL TARTRATE 15 MCG/2 ML VIAL.NEB NEB SCH ×2 (08:10→19:40)
[2019-03-16] MEDS: FUROSEMIDE 20 MG TABLET PO SCH (08:58)
[2019-03-16] MEDS: ASPIRIN 81 MG CHEWABLE TABLET PO SCH (08:59)
[2019-03-16] MEDS: FINASTERIDE 5 MG TAB PO SCH (08:59)
[2019-03-16] MEDS: METOPROLOL TAR 25 MG TAB PO SCH ×2 (08:59→21:56)
[2019-03-16] MEDS: TAMSULOSIN 0.4 MG SR CAP PO SCH ×2 (08:59→21:56)
[2019-03-16] MEDS: predniSONE 10 MG TAB PO SCH ×2 (08:59→21:56)
[2019-03-16] MEDS: CLOPIDOGREL 75 MG TABLET PO SCH (08:59)
[2019-03-16] MEDS: JUVEN PACKET PO SCH ×2 (09:00→21:00)
[2019-03-16] MEDS: LORAZEPAM 0.5 MG TABLET PO SCH ×2 (09:00→21:56)
[2019-03-16] MEDS: PROMOD 30 ML DOSE PO SCH ×2 (09:00→21:00)
[2019-03-16] MEDS: ENSURE ENLIVE 237 ML CAN PO SCH ×2 (09:00→21:00)
[2019-03-16] MEDS: ROFLUMILAST 500 MCG TABLET PO SCH (09:00)
[2019-03-16] MEDS: NICOTINE 14 MG/PAT TD SCH (09:01)
[2019-03-16] MEDS: HEPARIN 5000 UNIT/ML 1 ML VIAL SQ SCH ×2 (09:03→21:56)
--- NOTE | 2019-03-16 11:31 | P.PN ---
Subjective Date of Service: 03/16/19 Chief Complaint: COPD Subjective: No new changes Patient seen and examined at bedside. family at bedside. Chart reviewed and case discussed with nursing staff. No acute events noted overnight. Continues to have shortness of breath today, with increased work of breathing, Continues to have increased oxygen requirements Review of Systems 10-point ROS is otherwise unremarkable Physical Examination - Vital Signs Temperature: 97.3 F Blood Pressure: 124/68 Pulse: 82 Respirations: 17 Pulse Ox (%): 95 - Physical Exam General: Alert, In no apparent distress, Cachectic, Other (Elderly, ill appearing) HEENT: Atraumatic, PERRLA, EOMI Neck: Supple, JVD not distended Respiratory: Diminished, Dull, Crackles/rales Cardiovascular: Regular rate/rhythm, Normal S1 S2 Gastrointestinal: Normal bowel sounds, No tenderness Musculoskeletal: No tenderness Integumentary: No rashes Neurological: Normal speech, Normal tone, Normal affect Lymphatics: No axilla or inguinal lymphadenopathy Assessment And Plan - Current Problems (Diagnosis) (1) Acute and chronic respiratory failure Current Visit: Yes Status: Acute Plan: Patient with acute dyspnea/shortness of breath on chronic respiratory failure. It seems that Mr. lockwood that is not really improves. It may be patient's new baseline due to end-stage COPD This could be secondary to infectious causes versus worsening of COPD versus IV fluids/CHF -usually uses 4 L of oxygen at home -pulmonology consulted, recommendations appreciated -CT thorax reviewed. With evidence of pleural effusions bilaterally along with very prominent COPD pattern. Interstitial thickening is seen throughout the lung lazo most pronounced in each base. This pattern is much more pronounced than seen in October 2017. Findings may reflect prominent interstitial edema or possibly interstitial infiltrate. Progressive fibrosis is possible. -BiPAP as needed, wean as tolerated. -will continue antibiotics, Lasix, breathing treatments, steroids Qualifiers: Respiratory failure complication: hypoxia Qualified Code(s): J96.21 - Acute and chronic respiratory failure with hypoxia (2) Atrial fibrillation Current Visit: Yes Status: Chronic Plan: Currently in normal sinus rhythm -will continue beta-debra and anticoagulation Qualifiers: Atrial fibrillation type: paroxysmal Qualified Code(s): I48.0 - Paroxysmal atrial fibrillation (3) History of prostate cancer Current Visit: Yes Status: Acute (4) History of testicular cancer Current Visit: Yes Status: Acute (5) Coronary artery disease Current Visit: No Status: Chronic Qualifiers: Coronary Disease-Associated Artery/Lesion type: [place] artery [place] vs. transplanted heart: [place] heart Associated angina: without angina Qualified Code(s): I25.10 - Atherosclerotic heart disease of [place] coronary artery without angina pectoris (6) Congestive heart failure Current Visit: No Status: Chronic Plan: Patient with acute on chronic congestive heart failure, symptomatic. -Continue diuresis with IV Lasix at this time. Qualifiers: Heart failure type: diastolic Heart failure chronicity: acute on chronic Qualified Code(s): I50.33 - Acute on chronic diastolic (congestive) heart failure (7) History of aortic valve replacement with bioprosthetic valve Current Visit: Yes Status: Acute (8) Subdural hematoma Current Visit: No Status: Chronic Plan: Will get PT/OT eval, ordered. - Will evaluate for returning to rehab once medically stable. 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 -continue monitoring on tele -cardiology consulted, recommendations appreciated - Plan Disposition: Overall, poor prognosis. Patient unable to work with PT at this time. Rehab consult was cancelled. Patient with end stage COPD, not improving with interventions at this time. It seems that family still continues to decide if they would like to do hospice and if they would like to do this at home versus a halfway facility. Social work has already been consulted and are working on it. Family did discuss hospice with [facility] hospice rep and they have signed hospice paperwork but they are unsure if patient will go home versus halfway facility with hospice. Continue to attempt physical therapy, pending placement.
[2019-03-16] MEDS: MIRTAZAPINE 15 MG TAB PO SCH (22:24)
[2019-03-17] MEDS: ALBUTEROL 2.5 MG/3 ML NEB SOL NEB PRN (01:35)
[2019-03-17] MEDS: IPRATROPIUM BROM 0.5MG/2.5ML NEB SCH ×5 (01:35→19:25)
[2019-03-17] MEDS: ARFORMOTEROL TARTRATE 15 MCG/2 ML VIAL.NEB NEB SCH ×3 (06:25→19:25)
[2019-03-17] MEDS: PROMOD 30 ML DOSE PO SCH ×2 (09:00→21:00)
[2019-03-17] MEDS: ENSURE ENLIVE 237 ML CAN PO SCH ×2 (09:00→21:00)
[2019-03-17] MEDS: JUVEN PACKET PO SCH ×2 (09:00→21:00)
[2019-03-17] MEDS: HEPARIN 5000 UNIT/ML 1 ML VIAL SQ SCH ×2 (09:00→21:35)
[2019-03-17] MEDS: FINASTERIDE 5 MG TAB PO SCH (09:02)
[2019-03-17] MEDS: NICOTINE 14 MG/PAT TD SCH (09:02)
[2019-03-17] MEDS: METOPROLOL TAR 25 MG TAB PO SCH ×2 (09:03→21:31)
[2019-03-17] MEDS: ROFLUMILAST 500 MCG TABLET PO SCH (09:03)
[2019-03-17] MEDS: predniSONE 10 MG TAB PO SCH ×2 (09:03→21:31)
[2019-03-17] MEDS: LORAZEPAM 0.5 MG TABLET PO SCH ×2 (09:03→21:32)
[2019-03-17] MEDS: FUROSEMIDE 20 MG TABLET PO SCH (09:03)
[2019-03-17] MEDS: CLOPIDOGREL 75 MG TABLET PO SCH (09:03)
[2019-03-17] MEDS: TAMSULOSIN 0.4 MG SR CAP PO SCH ×2 (09:04→21:32)
[2019-03-17] MEDS: ASPIRIN 81 MG CHEWABLE TABLET PO SCH (09:04)
--- NOTE | 2019-03-17 13:01 | P.PN ---
Subjective Date of Service: 03/17/19 Chief Complaint: COPD Subjective: No new changes, No C/O voiced Patient seen and examined at bedside. family at bedside. Chart reviewed and case discussed with nursing staff. No acute events noted overnight. Continues to have shortness of breath today, with increased work of breathing, Continues to have increased oxygen requirements Review of Systems 10-point ROS is otherwise unremarkable Physical Examination - Vital Signs Temperature: 97.6 F Blood Pressure: 120/62 Pulse: 80 Respirations: 24 Pulse Ox (%): 93 - Physical Exam General: Cachectic, Mild distress HEENT: Atraumatic, PERRLA, EOMI Neck: Supple, JVD not distended Respiratory: Diminished, Dull, Crackles/rales Cardiovascular: Regular rate/rhythm, Normal S1 S2 Gastrointestinal: Normal bowel sounds, No tenderness Musculoskeletal: No tenderness Integumentary: No rashes Neurological: Normal speech, Normal tone, Normal affect Lymphatics: No axilla or inguinal lymphadenopathy Assessment And Plan - Current Problems (Diagnosis) (1) Acute and chronic respiratory failure Current Visit: Yes Status: Acute Plan: Patient with acute dyspnea/shortness of breath on chronic respiratory failure. It seems that Mr. lockwood that is not really improves. It may be patient's new baseline due to end-stage COPD This could be secondary to infectious causes versus worsening of COPD versus IV fluids/CHF -usually uses 4 L of oxygen at home -pulmonology consulted, recommendations appreciated -CT thorax reviewed. With evidence of pleural effusions bilaterally along with very prominent COPD pattern. Interstitial thickening is seen throughout the lung lazo most pronounced in each base. This pattern is much more pronounced than seen in October 2017. Findings may reflect prominent interstitial edema or possibly interstitial infiltrate. Progressive fibrosis is possible. -BiPAP as needed, wean as tolerated. -will continue antibiotics, Lasix, breathing treatments, steroids Qualifiers: Respiratory failure complication: hypoxia Qualified Code(s): J96.21 - Acute and chronic respiratory failure with hypoxia (2) Atrial fibrillation Current Visit: Yes Status: Chronic Plan: Currently in normal sinus rhythm -will continue beta-debra and anticoagulation Qualifiers: Atrial fibrillation type: paroxysmal Qualified Code(s): I48.0 - Paroxysmal atrial fibrillation (3) History of prostate cancer Current Visit: Yes Status: Acute (4) History of testicular cancer Current Visit: Yes Status: Acute (5) Coronary artery disease Current Visit: No Status: Chronic Qualifiers: Coronary Disease-Associated Artery/Lesion type: [place] artery [place] vs. transplanted heart: [place] heart Associated angina: without angina Qualified Code(s): I25.10 - Atherosclerotic heart disease of [place] coronary artery without angina pectoris (6) Congestive heart failure Current Visit: No Status: Chronic Plan: Patient with acute on chronic congestive heart failure, symptomatic. -Continue diuresis with IV Lasix at this time. Qualifiers: Heart failure type: diastolic Heart failure chronicity: acute on chronic Qualified Code(s): I50.33 - Acute on chronic diastolic (congestive) heart failure (7) History of aortic valve replacement with bioprosthetic valve Current Visit: Yes Status: Acute (8) Subdural hematoma Current Visit: No Status: Chronic Plan: Will get PT/OT eval, ordered. - Will evaluate for returning to rehab once medically stable. 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 -continue monitoring on tele -cardiology consulted, recommendations appreciated - Plan Disposition: Overall, poor prognosis. Patient unable to work with PT at this time. Rehab consult was cancelled. Patient with end stage COPD, not improving with interventions at this time. It seems that family still continues to decide if they would like to do hospice and if they would like to do this at home versus a [facility] facility. Social work has already been consulted and are working on it. Family did discuss hospice with [facility] hospice rep and they have signed hospice paperwork but they are unsure if patient will go home versus [facility] facility with hospice. Continue to attempt physical therapy, pending placement. Hospice meeting at 4 pm today.
[2019-03-17] MEDS: MIRTAZAPINE 15 MG TAB PO SCH (21:32)
[2019-03-18] MEDS: IPRATROPIUM BROM 0.5MG/2.5ML NEB SCH ×5 (01:04→20:00)
[2019-03-18] MEDS: ARFORMOTEROL TARTRATE 15 MCG/2 ML VIAL.NEB NEB SCH ×3 (06:30→20:00)
[2019-03-18] MEDS: JUVEN PACKET PO SCH ×2 (09:00→21:00)
[2019-03-18] MEDS: ENSURE ENLIVE 237 ML CAN PO SCH ×2 (09:00→21:00)
[2019-03-18] MEDS: PROMOD 30 ML DOSE PO SCH ×2 (09:00→21:00)
[2019-03-18] MEDS: HEPARIN 5000 UNIT/ML 1 ML VIAL SQ SCH ×2 (09:00→21:01)
[2019-03-18] MEDS: predniSONE 10 MG TAB PO SCH ×2 (09:07→21:01)
[2019-03-18] MEDS: TAMSULOSIN 0.4 MG SR CAP PO SCH ×2 (09:07→21:01)
[2019-03-18] MEDS: ROFLUMILAST 500 MCG TABLET PO SCH (09:07)
[2019-03-18] MEDS: ASPIRIN 81 MG CHEWABLE TABLET PO SCH (09:07)
[2019-03-18] MEDS: LORAZEPAM 0.5 MG TABLET PO SCH ×2 (09:08→21:01)
[2019-03-18] MEDS: FINASTERIDE 5 MG TAB PO SCH (09:08)
[2019-03-18] MEDS: CLOPIDOGREL 75 MG TABLET PO SCH (09:08)
[2019-03-18] MEDS: NICOTINE 14 MG/PAT TD SCH (09:08)
[2019-03-18] MEDS: METOPROLOL TAR 25 MG TAB PO SCH ×2 (09:08→21:00)
[2019-03-18] MEDS: FUROSEMIDE 20 MG TABLET PO SCH (09:08)
--- NOTE | 2019-03-18 12:46 | P.PN ---
Subjective Date of Service: 03/18/19 Chief Complaint: COPD Subjective: No new changes, No C/O voiced Patient seen and examined at bedside. family at bedside. Chart reviewed and case discussed with nursing staff. No acute events noted overnight. Continues to have shortness of breath today, with increased work of breathing, Continues to have increased oxygen requirements Review of Systems 10-point ROS is otherwise unremarkable Physical Examination - Vital Signs Temperature: 97.2 F Blood Pressure: 112/65 Pulse: 80 Respirations: 21 Pulse Ox (%): 92 - Physical Exam General: Cachectic, Mild distress HEENT: Atraumatic, PERRLA, EOMI Neck: Supple, JVD not distended Respiratory: Diminished, Dull, Crackles/rales Cardiovascular: Regular rate/rhythm, Normal S1 S2 Gastrointestinal: Normal bowel sounds, No tenderness Musculoskeletal: No tenderness Integumentary: No rashes Neurological: Normal speech, Normal tone, Normal affect Lymphatics: No axilla or inguinal lymphadenopathy Assessment And Plan - Current Problems (Diagnosis) (1) Acute and chronic respiratory failure Current Visit: Yes Status: Acute Plan: Patient with acute dyspnea/shortness of breath on chronic respiratory failure. It seems that Mr. lockwood that is not really improves. It may be patient's new baseline due to end-stage COPD This could be secondary to infectious causes versus worsening of COPD versus IV fluids/CHF -usually uses 4 L of oxygen at home -pulmonology consulted, recommendations appreciated -CT thorax reviewed. With evidence of pleural effusions bilaterally along with very prominent COPD pattern. Interstitial thickening is seen throughout the lung lazo most pronounced in each base. This pattern is much more pronounced than seen in October 2017. Findings may reflect prominent interstitial edema or possibly interstitial infiltrate. Progressive fibrosis is possible. -BiPAP as needed, wean as tolerated. -will continue antibiotics, Lasix, breathing treatments, steroids Qualifiers: Respiratory failure complication: hypoxia Qualified Code(s): J96.21 - Acute and chronic respiratory failure with hypoxia (2) Atrial fibrillation Current Visit: Yes Status: Chronic Plan: Currently in normal sinus rhythm -will continue beta-debra and anticoagulation Qualifiers: Atrial fibrillation type: paroxysmal Qualified Code(s): I48.0 - Paroxysmal atrial fibrillation (3) History of prostate cancer Current Visit: Yes Status: Acute (4) History of testicular cancer Current Visit: Yes Status: Acute (5) Coronary artery disease Current Visit: No Status: Chronic Qualifiers: Coronary Disease-Associated Artery/Lesion type: crow artery [place] vs. transplanted heart: crow heart Associated angina: without angina Qualified Code(s): I25.10 - Atherosclerotic heart disease of crow coronary artery without angina pectoris (6) Congestive heart failure Current Visit: No Status: Chronic Plan: Patient with acute on chronic congestive heart failure, symptomatic. -Continue diuresis with IV Lasix at this time. Qualifiers: Heart failure type: diastolic Heart failure chronicity: acute on chronic Qualified Code(s): I50.33 - Acute on chronic diastolic (congestive) heart failure (7) History of aortic valve replacement with bioprosthetic valve Current Visit: Yes Status: Acute (8) Subdural hematoma Current Visit: No Status: Chronic Plan: Will get PT/OT eval, ordered. - Will evaluate for returning to rehab once medically stable. 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 -continue monitoring on tele -cardiology consulted, recommendations appreciated - Plan Disposition: Overall, poor prognosis. Patient unable to work with PT at this time. Rehab consult was cancelled. Patient with end stage COPD, not improving with interventions at this time. It seems that family still continues to decide if they would like to do hospice and if they would like to do this at home versus a [facility] facility. Social work has already been consulted and are working on it. Family did discuss hospice with [facility] hospice rep and they have signed hospice paperwork but they are unsure if patient will go home versus [facility] facility with hospice. Patient has chosen to take patient home with hospice. Equipment will be delivered later today and patient will be discharged home on hospice tomorrow morning.
[2019-03-18] MEDS: MIRTAZAPINE 15 MG TAB PO SCH (21:01)
[2019-03-19] MEDS: IPRATROPIUM BROM 0.5MG/2.5ML NEB SCH ×2 (02:00→07:40)
[2019-03-19 05:41] VITALS: BMI 14.9
[2019-03-19] MEDS: ARFORMOTEROL TARTRATE 15 MCG/2 ML VIAL.NEB NEB SCH (07:40)
[2019-03-19] MEDS: CLOPIDOGREL 75 MG TABLET PO SCH (08:25)
[2019-03-19] MEDS: FINASTERIDE 5 MG TAB PO SCH (08:25)
[2019-03-19] MEDS: METOPROLOL TAR 25 MG TAB PO SCH (08:25)
[2019-03-19] MEDS: ASPIRIN 81 MG CHEWABLE TABLET PO SCH (08:25)
[2019-03-19] MEDS: FUROSEMIDE 20 MG TABLET PO SCH (08:25)
[2019-03-19] MEDS: predniSONE 10 MG TAB PO SCH (08:25)
[2019-03-19] MEDS: TAMSULOSIN 0.4 MG SR CAP PO SCH (08:25)
[2019-03-19] MEDS: LORAZEPAM 0.5 MG TABLET PO SCH (08:25)
[2019-03-19] MEDS: ROFLUMILAST 500 MCG TABLET PO SCH (08:27)
[2019-03-19] MEDS: NICOTINE 14 MG/PAT TD SCH (08:28)
[2019-03-19] MEDS: JUVEN PACKET PO SCH (09:00)
[2019-03-19] MEDS: HEPARIN 5000 UNIT/ML 1 ML VIAL SQ SCH (09:00)
[2019-03-19] MEDS: ENSURE ENLIVE 237 ML CAN PO SCH (09:00)
[2019-03-19] MEDS: PROMOD 30 ML DOSE PO SCH (09:00)
[2019-03-19 09:21] VITALS: O2SAT 93
[2019-03-19 09:30] VITALS: BP 110/62; TEMP 97
--- NOTE | 2019-03-19 13:34 | P.DS ---
Admission Date: 03/09/19 Discharge Date: 03/19/19 Disposition: HOSPICE-HOME Discharge Condition: FAIR Reason for Admission: COPD Consultations: Pulmonology Cardiology - Problems (1) Acute and chronic respiratory failure Status: Acute Qualifiers: Respiratory failure complication: hypoxia Qualified Code(s): J96.21 - Acute and chronic respiratory failure with hypoxia (2) Atrial fibrillation Status: Chronic Qualifiers: Atrial fibrillation type: paroxysmal Qualified Code(s): I48.0 - Paroxysmal atrial fibrillation (3) History of prostate cancer Status: Acute (4) History of testicular cancer Status: Acute (5) Coronary artery disease Status: Chronic Qualifiers: Coronary Disease-Associated Artery/Lesion type: [place] artery [place] vs. transplanted heart: [place] heart Associated angina: without angina Qualified Code(s): I25.10 - Atherosclerotic heart disease of [place] coronary artery without angina pectoris (6) Congestive heart failure Status: Chronic Qualifiers: Heart failure type: diastolic Heart failure chronicity: acute on chronic Qualified Code(s): I50.33 - Acute on chronic diastolic (congestive) heart failure (7) History of aortic valve replacement with bioprosthetic valve Status: Acute (8) Subdural hematoma Status: Chronic (9) Hypertension Status: Chronic Qualifiers: Hypertension type: essential hypertension Qualified Code(s): I10 - Essential (primary) hypertension (10) Chronic kidney disease Status: Chronic Qualifiers: Chronic kidney disease stage: stage 3 (moderate) Qualified Code(s): N18.3 - Chronic kidney disease, stage 3 (moderate) (11) Dehydration Status: Acute (12) COPD (chronic obstructive pulmonary disease) Status: Chronic Qualifiers: COPD type: chronic bronchitis Chronic bronchitis type: simple Qualified Code(s): J41.0 - Simple chronic bronchitis (13) Hypotension Status: Resolved Qualifiers: Hypotension type: unspecified hypotension type Qualified Code(s): I95.9 - Hypotension, unspecified (14) SVT (supraventricular tachycardia) Status: Resolved Brief History of Present Illness: This is a 83-year-old man with a past medical history of atrial fibrillation, history of aortic prosthetic valve replacement, COPD and CHF admitted to inpatient rehab after hospitalization for recent subdural hematoma, from [facility]. The patient was noted to have rapid heart rate up to 170 along with hypotension in the rehab unit. Hospitalist service was consulted to assist with management of SVT. The patient was admitted through the ED on February 25, 2019 for similar reasons, had an echocardiogram performed which reported normal EF, hyperdynamic LVF and normal aortic valve orifice. It appears the SVT spontaneously resolved at that time. He did leave against medical advice at that time. He uses 3 L of oxygen by nasal cannula at baseline. At the time of my exam, he stated that he feels funny and unsure of breath. He denies any chest pain, dizziness. Hospital Course: He was transferred from inpatient rehab to the floor for SVT and shortness of breath. Cardiology was consulted for SVT. He converted to normal sinus. Pulmonology was consulted for acute on chronic respiratory failure. He was started on nebs, steroids, antibiotics and oxygen. Patient was provided with bi -pap as needed. Unfortunately, patient's symptoms did not improve with the interventions. Overall, poor prognosis. Patient unable to work with PT here. Patient with end stage COPD, not improving with interventions at this time. Hospice care was discussed with family for end stage COPD as he was not improving with the above interventions. Family along with patient decided that they would take patient home on hospice. Discharge was delayed due to the time it took family to make decisions and getting hospice set up. Vital Signs/Physical Exam: Temp Pulse Resp BP Pulse Ox 97.0 F 70 20 110/62 90 L 03/19/19 08:00 03/19/19 08:00 03/19/19 08:00 03/19/19 08:00 03/19/19 08:00 General: Alert, In no apparent distress, Cachectic HEENT: Atraumatic, PERRLA, EOMI Neck: Supple, JVD not distended Respiratory: Diminished, Dull, Crackles/rales Cardiovascular: Regular rate/rhythm, Normal S1 S2 Gastrointestinal: Normal bowel sounds, No tenderness Musculoskeletal: No tenderness Integumentary: No rashes Laboratory Data at Discharge: WBC 10.0 K/uL (4.3-10.9) 03/13/19 05:59 Hgb 12.0 g/dL (13.6-17.9) L 03/13/19 05:59 Hct 35.5 % (39.6-49.0) L 03/13/19 05:59 Plt Count 207 K/uL (152-406) 03/13/19 05:59 Sodium 142 mmol/L (136-145) 03/13/19 05:59 Potassium 4.0 mmol/L (3.5-5.1) 03/13/19 05:59 BUN 58 mg/dL (7-18) H 03/13/19 05:59 Creatinine 1.88 mg/dL (0.55-1.3) H 03/13/19 05:59 Glucose 86 mg/dL (74-106) 03/13/19 05:59 Total Bilirubin 0.4 mg/dL (0.2-1.0) 03/13/19 05:59 AST 19 U/L (15-37) 03/13/19 05:59 ALT 25 U/L (12-78) 03/13/19 05:59 Alkaline Phosphatase 83 U/L (45-117) 03/13/19 05:59 Home Medications: Clopidogrel Bisulfate [Plavix*] 75 mg PO DAILY 02/25/19 Formoterol Fumarate 20 mcg IN BID 02/25/19 Isosorbide Mononitrate [Isosorbide Mononitrate ER] 30 mg pe PO DAILY 02/25/19 Revefenacin [Yupelri] 175 mcg IN DAILY 02/25/19 Tamsulosin [Flomax*] 0.4 mg PO DAILY 02/25/19 Aspirin Chewable [Aspirin Chewable*] 81 mg PO DAILY 03/06/19 Duoneb 2.5 mg IN QID 03/06/19 Finasteride [Proscar*] 5 mg PO DAILY 03/06/19 Furosemide [Lasix*] 10 mg PO DAILY 03/06/19 Metoprolol Tartrate [Lopressor*] 25 mg PO BID 03/06/19 Mirtazapine 7.5 mg PO BEDTIME 03/06/19 Nicotine [Nicoderm*] 1 patch TD DAILY 03/06/19 Triamcinolone 0.1% Crm [Kenalog 0.1% Cream*] 15 appl TOP BID 03/06/19 predniSONE [Prednisone*] 5 mg PO SEECOM 03/06/19 Diet: Regular Activity: Ad alen Time spent managing pt's care (in minutes): 55
== END 2019-03-19 11:22 | disposition hospice, home (50) | DRG 308 ==
LOC: 2ND 18:46
PROVIDERS: ADMIT Family Medicine; ATTEND Family Medicine
DX: I47.1 Supraventricular tachycardia (principal); I50.33 Acute on chronic diastolic (congestive) heart failure; J96.21 Acute and chronic respiratory failure with hypoxia; I62.03 Nontraumatic chronic subdural hemorrhage; I13.0 Hypertensive heart and chronic kidney disease with heart failure and stage 1 through stage 4 chronic kidney disease, or unspecified chronic kidney disease; R64 Cachexia; Z68.1 Body mass index [BMI] 19.9 or less, adult; I50.32 Chronic diastolic (congestive) heart failure; I48.0 Paroxysmal atrial fibrillation; J44.9 Chronic obstructive pulmonary disease, unspecified; I25.10 Atherosclerotic heart disease of native coronary artery without angina pectoris; N18.3 Chronic kidney disease, stage 3 (moderate); E86.0 Dehydration; I95.9 Hypotension, unspecified; Z85.46 Personal history of malignant neoplasm of prostate; Z95.2 Presence of prosthetic heart valve; Z85.47 Personal history of malignant neoplasm of testis
CPT/HCPCS: 36415; 71045; 71250; 80053; 82805; 85025; 94640; 94660; 94760; 97110; 97112; 97161; 97530; J1644; J1720; J1940; J2920; J7030; J7512; J7605